=== PATIENT | female | born 1950 | race Caucasian/White ===

== ENCOUNTER 2016-06-29 15:13 | Emergency (ER) | payer OTHER ==
[~2016-06-29] VITALS: Ht 172.7 cm; Wt 100.2 kg
[~2016-06-29 15:13] MED LIST: ALBUTEROL0.09 MG/A1 INH; AMBIEN 10MG10 MG PO; AMIODARONE200 MG PO; ATIVAN 0.5MG T0.5 MG PO; CARAFATE1 GM/10 M1 PO; CARDIZEM 90 MG90 MG PO; CARDIZEM120 MG PO; CLONAZEPAM0.5 MG PO; CORDARONE 100M100 MG PO; COUMADIN 2.5 M2.5 MG PO; COUMADIN 5 MG TA5 MG PO; CYCLOBENZAPRINE5 M2 PO; DILAUDID2 M1 PO; DILTIAZEM HCL120 M2 PO; DILTIAZEM HCL240 MG PO; ELIQUIS5 M1 PO; GABAPENTIN TAB600 MG PO; LASIX20 MG PO; LOPERAMIDE2 MG PO; LOPRESSOR 25MG25 MG PO; MAGNESIUM250 MG PO; MIRAPEX0.125 MG PO; PANTOPRAZOLE SO40 M1 PO; POTASSIUM99 MG PO; PREDNISONE10 MG PO; PREDNISONE5 MG PO; PRINIVIL 5MG5 MG PO; SINGULAIR10 MG PO; TRAMADOL50 MG PO; VITAB121000 PO; VITAMIN A10000 IU PO; VITAMIN D35000 IU PO; XOPENEX HFA45 MCG INH; ZOLPIDEM5 MG PO
[2016-06-29 15:39] LABS: ABSOLUTE BASOPHIL COUNT 0 /CUMM (0.0-0.2); ABSOLUTE EOSINOPHIL COUNT 0 /CUMM (0.0-0.7); ABSOLUTE GRANULOCYTE CT 7.5 /CUMM (1.4-6.5); ABSOLUTE MONOCYTE COUNT 0.5 /CUMM (0.10-0.60); BASOPHIL % 0.2 % (0.0-2.0); EOSINOPHIL % 0.3 % (0-5); GRANULOCYTE % 82.2 % (42.2-75.2); HEMATOCRIT 35.5 % (37-47); MEAN CORPUSCULAR HGB 32.6 PG (27.0-31.0); MEAN CORPUSCULAR HGB CONC 33.2 G/DL (33.0-37.0); MEAN PLATELET VOLUME 7.7 FL (7.4-10.4); PLATELET COUNT 268 /CUMM (130-400); RBC DISTRIBUTION WIDTH 15.8 % (11.5-14.5); RED BLOOD CELL CT 3.63 /CUMM (4.20-5.40); WHITE BLOOD CELL COUNT 9.1 /CUMM (4.8-10.8)
[2016-06-29 15:45] LABS: PT 14.8 SEC (9.4-12.5); PTT 33 SEC (25-37)
--- NOTE | 2016-06-29 16:33 | ED DYSPNEA/ASTHMA COMPLAINT ---
History of Present Illness General Chief Complaint: Dyspnea (COPD, CHF, Other) Stated Complaint: SENT BY DR. BOUCHER FOR SOB,SWOLLEN ANKLES Source: patient Exam Limitations: no limitations Vital Signs & Intake/Output Vital Signs & Intake/Output Vital Signs Date Time Temp Pulse Resp B/P Pulse O2 O2 Flow FiO2 Ox Delivery Rate 06/29 1640 98 Room Air 06/29 1534 97.5 75 18 132/92 96 Room Air Allergies Coded Allergies: NSAIDS (Non-Steroidal Anti-Inflamma (PER PT HAS A SMALL AMOUNT OF INTESTINES FROM [facility] 08/25/15) morphine (N/V, CAN'T URINATE 08/25/15) tetracycline (UNKNOWN PER PT, HAS SHORTENED INTESTINES FROM [facility] 08/25/15) Uncoded Allergies: HORSE SERUM (Severe, ANAPHYLAXIS 01/27/16) ORAL ANTIBIOTIC (PT HAS SHORTENED INTESTINES FROM [facility] HARD TIME TOLERATING ) Reconcile Medications Apixaban (Eliquis) 5 MG TABLET 1 TAB PO BID BLOOD THINNER (Reported) Cyanocobalamin (Vitamin B-12) 1,000 MCG TAB 1 TAB PO DAILY SUPPLEMENT ( Reported) Cyclobenzaprine HCl 5 MG TABLET 1-2 TAB PO Q8 PRN muscle relaxant may cause drowsiness Gabapentin (Gabapentin Tab 600MG) 600 MG TAB 1 TAB PO DAILY RESTLESS LEGS ( Reported) Hydromorphone HCl (Dilaudid) 2 MG TABLET 1 TAB PO Q6H PRN pain Levalbuterol Tartrate (Xopenex HFA) 45 MCG AER 2 PUFF INH Q6H PRN ASTHMA ( Reported) Loperamide Hydrochloride (Loperamide) 2 MG TAB 1 TAB PO Q4H PRN DIARRHEA ( Reported) Lorazepam (Ativan 0.5MG Tab) 0.5 MG TAB 0.5 MG PO AT BEDTIME PRN restless leg syndrome Magnesium Oxide (Magnesium) (Unknown Strength) TAB 1 TAB PO DAILY SUPPLEMENT (Reported) Montelukast Sodium (Singulair) 10 MG TAB 1 TAB PO DAILY asthma (Reported) Pantoprazole Sodium 40 MG TABLET.DR 1 TAB PO BID GI (Reported) Pramipexole Dihydrochloride (Mirapex) 0.125 MG TAB 2-3 TAB PO QHS RESTLESS LEGS (Reported) Sucralfate (Carafate) (Unknown Strength) ORAL.SUSP (Unknown Dose) PO AD GI ( Reported) 1 hour before food and bedtime TRAMADOL HCL (Tramadol) 50 MG TAB 1 TAB PO TID PRN PAIN (Reported) Vitamin A 10,000 IU SGL 1 SGL PO DAILY SUPPLEMENT (Reported) Zolpidem Tartrate 5 MG TAB 1 TAB PO QPM SLEEP (Reported) Triage Note: 65 Y/O FEMALE SENT BY DR BOUCHER FOR EVAL OF SOB AND SWOLLEN ANKLES. PT STATES SHE HAS BEEN TAKING BUMEX AND DIRECTED BUT SWELLING PERSISTS. FEELS SOB AT REST, SPEAKING CLEARLY WITHOUT DISTRESS NOTED. SAT 96%. PT STATES SHE IS UNABLE TO TALK WITHOUT FEELING SOB. DENIES C/P. EKG AND BLOODWORK COMPLETED IN TRIAGE Triage Nurses Notes Reviewed? yes Onset: Gradual Duration: week(s): (2) Timing: recent history Severity: moderate Activities at Onset: none Prior Episodes/Possible Cause: occasional episodes Modifying Factors: Improves With: immobilization. Worsens With: movement. HPI: Patient is a 65-year-old female presenting to the emergency department chief complaining of worsening lower showman edema, shortness of breath thing getting worse over the past 2 weeks. Symptoms worse with exertion. Denies chest pain palpitations. History of A. fib with cardio ablation that was done 6 months ago. She called her filter tip catcher's in the office told her to come to the emergency department for evaluation. Denies any nausea or vomiting fevers or chills. She reports that she hadn't several episodes of loose stool yesterday. She held back from taking her diuretic over the past 2 days because of the diarrhea. No blood in the stool. Denies vomiting. Able to tolerate by mouth. (YOHANA GERBER,JUAN JOSE) Past History Travel History Traveled to [place] past 21 day No Medical History Any Pertinent Medical History? see below for history Neurological: RESTLESS LEGS EENT: NONE Cardiovascular: hypertension, recent embolus to her hand Respiratory: asthma Gastrointestinal: Crohn's disease, COLON RESECTION Colonoscopy 09/17 with balloon dilation of an anastomotic stricture and 'digital' dilation of an anal stricture , but no acitve crohns disease was appreciated Hepatic: NONE Renal: NONE Musculoskeletal: NONE Psychiatric: NONE Endocrine: NONE Blood Disorders: NONE Cancer(s): NONE ELECTRICIAN'S ASSISTANT/Reproductive: NONE History of MRSA: No History of VRE: No History of CDIFF: No Tetanus Vaccine: 01/21/16 Surgical History Surgical History: colon resection (for Crohn's disease) Psychosocial History Who do you live with Spouse Services at Home None What is your primary language [place] Tobacco Use: Never used Family History Family History, If Any: BROTHER FATHER (cardiomyopathy). Relation not specified for: FH: HTN (hypertension) Hx Contributory? No (JUAN JOSE BAEZ) Review of Systems Review of Systems Constitutional: Reports: no symptoms. Comments Review of systems: See HPI, All other systems negative. Constitutional, no chills fever or weight loss HEENT: No visual changes no sore throat no congestion Cardiovascular: No chest pain ,palpitation , orthopnea Skin, no jaundice no rashes Respiratory: No cough sputum or hemoptysis GI: No nausea no vomiting : No dysuria No hematuria Muscle skeletal: no back pain, no neck pain, Neurologic: No numbness no confusion Psych: No stress anxiety or depression,. Heme/endocrine: No bruising no bleeding no polyuria or polydipsia Immunology: No splenectomy or history of AIDS (JUAN JOSE BAEZ) Physical Exam Physical Exam General Appearance: well developed/nourished, no apparent distress, alert, awake , comfortable Respiratory: no respiratory distress Comments: Well-developed well-nourished person in no acute distress HEENT: . Pupils equally round and reactive to light and accommodation. Nose is atraumatic. External auditory canal and Tympanic membranes clear. Pharynx normal. No swelling or edema. Neck: Supple, no lymphadenopathy, normal range of motion without pain or tenderness Back: Nontender Cardiovascular: Regular rate and rhythms no murmurs rubs or gallops, normal JVP Respiratory: Chest nontender. No respiratory distress.breath sounds slightly diminished to auscultation bilaterally Extremity: 3+ pitting edema noted over the dorsum of both feet extending in the pretibial area, no calf tenderness bilaterally. Pedal pulses are 1+ bilaterally. Cap refill intact in lower extremity bilaterally. Neuro: Alert oriented x3 Skin: No appreciable rash on exposed skin, skin is warm and dry. Psych: Mood and affect is normal, memory and judgment is normal. Core Measures ACS in differential dx? No Severe Sepsis Present: No Septic Shock Present: No (JUAN JOSE BAEZ) Progress Differential Diagnosis: asthma, bronchitis, CHF, COPD, pneumonia Plan of Care: Orders Procedure Date/time Status Add-on Test (ER Only) 06/29 1631 Active B-TYPE NATRIURETIC PEP (BNP) 06/29 1530 Complete TROPONIN LEVEL 06/29 1515 Complete PARTIAL THROMBOPLASTIN TIME 06/29 1515 Complete PROTHROMBIN TIME 06/29 1515 Complete MAGNESIUM 06/29 1515 Complete COMPREHENSIVE METABOLIC PANEL 06/29 1515 Complete CBC WITHOUT DIFFERENTIAL 06/29 1515 Complete EKG 06/29 1514 Active Laboratory Tests 06/29/16 1530: Anion Gap 11, Estimated GFR > 60, BUN/Creatinine Ratio 17.8, Glucose 95, Calcium 9.8, Magnesium 1.6, Total Bilirubin 1.0, AST 49 H, ALT 42, Alkaline Phosphatase 83, Troponin I < 0.01, Wnd-D-Yeojxuxejvm Pept 359 H, Total Protein 7.9, Albumin 4.4, Globulin 3.5, Albumin/Globulin Ratio 1.3, PT 14.8 H, INR 1.41 H, APTT 33, CBC w Diff NO MAN DIFF REQ, RBC 3.63 L, MCV 98.0, MCH 32.6 H, RDW 15.8 H, MPV 7.7, Gran % 82.2 H, Lymphocytes % 11.4 L, Monocytes % 5.9, Eosinophils % 0.3, Basophils % 0.2, Absolute Granulocytes 7.5 H, Absolute Lymphocytes 1.0 L, Absolute Monocytes 0.5, Absolute Eosinophils 0, Absolute Basophils 0, PUBS MCHC 33.2 Diagnostic Imaging: Viewed by Me: Radiology Read. Discussed w/RAD: Radiology Read. Radiology Impression: PATIENT: SONIA DARNELL PRESENT AGE: 65 PATIENT ACCOUNT NO: [id number] : 49 LOCATION: [facility] ORDERING PHYSICIAN: JON CHRIS MD SERVICE DATE: 06/29/16 EXAM TYPE: RAD - XRY- CHEST XRAY, PA AND LATERAL EXAMINATION: XR CHEST CLINICAL INFORMATION: Shortness of breath. COMPARISON: Chest x-ray from 08/22/2015 TECHNIQUE: PA and lateral views of the chest were obtained. FINDINGS: There is stable cardiomegaly. The thoracic aorta is unfolded. There is no evidence of pulmonary edema, consolidation, pleural effusion, or pneumothorax. Minor platelike opacity in the left midlung may reflect vascular structures, atelectasis, or scar. There is mild multilevel degenerative change of the spine without evidence of acute osseous abnormality. IMPRESSION: Stable cardiomegaly without evidence of superimposed acute abnormality. Initial ED EKG: NSR (69 BPM) Comments: Outpatient no acute distress, oxygen saturation within normal range. A oxygen saturation remains between 96-97%. Patient was given 1 dose of Bumex here in the emergency department for pedal edema. No signs of acute CHF on chest x-ray. BNP is within normal range. Spoke with Dr. Decker covering for Dr. Boucher. Recommending she follow up outpatient with Dr. Boucher. Patient was seen and evaluated by Dr. Chris. Patient cleared for discharge. (JUAN JOSE BAEZ) Departure Departure Time of Disposition: 1839 Disposition: HOME OR SELF CARE Condition: Stable Clinical Impression Primary Impression: Dyspnea Qualifiers: Dyspnea type: unspecified Qualified Code: R06.00 - Dyspnea, unspecified Secondary Impressions: Leg edema Qualifiers: Laterality: bilateral Qualified Code: R60.0 - Localized edema Referrals: TRINA POE MD (PCP/Family) Additional Instructions: Follow-up with Dr. Tesfaye, CALL TO make an appointment. Continue Bumex as prescribed. Return for worsening symptoms or concerns. Departure Forms: Customer Survey General Discharge Information (JUAN JOSE BAEZ) PA/NONFARM ANIMAL CARETAKER Co-Sign Statement Statement: ED Attending supervision documentation- x I saw and evaluated the patient. I have also reviewed all the pertinent lab results and diagnostic results. I agree with the findings and the plan of care as documented in the PA's/NONFARM ANIMAL CARETAKER's documentation. [] I have reviewed the ED Record and agree with the PA's/NONFARM ANIMAL CARETAKER's documentation. [] Additions or exceptions (if any) to the PAs/NONFARM ANIMAL CARETAKER's note and plan are summarized below: [] (JON CHRIS MD) Critical Care Note Critical Care Note Critical Care Time: non-applicable (JUAN JOSE BAEZ)
[2016-06-29 19:15] VITALS: BP 151/91
== END 2016-06-29 19:20 ==
LOC: ERH 15:13
PROVIDERS: Emergency Medicine
DX: R06.00 Dyspnea, unspecified (principal); R60.0 Localized edema; I10 Essential (primary) hypertension
CPT/HCPCS: 93005; 93010

== ENCOUNTER 2017-05-31 19:08 | Inpatient (IN) | payer OTHER ==
[~2017-05-31] VITALS: Ht 172.7 cm; Wt 94.8 kg
[~2017-05-31 19:08] MED LIST changes: +AVELOX400 M1 PO; +BACTRIM DS TAB1 EACH PO; +GABAPENTIN600 M1 PO; -MAGNESIUM250 MG PO; +MAGNESIUM400 M1 PO; +MIRAPEX0.25 M1 PO
--- NOTE | 2017-05-31 19:53 | ED DYSPNEA/ASTHMA COMPLAINT ---
History of Present Illness General Chief Complaint: General Adult Stated Complaint: SAYS LUNGS ARE INFECTED,AND A BLEED Source: patient, family, old records Exam Limitations: no limitations Vital Signs & Intake/Output Vital Signs & Intake/Output Vital Signs Date Time Temp Pulse Resp B/P B/P Pulse O2 O2 Flow FiO2 Mean Ox Delivery Rate 05/31 2220 96.7 114 20 142/82 93 Venti Mask 6.0L 05/31 2116 94 Venti Mask 6.0L 05/31 2005 89 Nasal 4.0L Cannula 05/31 1913 99.8 107 28 169/75 87 Room Air Allergies Coded Allergies: NSAIDS (Non-Steroidal Anti-Inflamma (PER PT HAS A SMALL AMOUNT OF INTESTINES FROM [facility] 08/25/15) morphine (N/V, CAN'T URINATE 08/25/15) tetracycline (UNKNOWN PER PT, HAS SHORTENED INTESTINES FROM [facility] 08/25/15) Uncoded Allergies: HORSE SERUM (Severe, ANAPHYLAXIS 01/27/16) ORAL ANTIBIOTIC (PT HAS SHORTENED INTESTINES FROM [facility] HARD TIME TOLERATING ) Reconcile Medications Apixaban (Eliquis) 5 MG TABLET 1 TAB PO BID BLOOD THINNER (Reported) Clonazepam 0.5 MG TABLET 1 TAB PO TIDPRN MENTAL HEALTH (Reported) Cyanocobalamin (Vitamin B-12) 1,000 MCG TAB 1 TAB PO DAILY SUPPLEMENT ( Reported) Cyclobenzaprine HCl 5 MG TABLET 1-2 TAB PO Q8 PRN muscle relaxant may cause drowsiness Diltiazem HCl 120 MG TABLET HEART HEALTH (Reported) Gabapentin (Gabapentin Tab 600MG) 600 MG TAB 1 TAB PO DAILY RESTLESS LEGS ( Reported) Gabapentin 600 MG TABLET 1 TAB PO AT BEDTIME RLS Hydromorphone HCl (Dilaudid) 2 MG TABLET 1 TAB PO Q6H PRN pain Levalbuterol Tartrate (Xopenex HFA) 45 MCG AER 2 PUFF INH Q6H PRN ASTHMA ( Reported) Levalbuterol Tartrate (Xopenex Hfa) 45 MCG/ACTUATION HFA.AER.AD 2 PUF INH Q4-6 PRN PRN SHORTNESS OF BREATH (Reported) Lisinopril 10 MG TABLET 1 TAB PO DAILY HIGH BLOOD PRESSURE (Reported) Loperamide Hydrochloride (Loperamide) 2 MG TAB 1 TAB PO Q4H PRN DIARRHEA ( Reported) Lorazepam (Ativan 0.5MG Tab) 0.5 MG TAB 0.5 MG PO AT BEDTIME PRN restless leg syndrome Magnesium Oxide (Magnesium) (Unknown Strength) TAB 1 TAB PO DAILY SUPPLEMENT (Reported) Montelukast Sodium (Singulair) 10 MG TAB 1 TAB PO DAILY asthma (Reported) Montelukast Sodium 10 MG TABLET 1 TAB PO DAILY BREATHING PROBLEMS (Reported) Moxifloxacin HCl (Avelox) 400 MG TABLET 1 TAB PO DAILY PNEUMONIA Pantoprazole Sodium 40 MG TABLET.DR 1 TAB PO BID GI (Reported) Pramipexole Di-HCl (Mirapex) 0.25 MG TABLET 1 TAB PO QPM RLS Pramipexole Dihydrochloride (Mirapex) 0.125 MG TAB 2-3 TAB PO QHS RESTLESS LEGS (Reported) Prednisone 5 MG TABLET 1 TAB PO DAILY BREATHING PROBLEMS (Reported) Sucralfate (Carafate) (Unknown Strength) ORAL.SUSP (Unknown Dose) PO AD GI ( Reported) 1 hour before food and bedtime Sulfamethoxazole/Trimethoprim (Bactrim Ds Tablet) 800 MG-160 MG TABLET 1 TAB PO BID BRONCHITIS TRAMADOL HCL (Tramadol) 50 MG TAB 1 TAB PO TID PRN PAIN (Reported) Tramadol HCl 50 MG TABLET 1 TAB PO TIDPRN PAIN CONTROL (Reported) Vitamin A 10,000 IU SGL 1 SGL PO DAILY SUPPLEMENT (Reported) Zolpidem Tartrate 5 MG TAB 1 TAB PO QPM SLEEP (Reported) Zolpidem Tartrate 10 MG TABLET 1 TAB PO QPMP SLEEPINESS (Reported) Triage Note: PT TO ED C/O SOB FOR 10 DAYS. STATES WAS UNABLE TO GET AN APPOINTMENT TO SEE DR JACOBO "BUT I DEMANDED THAT HE SEND A SPUTUM SAMPLE WHICH HE DID" PT WITH 3 WORD DYSNEA AND VERY CONGESTED COUGH NOTED. O2 SAT 88% ON RA. PLACED ON NC 4L/MIN, O2 SAT TO 92%. PT ALSO C/O BLOOD ON TP WHEN SHE WIPES. PMH OF SAME. "I PUT A SUPPOSITORY IN THERE, THAT'S USUALLY WHAT IT TAKES" PT DENIES PAIN. PMH OF AFIB "I'M NOT USUALLY IN AFIB" HR SLIGHTLY IRREGULAR ON AUSCULTATION, RATE 107. Triage Nurses Notes Reviewed? yes HPI: Patient presents with increasing shortness of breath, productive cough and dyspnea on exertion. Patient denies any chest pain or chest tightness. There are no fevers or chills. There is no orthopnea. There is anorexia but there is no nausea or vomiting. Patient is chronically on steroids at 7.5 mg daily. 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 With past 2 days patient has also noticed bright red Blood on the toilet paper when she wipes after bowel movements. She has not noticed any blood in the clinical or in the stool. Past History Travel History Traveled to [place] past 21 day No Medical History Any Pertinent Medical History? see below for history Neurological: RESTLESS LEGS EENT: NONE Cardiovascular: hypertension, recent embolus to her hand Respiratory: asthma, BRONCHIOLITIS Gastrointestinal: Crohn's disease, COLON RESECTION Colonoscopy 09/17 with balloon dilation of an anastomotic stricture and 'digital' dilation of an anal stricture , but no acitve crohns disease was appreciated Hepatic: NONE Renal: NONE Musculoskeletal: NONE Psychiatric: NONE Endocrine: NONE Blood Disorders: NONE Cancer(s): NONE RESOURCE ENGINEER/Reproductive: NONE History of MRSA: No History of VRE: No History of CDIFF: No Tetanus Vaccine: 01/21/16 Surgical History Surgical History: colon resection (for Crohn's disease) Psychosocial History Who do you live with Spouse Services at Home None What is your primary language Kazakh Tobacco Use: Never used ETOH Use: denies use Illicit Drug Use: denies illicit drug use Family History Family History, If Any: BROTHER FATHER (cardiomyopathy). Relation not specified for: FH: HTN (hypertension) Hx Contributory? No Review of Systems Review of Systems Constitutional: Reports: no symptoms. EENTM: Reports: no symptoms. Respiratory: Reports: see HPI, cough. Cardiovascular: Reports: no symptoms. GI: Reports: no symptoms. Genitourinary: Reports: no symptoms. Musculoskeletal: Reports: no symptoms. Skin: Reports: no symptoms. Neurological/Psychological: Reports: no symptoms. Hematologic/Endocrine: Reports: no symptoms. Immunologic/Allergic: Reports: no symptoms. All Other Systems: Reviewed and Negative Physical Exam Physical Exam General Appearance: well developed/nourished, alert, awake, anxious, moderate distress Head: atraumatic, normal appearance Eyes: Bilateral: PERRL, EOMI. Ears, Nose, Throat: normal pharynx, normal ENT inspection, hearing grossly normal Neck: normal inspection, supple, full range of motion, NO JVD Respiratory: decreased breath sounds, rhonchi, wheezing, respiratory distress Cardiovascular: normal peripheral pulses, tachycardia Gastrointestinal: normal bowel sounds, soft, non-tender, no organomegaly Extremities: normal inspection, normal capillary refill, normal range of motion, no edema Neurologic/Psych: no motor/sensory deficits, awake, alert, oriented x 3, normal mood/affect Skin: intact, normal color, warm/dry Lymphatic: no anterior cervical jesus Core Measures ACS in differential dx? No CVA/TIA Diagnosis No Sepsis Present: No Sepsis Focused Exam Completed? No Progress Differential Diagnosis: bronchitis, COPD, pericarditis, pulmonary embolism, pneumonia, pneumothorax Plan of Care: Orders Procedure Date/time Status Heart Healthy Diet 06/01 B Active ED Holding Orders 05/31 2245 Active Admit to inpatient 05/31 2245 Active Vital Signs 05/31 2245 Active Code Status 05/31 2245 Active BLOOD CULTURE 05/31 1953 Active TROPONIN LEVEL 05/31 1953 Complete COMPREHENSIVE METABOLIC PANEL 05/31 1953 Complete CBC WITHOUT DIFFERENTIAL 05/31 1953 Complete EKG 05/31 193 Active Current Medications Sig/Bassem Start time Last Medication Dose Stop Time Status Admin Azithromycin 500 MG ONCE ONE 05/31 2245 AC (Zithromax) 05/31 2344 Sodium Chloride 250 ML (Normal Saline 0.9%) Laboratory Tests 05/31/17 2100: Anion Gap 15, Estimated GFR > 60, BUN/Creatinine Ratio 15.0, Glucose 97, Calcium 9.5, Total Bilirubin 0.4, AST 49 H, ALT 39, Alkaline Phosphatase 73, Troponin I 0.07, Total Protein 8.2, Albumin 4.5, Globulin 3.7, Albumin/Globulin Ratio 1.2, CBC w Diff NO MAN DIFF REQ, RBC 4.46, MCV 93.1, MCH 30.0, RDW 28.7 H, MPV 7.9, Gran % 80.3 H, Lymphocytes % 13.1 L, Monocytes % 5.6, Eosinophils % 0.7, Basophils % 0.3, Absolute Granulocytes 7.9 H, Absolute Lymphocytes 1.3, Absolute Monocytes 0.6, Absolute Eosinophils 0.1, Absolute Basophils 0, PUBS MCHC 32.2 L Microbiology 05/31 2145 BLOOD: Blood Culture - RECD 05/31 2045 BLOOD: Blood Culture - RECD Diagnostic Imaging: Viewed by Me: Radiology Read. Discussed w/RAD: Radiology Read. CXR Impression: PATIENT: SONIA DARNELL PRESENT AGE: 66 PATIENT ACCOUNT NO: [id number] : 49 LOCATION: [facility] ORDERING PHYSICIAN: Kolby Oden MD SERVICE DATE: 05/31/17 EXAM TYPE: RAD - XRY-CHEST XRAY, PA AND LATERAL EXAMINATION: XR CHEST, 2 VIEWS CLINICAL INFORMATION: Cough. Pneumonia. COMPARISON: Chest radiograph dated 06/29/[address] dated 2016. TECHNIQUE: PA and lateral views of the chest were obtained. FINDINGS: Cardiac silhouette remains enlarged. There is pulmonary venous congestion and linear opacities in the left midlung likely correspond to atelectasis or scarring. New patchy opacities are present within the right upper lobe, potentially due to an pneumonia. Opacification in the medial aspect of the right middle lobe on the prior CT is not well identified radiographically. No pneumothorax or pleural effusion. Superior endplate compression deformities in the lower thoracic spine are again noted. No new fractures are identified. Bones are osteopenic. IMPRESSION: 1. New patchy opacities in the right upper lobe, concerning for pneumonia. 2. Cardiomegaly and pulmonary venous congestion. 3. The opacity in the right middle lobe seen on prior is not apparent radiographically, and should be followed by CT is recommended at that time. Please check with the patient to be certain that this was followed at an outside institution or is scheduled to be followed. DICTATED BY: Giovanny Charles MD DATE/ TIME DICTATED:05/31/172221 SENIOR DATA WAREHOUSE DEVELOPER:DEEPTHI DATE/TIME TRANSCRIBED: 05/31/172221 CONFIDENTIAL, DO NOT COPY WITHOUT APPROPRIATE AUTHORIZATION. < Electronically signed in Other Vendor System> SIGNED BY: Giovanny Charles MD 05/31/172231 Initial ED EKG: S TACH AT 106, PVC, NSSTT CHANGES, NO CHANGE FROM PRIOR Prior EKG: unchanged Departure Departure Disposition: STILL A PATIENT Condition: Guarded Clinical Impression Primary Impression: Pneumonia Qualifiers: Pneumonia type: due to unspecified organism Laterality: right Lung location: upper lobe of lung Qualified Code: J18.1 - Lobar pneumonia, unspecified organism Referrals: Ari Ramsey MD (PCP/Family) Departure Forms: Customer Survey General Discharge Information Admission Note Spoke With: Lashell Sandra MD Documentation of Exam: Documentation of any treatments & extenuating circumstances including Concerns Regarding Discharge (functional status, medication knowledge or non-compliance, living conditions, etc.) that warrant an admission rather than observation: [IV ABX, IV STEROIDS, PULM CONSULT, OXYGEN, RESP TREATMENT, NOT ON HOME O2 BUT REQUIRING O2 CURRENTLY] Critical Care Note Critical Care Note Critical Care Time: non-applicable
[2017-05-31 21:17] LABS: ABSOLUTE BASOPHIL COUNT 0 /CUMM (0.0-0.2); ABSOLUTE EOSINOPHIL COUNT 0.1 /CUMM (0.0-0.7); ABSOLUTE GRANULOCYTE CT 7.9 /CUMM (1.4-6.5); ABSOLUTE LYMPH COUNT 1.3 /CUMM (1.2-3.4); ABSOLUTE MONOCYTE COUNT 0.6 /CUMM (0.10-0.60); BASOPHIL % 0.3 % (0.0-2.0); EOSINOPHIL % 0.7 % (0-5); GRANULOCYTE % 80.3 % (42.2-75.2); HEMATOCRIT 41.5 % (37-47); MEAN CORPUSCULAR HGB CONC 32.2 G/DL (33.0-37.0); MEAN CORPUSCULAR VOLUME 93.1 FL (81.0-99.0); MEAN PLATELET VOLUME 7.9 FL (7.4-10.4); PLATELET COUNT 278 /CUMM (130-400); RBC DISTRIBUTION WIDTH 28.7 % (11.5-14.5); RED BLOOD CELL CT 4.46 /CUMM (4.20-5.40); WHITE BLOOD CELL COUNT 9.9 /CUMM (4.8-10.8)
[2017-05-31] MEDS ORDERED: DILTIAZEM HCL120 M3 (21:19)
[2017-05-31] MEDS ORDERED: TRAMADOL HCL50 M1 PO (21:20)
[2017-05-31] MEDS ORDERED: PREDNISONE5 M1 PO (21:20)
[2017-05-31] MEDS ORDERED: ZOLPIDEM TARTRA10 M1 PO (21:21)
[2017-05-31] MEDS ORDERED: XOPENEX HFA15 GM INH (21:21)
[2017-05-31] MEDS ORDERED: MONTELUKAST SOD10 M1 PO (21:21)
[2017-05-31] MEDS ORDERED: CLONAZEPAM0.5 M2 PO (21:21)
[2017-05-31] MEDS ORDERED: LISINOPRIL10 M1 PO (21:22)
--- NOTE | 2017-05-31 22:32 | RADIOLOGY REPORT ---
EXAMINATION: XR CHEST, 2 VIEWS CLINICAL INFORMATION: Cough. Pneumonia. COMPARISON: Chest radiograph dated 06/29/[address] dated 02/24/2017. TECHNIQUE: PA and lateral views of the chest were obtained. FINDINGS: Cardiac silhouette remains enlarged. There is pulmonary venous congestion and linear opacities in the left midlung likely correspond to atelectasis or scarring. New patchy opacities are present within the right upper lobe, potentially due to an pneumonia. Opacification in the medial aspect of the right middle lobe on the prior CT is not well identified radiographically. No pneumothorax or pleural effusion. Superior endplate compression deformities in the lower thoracic spine are again noted. No new fractures are identified. Bones are osteopenic. IMPRESSION: 1. New patchy opacities in the right upper lobe, concerning for pneumonia. 2. Cardiomegaly and pulmonary venous congestion. 3. The opacity in the right middle lobe seen on prior is not apparent radiographically, and should be followed by CT is recommended at that time. Please check with the patient to be certain that this was followed at an outside institution or is scheduled to be followed.
--- NOTE | 2017-06-01 01:13 | History & Physical ---
Letitia Madrid MD,[facility] 06/01/17 0106: General Information and HPI MD Statement: I have seen and personally examined SONIA DARNELL and documented this H&P. The patient is a 66 year old F who presented with a patient stated chief complaint of dyspnea and cough. Source of Information: patient History of Present Illness: Patient is a 65 year old female with PMH of A.fib (follows Silverio Gomez MD, on eliquise, history of emboly to the hand, s/p ablation 2.[address] 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 She noted that for the last 2 weeks she had gradual increase in shortness of breathing and cough with yellow sputum which changed to brown collarless with him in the last few days. She also reported decreased appetite and sharp chest pain with cough, PND. She also reported loose stools which is no change compared to her baseline (she has history of Crohn's disease) but no abdominal pain or nausea or vomiting. She visited walking clinic last week with no improvement and with worsening of the symptoms she decided to come to ED. She reported no history of smoking, alcohol intake, drugs. She lives with and is pretty much independent in activities of daily life, but avoids outside of the house for long periods due to Crohn disease. Father was a surgeon at [employer] in remote years and had several heart attacks; mom suffered from cardiomyopathy. She didn't have flu shot as she is allergic to egg. Allergies/Medications Allergies: Coded Allergies: NSAIDS (Non-Steroidal Anti-Inflamma (PER PT HAS A SMALL AMOUNT OF INTESTINES FROM [facility] 08/25/15) morphine (N/V, CAN'T URINATE 08/25/15) tetracycline (UNKNOWN PER PT, HAS SHORTENED INTESTINES FROM [facility] 08/25/15) Uncoded Allergies: HORSE SERUM (Severe, ANAPHYLAXIS 01/27/16) ORAL ANTIBIOTIC (PT HAS SHORTENED INTESTINES FROM [facility] HARD TIME TOLERATING ) Home Med list Apixaban (Eliquis) 5 MG TABLET 1 TAB PO BID BLOOD THINNER (Reported) Clonazepam 0.5 MG TABLET 1 TAB PO TIDPRN MENTAL HEALTH (Reported) Diltiazem HCl 120 MG TABLET HEART HEALTH (Reported) Gabapentin 600 MG TABLET 1 TAB PO AT BEDTIME RLS Hydromorphone HCl (Dilaudid) 2 MG TABLET 1 TAB PO Q6H PRN pain Levalbuterol Tartrate (Xopenex HFA) 45 MCG AER 2 PUFF INH Q6H PRN ASTHMA ( Reported) Levalbuterol Tartrate (Xopenex Hfa) 45 MCG/ACTUATION HFA.AER.AD 2 PUF INH Q4-6 PRN PRN SHORTNESS OF BREATH (Reported) Lisinopril 10 MG TABLET 1 TAB PO DAILY HIGH BLOOD PRESSURE (Reported) Loperamide Hydrochloride (Loperamide) 2 MG TAB 1 TAB PO Q4H PRN DIARRHEA ( Reported) Magnesium Oxide (Magnesium) 400 MG CAPSULE 400 MG PO BID MAG (Reported) Montelukast Sodium (Singulair) 10 MG TAB 1 TAB PO DAILY asthma (Reported) Pantoprazole Sodium 40 MG TABLET.DR 1 TAB PO BID GI (Reported) Pramipexole Dihydrochloride (Mirapex) 0.125 MG TAB 2-3 TAB PO QHS RESTLESS LEGS (Reported) Prednisone 5 MG TABLET 1 TAB PO DAILY BREATHING PROBLEMS (Reported) Sucralfate (Carafate) (Unknown Strength) ORAL.SUSP (Unknown Dose) PO AD GI ( Reported) 1 hour before food and bedtime Tramadol HCl 50 MG TABLET 1 TAB PO BIDP PRN pain (Reported) Vitamin A 10,000 IU SGL 1 SGL PO DAILY SUPPLEMENT (Reported) Zolpidem Tartrate 10 MG TABLET 0.5 TAB PO QPMP SLEEPINESS (Reported) Past History Travel History Traveled to [place] past 21 day No Medical History Neurological: RESTLESS LEGS EENT: NONE Cardiovascular: hypertension, recent embolus to her hand Respiratory: asthma, BRONCHIOLITIS Gastrointestinal: Crohn's disease, COLON RESECTION Colonoscopy 09/17 with balloon dilation of an anastomotic stricture and 'digital' dilation of an anal stricture , but no acitve crohns disease was appreciated Hepatic: NONE Renal: NONE Musculoskeletal: NONE Psychiatric: NONE Endocrine: NONE Blood Disorders: NONE Cancer(s): NONE 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 Relation not specified for: FH: HTN (hypertension) Psychosocial History Who Do You Live With? spouse Services at Home: None Primary Language: Tongan ETOH Use: denies use Illicit Drug Use: denies illicit drug use Functional Ability ADLs Independent: dressing, eating, toileting, bathing. Ambulation: independent IADLs Independent: shopping, housework, finances, food prep, telephone, transportation , medication admin. Review of Systems Review of Systems Constitutional: Reports: see HPI. Exam & Diagnostic Data Last 24 Hrs of Vital Signs/I&O Vital Signs Date Time Temp Pulse Resp B/P B/P Pulse O2 O2 Flow FiO2 Mean Ox Delivery Rate 06/01 0656 98.8 104 22 152/90 93 Venti Mask 06/01 0616 95 142/86 06/01 0318 92 Venti Mask 35% 06/01 0300 98.2 101 22 158/98 93 Venti Mask 06/01 0226 99.5 104 20 136/101 97 Venti Mask 6.0L 06/01 0203 110 20 05/31 2220 96.7 114 20 142/82 93 Venti Mask 6.0L 05/31 2116 94 Venti Mask 6.0L 05/31 2005 89 Nasal 4.0L Cannula 05/31 1913 99.8 107 28 169/75 87 Room Air Intake & Output 06/01 0800 06/01 0000 05/31 1600 Intake Total 1180 Output Total 200 Balance 980 Intake, IV 700 Intake, Oral 480 Number 1 Bowel Movements Output, Urine 200 Patient 210 lb 210 lb Weight Weight Reported by Patient Reported by Patient Measurement Method Physical Exam General Appearance Alert, Oriented X3, Cooperative, Mild Distress Skin No Significant Lesion Skin Temp/Moisture Exam: Warm/Dry Sepsis Skin Exam (color): Normal for Ethnicity HEENT Atraumatic, EOMI, Mucous Membr. moist/pink Cardiovascular Normal S1, Normal S2 Lungs bilateral wheezing Abdomen Soft, No Tenderness Neurological Normal Speech, Strength at 5/5 X4 Ext, Sensation Intact Extremities + 1 edema in bilateral LE Last 24 Hrs of Labs/Mitchel: Laboratory Tests 06/01/17 0658: Sodium Pending, Potassium Pending, Chloride Pending, Carbon Dioxide Pending, Anion Gap Pending, BUN Pending, Creatinine Pending, BUN/Creatinine Ratio Pending , CBC w Diff Pending, WBC Pending, RBC Pending, Hgb Pending, Hct Pending, MCV Pending, MCH Pending, RDW Pending, Plt Count Pending, MPV Pending, PUBS MCHC Pending 05/31/17 2100: Anion Gap 15, Estimated GFR > 60, BUN/Creatinine Ratio 15.0, Glucose 97, Calcium 9.5, Total Bilirubin 0.4, AST 49 H, ALT 39, Alkaline Phosphatase 73, Troponin I 0.07, Mgq-V-Kxrefndfpbt Pept 475 H, Total Protein 8.2, Albumin 4.5, Globulin 3.7, Albumin/Globulin Ratio 1.2, CBC w Diff NO MAN DIFF REQ, RBC 4.46, MCV 93.1, MCH 30.0, RDW 28.7 H, MPV 7.9, Gran % 80.3 H, Lymphocytes % 13.1 L, Monocytes % 5.6, Eosinophils % 0.7, Basophils % 0.3, Absolute Granulocytes 7.9 H, Absolute Lymphocytes 1.3, Absolute Monocytes 0.6, Absolute Eosinophils 0.1, Absolute Basophils 0, PUBS MCHC 32.2 L Microbiology 06/01 0410 LOWER RESP: Respiratory Culture - RECD 06/01 0410 LOWER RESP: Gram Stain - RECD 06/01 0114 NASOPHARYN: Influenza Virus A & B Rapid Smear - COMP 05/31 2145 BLOOD: Blood Culture - RECD 05/31 2045 BLOOD: Blood Culture - RECD Assessment/Plan Assessment: Patient is a 65 year old female presented to the ED with chief complaint of shortness of breathing and cough. PMH: A.fib (on eliquise, history of emboly to the hand), hypertension, crohn's disease (status post colon resection), asthma/BOOP on prednisone and restless leg syndrome VS, Ph Ex at admission: Tmax 99.8, blood pressure 142/82, respiratory rate 28, pulse rate 107 Labs at admission: C BC insignificant, WBC 9.9, BEP: Bicarbonate 20, AST 49, proBNP 475 Imagings at admission: Chest x-ray: 1. New patchy opacities in the right upper lobe, concerning for pneumonia. 2. Cardiomegaly and pulmonary venous congestion. 3. The opacity in the right middle lobe seen on prior is not apparent radiographically, and should be followed by CT is recommended at that time. Patient was admitted to telemetry floor for management of following conditions: Acute hypoxic respiratory failure multifactorial: Pneumonia/bronchitis/ BOOP/ questionable CHF Patient reported to have history of bronchitis and BOOP, in the other had proBNP was 475 suggesting possible CHF. Chest x-ray there was a new opacity suggesting pneumonia. We will admit patient to telemetry floor and rule out ACS. -Admit patient to telemetry floor -O2 supplement -Monitor vitals/I/O -IV ceftriaxone and azithromycin -Hamilton cultures -IV Solu-Medrol -Nebs -Pulmonology consult, Dr Galindo Rule out ACS -We will get serial EKGs and troponins to rule out ACS -Serial EKG and troponins Chronic medical conditions: A. fib, restless leg syndrome, insomnia, Crohn At the time of interview patient was in sinus rhythm, we will continue Eliquise -Continue home medication DVT prophylaxis, ALP S, Eliquis DN I Heart healthy diet As Ranked By This Provider Problem List: 1. Respiratory distress Core Measures/Misc (02/20) Acute Coronary Syndrome ACS Diagnosis: No Congestive Heart Failure Congestive Heart Failure Diagnosis Yes Cerebrovascular Accident CVA/TIA Diagnosis: No VTE (View Protocol) VTE Risk Factors Age>40 No Mechanical VTE Prophylaxis d/t N/A MechProphylax Ordered No VTE Pharm Prophylaxis d/t NA PharmProphylax ordered Sepsis (View protocol) Sepsis Present: No Yoly Lamar MD 06/01/17 0120: General Information and HPI MD Statement: I have seen and personally examined SONIA DARNELL and documented this H&P. The patient is a 66 year old F who presented with a patient stated chief complaint of []. Resident Review Statement Resident Statement: examined this patient, discussed with dental intern, agreed with dental intern, discussed with family, reviewed EMR data (avail) Other Findings: Patient is a 66 YO F with PMH significant for A. fib on Eliquis status post ablation by Dr. paige 2 years ago, asthma/BOOP, Crohn's disease (status post resection), colonoscopy with stricture dilatation in 2013, insomnia presented to [facility] with progressive worsening of shortness of breath along with bouts of cough for the past 10 days. She did have a significant nonproductive cough initially and then transition to greenish phlegm for by bethany colored phlegm. She did have waxing and waning episodes for the past 2 weeks. She denies any fever however had anorexia and shortness of breath with exertion. She did have occasional shortness of breath awakening her in the middle of the night along with shortness of breath with cough. She has been trying to go to Dr. Valverde 's office but couldn't because of issues with scheduling. She tried to send a sputum sample. She has never been on home oxygen. Review of systems No fever/abdominal pain/headache. She did have diarrhea at baseline secondary to her Crohn's. She denies any difficulty with urination/burning. Family history mother with cardiomegaly, follow with restless leg syndrome and multiple MIs Follows Ran Galindo MD, Dr. Gomez. Vital signs at admission temperature of 99.8, pulse rate 107, blood pressure 116 /75 mmHg, initially On 4 L muscle cannula however desaturated to 79% and started on 35% venti mask. Physical examination Alert oriented 3, HEENT: PERRLA, neck JVD elevated, heart S1-S2 normal, lungs bilateral crackles/rhonchi and diffuse wheezing. Abdomen normal bowel sounds, soft and nontender, lower isthmic is scant edema without any cyanosis. Labs Normal white count, H&H 13/41, platelet 238, sodium 139, potassium 4.4, chloride 103, bicarbonate 20, BUN/creatinine 12/0.8, AST 49, ALT 73, troponin 0.07. Chest x-ray New patchy opacity in the right upper lobe concerning for pneumonia (personally reviewed doesn't really felt like pneumonia), cardiomegaly. EKG Sinus tachycardia 100 100s, regular and narrow QRS with lot of PVCs, no ST-T wave changes, QTc 468 Assessment Patient is a 66-year-old female with multiple comorbid conditions including asthma/BOOP (diagnosed at [facility]) presented with progressive worsening of cough, shortness of breath along with greenish brown from production for the past 10 days. vital signs are significant for MAXIMUM TEMPERATURE of 99.8, pulse rat 107, desaturating on 4 L nasal cannula requiring 35% Ventimask. Labs are unremarkable except for troponin of 0.07, AST 49, chest x-ray did show new patchy opacity in the right upper lobe with cardiomegaly. EKG shows normal sinus rhythm with heart rate 100,multiple PVCs with no ST-T wave changes. Differentials - Interstitial pneumonia - Community-acquired pneumonia - Bronchitis - Flare up of congestive heart failure --> worsening respiratory status Problem list 1. Possible pneumonia/bronchitis in a BOOP patient 2. Possible Congestive heart failure - proBNP 475 3. Rule out ACS 4. Proximal atrial fibrillation now in sinus rhythm on Eliquis/diltiazem 5. Restless leg syndrome 6. Insomnia 7. Crohn's disease status post colon resection Plan Admit to telemetry floor Possible pneumonia/bronchitis Patient had a history of BOOP and currently on prednisone ?? 7.5 mg daily. She takes levalbuterol and Flovent on a daily basis. Patient follows Ran Galindo MD. She had a new chest x-ray finding of right upper lobe pneumonia (patchy opacity) * Started on IV ceftriaxone and azithromycin * Low-dose beta cultures * Continue steroids - 1 dose of IV 125 mg methylprednisolone in the ER * She is on levalbuterol and Flovent at home - wants to continue the same * Consult Ran Galindo MD Rule out ACS Serial troponins and EKGs as first troponin is 0.07. There is a possibility that she could have heart strain from her lung condition. chest x-ray findings are consistent with condition. ProBNP is fairly on the lower side. * Cardiology consulted for further evaluation * Serial EKGs and troponins to rule out ACS * Strict ins and outs Paroxysmal atrial fibrillation now in sinus rhythm Patient usually takes Eliquis 5 mg twice a day and oral diltiazem 140 mg at 6 AM and 6 PM, 60 mg 12 a.m. and 12 PM. Although she is in sinus rhythm want her to be on anticoagulation due to high risk of going back to atrial fibrillation. * Continue home medications History of Crohn's disease status post colonic resection Patient is on chronic loperamide therapy for diarrhea along with potassium and magnesium. * Continue home medications Restless leg syndrome - familial * Continue pramipexole 0.25 mg at bedtime * Continue gabapentin 600 mg at bedtime Insomnia Continue zolpidem 5 mg, clonazepam 0.5 mg twice a day DVT prophylaxis On Eliquis CODE STATUS DNLashell Hearn 06/01/17 0727: Attending MD Review Statement Attending Statement Attending MD Statement: examined this patient, discuss w/resident/PA/SHIFT SUPERINTENDENT, agreed w/resident/PA/SHIFT SUPERINTENDENT, reviewed EMR data (avail), reviewed images, amended to note Attending Assessment/Plan: CC: Persistent shortness of breath, productive cough PMH: HTN, A. fib S/P cardioversion followed by ablation now in sinus, history of Crohn's disease status post bowel resection and has chronic diarrhea, restless leg syndrome, bronchiolitis obliterans According to patient she has been sick since last 2 weeks, started with URI symptoms with runny nose and congestion followed by cough initially clear sputum then become yellow colored, associated with shortness of breath, decreased appetite denies fever or chills at home denies chest pain, palpitations. She also endorses occasional bloody bowel movement, iron deficiency anemia and received iron transfusion in he morning office outpatient. She discontinued her Lasix a few months back for symptomatic improvement, she has chronic leg swelling did not worsened lately according to her. For her worsening sickness she tried to contact her occupational therapist for sputum culture, which could not be obtained about which she appears annoyed, her symptoms kept worsening for shortness of breath, productive cough so she came to ER. Vitals: Tmax 99.8, heart rate in 110s, RR 28 upon arrival improved to 20, blood pressure 169/75, saturating 87% on room air, improved to 89% on 4 L nasal cannula, started on 35% Ventimask sats improved to 93%. On exam: A O 3, cooperative, mild respiratory distress, neck supple, JVD difficult to assess probably elevated, no lymphadenopathy, mucosa moist, no focal neurological deficit, +1 dependent edema, no obvious skin rashes or inflammation CVS: S1-S2, RRR. RS: Bilateral coarse rhonchi. Abdomen: Obese, Soft , NT, ND, bowel sounds present. Labs: WBC 9.9, hemoglobin 13.4, hematocrit 41.5, platelet 278, neutrophils 80%, BMP, LFT unremarkable,, troponin 0.07 ECG: Normal sinus rhythm Chest x-ray: 1. New patchy opacities in the right upper lobe, concerning for pneumonia. 2. Cardiomegaly and pulmonary venous congestion. 3. The opacity in the right middle lobe seen on prior is not apparent radiographically, and should be followed by CT is recommended at that time. Please check with the patient to be certain that this was followed at an outside institution or is scheduled to be followed. Assessment and plan 66-year-old female with extensive past medical history as mentioned above presented in ER for persistently worsening productive cough, shortness of breath over last 2 weeks without much improvement on symptomatic treatment, did not try any antibiotics. In ER patient was found to be significantly hypoxic, initially started on 4 L nasal cannula with improvement in oxygen saturation about 89% then was started on 35% Ventimask with improved oxygen saturation and patient appearing more comfortable. She was also having low-grade fever, tachycardia. She was coarse and rhonchorous throughout the round paz, mildly elevated JVD, +1 pedal edema. Patient does not have significant leukocytosis but there is a left shift. Chest x-ray mentions new patchy opacity in the right upper lobe concerning of pneumonia, cardiomegaly and pulmonary venous congestion. I personally reviewed the chest x-ray and could not appreciate the opacity but given her symptoms, lung examination and immunocompromised state secondary to chronic steroid use, the start treatment for community-acquired pneumonia. At the same time a component of heart failure cannot be denied, her Lasix was discontinued over the time which might be precipitating or pneumonia itself might be precipitating heart failure. Patient had history of A. fib S/P ablation , is persistently tachycardic, better to monitor on telemetry floor. Patient also has history of bronchiolitis obliterans,?interstitial lung disease, which might be precipitating her hypoxia in that situation may need higher dose of steroids and CT of chest without contrast but we will wait for this investigations and see for any symptomatic improvement with antibiotics. Negative for influenza. Patient also has lower GI bleed occasionally, currently H&H stable. Need to be watchful. + Acute hypoxic respiratory failure: Multifactorial + Community-acquired pneumonia + History of bronchiolitis obliterans + Questionable heart failure + History of HTN, A. fib S/P cardioversion followed by ablation now in sinus, history of Crohn's disease status post bowel resection and has chronic diarrhea, restless leg syndrome, - Admit to telemetry - Continuous telemetry monitoring - Continue Ventimask at 35%, titrate oxygen requirement - TRC nebulizations - Continue home doses of by mouth steroids for now - Continue IV ceftriaxone and azithromycin - Consider pulmonology consult - Check proBNP - Serial troponin and EKGs - Obtain 2-D echo in a.m. - Cardiology consult - Obtain records from [facility] - If persistently hypoxic, need to get ABG and CT chest without contrast - Pancultures - Continue Eliquis for DVT prophylaxis - Continue all her home medications
[2017-06-01 03:00] VITALS: BP 158/98
[2017-06-01] MEDS ORDERED: TRAMADOL HCL50 M1 PO (03:51)
[2017-06-01 06:56] VITALS: BP 152/90
--- NOTE | 2017-06-01 07:29 | Admission Certification ---
Admission Certification Certification Statement - As attending physician, I certify that at the time of - admission, based on clinical presentation, severity of - symptoms, need for further diagnostic testing and - therapeutic interventions, and risk of adverse outcomes - without in-hospital treatment, in my clinical assessment, - this patient requires an acute hospital stay for a minimum - of two nights or longer. I have also considered psychsocial - factors such as support system, advanced age, financial - issues, cognitive issues, and failed out-patient treatments, - past re-admission history, safety of patient, and lack of - compliance as applicable. Specific rationale supporting this admission is: Pneumonia
[2017-06-01 08:11] LABS: ABSOLUTE BASOPHIL COUNT 0 /CUMM (0.0-0.2); ABSOLUTE EOSINOPHIL COUNT 0 /CUMM (0.0-0.7); ABSOLUTE GRANULOCYTE CT 7.9 /CUMM (1.4-6.5); ABSOLUTE LYMPH COUNT 0.5 /CUMM (1.2-3.4); ABSOLUTE MONOCYTE COUNT 0.1 /CUMM (0.10-0.60); BASOPHIL % 0 % (0.0-2.0); EOSINOPHIL % 0 % (0-5); HEMATOCRIT 38.4 % (37-47); MEAN CORPUSCULAR HGB 30.6 PG (27.0-31.0); MEAN CORPUSCULAR HGB CONC 32.9 G/DL (33.0-37.0); MEAN PLATELET VOLUME 8.3 FL (7.4-10.4); PLATELET COUNT 231 /CUMM (130-400); RED BLOOD CELL CT 4.13 /CUMM (4.20-5.40); WHITE BLOOD CELL COUNT 8.5 /CUMM (4.8-10.8)
--- NOTE | 2017-06-01 09:41 | Discharge Summary ---
Visit Information Visit Dates Admission Date: 05/31/17 Discharge Date: 06/06/2017 Hospital Course Course Attending Physician: Dr Page Sandy Primary Care Physician: Roxy PARSON,Ari Lopez Hospital Course: Patient is a 66-year-old female with significant past medical history of atrial fibrillation, on Eliquis, Crohn's disease s/p small bowel resection/ileocecal valve removal, hypertension, restless leg syndrome, chronic asthma, bronchiolitis (steroid dependent) presented with chief complaints of chronic cough with intermittent expectoration, yellowish/brownish in color since last 1 month. Acute hypoxic resp failure mainly due to acute exacerbation of bronchiolitis with pneumonia - She was started on antibiotics ceftriaxone and azithromycin for treatment of CAP , with high dose steroids,TRC, Nebulization. We obtained pulmonology and cardiology consult. CXR didnt showed any evidence of pneumonia. 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 We continued antibiotics ceftriaxone and azithromycin. Later patient started having diarrhea, so we stopped the azithromycin and continued ceftriaxone We did check for Clostridium difficile which come back negative. We gave antibiotic for total 7 days.Patient was discharged on Bactrim DS 1 by mouth daily for 3 times a week for total 1 month. We gave tablet prednisone 40 milligrams for 7 days, 30 milligrams for 7 days, 20 milligrams for 7 days and then 10 milligrams for 7 days and than taper to 5 mg daily. Acute hypoxic respiratory failure ruled out CHF - We obtained cardiology consult.Serial troponins and EKGs were negative for any evidence of coronary artery disease, proBNP was 475. Patient was given low dose of Lasix 20 mgs daily. Chest x-ray showing cardiomegaly and pulmonary venous congestion. Follow up echocardiogram showed LVEF 65-70%, mild LVH, mild AR, physiological pericardial effusion, RVSP 46. Patient had couple of episodes of nonsustained SVT. We kept the patient to telemetry floor for further cardiac monitoring.We treated symptomatically. History of Crohn's disease s/p colon resection including ileocecal valve, Colonoscopy 09/17 with balloon dilation of an anastomotic stricture and digital dilation of an anal stricture, but no acitve crohns disease - Patient had recurrent episodes of watery diarrhea. We obtained consult from software support specialist. We checked for C. difficile,which was negative. We did abdominal x-ray which did not show any evidence of dilatation or obstruction. We treated it by loperamide/codeine symptomatically. We also started her on Saccharomyces boulardii,cholestyramine 4 g twice a day.At the time of discharge we advised her to follow-up with software support specialist as before. C diff for PCR is still pending. Atrial fibrillation converted to normal sinus rhythm on Eliquis - The Patient was on Eliquis. Serial EKG did not show any evidence of active atrial fibrillation. She was also having GI bleed, but that was minor in nature, so we continued on Eliquis. 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 History of rib fractures History of old compression fracture of T9/T10/T11 Discharge Disposition: home or self care Discharge Instructions General Discharge Information Code Status: Do Not Intubate Patient's Diet: Heart healthy with fluid restrcition Patient's Activity: as tolerated Follow-Up Instructions/Appts: please Medications at Discharge Discharge Medications: Continue taking these medications: Montelukast Sodium (Singulair) 10 MG TAB 1 Tablet ORAL DAILY Qty = 90 Comments: Last Taken: 08/26/15 Time: 9 pm Levalbuterol Tartrate (Xopenex HFA) 45 MCG AER 2 PUFF Inhale through mouth Q6H as needed for ASTHMA Qty = 15 Comments: Last Taken: 08/25/15 Time: 9 pm Pramipexole Dihydrochloride (Mirapex) 0.125 MG TAB 2-3 Tablet ORAL TAKE AT BEDTIME Comments: Last Taken: 08/26/15 Time: 9 pm Loperamide Hydrochloride (Loperamide) 2 MG TAB 1 Tablet ORAL Q4H as needed for DIARRHEA Comments: Last Taken: 08/26/15 Time: 4:40 pm Magnesium Oxide (Magnesium) 400 MG CAPSULE 400 Milligram ORAL TWICE DAILY Vitamin A (Vitamin A) 10,000 IU SGL 1 SGL ORAL DAILY Comments: not given in hospital Apixaban (Eliquis) 5 MG TABLET 1 Tablet ORAL TWICE DAILY Qty = 60 Comments: PER PT Pantoprazole Sodium (Pantoprazole Sodium) 40 MG TABLET.DR 1 Tablet ORAL TWICE DAILY Qty = 60 Comments: PER PT Sucralfate (Carafate) (Unknown Strength) ORAL.SUSP Unknown Dose ORAL As Directed Qty = 600 Instructions: 1 hour before food and bedtime Comments: PER PT TAKES 1 DOSE 1 HR PRIOR TO A MEAL OR 2 HOURS AFTER Hydromorphone HCl (Dilaudid) 2 MG TABLET 1 Tablet ORAL Q6H as needed for pain Qty = 10 Gabapentin (Gabapentin) 600 MG TABLET 1 Tablet ORAL AT BEDTIME Qty = 30 Diltiazem HCl (Diltiazem HCl) 120 MG TABLET Qty = 120 Prednisone (Prednisone) 5 MG TABLET 1 Tablet ORAL DAILY Qty = 45 Levalbuterol Tartrate (Xopenex Hfa) 45 MCG/ACTUATION HFA.AER.AD 2 Puff Inhale through mouth EVERY 4-6 HOURS NEEDED as needed for SHORTNESS OF BREATH Qty = 15 Zolpidem Tartrate (Zolpidem Tartrate) 10 MG TABLET 0.5 Tablet ORAL Every night as needed Qty = 90 Clonazepam (Clonazepam) 0.5 MG TABLET 1 Tablet ORAL THREE TIMES A DAY NEEDED Qty = 270 Lisinopril (Lisinopril) 10 MG TABLET 1 Tablet ORAL DAILY Qty = 90 Tramadol HCl (Tramadol HCl) 50 MG TABLET 1 Tablet ORAL 2 x Daily as needed as needed for pain Qty = 30 Start taking the following new medications: Prednisone (Prednisone) 10 MG TABLET 1 Tablet ORAL DAILY Qty = 10 No Refills Instructions: PLEASE TAKE 5 TABS DAILY FOR 5 DAYS TIME (June - June) PLEASE TAKE 4 TABS DAILY FOR 7 DAYS TIME (Jun- Jun) PLEASE TAKE 3 TABS DAILY FOR 7 DAYS TIME (Jun - Jun) PLEASE TAKE 2 TABS DIALY FOR 7 DAYS (Jun - Jun) PLEASE TAKE 1 TAB DAILY FOR 7 DAYS (Jun - Jul). PLEASE THEN TRANSITION TO 5MG PREDNISONE TABLETS, ONE DAILY BY MOUTH Comments: Last Taken:06/06/17 Time:9AM Sulfamethoxazole/Trimethoprim (Bactrim Ds Tablet) 800 MG-160 MG TABLET 1 Tablet ORAL TUESDAY, TUESDAY, TUESDAY Qty = 12 No Refills Comments: NOT TAKEN Saccharomyces Boulardii (Florastor) 250 MG CAPSULE 2 Capsule ORAL DAILY Qty = 60 No Refills Comments: Last Taken:06/06/17 Time:9AM Cholestyramine/Aspartame (Questran Light Powder) 4 GRAM POWDER 4 Gram ORAL TWICE DAILY Qty = 240 No Refills Instructions: TAKE OTHER MEDICATIONS EITHER 1 HOUR BEFORE OR 2 HOURS AFTER THE QUESTRAN SO NOT TO INTERFERE WITH ABSORPTION Comments: Last Taken:06/06/17 Time:9AM Codeine Sulfate (Codeine Sulfate) 15 MG TABLET 1 Tablet ORAL DAILY NEEDED as needed for diarhea Qty = 10 No Refills Copies To: Roxy PARSON,Ari Lopez; Josie PARSON,Ran Belle; Patricia PARSON,Trav Singh Attending MD Review Statement Documenting Attending: Deborah Sandy MD
[2017-06-01 09:54] LABS: GRANULOCYTE % 93.7 % (42.2-75.2)
--- NOTE | 2017-06-01 10:01 | Cons- Pulmonary ---
General Information and HPI Consulting Request Date of Consult: 06/01/17 Requested By: med team History of Present Illness: Patient is a 65 year old female with PMH of A.fib (follows Silverio Gomez MD, on eliquise, history of emboly to the hand, s/p ablation 2.[address] Hogan), hypertension, crohn's disease (status post colon resection, dilatation strictures), asthma/bronchiolitis on prednisoe, insomnia and restless leg syndrome presented to the ED with chief complaint of shortness of breathing and cough. She noted that for the last 2 weeks she had gradual increase in shortness of breathing and cough with yellow sputum which changed to brown collarless with him in the last few days. She also reported decreased appetite and sharp chest pain with cough, PND. She also reported loose stools which is no change compared to her baseline (she has history of Crohn's disease) but no abdominal pain or nausea or vomiting. She visited walking clinic last week with no improvement and with worsening of the symptoms she decided to come to ED. She reported no history of smoking, alcohol intake, drugs. She lives with and is pretty much independent in activities of daily life, but avoids outside of the house for long periods due to Crohn disease. Father was a surgeon at [employer] in remote years and had several heart attacks; mom suffered from cardiomyopathy. She didn't have flu shot as she is allergic to egg. Recently she had PFTs which showed that she has combined obstructive and restrictive lung defect with a partially reversible component. She has been sig prednisone dependent mostly for crohns and her bronchiolitis Allergies/Medications Allergies: Coded Allergies: NSAIDS (Non-Steroidal Anti-Inflamma (PER PT HAS A SMALL AMOUNT OF INTESTINES FROM [facility] 08/25/15) morphine (N/V, CAN'T URINATE 08/25/15) tetracycline (UNKNOWN PER PT, HAS SHORTENED INTESTINES FROM [facility] 08/25/15) Uncoded Allergies: HORSE SERUM (Severe, ANAPHYLAXIS 01/27/16) ORAL ANTIBIOTIC (PT HAS SHORTENED INTESTINES FROM [facility] HARD TIME TOLERATING ) Home Med List: Apixaban (Eliquis) 5 MG TABLET 1 TAB PO BID BLOOD THINNER (Reported) Clonazepam 0.5 MG TABLET 1 TAB PO TIDPRN MENTAL HEALTH (Reported) Diltiazem HCl 120 MG TABLET HEART HEALTH (Reported) Gabapentin 600 MG TABLET 1 TAB PO AT BEDTIME RLS Hydromorphone HCl (Dilaudid) 2 MG TABLET 1 TAB PO Q6H PRN pain Levalbuterol Tartrate (Xopenex HFA) 45 MCG AER 2 PUFF INH Q6H PRN ASTHMA ( Reported) Levalbuterol Tartrate (Xopenex Hfa) 45 MCG/ACTUATION HFA.AER.AD 2 PUF INH Q4-6 PRN PRN SHORTNESS OF BREATH (Reported) Lisinopril 10 MG TABLET 1 TAB PO DAILY HIGH BLOOD PRESSURE (Reported) Loperamide Hydrochloride (Loperamide) 2 MG TAB 1 TAB PO Q4H PRN DIARRHEA ( Reported) Magnesium Oxide (Magnesium) 400 MG CAPSULE 400 MG PO BID MAG (Reported) Montelukast Sodium (Singulair) 10 MG TAB 1 TAB PO DAILY asthma (Reported) Pantoprazole Sodium 40 MG TABLET.DR 1 TAB PO BID GI (Reported) Pramipexole Dihydrochloride (Mirapex) 0.125 MG TAB 2-3 TAB PO QHS RESTLESS LEGS (Reported) Prednisone 5 MG TABLET 1 TAB PO DAILY BREATHING PROBLEMS (Reported) Sucralfate (Carafate) (Unknown Strength) ORAL.SUSP (Unknown Dose) PO AD GI ( Reported) 1 hour before food and bedtime Tramadol HCl 50 MG TABLET 1 TAB PO BIDP PRN pain (Reported) Vitamin A 10,000 IU SGL 1 SGL PO DAILY SUPPLEMENT (Reported) Zolpidem Tartrate 10 MG TABLET 0.5 TAB PO QPMP SLEEPINESS (Reported) Past History Travel History Traveled to [place] past 21 day No Medical History Blood Transfusion Hx: No Neurological: RESTLESS LEGS EENT: NONE Cardiovascular: hypertension, recent embolus to her hand Respiratory: asthma, BRONCHIOLITIS Gastrointestinal: Crohn's disease, COLON RESECTION Colonoscopy 09/17 with balloon dilation of an anastomotic stricture and 'digital' dilation of an anal stricture , but no acitve crohns disease was appreciated Hepatic: NONE Renal: NONE Musculoskeletal: NONE Psychiatric: NONE Endocrine: NONE Blood Disorders: NONE Cancer(s): NONE CUSTOMER ENGINEERING SPECIALIST/Reproductive: NONE Surgical History Surgical History: colon resection (for Crohn's disease) Family History Relations & Conditions If Any: BROTHER FATHER (cardiomyopathy). Relation not specified for: FH: HTN (hypertension) Psychosocial History Where Do You Live? Home Who Do You Live With? spouse Services at Home: None Primary Language: Moroccan Smoking Status: Never Smoked ETOH Use: denies use Illicit Drug Use: denies illicit drug use Functional Ability ADLs Independent: dressing, eating, toileting, bathing. Ambulation: independent IADLs Independent: shopping, housework, finances, food prep, telephone, transportation , medication admin. Exam & Diagnostic Data Last 24 Hrs of Vital Signs/I&O Vital Signs Date Time Temp Pulse Resp B/P B/P Pulse O2 O2 Flow FiO2 Mean Ox Delivery Rate 06/01 1400 98.0 92 24 150/88 93 06/01 1114 Venti Mask 40% 06/01 0656 98.8 104 22 152/90 93 Venti Mask 06/01 0616 95 142/86 06/01 0318 92 Venti Mask 35% 06/01 0300 98.2 101 22 158/98 93 Venti Mask 06/01 0226 99.5 104 20 136/101 97 Venti Mask 6.0L 06/01 0203 110 20 05/31 2220 96.7 114 20 142/82 93 Venti Mask 6.0L 05/31 2116 94 Venti Mask 6.0L 05/31 2005 89 Nasal 4.0L Cannula 05/31 1913 99.8 107 28 169/75 87 Room Air Intake & Output 06/01 1600 06/01 0800 06/01 0000 Intake Total 1180 Output Total 200 Balance 980 Intake, IV 700 Intake, Oral 480 Number 1 Bowel Movements Output, Urine 200 Patient 209 lb 210 lb 210 lb Weight Weight Reported by Patient Reported by Patient Measurement Method Last 48 Hrs of Labs/Mitchel: Laboratory Tests 06/01/17 1315: Troponin I 0.03 06/01/17 1130: pH 7.35, pCO2 34 L, pO2 87, HCO3 18 L, ABG O2 Sat (Measured) 95.0 L, P-50 ( Temp Corrected) N, Carboxyhemoglobin 0.3 L, O2 Concentration % 40%, O2 Delivery Method VM, Phlebotomy Draw Site RIGHT RADIAL 06/01/17 0658: Anion Gap 16, Estimated GFR > 60, BUN/Creatinine Ratio 15.0, Troponin I 0.04, CBC w Diff NO MAN DIFF REQ, RBC 4.13 L, MCV 93.0, MCH 30.6, RDW 28.0 H, MPV 8.3, Gran % 93.7 H, Lymphocytes % 5.5 L, Monocytes % 0.8 L, Eosinophils % 0, Basophils % 0, Absolute Granulocytes 7.9 H, Absolute Lymphocytes 0.5 L, Absolute Monocytes 0.1, Absolute Eosinophils 0, Absolute Basophils 0, PUBS MCHC 32.9 L 06/01/17 0600: Troponin I Cancelled 05/31/17 2100: Anion Gap 15, Estimated GFR > 60, BUN/Creatinine Ratio 15.0, Glucose 97, Calcium 9.5, Total Bilirubin 0.4, AST 49 H, ALT 39, Alkaline Phosphatase 73, Troponin I 0.07, Phg-L-Verrvkzopwx Pept 475 H, Total Protein 8.2, Albumin 4.5, Globulin 3.7, Albumin/Globulin Ratio 1.2, CBC w Diff NO MAN DIFF REQ, RBC 4.46, MCV 93.1, MCH 30.0, RDW 28.7 H, MPV 7.9, Gran % 80.3 H, Lymphocytes % 13.1 L, Monocytes % 5.6, Eosinophils % 0.7, Basophils % 0.3, Absolute Granulocytes 7.9 H, Absolute Lymphocytes 1.3, Absolute Monocytes 0.6, Absolute Eosinophils 0.1, Absolute Basophils 0, PUBS MCHC 32.2 L Microbiology 06/01 1230 URINE ROUT: Legionella Antigen - COMP 06/01 1230 URINE ROUT: Streptococcus pneumoniae Antigen (M - COMP 06/01 0114 NASOPHARYN: Influenza Virus A & B Rapid Smear - COMP Assessment/Plan Impression/Plan: cxr IMPRESSION: 1. New patchy opacities in the right upper lobe, concerning for pneumonia. 2. Cardiomegaly and pulmonary venous congestion. 3. The opacity in the right middle lobe seen on prior is not apparent radiographically, and should be followed by CT is recommended at that time. Please check with the patient to be certain that this was followed at an outside institution or is scheduled to be followed. DICTATED BY: Giovanny Charles MD DATE/TIME DICTATED:05/31/172221 General Appearance Alert, Oriented X3, Cooperative, Mild Distress Skin No Significant Lesion Skin Temp/Moisture Exam: Warm/Dry Sepsis Skin Exam (color): Normal for Ethnicity HEENT Atraumatic, EOMI, Mucous Membr. 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, asthma, PLM, Crohn's disease, PAFIB, chronic steroid use, previous pna, previous chf, with Acute hypoxic resp failure mainly due to acute exacerbation of bronchiolitis with pneumonia Sig mixed obs / restrictive lung disease on chronic steroids and hence immunosupp PAFib history in sinus with previous chf but does not appear fluid overloaded Crohns with sig diarrhea and intol to many abx PLM Rule out acs REC Abx vanco, ceftriaxone, and azithro 60 mg daily steroids nebs atc See cardio note sputum culture awaited, and call the lab and if the sputum is growing pseudomonas like organism will change to ceftaz dc vanco if the sputum does not grow any staph by am CT chest in am will follow Consult Acknowledgment - Thank you for your consult request.
--- NOTE | 2017-06-01 11:56 | Cons- Cardiology ---
General Information and HPI Consulting Request Date of Consult: 06/01/17 Requested By: Lashell Sandra MD Reason for Consult: History of atrial fibrillation; shortness of breath; rule out CHF Source of Information: patient, family, old records Exam Limitations: no limitations History of Present Illness: The patient is a 65-year-old female who is well-known to me. Her past history is remarkable for atrial fibrillation, status post ablation 2 years ago, hypertension, Crohn's disease, asthma, etc. The patient now presents to [place] emergency room and is admitted with increasing shortness of breath and cough. The patient notes that she has had several weeks of symptoms. She was originally treated with antibiotics via the emergency room several weeks ago. Subsequent, she had recurrent symptoms including cough, yellow sputum, etc. She attempted see her cardiology teacher but was unable to and self treated with a brief course of antibiotics at that time. Now she presents again with the same symptoms. The patient denies any evidence of any cardiac symptoms. She has had intermittent episodes of palpitations. She has had no evidence of recurrent fluid retention or worsening lower extremity edema. She rep Allergies/Medications Allergies: Coded Allergies: NSAIDS (Non-Steroidal Anti-Inflamma (PER PT HAS A SMALL AMOUNT OF INTESTINES FROM [facility] 08/25/15) morphine (N/V, CAN'T URINATE 08/25/15) tetracycline (UNKNOWN PER PT, HAS SHORTENED INTESTINES FROM [facility] 08/25/15) Uncoded Allergies: HORSE SERUM (Severe, ANAPHYLAXIS 01/27/16) ORAL ANTIBIOTIC (PT HAS SHORTENED INTESTINES FROM [facility] HARD TIME TOLERATING ) Home Med List: Apixaban (Eliquis) 5 MG TABLET 1 TAB PO BID BLOOD THINNER (Reported) Clonazepam 0.5 MG TABLET 1 TAB PO TIDPRN MENTAL HEALTH (Reported) Diltiazem HCl 120 MG TABLET HEART HEALTH (Reported) Gabapentin 600 MG TABLET 1 TAB PO AT BEDTIME RLS Hydromorphone HCl (Dilaudid) 2 MG TABLET 1 TAB PO Q6H PRN pain Levalbuterol Tartrate (Xopenex HFA) 45 MCG AER 2 PUFF INH Q6H PRN ASTHMA ( Reported) Levalbuterol Tartrate (Xopenex Hfa) 45 MCG/ACTUATION HFA.AER.AD 2 PUF INH Q4-6 PRN PRN SHORTNESS OF BREATH (Reported) Lisinopril 10 MG TABLET 1 TAB PO DAILY HIGH BLOOD PRESSURE (Reported) Loperamide Hydrochloride (Loperamide) 2 MG TAB 1 TAB PO Q4H PRN DIARRHEA ( Reported) Magnesium Oxide (Magnesium) 400 MG CAPSULE 400 MG PO BID MAG (Reported) Montelukast Sodium (Singulair) 10 MG TAB 1 TAB PO DAILY asthma (Reported) Pantoprazole Sodium 40 MG TABLET.DR 1 TAB PO BID GI (Reported) Pramipexole Dihydrochloride (Mirapex) 0.125 MG TAB 2-3 TAB PO QHS RESTLESS LEGS (Reported) Prednisone 5 MG TABLET 1 TAB PO DAILY BREATHING PROBLEMS (Reported) Sucralfate (Carafate) (Unknown Strength) ORAL.SUSP (Unknown Dose) PO AD GI ( Reported) 1 hour before food and bedtime Tramadol HCl 50 MG TABLET 1 TAB PO BIDP PRN pain (Reported) Vitamin A 10,000 IU SGL 1 SGL PO DAILY SUPPLEMENT (Reported) Zolpidem Tartrate 10 MG TABLET 0.5 TAB PO QPMP SLEEPINESS (Reported) Current Medications: Current Medications Sig/Bassem Start time Last Medication Dose Route Stop Time Status Admin Albuterol Sulfate 3 ML Q6-PRN PRN 06/01 1030 AC 06/01 INH 1109 Albuterol Sulfate 3 ML ONCE ONE 05/31 2000 DC 05/31 INH 05/31 Apixaban 5 MG 0600,1800 06/01 1800 AC PO Apixaban 5 MG BID 06/01 1000 DC 06/01 PO 0629 Azithromycin 500 MG DAILY 06/01 1000 CAN PO Azithromycin 500 MG DAILY 06/01 1000 AC 06/01 Sodium Chloride 250 ML IV 0910 Azithromycin 500 MG ONCE ONE 05/31 2245 DC 05/31 Sodium Chloride 250 ML IV 05/31 2344 2305 Ceftriaxone Sodium 1,000 MG DAILY 06/01 1000 AC 06/01 IV 0909 Ceftriaxone Sodium 0 .STK-MED ONE 05/31 2257 DC .ROUTE Ceftriaxone Sodium 1,000 MG ONCE ONE 05/31 2245 DC 05/31 IV 05/31 2246 2305 Cholecalciferol 2,000 IU DAILY 06/02 1000 AC PO Clonazepam 1.5 MG 1700 06/01 1700 AC PO 06/08 1659 Clonazepam 0.5 MG TIDPRN 06/01 0300 DC PO 06/08 0259 Cyanocobalamin 1,000 MCG DAILY 06/02 1000 CAN PO Cyanocobalamin 1,000 MCG 0600 06/02 0600 AC PO Diltiazem HCl 60 MG 0000,1200 06/01 1200 AC PO Diltiazem HCl 120 MG 0600,1800 06/01 0600 AC 06/01 PO 0616 Diltiazem HCl 60 MG ONCE ONE 06/01 0130 DC 06/01 PO 06/01 0131 0203 Fluticasone 2 SPRAY DAILY 06/01 1020 AC Propionate TORRES Fluticasone 2 PUF BID 06/01 0309 AC 06/01 Propionate INH 0911 Gabapentin 600 MG AT BEDTIME 06/01 2200 DC PO Gabapentin 600 MG 1800 06/01 1800 AC PO Gabapentin 600 MG AT BEDTIME 06/01 0400 DC 06/01 PO 0413 Guaifenesin/Codeine 10 ML ONCE ONE 05/31 2345 DC 05/31 Phosphate PO 05/31 2346 2343 Hydromorphone HCl 0.4 MG ONCE ONE 06/01 1100 DC IV 06/01 1101 Ipratropium [place] 2.5 ML ONCE ONE 05/31 2000 DC 05/31 INH 05/31 Lactobacillus 1 CAP BID 06/01 1039 AC Acidophilus PO Lisinopril 10 MG 1800 06/01 1800 AC PO Lisinopril 10 MG DAILY 06/01 1000 DC 06/01 PO 0910 Loperamide HCl 2 MG Q4 HRS NEEDED PRN 06/01 0300 AC PO Magnesium Oxide 400 MG 0600,1800 06/01 1800 AC PO Magnesium Oxide 400 MG DAILY 06/01 1000 DC 06/01 PO 0910 Methylprednisolone 80 MG DAILY 06/02 1000 AC IV Methylprednisolone 0 .STK-MED ONE 05/31 2032 DC .ROUTE Methylprednisolone 125 MG ONCE ONE 05/31 2000 DC 05/31 IV 05/31 2001 2100 Montelukast Sodium 10 MG 2200 06/01 2200 AC PO Omeprazole 40 MG DAILY AC 06/01 0700 AC PO Pramipexole 0.25 MG AT BEDTIME 06/01 2200 DC Dihydrochloride PO Pramipexole 0.25 MG 1800 06/01 1800 AC Dihydrochloride PO Pramipexole 0.25 MG AT BEDTIME 06/01 0400 DC 06/01 Dihydrochloride PO 0438 Prednisone 5 MG DAILY 06/01 1000 DC 06/01 PO 0910 Sodium Chloride 1,000 ML ONCE ONE 05/31 2300 DC 05/31 IV 06/01 0539 2305 Tramadol HCl 50 MG BID PRN 06/01 1000 AC PO Vancomycin HCl 1,000 MG DAILY 06/01 1037 AC Sodium Chloride 250 ML IV Zolpidem Tartrate 10 MG AT BEDTIME 06/01 2200 DC PO Zolpidem Tartrate 5 MG 1800 06/01 1800 AC PO Zolpidem Tartrate 5 MG AT BEDTIME 06/01 0400 DC 06/01 PO 0413 Past History Travel History Traveled to [place] past 21 day No Medical History Blood Transfusion Hx: No Neurological: RESTLESS LEGS EENT: NONE Cardiovascular: hypertension, recent embolus to her hand Respiratory: asthma, BRONCHIOLITIS Gastrointestinal: Crohn's disease, COLON RESECTION Colonoscopy 09/17 with balloon dilation of an anastomotic stricture and 'digital' dilation of an anal stricture , but no acitve crohns disease was appreciated Hepatic: NONE Renal: NONE Musculoskeletal: NONE Psychiatric: NONE Endocrine: NONE Blood Disorders: NONE Cancer(s): NONE POLYSOM TECH/Reproductive: NONE Surgical History Surgical History: colon resection (for Crohn's disease) Family History Relations & Conditions If Any: BROTHER FATHER (cardiomyopathy). Relation not specified for: FH: HTN (hypertension) Psychosocial History Where Do You Live? Home Who Do You Live With? spouse Services at Home: None Primary Language: Marshallese Smoking Status: Never Smoked ETOH Use: denies use Illicit Drug Use: denies illicit drug use Functional Ability ADLs Independent: dressing, eating, toileting, bathing. Ambulation: independent IADLs Independent: shopping, housework, finances, food prep, telephone, transportation , medication admin. ECHO Results (as available) Report: CONCLUSIONS 1. Mild aortic sclerosis is present with mild aortic insufficiency. 2. Mitral leaflet thickening is present with mitral insufficiency which is at least moderate in severity with moderate left atrial dilatation. 3. A very small posterior pericardial effusion is present. 4. The left ventricular chamber size is normal with moderate concentric hypertrophy and mild global hypokinesia with an ejection fraction of approximately 50%. 5. The right heart chambers are upper normal in size with moderate tricuspid insufficiency and minimal pulmonic insufficiency. The RV systolic pressure was not accurately assessed. 6. A JAVIER is suggested to better asess the mitral valve anatomy and the severity of mitral insufficiency. A followup examination is also sugested when the patient's heart rate is better controlled to reassess LV systolic function. Exam & Diagnostic Data Vital Signs and I&O Vital Signs Date Time Temp Pulse Resp B/P B/P Pulse O2 O2 Flow FiO2 Mean Ox Delivery Rate 06/01 1114 Venti Mask 40% 06/01 0656 98.8 104 22 152/90 93 Venti Mask 06/01 0616 95 142/86 06/01 0318 92 Venti Mask 35% 06/01 0300 98.2 101 22 158/98 93 Venti Mask 06/01 0226 99.5 104 20 136/101 97 Venti Mask 6.0L 06/01 0203 110 20 05/31 2220 96.7 114 20 142/82 93 Venti Mask 6.0L 05/31 2116 94 Venti Mask 6.0L 05/31 2005 89 Nasal 4.0L Cannula 05/31 1913 99.8 107 28 169/75 87 Room Air Intake & Output 06/01 1600 06/01 0800 06/01 0000 05/31 1600 05/31 0800 05/31 0000 Intake Total 1180 Output Total 200 Balance 980 Intake, IV 700 Intake, Oral 480 Number 1 Bowel Movements Output, Urine 200 Patient 210 lb 210 lb Weight Weight Reported by Patient Reported by Patient Measurement Method Physical Exam: General Appearance Alert, Oriented X3, Cooperative, Mild Distress Skin normal HEENT Atraumatic, EOMI, Mucous Membr. moist/pink Cardiovascular Normal S1, Normal S2, 1/6 systolic murmur left sternal border Lungs scattered rhonchi with bilateral expiratory wheeze Abdomen Soft, No Tenderness Neurological Normal/nonfocal Extremities trace - 1+ edema bilaterally Labs/Mitchel Results: Laboratory Tests 06/01 06/01 1130 0658 Blood Gas pH (7.35 - 7.45 PH) 7.35 pCO2 (35 - 45 TORR) 34 L pO2 (80 - 100 TORR) 87 HCO3 (21 - 28 MEQ/L) 18 L ABG O2 Sat (Measured) (>96.0 %) 95.0 L P-50 (Temp Corrected) N Carboxyhemoglobin (1.5 - 5.0 %) 0.3 L O2 Concentration % 40% O2 Delivery Method VM Chemistry Sodium (137 - 145 mmol/L) 138 Potassium (3.5 - 5.1 mmol/L) 4.9 Chloride (98 - 107 mmol/L) 104 Carbon Dioxide (22 - 30 mmol/L) 18 L Anion Gap (5 - 16) 16 BUN (7 - 17 mg/dL) 12 Creatinine (0.5 - 1.0 mg/dL) 0.8 Estimated GFR (>60 ml/min) > 60 BUN/Creatinine Ratio (7 - 25 %) 15.0 Troponin I (< 0.11 ng/ml) 0.04 Hematology CBC w Diff NO MAN DIFF REQ WBC (4.8 - 10.8 /CUMM) 8.5 RBC (4.20 - 5.40 /CUMM) 4.13 L Hgb (12.0 - 16.0 G/DL) 12.6 Hct (37 - 47 %) 38.4 MCV (81.0 - 99.0 FL) 93.0 MCH (27.0 - 31.0 PG) 30.6 RDW (11.5 - 14.5 %) 28.0 H Plt Count (130 - 400 /CUMM) 231 MPV (7.4 - 10.4 FL) 8.3 Gran % (42.2 - 75.2 %) 93.7 H Lymphocytes % (20.5 - 51.1 %) 5.5 L Monocytes % (1.7 - 9.3 %) 0.8 L Eosinophils % (0 - 5 %) 0 Basophils % (0.0 - 2.0 %) 0 Absolute Granulocytes (1.4 - 6.5 /CUMM) 7.9 H Absolute Lymphocytes (1.2 - 3.4 /CUMM) 0.5 L Absolute Monocytes (0.10 - 0.60 /CUMM) 0.1 Absolute Eosinophils (0.0 - 0.7 /CUMM) 0 Absolute Basophils (0.0 - 0.2 /CUMM) 0 PUBS MCHC (33.0 - 37.0 G/DL) 32.9 L Miscellaneous Phlebotomy Draw Site RIGHT RADIAL 06/01 05/31 0600 2100 Chemistry Sodium (137 - 145 mmol/L) 139 Potassium (3.5 - 5.1 mmol/L) 4.4 Chloride (98 - 107 mmol/L) 103 Carbon Dioxide (22 - 30 mmol/L) 20 L Anion Gap (5 - 16) 15 BUN (7 - 17 mg/dL) 12 Creatinine (0.5 - 1.0 mg/dL) 0.8 Estimated GFR (>60 ml/min) > 60 BUN/Creatinine Ratio (7 - 25 %) 15.0 Glucose (65 - 99 mg/dL) 97 Calcium (8.4 - 10.2 mg/dL) 9.5 Total Bilirubin (0.2 - 1.3 mg/dL) 0.4 AST (14 - 36 U/L) 49 H ALT (9 - 52 U/L) 39 Alkaline Phosphatase (<127 U/L) 73 Troponin I (< 0.11 ng/ml) Cancelled 0.07 Lao-Y-Pepyetnwgtb Pept (<125 pg/mL) 475 H Total Protein (6.3 - 8.2 g/dL) 8.2 Albumin (3.5 - 5.0 g/dL) 4.5 Globulin (1.9 - 4.2 gm/dL) 3.7 Albumin/Globulin Ratio (1.1 - 2.2 %) 1.2 Hematology CBC w Diff NO MAN DIFF REQ WBC (4.8 - 10.8 /CUMM) 9.9 RBC (4.20 - 5.40 /CUMM) 4.46 Hgb (12.0 - 16.0 G/DL) 13.4 Hct (37 - 47 %) 41.5 MCV (81.0 - 99.0 FL) 93.1 MCH (27.0 - 31.0 PG) 30.0 RDW (11.5 - 14.5 %) 28.7 H Plt Count (130 - 400 /CUMM) 278 MPV (7.4 - 10.4 FL) 7.9 Gran % (42.2 - 75.2 %) 80.3 H Lymphocytes % (20.5 - 51.1 %) 13.1 L Monocytes % (1.7 - 9.3 %) 5.6 Eosinophils % (0 - 5 %) 0.7 Basophils % (0.0 - 2.0 %) 0.3 Absolute Granulocytes (1.4 - 6.5 /CUMM) 7.9 H Absolute Lymphocytes (1.2 - 3.4 /CUMM) 1.3 Absolute Monocytes (0.10 - 0.60 /CUMM) 0.6 Absolute Eosinophils (0.0 - 0.7 /CUMM) 0.1 Absolute Basophils (0.0 - 0.2 /CUMM) 0 PUBS MCHC (33.0 - 37.0 G/DL) 32.2 L Assessment/Plan Assessment/Plan Assessment: 1. Worsening shortness of breath and cough with sputum production; possible pneumonia; possible bronchitis 2. Lower extremity edema with minimally elevated proBNP, unchanged from previously.-At the moment I do not see any evidence of overt heart failure 3. Rule out ACS 4. Paroxysmal atrial fibrillation now in sinus rhythm with brief episodes of nonsustained paroxysmal SVT noted on the monitor 5. Restless leg syndrome 6. Insomnia 7. Crohn's disease status post colon resection Recommendations: -Serial troponins -ECG in the morning -Continue current treatment for underlying respiratory disease -Await formal pulmonary input -Follow-up echocardiogram to rule out any changes in left ventricle are systolic function -Consider addition of low-dose Lasix 20 mg by mouth daily for lower extremity edema. Continue conservative management of lower extremity edema with elevation , etc. Consult Acknowledgment - Thank you for your consult request.
[2017-06-01 14:00] VITALS: BP 150/88
[2017-06-01 22:24] VITALS: BP 146/82
[2017-06-02 06:59] VITALS: BP 122/78
--- NOTE | 2017-06-02 07:52 | PN- Housestaff ---
John PARSON,Elvin 06/02/17 0751: Subjective Follow-up For: Follow-up for chronic cough and shortness of breath, possibly post viral bronchitis/bronchiolitis/left lower lobe pneumonia Complaints: abdominal pain Tele-Events Since Last Visit: Normal sinus rhythm, had 9 beats of V. tach in the morning. The patient was asymptomatic at that time. Subjective: Patient is seen and examined at the bedside. She was feeling much better than yesterday. She slept for around 4-6 hours in the night. Her breathing has been improved. She is still on the 8 liters of oxygen with Ventimask. Discussed with the nurse, and advised try to change it to nasal cannula with maintaining SPO2 more than 90%. She has 6 bowel movements yesterday with a small amount of blood. She requested to see Dr. Espinoza. Review of Systems Constitutional: Reports: no symptoms, weakness. Gastrointestinal: Reports: abdominal pain, bloating, diarrhea. Objective Last 24 Hrs of Vital Signs/I&O Vital Signs Date Time Temp Pulse Resp B/P B/P Pulse O2 O2 Flow FiO2 Mean Ox Delivery Rate 06/02 0808 92 Nasal 4.0L Cannula 06/02 0659 98.4 80 20 122/78 93 Venti Mask 35% 06/02 0658 80 122/78 06/02 0412 94 Venti Mask 35% 06/02 0021 96 146/88 06/02 0000 Venti Mask 35% 06/01 2224 97.7 103 20 146/82 92 Venti Mask 6.0L 06/01 1721 97 140/84 06/01 1721 97 140/84 06/01 1645 97 Venti Mask 40% 06/01 1600 97 Venti Mask 35% 06/01 1400 98.0 92 24 150/88 93 06/01 1114 Venti Mask 40% Intake & Output 06/02 1600 06/02 0800 06/02 0000 Intake Total 120 960 Output Total 500 Balance -380 960 Intake, Oral 120 960 Output, Urine 500 Physical Exam General Appearance: Alert, Oriented X3, Cooperative, No Acute Distress Skin: No Rashes, No Breakdown HEENT: Atraumatic, PERRLA, EOMI Neck: Supple, No JVD Cardiovascular: Normal S1, Normal S2 Lungs: generalized wheezing Abdomen: Soft, No Tenderness, distended, bowel sounds are positive Neurological: Normal Gait, Normal Speech, Strength at 5/5 X4 Ext, Normal Tone Extremities: No Clubbing, No Cyanosis, No Edema Vascular: Normal Pulses, Pulses Symmetrical Current Medications: Current Medications Sig/Bassem Start time Last Medication Dose Route Stop Time Status Admin Albuterol Sulfate 3 ML EVERY 4 HRS/AWAKE 06/01 2000 AC 06/02 INH 0803 Albuterol Sulfate 3 ML Q6-PRN PRN 06/01 1030 AC 06/01 INH 1109 Apixaban 5 MG 0600,1800 06/01 1800 AC 06/02 PO 0655 Apixaban 5 MG BID 06/01 1000 DC 06/01 PO 0629 Azithromycin 500 MG DAILY 06/01 1000 AC 06/02 Sodium Chloride 250 ML IV 0815 Ceftriaxone Sodium 1,000 MG DAILY 06/01 1000 AC 06/02 IV 0814 Cholecalciferol 2,000 IU DAILY 06/02 1000 AC 06/02 PO 0815 Clonazepam 1.5 MG 1700 06/01 1700 AC 06/01 PO 06/08 1659 1718 Clonazepam 0.5 MG TIDPRN 06/01 0300 DC PO 06/08 0259 Cyanocobalamin 1,000 MCG DAILY 06/02 1000 CAN PO Cyanocobalamin 1,000 MCG 0600 06/02 0600 AC 06/02 PO 0655 Diltiazem HCl 60 MG 0000,1200 06/01 1200 AC 06/02 PO 0021 Diltiazem HCl 120 MG 0600,1800 06/01 0600 AC 06/02 PO 0658 Fluticasone 2 SPRAY DAILY 06/01 1020 AC 06/02 Propionate TORRES 0818 Fluticasone 2 PUF BID 06/01 0309 AC 06/01 Propionate INH 2038 Furosemide 20 MG DAILY 06/02 1000 AC 06/02 PO 0818 Gabapentin 600 MG 1800 06/01 1800 AC 06/01 PO 1719 Gabapentin 600 MG AT BEDTIME 06/01 0400 DC 06/01 PO 0413 Hydromorphone HCl 0.4 MG ONCE ONE 06/01 1100 DC 06/01 IV 06/01 1101 1233 Lactobacillus 1 CAP BID 06/01 1039 AC 06/02 Acidophilus PO 0817 Lisinopril 10 MG 1800 06/01 1800 AC 06/01 PO 1721 Lisinopril 10 MG DAILY 06/01 1000 DC 06/01 PO 0910 Loperamide HCl 2 MG Q4 HRS NEEDED PRN 06/01 0300 AC 06/01 PO 2033 Magnesium Oxide 400 MG 0600,1800 06/01 1800 AC 06/02 PO 0654 Magnesium Oxide 400 MG DAILY 06/01 1000 DC 06/01 PO 0910 Methylprednisolone 80 MG DAILY 06/02 1000 DC IV Methylprednisolone 60 MG DAILY 06/02 1000 AC 06/02 IV 0814 Montelukast Sodium 10 MG 2200 06/01 2200 AC 06/01 PO 2032 Omeprazole 40 MG DAILY AC 06/01 0700 AC PO Oxycodone/ 1 TAB Q6P PRN 06/02 0815 AC 06/02 Acetaminophen PO 0813 Pramipexole 0.25 MG 1800 06/01 1800 AC 06/01 Dihydrochloride PO 2032 Pramipexole 0.25 MG AT BEDTIME 06/01 0400 DC 06/01 Dihydrochloride PO 0438 Prednisone 5 MG DAILY 06/01 1000 DC 06/01 PO 0910 Tramadol HCl 50 MG BID PRN 06/01 1000 AC 06/02 PO 0203 Vancomycin HCl 1,000 MG DAILY 06/01 1037 AC 06/01 Sodium Chloride 250 ML IV 1341 Zolpidem Tartrate 5 MG 1800 06/01 1800 AC 06/01 PO 2032 Zolpidem Tartrate 5 MG AT BEDTIME 06/01 0400 DC 06/01 PO 0413 Last 24 Hrs of Lab/Mitchel Results Last 24 Hrs of Labs/Mics: Laboratory Tests 06/02/17 0620: Sodium Pending, Potassium Pending, Chloride Pending, Carbon Dioxide Pending, Anion Gap Pending, BUN Pending, Creatinine Pending, BUN/Creatinine Ratio Pending , CBC w Diff Pending, WBC Pending, RBC Pending, Hgb Pending, Hct Pending, MCV Pending, MCH Pending, RDW Pending, Plt Count Pending, MPV Pending, PUBS MCHC Pending 06/01/17 1315: Troponin I 0.03 06/01/17 1130: pH 7.35, pCO2 34 L, pO2 87, HCO3 18 L, ABG O2 Sat (Measured) 95.0 L, P-50 ( Temp Corrected) N, Carboxyhemoglobin 0.3 L, O2 Concentration % 40%, O2 Delivery Method VM, Phlebotomy Draw Site RIGHT RADIAL Microbiology 06/01 1230 URINE ROUT: Legionella Antigen - COMP 06/01 1230 URINE ROUT: Streptococcus pneumoniae Antigen (M - COMP Assessment/Plan Assessment: Patient is a 66-year-old female with significant past medical history of atrial fibrillation, on Eliquis, Crohn's disease s/p small bowel resection/ileocecal valve removal, hypertension, restless leg syndrome, chronic asthma, bronchiolitis (steroid dependent) presented with chief complaints of chronic cough with intermittent expectoration, yellowish/brownish in color since last 1 month. ED course -vital signs at the time of admission -temperature 99.8, pulse 107, respiratory rate 28, blood pressure 169/75, SPO2 87% on room air. Blood workup showed hemoglobin 13.4, hematocrit 41.5, platelet count 278, granulocyte 80.3, lymphocyte 13.1, sodium 138, potassium 4.9, chloride 104, carbon dioxide 18, BUN 12, creatinine 0.8, serial troponins were 0.07 , 0.04, 0.03.EKG showed sinus tachycardia, HR-105, poor r wave progression. CT scan of the chest showed scattered ED of subsegmental atelectasis in both lungs. Multilobar tree-in-bud nodules, patchy nodular opacities, infectious bronchiolitis and pneumonia. Chronic cardiomegaly with prominent pulmonary vessels, but dilated pulmonary artery. Suggested chronic pulmonary arterial hypertension. 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 * Usually confirmatory test is lung biopsy * Risk factors are -Viral URI, food flavoring fumes (eg, diacetyl used in popcorn and other foods) * Management is - - Stopping the exposure to potential culprit agent, - Symptomatic treatment - TRC/Neb/Oxygen to maintain the pulse oxygen saturation above 88 percent. - Prophylaxis is usually include macrolides/glucocorticoids/ immunosuppressive agent/and antireflex therapy and lung transplantation.Macrolide antibiotics are used in the long-term management - low dose of oral erythromycin (200 to 600 mg/day) or clarithromycin (250 or 500 mg/ day) or azithromycin 250 mg daily for five days followed by 250 mg three times a week. Crohn's disease with bowel resection, history of recurrent diarrhea on loperamide and codeine prn - * Patient has loose bowel movements with blood. Stool for C. difficile is negative. * Advised to give tablet codeine 15 mgs once,and if needed than repeat. * We'll follow GI recommendation Atrial fibrillation converted to normal sinus rhythm, on Eliquis * We will continue Eliquis Diet - low sodium, heart healthy diet Code status - DNI DVT Prophylaxis - Eliquis Problem List: 1. Pneumonia Pain Ratin Pain Location: abdoman Pain Goal: Remain pain free Pain Plan: pain medication according to pain scale Tomorrow's Labs & Rationales: cbc,bep for f/u DVT/Prophylaxis: mechanical, pharmacological Deborah Sandy MD 06/02/17 1100: Attending MD Review Statement Attending Statement Attending MD Statement: examined this patient, discuss w/resident/PA/STORE WARE[employer]SE ASSOCIATE, agreed w/resident/PA/STORE W[employer]SE ASSOCIATE, reviewed EMR data (avail) Attending Assessment/Plan: 66F PMH HTN, A. fib S/P cardioversion followed by ablation now in sinus, history of Crohn's disease status post bowel resection and has chronic diarrhea, restless leg syndrome, bronchiolitis obliterans admitted with worsening shortness of breath and dyspnea at rest, cough with white sputum, and hypoxia requiring 35% venti mask, and was unable to speak in full sentences and had a persistent cough. Was given Solumedrol and breathing treatments initially. Today patient feels much better. She is saturating well on 4L NC. Her lungs are clear on exam, and she is able to speak in full sentences today. Afebrile overnight, vitals stable, labs unremarkable, cultures negative. 1. Acute exacerbation of bronchiolitis obliterans 2. Acute hypoxemic respiratory failure 3. Multilobar pneumonia Plan - Continue on telemetry for now - Continue Ceftriaxone and Azithromycin. Discontinue Vancomycin - Follow sputum and blood cultures - Nebulizer treatments - Cardiology and pulmonary recommendations - Continue Solumedrol - Titrate down oxygen as tolerated - Continue Percocet for pain - Continue home medications - Will notify Dr. Espinoza of GI about patient's admission as she follows closely with him - Continue Eliquis for DVT PPx
[2017-06-02 08:37] LABS: ABSOLUTE BASOPHIL COUNT 0 /CUMM (0.0-0.2); ABSOLUTE EOSINOPHIL COUNT 0 /CUMM (0.0-0.7); ABSOLUTE GRANULOCYTE CT 9.8 /CUMM (1.4-6.5); ABSOLUTE LYMPH COUNT 0.7 /CUMM (1.2-3.4); ABSOLUTE MONOCYTE COUNT 0.8 /CUMM (0.10-0.60); BASOPHIL % 0 % (0.0-2.0); EOSINOPHIL % 0.1 % (0-5); HEMATOCRIT 35.7 % (37-47); MEAN CORPUSCULAR HGB 30.8 PG (27.0-31.0); MEAN CORPUSCULAR HGB CONC 32.7 G/DL (33.0-37.0); MEAN CORPUSCULAR VOLUME 94.2 FL (81.0-99.0); MEAN PLATELET VOLUME 7.9 FL (7.4-10.4); PLATELET COUNT 242 /CUMM (130-400); RBC DISTRIBUTION WIDTH 28.4 % (11.5-14.5); RED BLOOD CELL CT 3.79 /CUMM (4.20-5.40); WHITE BLOOD CELL COUNT 11.3 /CUMM (4.8-10.8)
[2017-06-02 09:41] LABS: GRANULOCYTE % 86.8 % (42.2-75.2)
--- NOTE | 2017-06-02 10:18 | CT SCAN REPORT ---
EXAMINATION: CT CHEST WITHOUT CONTRAST CLINICAL INFORMATION: Cough and shortness of breath. COMPARISON: Chest CT from 02/24/2017. Chest radiographs from 06/29/2016 at 05/31/2017. TECHNIQUE: Multidetector volumetric CT imaging of the chest was done. Axial MIP volume rendering provided. Sagittal and coronal reformatted images were obtained. DLP: 472 mGy-cm FINDINGS: LUNGS AND PLEURA: Trachea and central airways are widely patent and normal in caliber. Lungs have mosaic attenuation with scattered areas of hyperlucency consistent with air trapping phenomenon of small airways disease. There are multiple new small patchy nodular opacities, tree-in-bud nodules and some areas of groundglass attenuation in the right upper lobe and, to a lesser extent, right lower lobe. Also, patchy opacities, small nodules and ground glass opacities are seen in the left upper lobe. Scattered regions of subsegmental atelectasis are present in upper and lower lobes. The area of apparent consolidation in the anterior segment of the right upper lobe on 02/24/2017 has significantly decreased and the residual opacity has a more fan-shaped appearance of atelectasis. MEDIASTINUM: Cardiomegaly with multichamber cardiac enlargement. Mild atherosclerotic calcification of left anterior descending coronary artery. Thoracic aorta is normal in size. Again noted are prominent pulmonary arteries with pulmonary artery trunk measuring 4 cm transverse diameter. This suggests presence of chronic pulmonary arterial hypertension. No pericardial effusion. The esophagus and visualized portion of the thyroid gland are unremarkable. LYMPHATICS: No axillary or internal mammary lymphadenopathy. No evidence of hilar lymphadenopathy. A precarinal lymph node measuring 1 cm AP is unchanged. There are no enlarging lymph nodes within the mediastinum. UPPER ABDOMEN: There is diffuse hepatic steatosis. OSSEOUS STRUCTURES: There are multiple old bilateral rib fractures. No acute findings within the degenerated, hyperkyphotic thoracic spine. Chronic, mild height loss of the T6 vertebral body. Old compression fractures of T9, T10 and T11 vertebral bodies. Again noted is the vacuum disc degeneration of T8-T9 and T9-T10. IMPRESSION: 1. Lungs have mosaic attenuation; this is suggestive of air trapping phenomenon from small airways disease, and there are scattered areas of subsegmental atelectasis in both lungs. 2. Compared to 02/24/2017, interval development of multilobar tree-in-bud nodules, patchy nodular opacities and areas of groundglass attenuation consistent with infectious bronchiolitis and pneumonia. 3. Chronic cardiomegaly with prominent pulmonary vessels. However, no acute interstitial edema. Pulmonary artery trunk is 4 cm diameter, highly suggestive of chronic pulmonary arterial hypertension. 4. Diffuse hepatic steatosis.
--- NOTE | 2017-06-02 10:22 | PN- CRCU ---
Subjective HPI/Critical Care Issues: Little better stable CT reviewed Consistant with obstrucitive bronchiolitis with airtrapping with PNA in rt upper and lower lobe with atx Previous consolidation iseen in 02/20 has resolved Objective Current Medications: Current Medications Sig/Bassem Start time Last Medication Dose Route Stop Time Status Admin Albuterol Sulfate 3 ML EVERY 4 HRS/AWAKE 06/01 2000 AC 06/02 INH 0803 Albuterol Sulfate 3 ML Q6-PRN PRN 06/01 1030 AC 06/01 INH 1109 Apixaban 5 MG 0600,1800 06/01 1800 AC 06/02 PO 0655 Apixaban 5 MG BID 06/01 1000 DC 06/01 PO 0629 Azithromycin 500 MG DAILY 06/01 1000 AC 06/02 Sodium Chloride 250 ML IV 0815 Ceftriaxone Sodium 1,000 MG DAILY 06/01 1000 AC 06/02 IV 0814 Cholecalciferol 2,000 IU DAILY 06/02 1000 AC 06/02 PO 0815 Clonazepam 1.5 MG 1700 06/01 1700 AC 06/01 PO 06/08 1659 1718 Clonazepam 0.5 MG TIDPRN 06/01 0300 DC PO 06/08 0259 Cyanocobalamin 1,000 MCG DAILY 06/02 1000 CAN PO Cyanocobalamin 1,000 MCG 0600 06/02 0600 AC 06/02 PO 0655 Diltiazem HCl 60 MG 0000,1200 06/01 1200 AC 06/02 PO 0021 Diltiazem HCl 120 MG 0600,1800 06/01 0600 AC 06/02 PO 0658 Fluticasone 2 SPRAY DAILY 06/01 1020 AC 06/02 Propionate TORRES 0818 Fluticasone 2 PUF BID 06/01 0309 AC 06/02 Propionate INH 0845 Furosemide 20 MG DAILY 06/02 1000 AC 06/02 PO 0818 Gabapentin 600 MG 1800 06/01 1800 AC 06/01 PO 1719 Gabapentin 600 MG AT BEDTIME 06/01 0400 DC 06/01 PO 0413 Hydromorphone HCl 0.4 MG ONCE ONE 06/01 1100 DC 06/01 IV 06/01 1101 1233 Lactobacillus 1 CAP BID 06/01 1039 AC 06/02 Acidophilus PO 0817 Lisinopril 10 MG 1800 06/01 1800 AC 06/01 PO 1721 Lisinopril 10 MG DAILY 06/01 1000 DC 06/01 PO 0910 Loperamide HCl 2 MG Q4 HRS NEEDED PRN 06/01 0300 AC 06/01 PO 2033 Magnesium Oxide 400 MG 0600,1800 06/01 1800 AC 06/02 PO 0654 Magnesium Oxide 400 MG DAILY 06/01 1000 DC 06/01 PO 0910 Methylprednisolone 80 MG DAILY 06/02 1000 DC IV Methylprednisolone 60 MG DAILY 06/02 1000 AC 06/02 IV 0814 Montelukast Sodium 10 MG 2200 06/01 2200 AC 06/01 PO 2032 Omeprazole 40 MG DAILY AC 06/01 0700 AC PO Oxycodone/ 1 TAB Q6P PRN 06/02 0815 AC 06/02 Acetaminophen PO 0813 Pramipexole 0.25 MG 1800 06/01 1800 AC 06/01 Dihydrochloride PO 2032 Pramipexole 0.25 MG AT BEDTIME 06/01 0400 DC 06/01 Dihydrochloride PO 0438 Prednisone 5 MG DAILY 06/01 1000 DC 06/01 PO 0910 Tramadol HCl 50 MG BID PRN 06/01 1000 AC 06/02 PO 0203 Vancomycin HCl 1,000 MG DAILY 06/01 1037 AC 06/01 Sodium Chloride 250 ML IV 1341 Zolpidem Tartrate 5 MG 1800 06/01 1800 AC 06/01 PO 2032 Zolpidem Tartrate 5 MG AT BEDTIME 06/01 0400 DC 06/01 PO 0413 Vital Signs & I&O Last 24 Hrs of Vitals and I&O: Vital Signs Date Time Temp Pulse Resp B/P B/P Pulse O2 O2 Flow FiO2 Mean Ox Delivery Rate 06/02 0808 92 Nasal 4.0L Cannula 06/02 0659 98.4 80 20 122/78 93 Venti Mask 35% 06/02 0658 80 122/78 06/02 0412 94 Venti Mask 35% 06/02 0021 96 146/88 06/02 0000 Venti Mask 35% 06/01 2224 97.7 103 20 146/82 92 Venti Mask 6.0L 06/01 1721 97 140/84 06/01 1721 97 140/84 06/01 1645 97 Venti Mask 40% 06/01 1600 97 Venti Mask 35% 06/01 1400 98.0 92 24 150/88 93 06/01 1114 Venti Mask 40% Intake & Output 06/02 1600 06/02 0800 06/02 0000 Intake Total 120 960 Output Total 500 Balance -380 960 Intake, Oral 120 960 Output, Urine 500 Impression/Plan Impression/Plan Impression/Plan: cxr IMPRESSION: 1. New patchy opacities in the right upper lobe, concerning for pneumonia. 2. Cardiomegaly and pulmonary venous congestion. 3. The opacity in the right middle lobe seen on prior is not apparent radiographically, and should be followed by CT is recommended at that time. Please check with the patient to be certain that this was followed at an outside institution or is scheduled to be followed. DICTATED BY: Giovanny Charles MD DATE/TIME DICTATED:05/31/172221 CT CHEST IMPRESSION: 1. Lungs have mosaic attenuation; this is suggestive of air trapping phenomenon from small airways disease, and there are scattered areas of subsegmental atelectasis in both lungs. 2. Compared to 02/24/2017, interval development of multilobar tree-in-bud nodules, patchy nodular opacities and areas of groundglass attenuation consistent with infectious bronchiolitis and pneumonia. 3. Chronic cardiomegaly with prominent pulmonary vessels. However, no acute interstitial edema. Pulmonary artery trunk is 4 cm diameter, highly suggestive of chronic pulmonary arterial hypertension. 4. Diffuse hepatic steatosis. DICTATED BY: Sumit Orozco MD DATE/TIME DICTATED:06/02/17957 General Appearance Alert, Oriented X3, Cooperative, Mild Distress Skin No Significant Lesion Skin Temp/Moisture Exam: Warm/Dry Sepsis Skin Exam (color): Normal for Ethnicity HEENT Atraumatic, EOMI, Mucous Membr. 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
--- NOTE | 2017-06-02 11:29 | PN- Cardiology ---
Subjective Subjective: Feeling better. Shortness of breath is improving. No chest pain. No palpitations. No diaphoresis. Objective Vital Signs and I&Os Vital Signs Date Time Temp Pulse Resp B/P B/P Pulse O2 O2 Flow FiO2 Mean Ox Delivery Rate 06/02 0900 94 Venti Mask 35% 06/02 0808 92 Nasal 4.0L Cannula 06/02 0659 98.4 80 20 122/78 93 Venti Mask 35% 06/02 0658 80 122/78 06/02 0412 94 Venti Mask 35% 06/02 0021 96 146/88 06/02 0000 Venti Mask 35% 06/01 2224 97.7 103 20 146/82 92 Venti Mask 6.0L 06/01 1721 97 140/84 06/01 1721 97 140/84 06/01 1645 97 Venti Mask 40% 06/01 1600 97 Venti Mask 35% 06/01 1400 98.0 92 24 150/88 93 Intake & Output 06/02 1600 06/02 0800 06/02 0000 06/01 1600 06/01 0800 06/01 0000 Intake Total 113 561 7803 1180 Output Total 500 200 Balance -042 078 2439 980 Intake, IV 500 700 Intake, Oral 120 960 520 480 Number 1 Bowel Movements Output, Urine 500 200 Patient 209 lb 210 lb 210 lb Weight Weight Reported by Patient Reported by Patient Measurement Method Physical Exam: Gen: NAD HEENT: normal Lungs: clear to auscultation, normal resp. effort Heart: S1, S2, 1/6 systolic murmur Abdomen: Soft, nontender, no masses Extremities: No clubbing, cyanosis, or edema. Neuro: Alert and oriented x 3, cranial nerves intact Current Medications: Current Medications Sig/Bassem Start time Last Medication Dose Route Stop Time Status Admin Albuterol Sulfate 3 ML EVERY 4 HRS/AWAKE 06/01 2000 AC 06/02 INH 1118 Albuterol Sulfate 3 ML Q6-PRN PRN 06/01 1030 AC 06/01 INH 1109 Apixaban 5 MG 0600,1800 06/01 1800 AC 06/02 PO 0655 Azithromycin 500 MG DAILY 06/01 1000 AC 06/02 Sodium Chloride 250 ML IV 0815 Ceftriaxone Sodium 1,000 MG DAILY 06/01 1000 AC 06/02 IV 0814 Cholecalciferol 2,000 IU DAILY 06/02 1000 AC 06/02 PO 0815 Clonazepam 1.5 MG 1700 06/01 1700 AC 06/01 PO /03 1659 1718 Cyanocobalamin 1,000 MCG 0600 06/02 0600 AC 06/02 PO 0655 Diltiazem HCl 60 MG 0000,1200 06/01 1200 AC 06/02 PO 0021 Diltiazem HCl 120 MG 0600,1800 06/01 0600 AC 06/02 PO 0658 Fluticasone 2 SPRAY DAILY 06/01 1020 AC 06/02 Propionate TORRES 0818 Fluticasone 2 PUF BID 06/01 0309 AC 06/02 Propionate INH 0845 Furosemide 20 MG DAILY 06/02 1000 AC 06/02 PO 0818 Gabapentin 600 MG 1800 06/01 1800 AC 06/01 PO 1719 Lactobacillus 1 CAP BID 06/01 1039 AC 06/02 Acidophilus PO 0817 Lisinopril 10 MG 1800 06/01 1800 AC 06/01 PO 1721 Loperamide HCl 2 MG Q4 HRS NEEDED PRN 06/01 0300 AC 06/01 PO 2033 Magnesium Oxide 400 MG 0600,1800 06/01 1800 AC 06/02 PO 0654 Methylprednisolone 80 MG DAILY 06/02 1000 DC IV Methylprednisolone 60 MG DAILY 06/02 1000 AC 06/02 IV 0814 Montelukast Sodium 10 MG 2200 06/01 2200 AC 06/01 PO 2032 Omeprazole 40 MG DAILY AC 06/01 0700 AC PO Oxycodone/ 1 TAB Q6P PRN 06/02 0815 AC 06/02 Acetaminophen PO 0813 Pramipexole 0.25 MG 1800 06/01 1800 AC 06/01 Dihydrochloride PO 2032 Tramadol HCl 50 MG BID PRN 06/01 1000 AC 06/02 PO 0203 Vancomycin HCl 1,000 MG DAILY 06/01 1037 AC 06/01 Sodium Chloride 250 ML IV 1341 Zolpidem Tartrate 5 MG 1800 06/01 1800 AC 06/01 PO 2032 Results Last 48 Hrs of Labs/Mics: Laboratory Tests 06/02/17 0620: Anion Gap 13, Estimated GFR > 60, BUN/Creatinine Ratio 22.5, CBC w Diff NO MAN DIFF REQ, RBC 3.79 L, MCV 94.2, MCH 30.8, RDW 28.4 H, MPV 7.9, Gran % 86.8 H, Lymphocytes % 6.3 L, Monocytes % 6.8, Eosinophils % 0.1, Basophils % 0, Absolute Granulocytes 9.8 H, Absolute Lymphocytes 0.7 L, Absolute Monocytes 0.8 H, Absolute Eosinophils 0, Absolute Basophils 0, PUBS MCHC 32.7 L 06/01/17 1315: Troponin I 0.03 06/01/17 1130: pH 7.35, pCO2 34 L, pO2 87, HCO3 18 L, ABG O2 Sat (Measured) 95.0 L, P-50 ( Temp Corrected) N, Carboxyhemoglobin 0.3 L, O2 Concentration % 40%, O2 Delivery Method VM, Phlebotomy Draw Site RIGHT RADIAL 06/01/17 0658: Anion Gap 16, Estimated GFR > 60, BUN/Creatinine Ratio 15.0, Troponin I 0.04, CBC w Diff NO MAN DIFF REQ, RBC 4.13 L, MCV 93.0, MCH 30.6, RDW 28.0 H, MPV 8.3, Gran % 93.7 H, Lymphocytes % 5.5 L, Monocytes % 0.8 L, Eosinophils % 0, Basophils % 0, Absolute Granulocytes 7.9 H, Absolute Lymphocytes 0.5 L, Absolute Monocytes 0.1, Absolute Eosinophils 0, Absolute Basophils 0, PUBS MCHC 32.9 L 06/01/17 0600: Troponin I Cancelled 05/31/17 2100: Anion Gap 15, Estimated GFR > 60, BUN/Creatinine Ratio 15.0, Glucose 97, Calcium 9.5, Total Bilirubin 0.4, AST 49 H, ALT 39, Alkaline Phosphatase 73, Troponin I 0.07, Fvu-W-Votbfubfyew Pept 475 H, Total Protein 8.2, Albumin 4.5, Globulin 3.7, Albumin/Globulin Ratio 1.2, CBC w Diff NO MAN DIFF REQ, RBC 4.46, MCV 93.1, MCH 30.0, RDW 28.7 H, MPV 7.9, Gran % 80.3 H, Lymphocytes % 13.1 L, Monocytes % 5.6, Eosinophils % 0.7, Basophils % 0.3, Absolute Granulocytes 7.9 H, Absolute Lymphocytes 1.3, Absolute Monocytes 0.6, Absolute Eosinophils 0.1, Absolute Basophils 0, PUBS MCHC 32.2 L Microbiology 06/01 1230 URINE ROUT: Legionella Antigen - COMP 06/01 1230 URINE ROUT: Streptococcus pneumoniae Antigen (M - COMP 06/01 0114 NASOPHARYN: Influenza Virus A & B Rapid Smear - COMP Recent Imaging Studies: CT chest: 1. Lungs have mosaic attenuation; this is suggestive of air trapping phenomenon from small airways disease, and there are scattered areas of subsegmental atelectasis in both lungs. 2. Compared to 02/24/2017, interval development of multilobar tree-in-bud nodules, patchy nodular opacities and areas of groundglass attenuation consistent with infectious bronchiolitis and pneumonia. 3. Chronic cardiomegaly with prominent pulmonary vessels. However, no acute interstitial edema. Pulmonary artery trunk is 4 cm diameter, highly suggestive of chronic pulmonary arterial hypertension. 4. Diffuse hepatic steatosis. Assessment/Plan Assessment/Plan Assessment: 1. Worsening shortness of breath and cough with sputum production; possible pneumonia; possible bronchitis 2. Lower extremity edema with minimally elevated proBNP, unchanged from previously.-At the moment I do not see any evidence of overt heart failure 3. Rule out ACS 4. Paroxysmal atrial fibrillation now in sinus rhythm with brief episodes of nonsustained paroxysmal SVT noted on the monitor 5. Restless leg syndrome 6. Insomnia 7. Crohn's disease status post colon resection Plan: * Continue po Lasix * Antibiotics as per the medical service * Continue other cardiac medications * Repeat basic metabolic profile in the morning Continue telemetry? Yes
[2017-06-02 13:56] VITALS: BP 118/80
[2017-06-02 22:34] VITALS: BP 102/54
[2017-06-03 07:25] VITALS: BP 100/60
--- NOTE | 2017-06-03 07:58 | PN- Housestaff ---
John PARSON,Elvin 06/03/17 0758: Subjective Follow-up For: Bronchiolitis obliterans with pneumonia Complaints: patient was complaining of multiple episodes of loose bowel movements Tele-Events Since Last Visit: No overnight events Subjective: Patient is seen and examined at the bedside. She was feeling much better in terms of breathing, but she started having loose bowel movements. She was on antibiotics. Our primary concern is having c diff. We sent a stool for C. difficile and it come back negative. Review of Systems Constitutional: Reports: no symptoms. Cardiovascular: Denies: no symptoms. Respiratory: Reports: cough. Gastrointestinal: Reports: abdominal pain, bloating, diarrhea, distention, bloody stool. Objective Last 24 Hrs of Vital Signs/I&O Vital Signs Date Time Temp Pulse Resp B/P B/P Pulse O2 O2 Flow FiO2 Mean Ox Delivery Rate 06/03 1134 100/60 06/03 0930 Nasal 4.0L Cannula 06/03 0808 95 Nasal 4.0L Cannula 06/03 0725 97.0 85 20 100/60 95 Nasal 4.0L Cannula 06/03 0529 138/70 06/03 0007 90 06/03 0000 Nasal 4.0L Cannula 06/02 2234 98.7 90 20 102/54 92 Nasal 3.5L Cannula 06/02 1811 80 122/78 06/02 1808 80 122/78 06/02 1612 92 Nasal 4.0L Cannula 06/02 1422 80 122/78 06/02 1356 97.9 81 20 118/80 94 Nasal 6.0L Cannula Intake & Output 06/03 1600 06/03 0800 06/03 0000 Intake Total 100 150 Output Total 200 Balance -100 150 Intake, Oral 100 150 Number 3 1 Bowel Movements Output, Urine 200 Physical Exam General Appearance: Alert, Oriented X3, Cooperative, No Acute Distress Cardiovascular: Normal S1, Normal S2 Lungs: occasional wheezing and decreased air entry on bilateral bases Abdomen: Soft, distended and tenderness Extremities: No Clubbing, No Cyanosis, No Edema Current Medications: Current Medications Sig/Bassem Start time Last Medication Dose Route Stop Time Status Admin Albuterol Sulfate 3 ML EVERY 4 HRS/AWAKE 06/01 2000 AC 06/03 INH 1142 Albuterol Sulfate 3 ML Q6-PRN PRN 06/01 1030 AC 06/01 INH 1109 Apixaban 5 MG 0600,1800 06/01 1800 AC 06/03 PO 0530 Artificial Tears 2 GTT 4 TIMES/DAY 06/02 1534 AC 06/03 OPH 0940 Azithromycin 500 MG DAILY 06/01 1000 DC 06/03 Sodium Chloride 250 ML IV 1135 Ceftriaxone Sodium 1,000 MG DAILY 06/01 1000 AC 06/03 IV 0915 Cholecalciferol 2,000 IU DAILY 06/02 1000 AC 06/03 PO 0917 Clonazepam 1.5 MG 1700 06/01 1700 AC 06/02 PO 06/08 1659 1805 Cyanocobalamin 1,000 MCG 0600 06/02 0600 AC 06/03 PO 0530 Diltiazem HCl 60 MG 0000,1200 06/01 1200 AC 06/03 PO 1134 Diltiazem HCl 120 MG 0600,1800 06/01 0600 AC 06/03 PO 0529 Fluticasone 2 SPRAY DAILY 06/01 1020 AC 06/03 Propionate TORRES 0935 Fluticasone 2 PUF BID 06/01 0309 AC 06/03 Propionate INH 0935 Furosemide 20 MG DAILY 06/02 1000 AC 06/03 PO 0945 Gabapentin 600 MG 1800 06/01 1800 AC 06/02 PO 1806 Lactobacillus 1 CAP BID 06/01 1039 AC 06/03 Acidophilus PO 0916 Lisinopril 10 MG 1800 06/01 1800 AC 06/02 PO 1808 Loperamide HCl 2 MG Q4 HRS NEEDED PRN 06/01 0300 AC 06/02 PO 1932 Magnesium Oxide 400 MG 0600,1800 06/01 1800 DC 06/03 PO 0530 Methylprednisolone 50 MG DAILY 06/04 1000 AC IV Methylprednisolone 60 MG DAILY 06/02 1000 DC 06/03 IV 0915 Montelukast Sodium 10 MG 2200 06/01 2200 AC 06/02 PO 2112 Omeprazole 40 MG DAILY AC 06/01 0700 AC 06/03 PO 0526 Oxycodone/ 1 TAB .STK-MED ONE 06/02 1451 DC Acetaminophen PO 06/02 1452 Oxycodone/ 1 TAB Q6P PRN 06/02 0815 AC 06/03 Acetaminophen PO 1135 Pramipexole 0.25 MG 1800 06/01 1800 AC 06/02 Dihydrochloride PO 1806 Sodium Chloride 1,000 ML Q20H 06/03 0800 AC 06/03 IV 0915 Tramadol HCl 50 MG BID PRN 06/01 1000 AC 06/03 PO 0945 Zolpidem Tartrate 5 MG 1800 06/01 1800 AC 06/02 PO 1805 Last 24 Hrs of Lab/Mitchel Results Last 24 Hrs of Labs/Mics: Laboratory Tests 06/03/17 0630: Anion Gap 13, Estimated GFR > 60, BUN/Creatinine Ratio 25.6 H, Magnesium 2.1, CBC w Diff NO MAN DIFF REQ, RBC 4.28, MCV 94.0, MCH 29.6, RDW 28.0 H, MPV 8.2, Gran % 89.7 H, Lymphocytes % 5.3 L, Monocytes % 4.9, Eosinophils % 0, Basophils % 0.1, Absolute Granulocytes 11.9 H, Absolute Lymphocytes 0.7 L, Absolute Monocytes 0.6, Absolute Eosinophils 0, Absolute Basophils 0, PUBS MCHC 31.5 L Microbiology 06/03 0027 STOOL: Clostridium difficile Toxin A & B - COMP Assessment/Plan Assessment: Patient is a 66-year-old female with significant past medical history of atrial fibrillation, on Eliquis, Crohn's disease s/p small bowel resection/ileocecal valve removal, hypertension, restless leg syndrome, chronic asthma, bronchiolitis (steroid dependent) presented with chief complaints of chronic cough with intermittent expectoration, yellowish/brownish in color since last 1 month. ED course -vital signs at the time of admission -temperature 99.8, pulse 107, respiratory rate 28, blood pressure 169/75, SPO2 87% on room air. Blood workup showed hemoglobin 13.4, hematocrit 41.5, platelet count 278, granulocyte 80.3, lymphocyte 13.1, sodium 138, potassium 4.9, chloride 104, carbon dioxide 18, BUN 12, creatinine 0.8, serial troponins were 0.07 , 0.04, 0.03.EKG showed sinus tachycardia, HR-105, poor r wave progression. CT scan of the chest showed scattered ED of subsegmental atelectasis in both lungs. Multilobar tree-in-bud nodules, patchy nodular opacities, infectious bronchiolitis and pneumonia.Chronic cardiomegaly with prominent pulmonary vessels, but dilated pulmonary artery. Suggested chronic pulmonary arterial hypertension. 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 * Usually confirmatory test is lung biopsy * Risk factors are -Viral URI ( Possibly), food flavoring fumes (eg, diacetyl used in popcorn and other foods) - Denies * Management is - - Stopping the exposure to potential culprit agent, - Symptomatic treatment - TRC/Neb/Oxygen to maintain the pulse oxygen saturation above 88 percent. - We stopped azithro and continued ceftriaxone - Tapered Inj Methylprednisone 50mg IV daily - Will repeat CBC/BEp tomorrow. Crohn's disease with bowel resection, history of recurrent diarrhea on loperamide and codeine prn - * Patient has liquidy diarrhea with blood. Stool for C. difficile is negative. * Advised to give tablet codeine 15 mgs once, and if needed than repeat. * We'll follow GI recommendation Atrial fibrillation converted to normal sinus rhythm, on Eliquis * We will continue Eliquis Diet - low sodium, heart healthy diet Code status - DNI DVT Prophylaxis - Eliquis Problem List: 1. Bronchiolitis obliterans Pain Ratin Pain Location: abdomen Pain Goal: Remain pain free Pain Plan: pain medication according to pain scale Tomorrow's Labs & Rationales: cbc, bep for f/u DVT/Prophylaxis: mechanical, pharmacological Apergis Deborah PARSON 06/03/17 1243: Attending MD Review Statement Attending Statement Attending MD Statement: examined this patient, discuss w/resident/PA/HEAVY EQUIPMENT TECHNICIAN, agreed w/resident/PA/HEAVY EQUIPMENT TECHNICIAN, reviewed EMR data (avail) Attending Assessment/Plan: 66F PMH HTN, A. fib S/P cardioversion followed by ablation now in sinus, history of Crohn's disease status post bowel resection and has chronic diarrhea, restless leg syndrome, bronchiolitis obliterans admitted with worsening shortness of breath and dyspnea at rest, cough with white sputum, and hypoxia requiring 35% venti mask, and was unable to speak in full sentences and had a persistent cough. Was given Solumedrol and breathing treatments initially. Today patient feels much better. She is saturating well on 4L NC. She had several episodes of loose stools overnight related to her Crohn's, and says she usually takes Loperamide and Codeine for this. Afebrile overnight, vitals stable, labs unremarkable, cultures negative. 1. Acute exacerbation of bronchiolitis obliterans 2. Acute hypoxemic respiratory failure 3. Multilobar pneumonia 4. Crohn's disease Plan - Continue on telemetry for now - C.diff sent, will follow - GI consult with Dr. Espinoza - Continue Ceftriaxone and Azithromycin - Follow sputum and blood cultures - Nebulizer treatments - Cardiology and pulmonary recommendations - Continue Solumedrol - Titrate down oxygen as tolerated - Continue Percocet for pain - Continue home medications - Continue Eliquis for DVT PPx - Continue Percocet for pain - Continue home medications - Continue Eliquis for DVT PPx
--- NOTE | 2017-06-03 08:10 | ECHOCARDIOGRAM REPORT ---
SONIA DARNELL Age: 66 : 1950 Gender: F Exam Date: 06/02/2017 18:27 Exam Location: [address] Ht (in): 68 Wt (lb): 209 BSA: 2.16 BP: 122 / 78 Ordering Physician: Jewels Lopez MD Referring Physician: Silverio Gomez MD Technologist: Dianna Flores [facility] Room Number: 179-01 Indications: AFIB/FLUTTER Rhythm: Sinus Technical Quality: Fair, Technically difficult study FINDINGS Left Ventricle Normal size left ventricle. No obvious regional wall motion abnormalities. Left ventricular wall thickness increased. Normal left ventricular ejection fraction estimated at 65-70%. Right Ventricle Normal right ventricular size and function. Right Atrium Normal right atrial size. Left Atrium Moderate left atrial dilatation. Mitral Valve Mitral valve thickened. [id number] mitral regurgitation. Aortic Valve Trileaflet aortic valve. Diffuse thickening (sclerosis) of the aortic valve cusps without reduced excursion. No aortic stenosis. Mild aortic regurgitation. Tricuspid Valve Tricuspid valve not well visualized, grossly normal. Mild-to- moderate tricuspid regurgitation. Right ventricular systolic pressure estimated to be elevated at 46 mmHg. Pulmonic Valve Structurally normal pulmonic valve. Mild pulmonic regurgitation. Pericardium Minimal pericardial effusion (normal variant). Great Vessels Normal size aortic root and proximal ascending aorta. CONCLUSIONS 1. This was a technically difficult study 2. Mild aortic sclerosis is present with mild aortic insufficiency. 3. Mitral leaflet thickening is present with mild to moderate mitral insufficiency and moderate left atrial enlargement. 4. A physiologic pericardial effusion is present which is hemodynamically insignificant. 5. The left ventricular chamber size is normal. Mild to moderate concentric hypertrophy is present. Ejection fraction is normal with no resting wall motion abnormalities. Diastolic dysfunction is present. 6. Mild to moderate tricuspid insufficiency is present with mild pulmonic insufficiency and an estimated right ventricular systolic pressure of 46 mmHg. 7. The patient's rhythm was intermittently irregular during the test. Holter monitor correlation is suggested if clinically indicated. Silverio Gomez M.D. (Electronically Signed) Final Date: 03 June 2017 08:09 MEASUREMENTS (Male / Female) Normal Values 2D ECHO LV Diastolic Diameter PLAX 3.7 cm 4.2 - 5.9 / 3.9 - 5.3 cm LV Systolic Diameter PLAX 1.9 cm 2.1 - 4.0 cm LV Fractional Shortening PLAX 48.6 % 25 - 46 % LV Ejection Fraction 2D Teich 80.8 % IVS Diastolic Thickness 1.5 cm LVPW Diastolic Thickness 1.4 cm LV Relative Wall Thickness 0.8 RV Internal Dim ED PLAX 3.6 cm 1.9 - 3.8 cm LVOT Diameter 2.2 cm Aortic Root Diameter 3.1 cm LA Systolic Diameter LX 4.7 cm 3.0 - 4.0 / 2.7 - 3.8 cm LA Volume 73.0 cm 18 - 58 / 22 - 52 cm Ascending Aorta Diameter 3.4 cm DOPPLER AV Peak Velocity 177.0 cm/s AV Peak Gradient 12.5 mmHg AV Mean Velocity 122.0 cm/s AV Mean Gradient 7.0 mmHg AV Velocity Time Integral 33.2 cm LVOT Peak Velocity 131.0 cm/s LVOT Peak Gradient 6.9 mmHg LVOT Mean Velocity 89.5 cm/s LVOT Mean Gradient 4.0 mmHg LVOT Velocity Time Integral 24.3 cm LVOT Stroke Volume 92.4 cm AV Area Cont Eq vti 2.8 cm AV Area Cont Eq pk 2.8 cm MV Peak Velocity 184.0 cm/s MV Peak Gradient 13.5 mmHg MV Mean Velocity 74.8 cm/s MV Mean Gradient 3.0 mmHg Mitral E Point Velocity 173.0 cm/s MV PHT Velocity 194.0 cm/s MV Deceleration [place] 1132.0 cm/s MV Pressure Half Time 51.4 ms MV Area PHT 4.3 cm MV Deceleration Time 135.0 ms TR Peak Velocity 324.0 cm/s TR Peak Gradient 42.0 mmHg Right Atrial Pressure 5.0 mmHg Pulmonary Artery Systolic Pressu 47.0 mmHg Right Ventricular Systolic Press 47.0 mmHg PV Peak Velocity 125.0 cm/s PV Peak Gradient 6.3 mmHg PV Mean Velocity 79.1 cm/s PV Mean Gradient 3.0 mmHg PV Velocity Time Integral 20.7 cm LV E' Lateral Velocity 10.9 cm/s Mitral E to LV E' Lateral Ratio 15.9 LV E' Septal Velocity 2.9 cm/s Mitral E to LV E' Septal Ratio 59.2
[2017-06-03 08:28] LABS: ABSOLUTE BASOPHIL COUNT 0 /CUMM (0.0-0.2); ABSOLUTE EOSINOPHIL COUNT 0 /CUMM (0.0-0.7); ABSOLUTE GRANULOCYTE CT 11.9 /CUMM (1.4-6.5); ABSOLUTE LYMPH COUNT 0.7 /CUMM (1.2-3.4); ABSOLUTE MONOCYTE COUNT 0.6 /CUMM (0.10-0.60); BASOPHIL % 0.1 % (0.0-2.0); EOSINOPHIL % 0 % (0-5); HEMATOCRIT 40.2 % (37-47); MEAN CORPUSCULAR HGB 29.6 PG (27.0-31.0); MEAN CORPUSCULAR HGB CONC 31.5 G/DL (33.0-37.0); MEAN PLATELET VOLUME 8.2 FL (7.4-10.4); RED BLOOD CELL CT 4.28 /CUMM (4.20-5.40); WHITE BLOOD CELL COUNT 13.2 /CUMM (4.8-10.8)
[2017-06-03 08:56] LABS: GRANULOCYTE % 89.7 % (42.2-75.2); PLATELET COUNT 285 /CUMM (130-400)
--- NOTE | 2017-06-03 10:59 | PN- Pulmonary ---
Subjective HPI/Critical Care Issues: Worsening diarrea fatigue stable other lee on ivf Objective Current Medications: Current Medications Sig/Bassem Start time Last Medication Dose Route Stop Time Status Admin Albuterol Sulfate 3 ML EVERY 4 HRS/AWAKE 06/01 2000 AC 06/03 INH 0807 Albuterol Sulfate 3 ML Q6-PRN PRN 06/01 1030 AC 06/01 INH 1109 Apixaban 5 MG 0600,1800 06/01 1800 AC 06/03 PO 0530 Artificial Tears 2 GTT 4 TIMES/DAY 06/02 1534 AC 06/03 OPH 0940 Azithromycin 500 MG DAILY 06/01 1000 AC 06/02 Sodium Chloride 250 ML IV 0815 Ceftriaxone Sodium 1,000 MG DAILY 06/01 1000 AC 06/03 IV 0915 Cholecalciferol 2,000 IU DAILY 06/02 1000 AC 06/03 PO 0917 Clonazepam 1.5 MG 1700 06/01 1700 AC 06/02 PO 06/08 1659 1805 Cyanocobalamin 1,000 MCG 0600 06/02 0600 AC 06/03 PO 0530 Diltiazem HCl 60 MG 0000,1200 06/01 1200 AC 06/03 PO 0007 Diltiazem HCl 120 MG 0600,1800 06/01 0600 AC 06/03 PO 0529 Fluticasone 2 SPRAY DAILY 06/01 1020 AC 06/03 Propionate TORRES 0935 Fluticasone 2 PUF BID 06/01 0309 AC 06/03 Propionate INH 0935 Furosemide 20 MG DAILY 06/02 1000 AC 06/03 PO 0945 Gabapentin 600 MG 1800 06/01 1800 AC 06/02 PO 1806 Lactobacillus 1 CAP BID 06/01 1039 AC 06/03 Acidophilus PO 0916 Lisinopril 10 MG 1800 06/01 1800 AC 06/02 PO 1808 Loperamide HCl 2 MG Q4 HRS NEEDED PRN 06/01 0300 AC 06/02 PO 1932 Magnesium Oxide 400 MG 0600,1800 06/01 1800 DC 06/03 PO 0530 Methylprednisolone 60 MG DAILY 06/02 1000 AC 06/03 IV 0915 Montelukast Sodium 10 MG 2200 06/01 2200 AC 06/02 PO 2112 Omeprazole 40 MG DAILY AC 06/01 0700 AC 06/03 PO 0526 Oxycodone/ 1 TAB .STK-MED ONE 06/02 1451 DC Acetaminophen PO 06/02 1452 Oxycodone/ 1 TAB Q6P PRN 06/02 0815 AC 06/03 Acetaminophen PO 0530 Pramipexole 0.25 MG 1800 06/01 1800 AC 06/02 Dihydrochloride PO 1806 Sodium Chloride 1,000 ML Q20H 06/03 0800 AC 06/03 IV 0915 Tramadol HCl 50 MG BID PRN 06/01 1000 AC 06/03 PO 0945 Vancomycin HCl 1,000 MG DAILY 06/01 1037 DC 06/01 Sodium Chloride 250 ML IV 1341 Zolpidem Tartrate 5 MG 1800 06/01 1800 AC 06/02 PO 1805 Vital Signs & I&O Last 24 Hrs of Vitals and I&O: Vital Signs Date Time Temp Pulse Resp B/P B/P Pulse O2 O2 Flow FiO2 Mean Ox Delivery Rate 06/03 0808 95 Nasal 4.0L Cannula 06/03 0725 97.0 85 20 100/60 95 Nasal 4.0L Cannula 06/03 0529 138/70 06/03 0007 90 06/03 0000 Nasal 4.0L Cannula 06/02 2234 98.7 90 20 102/54 92 Nasal 3.5L Cannula 06/02 1811 80 122/78 06/02 1808 80 122/78 06/02 1612 92 Nasal 4.0L Cannula 06/02 1422 80 122/78 06/02 1356 97.9 81 20 118/80 94 Nasal 6.0L Cannula Intake & Output 06/03 1600 06/03 0800 06/03 0000 Intake Total 100 150 Output Total 200 Balance -100 150 Intake, Oral 100 150 Number 3 1 Bowel Movements Output, Urine 200 Impression/Plan Impression/Plan Impression/Plan: cxr IMPRESSION: 1. New patchy opacities in the right upper lobe, concerning for pneumonia. 2. Cardiomegaly and pulmonary venous congestion. 3. The opacity in the right middle lobe seen on prior is not apparent radiographically, and should be followed by CT is recommended at that time. Please check with the patient to be certain that this was followed at an outside institution or is scheduled to be followed. DICTATED BY: Giovanny Charles MD DATE/TIME DICTATED:05/31/172221 CT CHEST IMPRESSION: 1. Lungs have mosaic attenuation; this is suggestive of air trapping phenomenon from small airways disease, and there are scattered areas of subsegmental atelectasis in both lungs. 2. Compared to 02/24/2017, interval development of multilobar tree-in-bud nodules, patchy nodular opacities and areas of groundglass attenuation consistent with infectious bronchiolitis and pneumonia. 3. Chronic cardiomegaly with prominent pulmonary vessels. However, no acute interstitial edema. Pulmonary artery trunk is 4 cm diameter, highly suggestive of chronic pulmonary arterial hypertension. 4. Diffuse hepatic steatosis. DICTATED BY: Sumit Orozco MD DATE/TIME DICTATED:06/02/17957 General Appearance Alert, Oriented X3, Cooperative, Mild Distress Skin No Significant Lesion Skin Temp/Moisture Exam: Warm/Dry Sepsis Skin Exam (color): Normal for Ethnicity HEENT Atraumatic, EOMI, Mucous Membr. 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, asthma, PLM, Crohn's disease, PAFIB, chronic steroid use, previous pna, previous chf, with REsolving Acute hypoxic resp failure mainly due to acute exacerbation of bronchiolitis with pneumonia Sig mixed obs / restrictive lung disease on chronic steroids and hence immunosupp PAFib history in sinus with previous chf but does not appear fluid overloaded Crohns with sig diarrhea and intol to many abx Rule out cdiff PLM Rule out acs REC Abx Ceftriaxone Can dc azithro Reduce steroids to 50 mg Stool for cdiff nebs atc q6 for now See cardio note cont probiotics will follow
[2017-06-03 13:11] VITALS: BP 112/66
--- NOTE | 2017-06-03 15:04 | PN- Cardiology ---
Subjective Subjective: The patient states her breathing is better. She is still having some palpitations. She denies any chest pain. She is having some PACs on the monitor and occasional short bursts of what looks like SVT with aberrancy. She remains on steroids, Lasix 20 mg, lisinopril, Eliquis, diltiazem and antibiotics. Objective Vital Signs and I&Os Vital Signs Date Time Temp Pulse Resp B/P B/P Pulse O2 O2 Flow FiO2 Mean Ox Delivery Rate 06/03 1311 97.7 78 20 112/66 96 06/03 1134 100/60 06/03 0930 Nasal 4.0L Cannula 06/03 0808 95 Nasal 4.0L Cannula 06/03 0725 97.0 85 20 100/60 95 Nasal 4.0L Cannula 06/03 0529 138/70 06/03 0007 90 06/03 0000 Nasal 4.0L Cannula 06/02 2234 98.7 90 20 102/54 92 Nasal 3.5L Cannula 06/02 1811 80 122/78 06/02 1808 80 122/78 06/02 1612 92 Nasal 4.0L Cannula Intake & Output 06/03 1600 06/03 0800 06/03 0000 06/02 1600 06/02 0800 06/02 0000 Intake Total 100 150 850 120 960 Output Total 200 500 Balance -100 150 850 -380 960 Intake, IV 250 Intake, Oral 100 150 600 120 960 Number 3 1 Bowel Movements Output, Urine 200 500 Physical Exam: Obese middle-aged female slightly uncomfortable but in no acute distress HEENT exam unremarkable Neck veins not distended Chest moderate wheezing Heart regular rhythm no murmurs Extremities 1+ edema Current Medications: Current Medications Sig/Bassem Start time Last Medication Dose Route Stop Time Status Admin Albuterol Sulfate 3 ML EVERY 4 HRS/AWAKE 06/01 2000 AC 06/03 INH 1142 Albuterol Sulfate 3 ML Q6-PRN PRN 06/01 1030 AC 06/01 INH 1109 Apixaban 5 MG 0600,1800 06/01 1800 AC 06/03 PO 0530 Artificial Tears 2 GTT 4 TIMES/DAY 06/02 1534 AC 06/03 OPH 1346 Azithromycin 500 MG DAILY 06/01 1000 DC 06/03 Sodium Chloride 250 ML IV 1135 Ceftriaxone Sodium 1,000 MG DAILY 06/01 1000 AC 06/03 IV 0915 Cholecalciferol 2,000 IU DAILY 06/02 1000 AC 06/03 PO 0917 Clonazepam 1.5 MG 1700 06/01 1700 AC 06/02 PO 06/08 1659 1805 Codeine 15 MG ONCE ONE 06/03 1315 DC 06/03 PO 06/03 1316 1346 Cyanocobalamin 1,000 MCG 0600 06/02 0600 AC 06/03 PO 0530 Diltiazem HCl 60 MG 0000,1200 06/01 1200 AC 06/03 PO 1134 Diltiazem HCl 120 MG 0600,1800 06/01 0600 AC 06/03 PO 0529 Fluticasone 2 SPRAY DAILY 06/01 1020 AC 06/03 Propionate TORRES 0935 Fluticasone 2 PUF BID 06/01 0309 AC 06/03 Propionate INH 0935 Furosemide 20 MG DAILY 06/02 1000 AC 06/03 PO 0945 Gabapentin 600 MG 1800 06/01 1800 AC 06/02 PO 1806 Lactobacillus 1 CAP BID 06/01 1039 AC 06/03 Acidophilus PO 0916 Lisinopril 10 MG 1800 06/01 1800 AC 06/02 PO 1808 Loperamide HCl 2 MG Q4 HRS NEEDED PRN 06/01 0300 AC 06/02 PO 1932 Magnesium Oxide 400 MG 0600,1800 06/01 1800 DC 06/03 PO 0530 Methylprednisolone 50 MG DAILY 06/04 1000 AC IV Methylprednisolone 60 MG DAILY 06/02 1000 DC 06/03 IV 0915 Montelukast Sodium 10 MG 2200 06/01 2200 AC 06/02 PO 2112 Omeprazole 40 MG DAILY AC 06/01 0700 AC 06/03 PO 0526 Oxycodone/ 1 TAB Q6P PRN 06/02 0815 AC 06/03 Acetaminophen PO 1135 Pramipexole 0.25 MG 1800 06/01 1800 AC 06/02 Dihydrochloride PO 1806 Sodium Chloride 1,000 ML Q20H 06/03 0800 AC 06/03 IV 0915 Tramadol HCl 50 MG BID PRN 06/01 1000 AC 06/03 PO 0945 Zolpidem Tartrate 5 MG 1800 06/01 1800 AC 06/02 PO 1805 Results Last 48 Hrs of Labs/Mics: Laboratory Tests 06/03/17 0630: Anion Gap 13, Estimated GFR > 60, BUN/Creatinine Ratio 25.6 H, Magnesium 2.1, CBC w Diff NO MAN DIFF REQ, RBC 4.28, MCV 94.0, MCH 29.6, RDW 28.0 H, MPV 8.2, Gran % 89.7 H, Lymphocytes % 5.3 L, Monocytes % 4.9, Eosinophils % 0, Basophils % 0.1, Absolute Granulocytes 11.9 H, Absolute Lymphocytes 0.7 L, Absolute Monocytes 0.6, Absolute Eosinophils 0, Absolute Basophils 0, PUBS MCHC 31.5 L 06/02/17 0620: Anion Gap 13, Estimated GFR > 60, BUN/Creatinine Ratio 22.5, CBC w Diff NO MAN DIFF REQ, RBC 3.79 L, MCV 94.2, MCH 30.8, RDW 28.4 H, MPV 7.9, Gran % 86.8 H, Lymphocytes % 6.3 L, Monocytes % 6.8, Eosinophils % 0.1, Basophils % 0, Absolute Granulocytes 9.8 H, Absolute Lymphocytes 0.7 L, Absolute Monocytes 0.8 H, Absolute Eosinophils 0, Absolute Basophils 0, PUBS MCHC 32.7 L Microbiology 06/03 0027 STOOL: Clostridium difficile Toxin A & B - COMP Assessment/Plan Assessment/Plan The patient is slowly improving from her acute respiratory illness. She is having some supraventricular ectopy not clinically of any major concern. Her enzymes were negative. Her echo showed good left ventricular systolic function. I recommend the same pharmacologic regimen. We can keep her on the monitor for one more day and if her rhythm stabilizes then this can be discontinued. Continue telemetry? Yes
--- NOTE | 2017-06-03 18:55 | Cons- Gastroenterology ---
General Information and HPI Consulting Request Date of Consult: 06/03/17 Requested By: Lashell Sandra MD Reason for Consult: Diarrhea Allergies/Medications Allergies: Coded Allergies: NSAIDS (Non-Steroidal Anti-Inflamma (PER PT HAS A SMALL AMOUNT OF INTESTINES FROM [facility] 08/25/15) morphine (N/V, CAN'T URINATE 08/25/15) tetracycline (UNKNOWN PER PT, HAS SHORTENED INTESTINES FROM [facility] 08/25/15) Uncoded Allergies: HORSE SERUM (Severe, ANAPHYLAXIS 01/27/16) ORAL ANTIBIOTIC (PT HAS SHORTENED INTESTINES FROM [facility] HARD TIME TOLERATING ) Home Med List: Apixaban (Eliquis) 5 MG TABLET 1 TAB PO BID BLOOD THINNER (Reported) Clonazepam 0.5 MG TABLET 1 TAB PO TIDPRN MENTAL HEALTH (Reported) Diltiazem HCl 120 MG TABLET HEART HEALTH (Reported) Gabapentin 600 MG TABLET 1 TAB PO AT BEDTIME RLS Hydromorphone HCl (Dilaudid) 2 MG TABLET 1 TAB PO Q6H PRN pain Levalbuterol Tartrate (Xopenex HFA) 45 MCG AER 2 PUFF INH Q6H PRN ASTHMA ( Reported) Levalbuterol Tartrate (Xopenex Hfa) 45 MCG/ACTUATION HFA.AER.AD 2 PUF INH Q4-6 PRN PRN SHORTNESS OF BREATH (Reported) Lisinopril 10 MG TABLET 1 TAB PO DAILY HIGH BLOOD PRESSURE (Reported) Loperamide Hydrochloride (Loperamide) 2 MG TAB 1 TAB PO Q4H PRN DIARRHEA ( Reported) Magnesium Oxide (Magnesium) 400 MG CAPSULE 400 MG PO BID MAG (Reported) Montelukast Sodium (Singulair) 10 MG TAB 1 TAB PO DAILY asthma (Reported) Pantoprazole Sodium 40 MG TABLET.DR 1 TAB PO BID GI (Reported) Pramipexole Dihydrochloride (Mirapex) 0.125 MG TAB 2-3 TAB PO QHS RESTLESS LEGS (Reported) Prednisone 5 MG TABLET 1 TAB PO DAILY BREATHING PROBLEMS (Reported) Sucralfate (Carafate) (Unknown Strength) ORAL.SUSP (Unknown Dose) PO AD GI ( Reported) 1 hour before food and bedtime Tramadol HCl 50 MG TABLET 1 TAB PO BIDP PRN pain (Reported) Vitamin A 10,000 IU SGL 1 SGL PO DAILY SUPPLEMENT (Reported) Zolpidem Tartrate 10 MG TABLET 0.5 TAB PO QPMP SLEEPINESS (Reported) Current Medications: Current Medications Sig/Bassem Start time Last Medication Dose Route Stop Time Status Admin Albuterol Sulfate 3 ML EVERY 4 HRS/AWAKE 06/01 2000 AC 06/03 INH 1635 Albuterol Sulfate 3 ML Q6-PRN PRN 06/01 1030 AC 06/01 INH 1109 Apixaban 5 MG 0600,1800 06/01 1800 AC 06/03 PO 0530 Artificial Tears 2 GTT 4 TIMES/DAY 06/02 1534 AC 06/03 OPH 1346 Azithromycin 500 MG DAILY 06/01 1000 DC 06/03 Sodium Chloride 250 ML IV 1135 Ceftriaxone Sodium 1,000 MG DAILY 06/01 1000 AC 06/03 IV 0915 Cholecalciferol 2,000 IU DAILY 06/02 1000 AC 06/03 PO 0917 Clonazepam 1.5 MG 1700 06/01 1700 AC 06/02 PO 06/08 1659 1805 Codeine 15 MG ONCE ONE 06/03 1600 DC 06/03 PO 06/03 1601 1604 Codeine 15 MG ONCE ONE 06/03 1315 DC 06/03 PO 06/03 1316 1346 Cyanocobalamin 1,000 MCG 0600 06/02 0600 AC 06/03 PO 0530 Diltiazem HCl 60 MG 0000,1200 06/01 1200 AC 06/03 PO 1134 Diltiazem HCl 120 MG 0600,1800 06/01 0600 AC 06/03 PO 0529 Fluticasone 2 SPRAY DAILY 06/01 1020 AC 06/03 Propionate TORRES 0935 Fluticasone 2 PUF BID 06/01 0309 AC 06/03 Propionate INH 0935 Furosemide 20 MG DAILY 06/02 1000 AC 06/03 PO 0945 Gabapentin 600 MG 1800 06/01 1800 AC 06/02 PO 1806 Lactobacillus 1 CAP BID 06/01 1039 AC 06/03 Acidophilus PO 0916 Lisinopril 10 MG 1800 06/01 1800 AC 06/02 PO 1808 Loperamide HCl 2 MG Q4 HRS NEEDED PRN 06/01 0300 AC 06/02 PO 1932 Magnesium Oxide 400 MG 0600,1800 06/01 1800 DC 06/03 PO 0530 Methylprednisolone 50 MG DAILY 06/04 1000 AC IV Methylprednisolone 60 MG DAILY 06/02 1000 DC 06/03 IV 0915 Montelukast Sodium 10 MG 2200 06/01 2200 AC 06/02 PO 2112 Omeprazole 40 MG DAILY AC 06/01 0700 AC 06/03 PO 0526 Oxycodone/ 1 TAB Q6P PRN 06/02 0815 AC 06/03 Acetaminophen PO 1135 Pramipexole 0.25 MG 1800 06/01 1800 AC 06/02 Dihydrochloride PO 1806 Sodium Chloride 1,000 ML Q20H 06/03 0800 AC 06/03 IV 0915 Tramadol HCl 50 MG BID PRN 06/01 1000 AC 06/03 PO 0945 Zolpidem Tartrate 5 MG 1800 06/01 1800 AC 06/02 PO 1805 Past History Travel History Traveled to [place] past 21 day No Medical History Blood Transfusion Hx: No Neurological: RESTLESS LEGS EENT: NONE Cardiovascular: hypertension, recent embolus to her hand Respiratory: asthma, BRONCHIOLITIS Gastrointestinal: Crohn's disease, COLON RESECTION Colonoscopy 09/17 with balloon dilation of an anastomotic stricture and 'digital' dilation of an anal stricture , but no acitve crohns disease was appreciated Hepatic: NONE Renal: NONE Musculoskeletal: NONE Psychiatric: NONE Endocrine: NONE Blood Disorders: NONE Cancer(s): NONE 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 Relation not specified for: FH: HTN (hypertension) Psychosocial History Where Do You Live? Home Who Do You Live With? spouse Services at Home: None Primary Language: Andorran Smoking Status: Never Smoked ETOH Use: denies use Illicit Drug Use: denies illicit drug use Functional Ability ADLs Independent: dressing, eating, toileting, bathing. Ambulation: independent IADLs Independent: shopping, housework, finances, food prep, telephone, transportation , medication admin. Exam & Diagnostic Data Vital Signs and I&O Vital Signs Date Time Temp Pulse Resp B/P B/P Pulse O2 O2 Flow FiO2 Mean Ox Delivery Rate 06/03 1635 93 Nasal 3.0L Cannula 06/03 1311 97.7 78 20 112/66 96 06/03 1134 100/60 06/03 0930 Nasal 4.0L Cannula 06/03 0808 95 Nasal 4.0L Cannula 06/03 0725 97.0 85 20 100/60 95 Nasal 4.0L Cannula 06/03 0529 138/70 06/03 0007 90 06/03 0000 Nasal 4.0L Cannula 06/02 2234 98.7 90 20 102/54 92 Nasal 3.5L Cannula Intake & Output 06/03 040 Intake Total 1100 150 072 215 0649 Output Total 200 500 200 Balance 900 150 503 774 4151 Intake, IV 107 063 4773 Intake, Oral [phone] 6750 Number 5 1 1 Bowel Movements Output, Urine 200 500 200 Patient 209 lb 210 lb Weight Weight Reported by Patient Measurement Method Physical Exam: Abdomen distended Results Pertinent Lab Results: Laboratory Tests 06/03 06/02 0630 0620 Chemistry Sodium (137 - 145 mmol/L) 140 139 Potassium (3.5 - 5.1 mmol/L) 4.9 4.4 Chloride (98 - 107 mmol/L) 102 102 Carbon Dioxide (22 - 30 mmol/L) 25 24 Anion Gap (5 - 16) 13 13 BUN (7 - 17 mg/dL) 23 H 18 H Creatinine (0.5 - 1.0 mg/dL) 0.9 0.8 Estimated GFR (>60 ml/min) > 60 > 60 BUN/Creatinine Ratio (7 - 25 %) 25.6 H 22.5 Magnesium (1.6 - 2.3 mg/dL) 2.1 Hematology CBC w Diff NO MAN DIFF REQ NO MAN DIFF REQ WBC (4.8 - 10.8 /CUMM) 13.2 H 11.3 H RBC (4.20 - 5.40 /CUMM) 4.28 3.79 L Hgb (12.0 - 16.0 G/DL) 12.7 11.7 L Hct (37 - 47 %) 40.2 35.7 L MCV (81.0 - 99.0 FL) 94.0 94.2 MCH (27.0 - 31.0 PG) 29.6 30.8 RDW (11.5 - 14.5 %) 28.0 H 28.4 H Plt Count (130 - 400 /CUMM) 285 242 MPV (7.4 - 10.4 FL) 8.2 7.9 Gran % (42.2 - 75.2 %) 89.7 H 86.8 H Lymphocytes % (20.5 - 51.1 %) 5.3 L 6.3 L Monocytes % (1.7 - 9.3 %) 4.9 6.8 Eosinophils % (0 - 5 %) 0 0.1 Basophils % (0.0 - 2.0 %) 0.1 0 Absolute Granulocytes (1.4 - 6.5 /CUMM) 11.9 H 9.8 H Absolute Lymphocytes (1.2 - 3.4 /CUMM) 0.7 L 0.7 L Absolute Monocytes (0.10 - 0.60 /CUMM) 0.6 0.8 H Absolute Eosinophils (0.0 - 0.7 /CUMM) 0 0 Absolute Basophils (0.0 - 0.2 /CUMM) 0 0 PUBS MCHC (33.0 - 37.0 G/DL) 31.5 L 32.7 L 06/01 06/01 06/01 1315 1130 0658 Blood Gas pH (7.35 - 7.45 PH) 7.35 pCO2 (35 - 45 TORR) 34 L pO2 (80 - 100 TORR) 87 HCO3 (21 - 28 MEQ/L) 18 L ABG O2 Sat (Measured) (>96.0 %) 95.0 L P-50 (Temp Corrected) N Carboxyhemoglobin (1.5 - 5.0 %) 0.3 L O2 Concentration % 40% O2 Delivery Method VM Chemistry Sodium (137 - 145 mmol/L) 138 Potassium (3.5 - 5.1 mmol/L) 4.9 Chloride (98 - 107 mmol/L) 104 Carbon Dioxide (22 - 30 mmol/L) 18 L Anion Gap (5 - 16) 16 BUN (7 - 17 mg/dL) 12 Creatinine (0.5 - 1.0 mg/dL) 0.8 Estimated GFR (>60 ml/min) > 60 BUN/Creatinine Ratio (7 - 25 %) 15.0 Troponin I (< 0.11 ng/ml) 0.03 0.04 Hematology CBC w Diff NO MAN DIFF REQ WBC (4.8 - 10.8 /CUMM) 8.5 RBC (4.20 - 5.40 /CUMM) 4.13 L Hgb (12.0 - 16.0 G/DL) 12.6 Hct (37 - 47 %) 38.4 MCV (81.0 - 99.0 FL) 93.0 MCH (27.0 - 31.0 PG) 30.6 RDW (11.5 - 14.5 %) 28.0 H Plt Count (130 - 400 /CUMM) 231 MPV (7.4 - 10.4 FL) 8.3 Gran % (42.2 - 75.2 %) 93.7 H Lymphocytes % (20.5 - 51.1 %) 5.5 L Monocytes % (1.7 - 9.3 %) 0.8 L Eosinophils % (0 - 5 %) 0 Basophils % (0.0 - 2.0 %) 0 Absolute Granulocytes (1.4 - 6.5 /CUMM) 7.9 H Absolute Lymphocytes (1.2 - 3.4 /CUMM) 0.5 L Absolute Monocytes (0.10 - 0.60 /CUMM) 0.1 Absolute Eosinophils (0.0 - 0.7 /CUMM) 0 Absolute Basophils (0.0 - 0.2 /CUMM) 0 PUBS MCHC (33.0 - 37.0 G/DL) 32.9 L Miscellaneous Phlebotomy Draw Site RIGHT RADIAL 06/01 05/31 0600 2100 Chemistry Sodium (137 - 145 mmol/L) 139 Potassium (3.5 - 5.1 mmol/L) 4.4 Chloride (98 - 107 mmol/L) 103 Carbon Dioxide (22 - 30 mmol/L) 20 L Anion Gap (5 - 16) 15 BUN (7 - 17 mg/dL) 12 Creatinine (0.5 - 1.0 mg/dL) 0.8 Estimated GFR (>60 ml/min) > 60 BUN/Creatinine Ratio (7 - 25 %) 15.0 Glucose (65 - 99 mg/dL) 97 Calcium (8.4 - 10.2 mg/dL) 9.5 Total Bilirubin (0.2 - 1.3 mg/dL) 0.4 AST (14 - 36 U/L) 49 H ALT (9 - 52 U/L) 39 Alkaline Phosphatase (<127 U/L) 73 Troponin I (< 0.11 ng/ml) Cancelled 0.07 [id number] Pept (<125 pg/mL) 475 H Total Protein (6.3 - 8.2 g/dL) 8.2 Albumin (3.5 - 5.0 g/dL) 4.5 Globulin (1.9 - 4.2 gm/dL) 3.7 Albumin/Globulin Ratio (1.1 - 2.2 %) 1.2 Hematology CBC w Diff NO MAN DIFF REQ WBC (4.8 - 10.8 /CUMM) 9.9 RBC (4.20 - 5.40 /CUMM) 4.46 Hgb (12.0 - 16.0 G/DL) 13.4 Hct (37 - 47 %) 41.5 MCV (81.0 - 99.0 FL) 93.1 MCH (27.0 - 31.0 PG) 30.0 RDW (11.5 - 14.5 %) 28.7 H Plt Count (130 - 400 /CUMM) 278 MPV (7.4 - 10.4 FL) 7.9 Gran % (42.2 - 75.2 %) 80.3 H Lymphocytes % (20.5 - 51.1 %) 13.1 L Monocytes % (1.7 - 9.3 %) 5.6 Eosinophils % (0 - 5 %) 0.7 Basophils % (0.0 - 2.0 %) 0.3 Absolute Granulocytes (1.4 - 6.5 /CUMM) 7.9 H Absolute Lymphocytes (1.2 - 3.4 /CUMM) 1.3 Absolute Monocytes (0.10 - 0.60 /CUMM) 0.6 Absolute Eosinophils (0.0 - 0.7 /CUMM) 0.1 Absolute Basophils (0.0 - 0.2 /CUMM) 0 PUBS MCHC (33.0 - 37.0 G/DL) 32.2 L Assessment/Plan Assessment/Recommendations: 66-year-old female with the acute onset of diarrhea after starting antibiotics for pneumonia. There is a history of fibro-stenosing ileal Crohn's disease, with most recent evaluations demonstrating an anal stricture and colon status post ileocecectomy with pre-anastomotic stricture of the neoterminal ileum. Clinically, the patient has not had active inflammatory disease recently. The abrupt onset of the diarrhea is likely secondary to antibiotics. Indeed, the institution of intravenous corticosteroids would likely help if this were secondary to Crohn's disease. Of note, C. difficile toxin is negative today. Examination is concerning for abdominal distention. There has been some bright red blood per rectum, but this is likely secondary to perianal irritation. Recommendations * Check abdominal x-ray to rule out bowel distention * Begin Saccharomyces boulardii (added to current lactobacillus) * Consider changing antibiotics from cephalosporin (along with oxacillin derivatives, more likely to cause diarrhea) to another agent * Begin cholestyramine 4 g twice a day. Make sure not given within 2 hours of other medications. * If abdominal x-ray is without bowel distention, may begin Lomotil 1-2 tabs by mouth 4 times a day as needed for continued diarrhea despite the above. If this does not work, may consider codeine sulfate 15-30 mg by mouth 4 times a day as necessary (the patient has been on codeine previously for diarrhea). * If diarrhea persists may need to consider octreotide. Consult Acknowledgment - Thank you for your consult request.
--- NOTE | 2017-06-03 22:20 | RADIOLOGY REPORT ---
EXAMINATION: XR ABDOMEN CLINICAL INDICATION: History of Crohn's disease. Intestinal obstruction COMPARISON: None TECHNIQUE: AP view of the abdomen. FINDINGS: The bowel gas pattern is normal with no evidence of ileus or obstruction. No unusual soft tissue calcifications are noted. There are vascular calcifications in the pelvis. Mild degenerative change of the lumbar spine. IMPRESSION: No acute abnormality of abdomen.
[2017-06-03 23:11] VITALS: BP 110/60
[2017-06-04 06:56] VITALS: BP 120/80
[2017-06-04 08:12] LABS: ABSOLUTE BASOPHIL COUNT 0 /CUMM (0.0-0.2); ABSOLUTE EOSINOPHIL COUNT 0 /CUMM (0.0-0.7); ABSOLUTE GRANULOCYTE CT 10.7 /CUMM (1.4-6.5); ABSOLUTE LYMPH COUNT 0.7 /CUMM (1.2-3.4); BASOPHIL % 0 % (0.0-2.0); EOSINOPHIL % 0 % (0-5); HEMATOCRIT 36.7 % (37-47); MEAN CORPUSCULAR HGB 30.8 PG (27.0-31.0); MEAN CORPUSCULAR HGB CONC 32.7 G/DL (33.0-37.0); MEAN CORPUSCULAR VOLUME 94.2 FL (81.0-99.0); MEAN PLATELET VOLUME 7.7 FL (7.4-10.4); PLATELET COUNT 283 /CUMM (130-400); RBC DISTRIBUTION WIDTH 28.3 % (11.5-14.5); RED BLOOD CELL CT 3.89 /CUMM (4.20-5.40); WHITE BLOOD CELL COUNT 12.4 /CUMM (4.8-10.8)
[2017-06-04 09:06] LABS: GRANULOCYTE % 86.1 % (42.2-75.2)
--- NOTE | 2017-06-04 10:00 | PN- Housestaff ---
See Addendum Subjective Follow-up For: Bronchiolitis obliterans with pneumonia Subjective: Patient seen and examined offers no complaints. States she is feeling much better than on the floor. continues complain of loose bowel movements. Review of Systems Constitutional: Reports: see HPI. Objective Last 24 Hrs of Vital Signs/I&O Vital Signs Date Time Temp Pulse Resp B/P B/P Pulse O2 O2 Flow FiO2 Mean Ox Delivery Rate 06/04 0841 93 Nasal 3.0L Cannula 06/04 0656 97.7 83 20 120/80 91 Nasal 3.0L Cannula 06/04 0008 77 126/88 06/04 0000 Nasal 4.0L Cannula 06/03 2311 98.6 82 20 110/60 93 Nasal Cannula 06/03 1827 78 112/66 06/03 1826 112/66 06/03 1635 93 Nasal 3.0L Cannula 06/03 1311 97.7 78 20 112/66 96 06/03 1134 100/60 Intake & Output 06/04 1600 06/04 0800 06/04 0000 Intake Total 520 1050 Output Total 500 Balance 20 1050 Intake, IV 400 400 Intake, Oral 120 650 Number 1 Bowel Movements Output, Urine 500 Physical Exam General Appearance: Alert, Oriented X3, Cooperative Other Physical Findings: Lungs: occasional wheezing and decreased air entry on bilateral bases Abdomen: Soft, distended and tenderness Current Medications: Current Medications Sig/Bassem Start time Last Medication Dose Route Stop Time Status Admin Albuterol Sulfate 3 ML EVERY 4 HRS/AWAKE 06/01 2000 AC 06/04 INH 0823 Albuterol Sulfate 3 ML Q6-PRN PRN 06/01 1030 AC 06/01 INH 1109 Apixaban 5 MG 0600,1800 06/01 1800 AC 06/04 PO 0601 Artificial Tears 2 GTT 4 TIMES/DAY 06/02 1534 AC 06/04 OPH 1017 Azithromycin 500 MG DAILY 06/01 1000 DC 06/03 Sodium Chloride 250 ML IV 1135 Ceftriaxone Sodium 1,000 MG DAILY 06/01 1000 AC 06/04 IV 1017 Cholecalciferol 2,000 IU DAILY 06/02 1000 AC 06/04 PO 0844 Cholestyramine Resin 1 PAC BID 06/03 2200 AC 06/04 PO 1017 Clonazepam 1.5 MG 1700 06/01 1700 AC 06/03 PO 06/08 1659 1827 Codeine 15 MG ONCE ONE 06/03 1600 DC 06/03 PO 06/03 1601 1604 Codeine 15 MG ONCE ONE 06/03 1315 DC 06/03 PO 06/03 1316 1346 Cyanocobalamin 1,000 MCG 0600 06/02 0600 AC 06/04 PO 0601 Diltiazem HCl 60 MG 0000,1200 06/01 1200 AC 06/04 PO 0008 Diltiazem HCl 120 MG 0600,1800 06/01 0600 AC 06/04 PO 0601 Fluticasone 2 SPRAY DAILY 06/01 1020 AC 06/04 Propionate TORRES 1017 Fluticasone 2 PUF BID 06/01 0309 AC 06/04 Propionate INH 1017 Furosemide 20 MG DAILY 06/02 1000 AC 06/04 PO 0844 Gabapentin 600 MG 1800 06/01 1800 AC 06/03 PO 1827 Lactobacillus 1 CAP BID 06/01 1039 AC 06/04 Acidophilus PO 0844 Lisinopril 10 MG 1800 06/01 1800 AC 06/03 PO 1826 Loperamide HCl 2 MG Q3P PRN 06/04 2345 AC PO Loperamide HCl 2 MG Q4 HRS NEEDED PRN 06/01 0300 AC 06/04 PO 06/04 2344 0601 Methylprednisolone 50 MG DAILY 06/04 1000 AC 06/04 IV 1017 Methylprednisolone 60 MG DAILY 06/02 1000 DC 06/03 IV 0915 Montelukast Sodium 10 MG 2200 06/01 2200 AC 06/03 PO 2227 Omeprazole 40 MG DAILY AC 06/01 0700 AC 06/03 PO 0526 Oxycodone/ 1 TAB Q6P PRN 06/02 0815 AC 06/04 Acetaminophen PO 0841 Pramipexole 0.25 MG 1800 06/01 1800 AC 06/03 Dihydrochloride PO 1826 Saccharomyces 250 MG BID 06/03 2200 AC 06/04 Boulardii PO 0843 Sodium Chloride 1,000 ML Q20H 06/03 0800 AC 06/04 IV 0433 Tramadol HCl 50 MG BID PRN 06/01 1000 AC 06/03 PO 0945 Zolpidem Tartrate 5 MG 1800 06/01 1800 AC 06/03 PO 2227 Last 24 Hrs of Lab/Mitchel Results Last 24 Hrs of Labs/Mics: Laboratory Tests 06/04/17 0615: Anion Gap 14, Estimated GFR > 60, BUN/Creatinine Ratio 30.0 H, CBC w Diff NO MAN DIFF REQ, RBC 3.89 L, MCV 94.2, MCH 30.8, RDW 28.3 H, MPV 7.7, Gran % 86.1 H, Lymphocytes % 6.0 L, Monocytes % 7.9, Eosinophils % 0, Basophils % 0, Absolute Granulocytes 10.7 H, Absolute Lymphocytes 0.7 L, Absolute Monocytes 1.0 H, Absolute Eosinophils 0, Absolute Basophils 0, PUBS MCHC 32.7 L Assessment/Plan Assessment: Patient is a 66-year-old female with significant past medical history of atrial fibrillation, on Eliquis, Crohn's disease s/p small bowel resection/ileocecal valve removal, hypertension, restless leg syndrome, chronic asthma, bronchiolitis (steroid dependent) presented with chief complaints of chronic cough with intermittent expectoration, yellowish/brownish in color since last 1 month. ED course -vital signs at the time of admission -temperature 99.8, pulse 107, respiratory rate 28, blood pressure 169/75, SPO2 87% on room air. Blood workup showed hemoglobin 13.4, hematocrit 41.5, platelet count 278, granulocyte 80.3, lymphocyte 13.1, sodium 138, potassium 4.9, chloride 104, carbon dioxide 18, BUN 12, creatinine 0.8, serial troponins were 0.07 , 0.04, 0.03.EKG showed sinus tachycardia, HR-105, poor r wave progression. CT scan of the chest showed scattered ED of subsegmental atelectasis in both lungs. Multilobar tree-in-bud nodules, patchy nodular opacities, infectious bronchiolitis and pneumonia.Chronic cardiomegaly with prominent pulmonary vessels, but dilated pulmonary artery. Suggested chronic pulmonary arterial hypertension. 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 * Usually confirmatory test is lung biopsy * Risk factors are -Viral URI ( Possibly), food flavoring fumes (eg, diacetyl used in popcorn and other foods) - Denies * Management is - - Stopping the exposure to potential culprit agent, - Symptomatic treatment -TRC/Neb/Oxygen to maintain the pulse oxygen saturation>88 -continue ceftriaxone - Tapered Inj Methylprednisone 50mg IV daily - Will repeat CBC/BEp tomorrow. Crohn's disease with bowel resection, history of recurrent diarrhea on loperamide and codeine prn - * Patient has liquidy diarrhea with blood. Stool for C. difficile is negative. * Advised to give tablet codeine 15 mgs once, and if needed than repeat. * We'll follow GI recommendation Atrial fibrillation converted to normal sinus rhythm, on Eliquis * We will continue Eliquis Diet - low sodium, heart healthy diet Code status - DNI DVT Prophylaxis - Eliquis Problem List: 1. Bronchiolitis obliterans Pain Ratin Pain Location: n/a Pain Goal: Pain 4 or less Pain Plan: prn Tomorrow's Labs & Rationales: cbc bep
--- NOTE | 2017-06-04 13:05 | PN- Gastroenterology ---
Assessment/Plan Assessment/Recommendations: (*The patient was seen this admission in GI coverage for Dr. Star Espinoza, initially on 06/04/17. *Please refer to his GI consult of 06/03/17. Extensive past medical records were reviewed. Cardiology & pulmonary notes appreciated). *66 y/o female, PAF ablated 2014-> NSR with occasional SVT with hx emboli to hand (on Eliquis), HTN, asthma, BOOP, restless leg syndrome, fibrostenosing ileo -anal Crohn's disease, with hx anal stricture, post remote ileo-cecectomy & pre- anastomotic stricture of the [place]-TI, admitted 05/31/17 with cough productive of greenish sputum, SOB, & RUL PNA-> abx ( Ceftriaxone/Azithromycin), f/b diarrhea. The patient was on low dose outpt Prednisone 5 mg daily purely for her BOOP. She was on chronic Loperamide for her Crohn's disease. Prior to admission, her Crohn's had been relatively stable. 03/02/17: Colonoscopy to [place]-TI per Dr. Star Espinoza- anal stricture, balloon dilated to 18 mm; tight ileal stricture, balloon dilated to 18 mm. No active inflammation seen. No bxs obtained. She was stable when last seen in the GI office 03/31/17 & was on no meds for the Crohn's, other then Loperamide. She denied ever being on biologic agents, 6MP, or MTX. She had not recently been on any mesalamine derivatives & denied any NSAID use. Previous celiac panel- negative. She was seen in GI consultation by Dr. Star Espinoza 06/03/17, HD #4, & her diarrhea was felt to be most likely from her recent antibiotics. 06/03/17: AXR (single view)- without gross obstruction. 06/03/17: *C. difficile toxin A & B- negative. (*A C. diff PCR was never sent). Questran 4g BID & Florastor (S. boulardii) 250 mg po BID were added on 06/03/17, with Imodium increased to 2 mg po Q3h p.r.n. on 06/04/17. She got 1 dose of codeine on 06/03/17. She remained on SoluMedrol 50 mg IV daily, from a pulmonary perspective. She remained on Ceftriaxone 1g IV daily for her PNA/BOOP & off Azithromycin. 05/31/17: albumin 4.5, globulin 3.7, TBil 0.4, alk phos 73, AST 49, ALT 39, troponin .07, BNP 475 06/04/17: WBC 12.4, H/H 12.0/36.7, NCV 94.2, RDW 28.3, PLT 283, glucose 97, BUN/ Cr 27/0.9, GFR > 60, Na 144, K 4.4, HCO3 27, AG 14 *As of 06/04/17, the patient remained hemodynamically stable & afebrile, on O2 3L nc- 94% sat. She had 10 episodes of essentially non-bloody diarrhea over the past 24 hours ( aside from some cathi-anal irritation), not necessarily related to eating, although they were becoming semi-formed at times. She was on solids po. She had some mild abdominal cramping. She denied any fevers or chills. There was no nausea or vomiting. Multiple cultures remained negative. *The patient's diarrhea is most likely temporally related to antibiotics by history > C. difficile. 06/03/17: *C. difficile toxin A & B- negative (although a C. diff PCR was never sent). Clinically, doubt flare of Crohn's disease. *SUGGEST: Resume codeine 15 mg po QID as needed. Stool for C.difficile PCR added to : sample in lab (Micro lab notified by me). *Continue Questran 4g po BID ( give other meds either 1 hour before or 2 hours after the Questran, so as not to interfere with their absorption). *Continue Florastor 250 mg po BID (if needed, can increase to 500 mg po BID), in addition to Lactobacillus. *Continue Imdium as needed. *Will defer octreotide for now. Ceftriaxone & steroid taper, per pulmonary. Continue solids po as tolerated. Serial abdominal exams. Follow-up CBC, lytes, GFR. The above findings and recommendations were discussed with the medical housestaff. Further GI recommendations to follow, depending on clinical course. Problem List: 1. Diarrhea 2. Crohn's ileocolitis 3. Abdominal pain 4. Fatty liver Subjective Subjective: (*The patient was seen this admission in GI coverage for Dr. Star Espinoza, initially on 06/04/17. *Please refer to his GI consult of 06/03/17. Extensive past medical records were reviewed. Cardiology & pulmonary notes appreciated). 05/31/17: albumin 4.5, globulin 3.7, TBil 0.4, alk phos 73, AST 49, ALT 39, troponin .07, BNP 475 06/04/17: WBC 12.4, H/H 12.0/36.7, NCV 94.2, RDW 28.3, PLT 283, glucose 97, BUN/ Cr 27/0.9, GFR > 60, Na 144, K 4.4, HCO3 27, AG 14 *As of 06/04/17, the patient remained hemodynamically stable & afebrile, on O2 3L nc- 94% sat. She had 10 episodes of essentially non-bloody diarrhea over the past 24 hours ( aside from some cathi-anal irritation), not necessarily related to eating, although they were becoming semi-formed at times. She was on solids po. She had some mild abdominal cramping. She denied any fevers or chills. There was no nausea or vomiting. Multiple cultures remained negative. Review of Systems: Full 14 point review of systems otherwise noncontributory, and as above. Review of Systems Constitutional: Reports: malaise, weakness. Denies: chills, diaphoresis, fever, unexplained weight loss. EENTM: Denies: blurred vision, double vision, visual changes, eye pain, eye drainage, eye tearing, icterus, ear discharge, ear pain, ear redness, hearing changes, nasal congestion, epistaxis, nasal pain, throat pain, throat swelling, mouth pain, tooth pain. Cardiovascular: Reports: peripheral edema. Denies: chest pain, edema, orthopena, palpitations, syncope. Respiratory: Reports: cough, sputum production, wheezing. Denies: hemoptysis, orthopnea, short of breath, stridor. Gastrointestinal: Reports: abdominal pain, diarrhea. Denies: bloating, constipation, distention, bowel incontinence, melena, nausea, bloody stool, changes in stool, vomiting, steatorrhea. Genitourinary: Denies: discharge, dysuria, frequency, hematuria, hesitation, nocturia, pain, urgency. Musculoskeletal: Denies: back pain, gout, joint pain, joint swelling, muscle pain, muscle stiffness, neck pain. Skin: Denies: cysts, change in skin color, change in hair/nails, dryness, erythema, jaundice, lesions, lymphangitis, lumps, moles, rash. Neurological/Psychological: Reports: weakness. Denies: anxiety, ataxia, cognitive dysfunction, confusion, depressed, dementia, emotional problems, headache, numbness, paresthesia, pre- existing deficit, petit mal seizures, tingling, tremors, tonic-clonic seizures, unable to move lower ext, unable to move upper ext. Hematologic/Endocrine: Denies: bruising, bleeding, polyuria, polydipsia. Immunologic/Allergic: Denies: splenectomy, HIV/AIDS, lymphadenopathy. All Other Systems: Reviewed and Negative Objective Vital Signs and I&Os Vital Signs Date Time Temp Pulse Resp B/P B/P Pulse O2 O2 Flow FiO2 Mean Ox Delivery Rate 06/04 1406 97.9 75 20 142/80 94 Nasal 3.0L Cannula 06/04 1302 89 130/78 06/04 0841 93 Nasal 3.0L Cannula 06/04 0800 91 Nasal 3.0L Cannula 06/04 0656 97.7 83 20 120/80 91 Nasal 3.0L Cannula 06/04 0008 77 126/88 06/04 0000 Nasal 4.0L Cannula 06/03 2311 98.6 82 20 110/60 93 Nasal Cannula 06/03 1827 78 112/66 06/03 1826 112/66 06/03 1635 93 Nasal 3.0L Cannula Intake & Output 06/04 1600 06/04 0400 06/03 1600 06/03 0400 06/02 1600 06/02 0400 Intake Total 520 1050 1100 150 970 960 Output Total 500 200 500 Balance 20 1050 900 150 470 960 Intake, IV 400 400 500 250 Intake, Oral 120 650 600 150 720 960 Number 1 5 1 Bowel Movements Output, Urine 500 200 500 Physical Exam: Well-developed, well-nourished, pleasant obese female, in no apparent distress. Sclera anicteric. Conjunctiva pink. Oropharynx clear. No oral thrush. No aphthous ulcers. There is no adenopathy, thyromegaly, or JVD. No peripheral stigmata of inflammatory bowel disease or chronic liver disease on exam. No spiders. No CVA tenderness. Lungs: clear to A&P, except for a few scattered B/L wheezes. No definite rhonchi. Heart exam: regular rate rhythm, S1 and S2, with soft I/ systolic murmur. Occasional ectopic beat. Abdominal exam: normal bowel sounds, obese midlly distended belly, mild RLQ tenderness, without guarding or rebound. No definite mass or organomegaly. No fluid shift. No pulsatile mass. No epigastric bruit. Digital rectal exam: deferred. Extremities : without cyanosis or clubbing. 1+ edema LE B/L. Mild DJD. No acute arthropathy. No palpable cords. Distal pulses 1+ bilaterally. DTRs 2+ bilaterally. Alert and oriented x 3. Current Medications: Current Medications Sig/Bassem Start time Last Medication Dose Route Stop Time Status Admin Albuterol Sulfate 3 ML EVERY 4 HRS/AWAKE 06/01 2000 AC 06/04 INH 1421 Albuterol Sulfate 3 ML Q6-PRN PRN 06/01 1030 AC 06/01 INH 1109 Apixaban 5 MG 06,1800 06/01 1800 AC 06/04 PO 0601 Artificial Tears 2 GTT 4 TIMES/DAY 06/02 1534 AC 06/04 OPH 1017 Ceftriaxone Sodium 1,000 MG DAILY 06/01 1000 AC 06/04 IV 1017 Cholecalciferol 2,000 IU DAILY 06/02 1000 AC 06/04 PO 0844 Cholestyramine Resin 1 PAC BID 06/03 2200 AC 06/04 PO 1017 Clonazepam 1.5 MG 1700 06/01 1700 AC 06/03 PO /03 1659 1827 Codeine 15 MG ONCE ONE 06/03 1600 DC 06/03 PO 06/03 1601 1604 Cyanocobalamin 1,000 MCG 0600 06/02 0600 AC 06/04 PO 0601 Diltiazem HCl 60 MG 0000,1200 06/01 1200 AC 06/04 PO 1302 Diltiazem HCl 120 MG 0600,1800 06/01 0600 AC 06/04 PO 0601 Fluticasone 2 SPRAY DAILY 06/01 1020 AC 06/04 Propionate TORRES 1017 Fluticasone 2 PUF BID 06/01 0309 AC 06/04 Propionate INH 1017 Furosemide 20 MG DAILY 06/02 1000 AC 06/04 PO 0844 Gabapentin 600 MG 1800 06/01 1800 AC 06/03 PO 1827 Lactobacillus 1 CAP BID 06/01 1039 AC 06/04 Acidophilus PO 0844 Lisinopril 10 MG 1800 06/01 1800 AC 06/03 PO 1826 Loperamide HCl 2 MG Q3P PRN 06/04 2345 AC PO Loperamide HCl 2 MG Q4 HRS NEEDED PRN 06/01 0300 AC 06/04 PO 06/04 2344 1138 Methylprednisolone 50 MG DAILY 06/04 1000 AC 06/04 IV 1017 Montelukast Sodium 10 MG 2200 06/01 2200 AC 06/03 PO 2227 Omeprazole 40 MG DAILY AC 06/01 0700 AC 06/03 PO 0526 Oxycodone/ 1 TAB Q6P PRN 06/02 0815 AC 06/04 Acetaminophen PO 0841 Pramipexole 0.25 MG 1800 06/01 1800 AC 06/03 Dihydrochloride PO 1826 Saccharomyces 250 MG BID 06/03 2200 AC 06/04 Boulardii PO 0843 Sodium Chloride 1,000 ML Q20H 06/03 0800 AC 06/04 IV 0433 Tramadol HCl 50 MG BID PRN 06/01 1000 AC 06/03 PO 0945 Zolpidem Tartrate 5 MG 1800 06/01 1800 AC 06/03 PO 2227 Results Pertinent Lab Results: Laboratory Tests 06/04 06/03 0615 0630 Chemistry Sodium (137 - 145 mmol/L) 144 140 Potassium (3.5 - 5.1 mmol/L) 4.4 4.9 Chloride (98 - 107 mmol/L) 104 102 Carbon Dioxide (22 - 30 mmol/L) 27 25 Anion Gap (5 - 16) 14 13 BUN (7 - 17 mg/dL) 27 H 23 H Creatinine (0.5 - 1.0 mg/dL) 0.9 0.9 Estimated GFR (>60 ml/min) > 60 > 60 BUN/Creatinine Ratio (7 - 25 %) 30.0 H 25.6 H Magnesium (1.6 - 2.3 mg/dL) 2.1 Hematology CBC w Diff NO MAN DIFF REQ NO MAN DIFF REQ WBC (4.8 - 10.8 /CUMM) 12.4 H 13.2 H RBC (4.20 - 5.40 /CUMM) 3.89 L 4.28 Hgb (12.0 - 16.0 G/DL) 12.0 12.7 Hct (37 - 47 %) 36.7 L 40.2 MCV (81.0 - 99.0 FL) 94.2 94.0 MCH (27.0 - 31.0 PG) 30.8 29.6 RDW (11.5 - 14.5 %) 28.3 H 28.0 H Plt Count (130 - 400 /CUMM) 283 285 MPV (7.4 - 10.4 FL) 7.7 8.2 Gran % (42.2 - 75.2 %) 86.1 H 89.7 H Lymphocytes % (20.5 - 51.1 %) 6.0 L 5.3 L Monocytes % (1.7 - 9.3 %) 7.9 4.9 Eosinophils % (0 - 5 %) 0 0 Basophils % (0.0 - 2.0 %) 0 0.1 Absolute Granulocytes (1.4 - 6.5 /CUMM) 10.7 H 11.9 H Absolute Lymphocytes (1.2 - 3.4 /CUMM) 0.7 L 0.7 L Absolute Monocytes (0.10 - 0.60 /CUMM) 1.0 H 0.6 Absolute Eosinophils (0.0 - 0.7 /CUMM) 0 0 Absolute Basophils (0.0 - 0.2 /CUMM) 0 0 PUBS MCHC (33.0 - 37.0 G/DL) 32.7 L 31.5 L 12/28 0620 Chemistry Sodium (137 - 145 mmol/L) 139 Potassium (3.5 - 5.1 mmol/L) 4.4 Chloride (98 - 107 mmol/L) 102 Carbon Dioxide (22 - 30 mmol/L) 24 Anion Gap (5 - 16) 13 BUN (7 - 17 mg/dL) 18 H Creatinine (0.5 - 1.0 mg/dL) 0.8 Estimated GFR (>60 ml/min) > 60 BUN/Creatinine Ratio (7 - 25 %) 22.5 Hematology CBC w Diff NO MAN DIFF REQ WBC (4.8 - 10.8 /CUMM) 11.3 H RBC (4.20 - 5.40 /CUMM) 3.79 L Hgb (12.0 - 16.0 G/DL) 11.7 L Hct (37 - 47 %) 35.7 L MCV (81.0 - 99.0 FL) 94.2 MCH (27.0 - 31.0 PG) 30.8 RDW (11.5 - 14.5 %) 28.4 H Plt Count (130 - 400 /CUMM) 242 MPV (7.4 - 10.4 FL) 7.9 Gran % (42.2 - 75.2 %) 86.8 H Lymphocytes % (20.5 - 51.1 %) 6.3 L Monocytes % (1.7 - 9.3 %) 6.8 Eosinophils % (0 - 5 %) 0.1 Basophils % (0.0 - 2.0 %) 0 Absolute Granulocytes (1.4 - 6.5 /CUMM) 9.8 H Absolute Lymphocytes (1.2 - 3.4 /CUMM) 0.7 L Absolute Monocytes (0.10 - 0.60 /CUMM) 0.8 H Absolute Eosinophils (0.0 - 0.7 /CUMM) 0 Absolute Basophils (0.0 - 0.2 /CUMM) 0 PUBS MCHC (33.0 - 37.0 G/DL) 32.7 L Imaging/Other Studies: 05/31/17: XRY-CHEST XRAY, PA AND LATERAL (per ER/medical team)- 1. New patchy opacities in the right upper lobe, concerning for pneumonia. 2. Cardiomegaly and pulmonary venous congestion. 3. The opacity in the right middle lobe seen on prior is not apparent radiographically, and should be followed by CT is recommended at that time. Please check with the patient to be certain that this was followed at an outside institution or is scheduled to be followed. 4. Compression deformities lower thoracic spine. Osteopenia. 06/02/17: CT CHEST WO IV CONTRAST (per medical team)- 1. Lungs have mosaic attenuation; this is suggestive of air trapping phenomenon from small airways disease, and there are scattered areas of subsegmental atelectasis in both lungs. 2. Compared to 02/24/2017, interval development of multilobar tree-in-bud nodules, patchy nodular opacities and areas of groundglass attenuation consistent with infectious bronchiolitis and pneumonia. 3. Chronic cardiomegaly with prominent pulmonary vessels. However, no acute interstitial edema. Pulmonary artery trunk is 4 cm diameter, highly suggestive of chronic pulmonary arterial hypertension. 4. Diffuse hepatic steatosis. 5. Old B/L rib fractures. DJD. Kyphotic T spine. Old compression fractures T9- T11. 06/03/17: [id number] VIEW- No acute abnormality of abdomen.
--- NOTE | 2017-06-04 13:37 | PN- Pulmonary ---
Subjective HPI/Critical Care Issues: Events and data reviewed Feels ok Diarrhea ongoing off azithro cdiff neg so far Objective Current Medications: Current Medications Sig/Bassem Start time Last Medication Dose Route Stop Time Status Admin Albuterol Sulfate 3 ML EVERY 4 HRS/AWAKE 06/01 2000 AC 06/04 INH 0823 Albuterol Sulfate 3 ML Q6-PRN PRN 06/01 1030 AC 06/01 INH 1109 Apixaban 5 MG 0600,1800 06/01 1800 AC 06/04 PO 0601 Artificial Tears 2 GTT 4 TIMES/DAY 06/02 1534 AC 06/04 OPH 1017 Ceftriaxone Sodium 1,000 MG DAILY 06/01 1000 AC 06/04 IV 1017 Cholecalciferol 2,000 IU DAILY 06/02 1000 AC 06/04 PO 0844 Cholestyramine Resin 1 PAC BID 06/03 2200 AC 06/04 PO 1017 Clonazepam 1.5 MG 1700 06/01 1700 AC 06/03 PO 06/08 1659 1827 Codeine 15 MG ONCE ONE 06/03 1600 DC 06/03 PO 06/03 1601 1604 Cyanocobalamin 1,000 MCG 0600 06/02 0600 AC 06/04 PO 0601 Diltiazem HCl 60 MG 0000,1200 06/01 1200 AC 06/04 PO 1302 Diltiazem HCl 120 MG 0600,1800 06/01 0600 AC 06/04 PO 0601 Fluticasone 2 SPRAY DAILY 06/01 1020 AC 06/04 Propionate TORRES 1017 Fluticasone 2 PUF BID 06/01 0309 AC 06/04 Propionate INH 1017 Furosemide 20 MG DAILY 06/02 1000 AC 06/04 PO 0844 Gabapentin 600 MG 1800 06/01 1800 AC 06/03 PO 1827 Lactobacillus 1 CAP BID 06/01 1039 AC 06/04 Acidophilus PO 0844 Lisinopril 10 MG 1800 06/01 1800 AC 06/03 PO 1826 Loperamide HCl 2 MG Q3P PRN 06/04 2345 AC PO Loperamide HCl 2 MG Q4 HRS NEEDED PRN 06/01 0300 AC 06/04 PO 06/04 2344 1138 Methylprednisolone 50 MG DAILY 06/04 1000 AC 06/04 IV 1017 Montelukast Sodium 10 MG 2200 06/01 2200 AC 06/03 PO 2227 Omeprazole 40 MG DAILY AC 06/01 0700 AC 06/03 PO 0526 Oxycodone/ 1 TAB Q6P PRN 06/02 0815 AC 06/04 Acetaminophen PO 0841 Pramipexole 0.25 MG 1800 06/01 1800 AC 06/03 Dihydrochloride PO 1826 Saccharomyces 250 MG BID 06/03 2200 AC 06/04 Boulardii PO 0843 Sodium Chloride 1,000 ML Q20H 06/03 0800 AC 06/04 IV 0433 Tramadol HCl 50 MG BID PRN 06/01 1000 AC 06/03 PO 0945 Zolpidem Tartrate 5 MG 1800 06/01 1800 AC 06/03 PO 2227 Vital Signs & I&O Last 24 Hrs of Vitals and I&O: Vital Signs Date Time Temp Pulse Resp B/P B/P Pulse O2 O2 Flow FiO2 Mean Ox Delivery Rate 06/04 1302 89 130/78 06/04 0841 93 Nasal 3.0L Cannula 06/04 0800 91 Nasal 3.0L Cannula 06/04 0656 97.7 83 20 120/80 91 Nasal 3.0L Cannula 06/04 0008 77 126/88 06/04 0000 Nasal 4.0L Cannula 06/03 2311 98.6 82 20 110/60 93 Nasal Cannula 06/03 1827 78 112/66 06/03 1826 112/66 06/03 1635 93 Nasal 3.0L Cannula Intake & Output 06/04 1600 06/04 0800 06/04 0000 Intake Total 520 1050 Output Total 500 Balance 20 1050 Intake, IV 400 400 Intake, Oral 120 650 Number 1 Bowel Movements Output, Urine 500 Impression/Plan Impression/Plan Impression/Plan: cxr IMPRESSION: 1. New patchy opacities in the right upper lobe, concerning for pneumonia. 2. Cardiomegaly and pulmonary venous congestion. 3. The opacity in the right middle lobe seen on prior is not apparent radiographically, and should be followed by CT is recommended at that time. Please check with the patient to be certain that this was followed at an outside institution or is scheduled to be followed. DICTATED BY: Giovanny Charles MD DATE/TIME DICTATED:05/31/172221 CT CHEST IMPRESSION: 1. Lungs have mosaic attenuation; this is suggestive of air trapping phenomenon from small airways disease, and there are scattered areas of subsegmental atelectasis in both lungs. 2. Compared to 02/24/2017, interval development of multilobar tree-in-bud nodules, patchy nodular opacities and areas of groundglass attenuation consistent with infectious bronchiolitis and pneumonia. 3. Chronic cardiomegaly with prominent pulmonary vessels. However, no acute interstitial edema. Pulmonary artery trunk is 4 cm diameter, highly suggestive of chronic pulmonary arterial hypertension. 4. Diffuse hepatic steatosis. DICTATED BY: Sumit Orozco MD DATE/TIME DICTATED:06/02/17957 General Appearance Alert, Oriented X3, Cooperative, Mild Distress Skin No Significant Lesion Skin Temp/Moisture Exam: Warm/Dry Sepsis Skin Exam (color): Normal for Ethnicity HEENT Atraumatic, EOMI, Mucous Membr. 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, asthma, PLM, Crohn's disease, PAFIB, chronic steroid use, previous pna, previous chf, with * REsolving Acute hypoxic resp failure mainly due to acute exacerbation of bronchiolitis with pneumonia * Sig mixed obs / restrictive lung disease on chronic steroids and hence immunosupp * PAFib history in sinus with previous chf but does not appear fluid overloaded * Crohns with sig diarrhea and intol to many abx * Diarrhea with neg cdiff * PLM REC Abx Ceftriaxone for seven days total Reduce steroids to 50 mg can change to po prednisone 40 mg in am with a very slow taper nebs atc q6 for now See cardio note Gi follow up ongoing cont probiotics will follow
[2017-06-04 14:06] VITALS: BP 142/80
[2017-06-04 22:40] VITALS: BP 132/72
[2017-06-05 06:46] VITALS: BP 140/80
[2017-06-05 08:30] LABS: ABSOLUTE BASOPHIL COUNT 0 /CUMM (0.0-0.2); ABSOLUTE EOSINOPHIL COUNT 0 /CUMM (0.0-0.7); ABSOLUTE GRANULOCYTE CT 10.8 /CUMM (1.4-6.5); ABSOLUTE LYMPH COUNT 0.9 /CUMM (1.2-3.4); ABSOLUTE MONOCYTE COUNT 0.8 /CUMM (0.10-0.60); BASOPHIL % 0 % (0.0-2.0); EOSINOPHIL % 0 % (0-5); HEMATOCRIT 37.2 % (37-47); MEAN CORPUSCULAR HGB 30.8 PG (27.0-31.0); MEAN CORPUSCULAR HGB CONC 32.8 G/DL (33.0-37.0); MEAN CORPUSCULAR VOLUME 93.9 FL (81.0-99.0); MEAN PLATELET VOLUME 8.3 FL (7.4-10.4); PLATELET COUNT 265 /CUMM (130-400); RBC DISTRIBUTION WIDTH 27.5 % (11.5-14.5); RED BLOOD CELL CT 3.96 /CUMM (4.20-5.40); WHITE BLOOD CELL COUNT 12.5 /CUMM (4.8-10.8)
[2017-06-05 09:05] LABS: GRANULOCYTE % 86.7 % (42.2-75.2)
--- NOTE | 2017-06-05 09:27 | PN- Housestaff ---
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 She is alert awake and oriented times place person. No acute events noticed overnight. Telemetry monitoring was uneventful. Patient continues to report shortness of breath however improved since admission. Also reports the diarrhea which is ongoing 4-5 loose watery bowel movements. [facility] is following her closely. She is getting breathing treatment this morning. She is still on 3 L nasal cannula. Reports some cough with greenish phlegm production. Denies any abdominal pain. Patient also reports peripheral leg swelling. Review of Systems Constitutional: Reports: see HPI. Objective Last 24 Hrs of Vital Signs/I&O Vital Signs Date Time Temp Pulse Resp B/P B/P Pulse O2 O2 Flow FiO2 Mean Ox Delivery Rate 06/05 0807 94 Nasal 3.0L Cannula 06/05 0646 98.2 82 20 140/80 94 Nasal 3.0L Cannula 06/05 0601 74 140/80 06/05 0001 67 128/80 06/05 0000 93 Nasal 3.0L Cannula 06/04 2240 98.0 88 20 132/72 93 Nasal Cannula 06/04 1804 84 142/80 06/04 1803 84 142/80 06/04 1700 94 Nasal 3.0L Cannula 06/04 1600 94 Nasal 3.0L Cannula 06/04 1406 97.9 75 20 142/80 94 Nasal 3.0L Cannula 06/04 1302 89 130/78 Intake & Output 06/05 1600 06/05 0800 06/05 0000 Intake Total 640 1320 Output Total Balance 640 1320 Intake, IV 400 400 Intake, Oral 240 920 Number 3 7 Bowel Movements Physical Exam General Appearance: Alert, Oriented X3, Cooperative, No Acute Distress Other Physical Findings: Lungs: occasional wheezing and decreased air entry on bilateral bases Abdomen: Soft, distended and tenderness + 2 pitting edema bilateral Current Medications: Current Medications Sig/Bassem Start time Last Medication Dose Route Stop Time Status Admin Albuterol Sulfate 3 ML EVERY 4 HRS/AWAKE 06/01 2000 AC 06/05 INH 0803 Albuterol Sulfate 3 ML Q6-PRN PRN 06/01 1030 AC 06/01 INH 1109 Apixaban 5 MG 0600,1800 06/01 1800 AC 06/05 PO 0601 Artificial Tears 2 GTT 4 TIMES/DAY 06/02 1534 AC 06/05 OPH 0856 Ceftriaxone Sodium 1,000 MG DAILY 06/06 1000 UNVr IV Ceftriaxone Sodium 1,000 MG DAILY 06/01 1000 DC 06/05 IV 0856 Cholecalciferol 2,000 IU DAILY 06/02 1000 AC 06/05 PO 0856 Cholestyramine Resin 1 PAC BID 06/03 2200 AC 06/05 PO 0006 Clonazepam 1.5 MG 1700 06/01 1700 AC 06/04 PO 06/08 1659 1801 Codeine 15 MG Q6 PRN 06/04 1530 AC 06/05 PO 0601 Cyanocobalamin 1,000 MCG 0600 06/02 0600 AC 06/05 PO 0601 Diltiazem HCl 60 MG 0000,1200 06/01 1200 AC 06/05 PO 0001 Diltiazem HCl 120 MG 0600,1800 06/01 0600 AC 06/05 PO 0601 Fluticasone 2 SPRAY DAILY 06/01 1020 AC 06/05 Propionate TORRES 0855 Fluticasone 2 PUF BID 06/01 0309 AC 06/05 Propionate INH 0856 Furosemide 20 MG DAILY 06/02 1000 AC 06/05 PO 0856 Gabapentin 600 MG 1800 06/01 1800 AC 06/04 PO 1804 Lactobacillus 1 CAP BID 06/01 1039 AC 06/05 Acidophilus PO 0856 Lidocaine 1 PAT DAILY@1600 06/04 1600 AC 06/04 EXT 1553 Lisinopril 10 MG 1800 06/01 1800 AC 06/04 PO 1804 Loperamide HCl 2 MG Q3P PRN 06/04 2345 AC 06/05 PO 0901 Loperamide HCl 2 MG Q4 HRS NEEDED PRN 06/01 0300 DC 06/04 PO 06/04 2344 1903 Methylprednisolone 50 MG DAILY 06/04 1000 DC 06/04 IV 1017 Montelukast Sodium 10 MG 2200 06/01 2200 AC 06/04 PO 2156 Omeprazole 40 MG DAILY AC 06/01 0700 AC 06/03 PO 0526 Oxycodone/ 1 TAB Q6P PRN 06/02 0815 AC 06/05 Acetaminophen PO 0502 Pramipexole 0.25 MG 1800 06/01 1800 AC 06/04 Dihydrochloride PO 1804 Prednisone 40 MG DAILY 06/05 1000 AC 06/05 PO 0856 Saccharomyces 250 MG BID 06/03 2200 AC 06/05 Boulardii PO 0855 Sodium Chloride 1,000 ML Q20H 06/03 0800 DC 06/04 IV 2237 Tramadol HCl 50 MG BID PRN 06/01 1000 AC 06/03 PO 0945 Zolpidem Tartrate 5 MG AT BEDTIME 06/04 2200 AC 06/05 PO 0001 Zolpidem Tartrate 5 MG 1800 06/01 1800 DC 06/03 PO 2227 Last 24 Hrs of Lab/Mitchel Results Last 24 Hrs of Labs/Mics: Laboratory Tests 06/05/17 0710: CBC w Diff NO MAN DIFF REQ, RBC 3.96 L, MCV 93.9, MCH 30.8, RDW 27.5 H, MPV 8.3, Gran % 86.7 H, Lymphocytes % 7.1 L, Monocytes % 6.2, Eosinophils % 0, Basophils % 0, Absolute Granulocytes 10.8 H, Absolute Lymphocytes 0.9 L, Absolute Monocytes 0.8 H, Absolute Eosinophils 0, Absolute Basophils 0, PUBS MCHC 32.8 L 06/05/17 0620: Anion Gap 13, Estimated GFR > 60, BUN/Creatinine Ratio 33.8 H Assessment/Plan Assessment: Patient is a 66-year-old female with significant past medical history of atrial fibrillation, on Eliquis, Crohn's disease s/p small bowel resection/ileocecal valve removal, hypertension, restless leg syndrome, chronic asthma, bronchiolitis (steroid dependent) presented with chief complaints of chronic cough with intermittent expectoration, yellowish/brownish in color since last 1 month. ED course -vital signs at the time of admission -temperature 99.8, pulse 107, respiratory rate 28, blood pressure 169/75, SPO2 87% on room air. Blood workup showed hemoglobin 13.4, hematocrit 41.5, platelet count 278, granulocyte 80.3, lymphocyte 13.1, sodium 138, potassium 4.9, chloride 104, carbon dioxide 18, BUN 12, creatinine 0.8, serial troponins were 0.07 , 0.04, 0.03.EKG showed sinus tachycardia, HR-105, poor r wave progression. CT scan of the chest showed scattered ED of subsegmental atelectasis in both lungs. Multilobar tree-in-bud nodules, patchy nodular opacities, infectious bronchiolitis and pneumonia.Chronic cardiomegaly with prominent pulmonary vessels, but dilated pulmonary artery. Suggested chronic pulmonary arterial hypertension. 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 * Usually confirmatory test is lung biopsy * Risk factors are -Viral URI ( Possibly), food flavoring fumes (eg, diacetyl used in popcorn and other foods) - Denies * Management is - - Stopping the exposure to potential culprit agent, - Symptomatic treatment -TRC/Neb/Oxygen to maintain the pulse oxygen saturation>88 -continue ceftriaxone - day 5 today- needs 7 days totally. -On steroid taper prednisone 40 mg today-taper it slowly daily - Will repeat CBC/BEp tomorrow. Crohn's disease with bowel resection, history of recurrent diarrhea on loperamide and codeine prn - * Patient has liquidy diarrhea with blood. * Stool for C. difficile is negative. * We'll follow GI recommendation * cdiff pcr pending Atrial fibrillation converted to normal sinus rhythm, on Eliquis * We will continue Eliquis, cardizem Diet - low sodium, heart healthy diet Code status - DNI DVT Prophylaxis - Eliquis Problem List: 1. Diarrhea 2. Bronchiolitis obliterans 3. Pneumonia Pain Ratin Pain Location: abdomen Pain Goal: Remain pain free Pain Plan: tylinol Tomorrow's Labs & Rationales: cbc bep Sourav PARSON,Amir 06/05/17 1020: Attending MD Review Statement Attending Statement Attending MD Statement: examined this patient, discuss w/resident/PA/[employer] OPERATOR, agreed w/resident/PA/[employer] OPERATOR, reviewed EMR data (avail), discussed with nursing Attending Assessment/Plan: Pt was seen and evaluated. Chart reviewed. No overnight issues. Currently reports improvement in her breathing, however, cont to have diarrhea. Was evaluated by Pulm and GI A/P: --cont IV abx, steroid taper --appreciate GI input --rest of the plan as per resident's note
--- NOTE | 2017-06-05 11:22 | PN- Gastroenterology ---
Assessment/Plan Assessment/Recommendations: (*The patient was seen this admission in GI coverage for Dr. Star Espinoza, initially on 06/04/17. *Please refer to his GI consult of 06/03/17. Extensive past medical records were reviewed. Cardiology & pulmonary notes appreciated). *66 y/o female, PAF ablated 2014-> NSR with occasional SVT with hx emboli to hand (on Eliquis), HTN, asthma, BOOP, restless leg syndrome, fibrostenosing ileo -anal Crohn's disease, with hx anal stricture, post remote ileo-cecectomy & pre- anastomotic stricture of the [place]-TI, admitted 05/31/17 with cough productive of greenish sputum, SOB, & RUL PNA-> abx ( Ceftriaxone/Azithromycin), f/b diarrhea. The patient was on low dose outpt Prednisone 5 mg daily purely for her BOOP. She was on chronic Loperamide for her Crohn's disease. Prior to admission, her Crohn's had been relatively stable. 03/02/17: Colonoscopy to [place]-TI per Dr. Star Espinoza- anal stricture, balloon dilated to 18 mm; tight ileal stricture, balloon dilated to 18 mm. No active inflammation seen. No bxs obtained. She was stable when last seen in the GI office 03/31/17 & was on no meds for the Crohn's, other then Loperamide. She denied ever being on biologic agents, 6MP, or MTX. She had not recently been on any mesalamine derivatives & denied any NSAID use. Previous celiac panel- negative. She was seen in GI consultation by Dr. Star Espinoza 06/03/17, HD #4, & her diarrhea was felt to be most likely from her recent antibiotics. 06/03/17: AXR (single view)- without gross obstruction. 06/03/17: *C. difficile toxin A & B- negative. (*A C. diff PCR was never sent). Questran 4g BID & Florastor (S. boulardii) 250 mg po BID were added on 06/03/17, with Imodium increased to 2 mg po Q3h p.r.n. on 06/04/17. She got 1 dose of codeine on 06/03/17. She remained on SoluMedrol 50 mg IV daily, from a pulmonary perspective. She remained on Ceftriaxone 1g IV daily for her PNA/BOOP & off Azithromycin. 05/31/17: albumin 4.5, globulin 3.7, TBil 0.4, alk phos 73, AST 49, ALT 39, troponin .07, BNP 475 06/04/17: WBC 12.4, H/H 12.0/36.7, NCV 94.2, RDW 28.3, PLT 283, glucose 97, BUN/ Cr 27/0.9, GFR > 60, Na 144, K 4.4, HCO3 27, AG 14 *As of 06/04/17, the patient remained hemodynamically stable & afebrile, on O2 3L nc- 94% sat. She had 10 episodes of essentially non-bloody diarrhea over the past 24 hours ( aside from some cathi-anal irritation), not necessarily related to eating, although they were becoming semi-formed at times. She was on solids po. She had some mild abdominal cramping. She denied any fevers or chills. There was no nausea or vomiting. Multiple cultures remained negative. The patient's diarrhea is most likely temporally related to antibiotics by history > C. difficile. 06/03/17: *C. difficile toxin A & B- negative (*although a C. diff PCR was never sent). Clinically, doubt flare of Crohn's disease. 06/05/17: WBC 12.5 (on steroids- 87% gran/11 gran Ab), H/H 12.2/37.2, PLT 265, BUN/Cr 27/0.8, GFR > 60, Na 140, K 4.9, HCO3 24, AG 13 *As of 06/05/17, the patient remained hemodynamically stable & afebrile, with O2 sat 3L 94%. *The patient's diarrhea was improving after the addition of codeine, in terms of frequency. There was less urgency, and although the stools were liquid, they were becoming a little more firm. They were non-bloody in nature. She remained with some mild chronic abdominal discomfort, related to her Crohn's disease & history of benign strictures, although clinically, there appeared to be no active Crohn's disease. Aside from the addition of codeine, her GI regimen otherwise remained the same. She remained in the hospital primarily for her pulmonary symptoms. Her IV SoluMedrol was switched to Prednisone 40 mg po daily & she remained on Ceftriaxone 1g IV daily with nebulizers, as per pulmonary. *SUGGEST: *Continue codeine 15 mg po QID as needed. Await 06/03/17: stool for C.difficile PCR (*added- Micro lab notified by me). *Continue Questran 4g po BID (give other meds either 1 hour before or 2 hours after the Questran, so as not to interfere with their absorption). * Continue Florastor 250 mg po BID (if needed, can increase Florastor to 500 mg po BID), in addition to Lactobacillus. *Continue Imdium as needed. *Will defer octreotide for now. Ceftriaxone, nebulizers, & steroid taper, per pulmonary. Continue solids po as tolerated. Serial abdominal exams. Follow-up CBC, lytes, GFR. Risk factor modification for fatty liver (i.e.- strict control of body weight, BP, glucose, lipids, etc. - no significant hx EtOH). Consideration for outpt Vitamin E 800 IU po daily. The above findings and recommendations were previously discussed with the medical housestaff. Further GI recommendations to follow, depending on clinical course. Problem List: 1. Diarrhea 2. Crohn's ileocolitis 3. Abdominal pain 4. Fatty liver Subjective Subjective: 06/05/17: WBC 12.5 (on steroids- 87% gran/11 gran Ab), H/H 12.2/37.2, PLT 265, BUN/Cr 27/0.8, GFR > 60, Na 140, K 4.9, HCO3 24, AG 13 *As of 06/05/17, the patient remained hemodynamically stable & afebrile, with O2 sat 3L 94%. *The patient's diarrhea was improving after the addition of codeine, in terms of frequency. There was less urgency, and although the stools were liquid, they were becoming a little more firm. They were non-bloody in nature. She remained with some mild chronic abdominal discomfort, related to her Crohn's disease & history of benign strictures, although clinically, there appeared to be no active Crohn's disease. Aside from the addition of codeine, her GI regimen otherwise remained the same. She remained in the hospital primarily for her pulmonary symptoms. Her IV SoluMedrol was switched to Prednisone 40 mg po daily & she remained on Ceftriaxone 1g IV daily with nebulizers, as per pulmonary. Review of Systems: Full 14 point review of systems otherwise noncontributory, and as above. Review of Systems Constitutional: Reports: malaise & weakness-> slowly improving. Denies: chills, diaphoresis, fever, unexplained weight loss. EENTM: Denies: blurred vision, double vision, visual changes, eye pain, eye drainage, eye tearing, icterus, ear discharge, ear pain, ear redness, hearing changes, nasal congestion, epistaxis, nasal pain, throat pain, throat swelling, mouth pain, tooth pain. Cardiovascular: Reports: peripheral edema. Denies: chest pain, edema, orthopena, palpitations, syncope. Respiratory: Reports: cough, sputum production, wheezing-> slowly improving. Denies: hemoptysis, orthopnea, short of breath, stridor. Gastrointestinal: Reports: chronic abdominal pain; diarrhea-> slowly improving. Denies: bloating, constipation, distention, bowel incontinence, melena, nausea, bloody stool, changes in stool, vomiting, steatorrhea. Genitourinary: Denies: discharge, dysuria, frequency, hematuria, hesitation, nocturia, pain, urgency. Musculoskeletal: Denies: back pain, gout, joint pain, joint swelling, muscle pain, muscle stiffness, neck pain. Skin: Denies: cysts, change in skin color, change in hair/nails, dryness, erythema, jaundice, lesions, lymphangitis, lumps, moles, rash. Neurological/Psychological: Denies: anxiety, ataxia, cognitive dysfunction, confusion, depressed, dementia, emotional problems, headache, numbness, paresthesia, pre-existing deficit, petit mal seizures, tingling, tremors, tonic-clonic seizures, unable to move lower ext , unable to move upper ext. Hematologic/Endocrine: Denies: bruising, bleeding, polyuria, polydipsia. Immunologic/Allergic: Denies: splenectomy, HIV/AIDS, lymphadenopathy. All Other Systems: Reviewed and Negative Objective Vital Signs and I&Os Vital Signs Date Time Temp Pulse Resp B/P B/P Pulse O2 O2 Flow FiO2 Mean Ox Delivery Rate 06/05 0807 94 Nasal 3.0L Cannula 06/05 0800 94 Nasal 3.0L Cannula 06/05 0646 98.2 82 20 140/80 94 Nasal 3.0L Cannula 06/05 0601 74 140/80 06/05 0001 67 128/80 06/05 0000 93 Nasal 3.0L Cannula 06/04 2240 98.0 88 20 132/72 93 Nasal Cannula 06/04 1804 84 142/80 06/04 1803 84 142/80 06/04 1700 94 Nasal 3.0L Cannula 06/04 1600 94 Nasal 3.0L Cannula 06/04 1406 97.9 75 20 142/80 94 Nasal 3.0L Cannula 06/04 1302 89 130/78 Intake & Output 06/05 1600 06/05 0400 06/04 1600 06/04 0400 06/03 1600 06/03 0400 Intake Total 640 1320 1600 1050 1100 150 Output Total 500 200 Balance 640 1320 1100 1050 900 150 Intake, IV 400 400 800 400 500 Intake, Oral 240 920 800 650 600 150 Number 3 7 4 5 1 Bowel Movements Output, Urine 500 200 Physical Exam: Well-developed, well-nourished, pleasant obese female, in no apparent distress. Sclera anicteric. Conjunctiva pink. Oropharynx clear. No oral thrush. No aphthous ulcers. There is no adenopathy, thyromegaly, or JVD. No peripheral stigmata of inflammatory bowel disease or chronic liver disease on exam. No spiders. No CVA tenderness. Thoracic kyphosis. Lungs: clear to A&P, except for a few scattered B/L wheezes. No definite rhonchi. Heart exam: regular rate rhythm, S1 and S2, with soft I/ systolic murmur. Occasional ectopic beat. Abdominal exam: normal bowel sounds, obese, mildly distended belly, minimal RLQ tenderness, without guarding or rebound. No definite mass or organomegaly. No fluid shift. No pulsatile mass. No epigastric bruit. Digital rectal exam: deferred. Extremities: without cyanosis or clubbing. 1+ edema LE B/L. Mild DJD. No acute arthropathy. No palpable cords. Distal pulses 1+ bilaterally. DTRs 2+ bilaterally. Alert and oriented x 3. Current Medications: Current Medications Sig/Bassem Start time Last Medication Dose Route Stop Time Status Admin Albuterol Sulfate 3 ML EVERY 4 HRS/AWAKE 06/01 2000 AC 06/05 INH 0803 Albuterol Sulfate 3 ML Q6-PRN PRN 06/01 1030 AC 06/01 INH 1109 Apixaban 5 MG 0600,1800 06/01 1800 AC 06/05 PO 0601 Artificial Tears 2 GTT 4 TIMES/DAY 06/02 1534 AC 06/05 OPH 0856 Ceftriaxone Sodium 1,000 MG DAILY 06/06 1000 AC IV Ceftriaxone Sodium 1,000 MG DAILY 06/01 1000 DC 06/05 IV 0856 Cholecalciferol 2,000 IU DAILY 06/02 1000 AC 06/05 PO 0856 Cholestyramine Resin 1 PAC BID 06/03 2200 AC 06/05 PO 1034 Clonazepam 1.5 MG 1700 06/01 1700 AC 06/04 PO 06/08 1659 1801 Codeine 15 MG Q6 PRN 06/04 1530 AC 06/05 PO 0601 Cyanocobalamin 1,000 MCG 0600 06/02 0600 AC 06/05 PO 0601 Diltiazem HCl 60 MG 0000,1200 06/01 1200 AC 06/05 PO 0001 Diltiazem HCl 120 MG 0600,1800 06/01 0600 AC 06/05 PO 0601 Fluticasone 2 SPRAY DAILY 06/01 1020 AC 06/05 Propionate TORRES 0855 Fluticasone 2 PUF BID 06/01 0309 AC 06/05 Propionate INH 0856 Furosemide 20 MG DAILY 06/02 1000 AC 06/05 PO 0856 Gabapentin 600 MG 1800 06/01 1800 AC 06/04 PO 1804 Lactobacillus 1 CAP BID 06/01 1039 AC 06/05 Acidophilus PO 0856 Lidocaine 1 PAT DAILY@1600 06/04 1600 AC 06/04 EXT 1553 Lisinopril 10 MG 1800 06/01 1800 AC 06/04 PO 1804 Loperamide HCl 2 MG Q3P PRN 06/04 2345 AC 06/05 PO 0901 Loperamide HCl 2 MG Q4 HRS NEEDED PRN 06/01 0300 DC 06/04 PO 06/04 2344 1903 Methylprednisolone 50 MG DAILY 06/04 1000 DC 06/04 IV 1017 Montelukast Sodium 10 MG 2200 06/01 2200 AC 06/04 PO 2156 Omeprazole 40 MG DAILY AC 06/01 0700 AC 06/03 PO 0526 Oxycodone/ 1 TAB Q6P PRN 06/02 0815 AC 06/05 Acetaminophen PO 1126 Pramipexole 0.25 MG 1800 06/01 1800 AC 06/04 Dihydrochloride PO 1804 Prednisone 40 MG DAILY 06/05 1000 AC 06/05 PO 0856 Saccharomyces 250 MG BID 06/030 AC 06/05 Boulardii PO 0855 Sodium Chloride 1,000 ML Q20H 06/03 0800 DC 06/04 IV 2237 Tramadol HCl 50 MG BID PRN 06/01 1000 AC 06/03 PO 0945 Zolpidem Tartrate 5 MG AT BEDTIME 06/040 AC 06/05 PO 0001 Zolpidem Tartrate 5 MG 1800 06/01 1800 DC 06/03 PO 2227 Results Pertinent Lab Results: Laboratory Tests 06/05 06/05 0710 0620 Chemistry Sodium (137 - 145 mmol/L) 140 Potassium (3.5 - 5.1 mmol/L) 4.9 Chloride (98 - 107 mmol/L) 103 Carbon Dioxide (22 - 30 mmol/L) 24 Anion Gap (5 - 16) 13 BUN (7 - 17 mg/dL) 27 H Creatinine (0.5 - 1.0 mg/dL) 0.8 Estimated GFR (>60 ml/min) > 60 BUN/Creatinine Ratio (7 - 25 %) 33.8 H Hematology CBC w Diff NO MAN DIFF REQ WBC (4.8 - 10.8 /CUMM) 12.5 H RBC (4.20 - 5.40 /CUMM) 3.96 L Hgb (12.0 - 16.0 G/DL) 12.2 Hct (37 - 47 %) 37.2 MCV (81.0 - 99.0 FL) 93.9 MCH (27.0 - 31.0 PG) 30.8 RDW (11.5 - 14.5 %) 27.5 H Plt Count (130 - 400 /CUMM) 265 MPV (7.4 - 10.4 FL) 8.3 Gran % (42.2 - 75.2 %) 86.7 H Lymphocytes % (20.5 - 51.1 %) 7.1 L Monocytes % (1.7 - 9.3 %) 6.2 Eosinophils % (0 - 5 %) 0 Basophils % (0.0 - 2.0 %) 0 Absolute Granulocytes (1.4 - 6.5 /CUMM) 10.8 H Absolute Lymphocytes (1.2 - 3.4 /CUMM) 0.9 L Absolute Monocytes (0.10 - 0.60 /CUMM) 0.8 H Absolute Eosinophils (0.0 - 0.7 /CUMM) 0 Absolute Basophils (0.0 - 0.2 /CUMM) 0 PUBS MCHC (33.0 - 37.0 G/DL) 32.8 L 06/04 06/03 0615 0630 Chemistry Sodium (137 - 145 mmol/L) 144 140 Potassium (3.5 - 5.1 mmol/L) 4.4 4.9 Chloride (98 - 107 mmol/L) 104 102 Carbon Dioxide (22 - 30 mmol/L) 27 25 Anion Gap (5 - 16) 14 13 BUN (7 - 17 mg/dL) 27 H 23 H Creatinine (0.5 - 1.0 mg/dL) 0.9 0.9 Estimated GFR (>60 ml/min) > 60 > 60 BUN/Creatinine Ratio (7 - 25 %) 30.0 H 25.6 H Magnesium (1.6 - 2.3 mg/dL) 2.1 Hematology CBC w Diff NO MAN DIFF REQ NO MAN DIFF REQ WBC (4.8 - 10.8 /CUMM) 12.4 H 13.2 H RBC (4.20 - 5.40 /CUMM) 3.89 L 4.28 Hgb (12.0 - 16.0 G/DL) 12.0 12.7 Hct (37 - 47 %) 36.7 L 40.2 MCV (81.0 - 99.0 FL) 94.2 94.0 MCH (27.0 - 31.0 PG) 30.8 29.6 RDW (11.5 - 14.5 %) 28.3 H 28.0 H Plt Count (130 - 400 /CUMM) 283 285 MPV (7.4 - 10.4 FL) 7.7 8.2 Gran % (42.2 - 75.2 %) 86.1 H 89.7 H Lymphocytes % (20.5 - 51.1 %) 6.0 L 5.3 L Monocytes % (1.7 - 9.3 %) 7.9 4.9 Eosinophils % (0 - 5 %) 0 0 Basophils % (0.0 - 2.0 %) 0 0.1 Absolute Granulocytes (1.4 - 6.5 /CUMM) 10.7 H 11.9 H Absolute Lymphocytes (1.2 - 3.4 /CUMM) 0.7 L 0.7 L Absolute Monocytes (0.10 - 0.60 /CUMM) 1.0 H 0.6 Absolute Eosinophils (0.0 - 0.7 /CUMM) 0 0 Absolute Basophils (0.0 - 0.2 /CUMM) 0 0 PUBS MCHC (33.0 - 37.0 G/DL) 32.7 L 31.5 L 06/03 0027 Serology C. difficile Tox B Gene Pending Imaging/Other Studies: 05/31/17: XRY-CHEST XRAY, PA AND LATERAL (per ER/medical team)- 1. New patchy opacities in the right upper lobe, concerning for pneumonia. 2. Cardiomegaly and pulmonary venous congestion. 3. The opacity in the right middle lobe seen on prior is not apparent radiographically, and should be followed by CT is recommended at that time. Please check with the patient to be certain that this was followed at an outside institution or is scheduled to be followed. 4. Compression deformities lower thoracic spine. Osteopenia. 06/02/17: CT CHEST WO IV CONTRAST (per medical team)- 1. Lungs have mosaic attenuation; this is suggestive of air trapping phenomenon from small airways disease, and there are scattered areas of subsegmental atelectasis in both lungs. 2. Compared to 02/24/2017, interval development of multilobar tree-in-bud nodules, patchy nodular opacities and areas of groundglass attenuation consistent with infectious bronchiolitis and pneumonia. 3. Chronic cardiomegaly with prominent pulmonary vessels. However, no acute interstitial edema. Pulmonary artery trunk is 4 cm diameter, highly suggestive of chronic pulmonary arterial hypertension. 4. Diffuse hepatic steatosis. 5. Old B/L rib fractures. DJD. Kyphotic T spine. Old compression fractures T9- T11. 06/03/17: [id number] VIEW- No acute abnormality of abdomen.
--- NOTE | 2017-06-05 12:17 | PN- Pulmonary ---
Subjective HPI/Critical Care Issues: She was seen and examined this morning. She is alert awake and oriented times place person. No acute events noticed overnight. Telemetry monitoring was uneventful. Patient continues to report shortness of breath however improved since admission. Also reports the diarrhea which is ongoing 4-5 loose watery bowel movements. [employer] Analyst is following her closely. She is getting breathing treatment this morning. She is still on 3 L nasal cannula. Reports some cough with greenish phlegm production. Denies any abdominal pain. Patient also reports peripheral leg swelling. Review of Systems Constitutional: Reports: see HPI. Objective Current Medications: Current Medications Sig/Bassem Start time Last Medication Dose Route Stop Time Status Admin Albuterol Sulfate 3 ML EVERY 4 HRS/AWAKE 06/01 2000 AC 06/05 INH 1211 Albuterol Sulfate 3 ML Q6-PRN PRN 06/01 1030 AC 06/01 INH 1109 Apixaban 5 MG 0600,1800 06/01 1800 AC 06/05 PO 0601 Artificial Tears 2 GTT 4 TIMES/DAY 06/02 1534 AC 06/05 OPH 0856 Ceftriaxone Sodium 1,000 MG DAILY 06/06 1000 AC IV Ceftriaxone Sodium 1,000 MG DAILY 06/01 1000 DC 06/05 IV 0856 Cholecalciferol 2,000 IU DAILY 06/02 1000 AC 06/05 PO 0856 Cholestyramine Resin 1 PAC BID 06/03 2200 AC 06/05 PO 1034 Clonazepam 1.5 MG 1700 06/01 1700 AC 06/04 PO 06/08 1659 1801 Codeine 15 MG Q6 PRN 06/04 1530 AC 06/05 PO 1204 Cyanocobalamin 1,000 MCG 0600 06/02 0600 AC 06/05 PO 0601 Diltiazem HCl 60 MG 0000,1200 06/01 1200 AC 06/05 PO 1205 Diltiazem HCl 120 MG 0600,1800 06/01 0600 AC 06/05 PO 0601 Fluticasone 2 SPRAY DAILY 06/01 1020 AC 06/05 Propionate TORRES 0855 Fluticasone 2 PUF BID 06/01 0309 AC 06/05 Propionate INH 0856 Furosemide 20 MG DAILY 06/02 1000 AC 06/05 PO 0856 Gabapentin 600 MG 1800 06/01 1800 AC 06/04 PO 1804 Lactobacillus 1 CAP BID 06/01 1039 AC 06/05 Acidophilus PO 0856 Lidocaine 1 PAT DAILY@1600 06/04 1600 AC 06/04 EXT 1553 Lisinopril 10 MG 1800 06/01 1800 AC 06/04 PO 1804 Loperamide HCl 2 MG Q3P PRN 06/04 2345 AC 06/05 PO 1204 Loperamide HCl 2 MG Q4 HRS NEEDED PRN 06/01 0300 DC 06/04 PO 06/04 2344 1903 Methylprednisolone 50 MG DAILY 06/04 1000 DC 06/04 IV 1017 Montelukast Sodium 10 MG 2200 06/01 2200 AC 06/04 PO 2156 Omeprazole 40 MG DAILY AC 06/01 0700 AC 06/03 PO 0526 Oxycodone/ 1 TAB Q6P PRN 06/02 0815 AC 06/05 Acetaminophen PO 1126 Pramipexole 0.25 MG 1800 06/01 1800 AC 06/04 Dihydrochloride PO 1804 Prednisone 40 MG DAILY 06/05 1000 AC 06/05 PO 0856 Saccharomyces 250 MG BID 06/03 2200 AC 06/05 Boulardii PO 0855 Sodium Chloride 1,000 ML Q20H 06/03 0800 DC 06/04 IV 2237 Tramadol HCl 50 MG BID PRN 06/01 1000 AC 06/03 PO 0945 Zolpidem Tartrate 5 MG AT BEDTIME 06/04 2200 AC 06/05 PO 0001 Zolpidem Tartrate 5 MG 1800 06/01 1800 DC 06/03 PO 2227 Laboratory Tests 06/05 06/05 0710 0620 Chemistry Sodium (137 - 145 mmol/L) 140 Potassium (3.5 - 5.1 mmol/L) 4.9 Chloride (98 - 107 mmol/L) 103 Carbon Dioxide (22 - 30 mmol/L) 24 Anion Gap (5 - 16) 13 BUN (7 - 17 mg/dL) 27 H Creatinine (0.5 - 1.0 mg/dL) 0.8 Estimated GFR (>60 ml/min) > 60 BUN/Creatinine Ratio (7 - 25 %) 33.8 H Hematology CBC w Diff NO MAN DIFF REQ WBC (4.8 - 10.8 /CUMM) 12.5 H RBC (4.20 - 5.40 /CUMM) 3.96 L Hgb (12.0 - 16.0 G/DL) 12.2 Hct (37 - 47 %) 37.2 MCV (81.0 - 99.0 FL) 93.9 MCH (27.0 - 31.0 PG) 30.8 RDW (11.5 - 14.5 %) 27.5 H Plt Count (130 - 400 /CUMM) 265 MPV (7.4 - 10.4 FL) 8.3 Gran % (42.2 - 75.2 %) 86.7 H Lymphocytes % (20.5 - 51.1 %) 7.1 L Monocytes % (1.7 - 9.3 %) 6.2 Eosinophils % (0 - 5 %) 0 Basophils % (0.0 - 2.0 %) 0 Absolute Granulocytes (1.4 - 6.5 /CUMM) 10.8 H Absolute Lymphocytes (1.2 - 3.4 /CUMM) 0.9 L Absolute Monocytes (0.10 - 0.60 /CUMM) 0.8 H Absolute Eosinophils (0.0 - 0.7 /CUMM) 0 Absolute Basophils (0.0 - 0.2 /CUMM) 0 PUBS MCHC (33.0 - 37.0 G/DL) 32.8 L /30 0615 Chemistry Sodium (137 - 145 mmol/L) 144 Potassium (3.5 - 5.1 mmol/L) 4.4 Chloride (98 - 107 mmol/L) 104 Carbon Dioxide (22 - 30 mmol/L) 27 Anion Gap (5 - 16) 14 BUN (7 - 17 mg/dL) 27 H Creatinine (0.5 - 1.0 mg/dL) 0.9 Estimated GFR (>60 ml/min) > 60 BUN/Creatinine Ratio (7 - 25 %) 30.0 H Hematology CBC w Diff NO MAN DIFF REQ WBC (4.8 - 10.8 /CUMM) 12.4 H RBC (4.20 - 5.40 /CUMM) 3.89 L Hgb (12.0 - 16.0 G/DL) 12.0 Hct (37 - 47 %) 36.7 L MCV (81.0 - 99.0 FL) 94.2 MCH (27.0 - 31.0 PG) 30.8 RDW (11.5 - 14.5 %) 28.3 H Plt Count (130 - 400 /CUMM) 283 MPV (7.4 - 10.4 FL) 7.7 Gran % (42.2 - 75.2 %) 86.1 H Lymphocytes % (20.5 - 51.1 %) 6.0 L Monocytes % (1.7 - 9.3 %) 7.9 Eosinophils % (0 - 5 %) 0 Basophils % (0.0 - 2.0 %) 0 Absolute Granulocytes (1.4 - 6.5 /CUMM) 10.7 H Absolute Lymphocytes (1.2 - 3.4 /CUMM) 0.7 L Absolute Monocytes (0.10 - 0.60 /CUMM) 1.0 H Absolute Eosinophils (0.0 - 0.7 /CUMM) 0 Absolute Basophils (0.0 - 0.2 /CUMM) 0 PUBS MCHC (33.0 - 37.0 G/DL) 32.7 L Microbiology Date/Time Procedure - Status Source Growth 06/03 0027 Clostridium difficile Toxin A & B - COMP STOOL Vital Signs & I&O Last 24 Hrs of Vitals and I&O: Vital Signs Date Time Temp Pulse Resp B/P B/P Pulse O2 O2 Flow FiO2 Mean Ox Delivery Rate 06/05 1205 85 142/78 06/05 0807 94 Nasal 3.0L Cannula 06/05 0800 94 Nasal 3.0L Cannula 06/05 0646 98.2 82 20 140/80 94 Nasal 3.0L Cannula 06/05 0601 74 140/80 06/05 0001 67 128/80 06/05 0000 93 Nasal 3.0L Cannula 06/04 2240 98.0 88 20 132/72 93 Nasal Cannula 06/04 1804 84 142/80 06/04 1803 84 142/80 06/04 1700 94 Nasal 3.0L Cannula 06/04 1600 94 Nasal 3.0L Cannula 06/04 1406 97.9 75 20 142/80 94 Nasal 3.0L Cannula 06/04 1302 89 130/78 Intake & Output 06/05 1600 06/05 0800 06/05 0000 Intake Total 640 1320 Output Total Balance 640 1320 Intake, IV 400 400 Intake, Oral 240 920 Number 3 7 Bowel Movements Impression/Plan Impression/Plan Impression/Plan: CT CHEST IMPRESSION: 1. Lungs have mosaic attenuation; this is suggestive of air trapping phenomenon from small airways disease, and there are scattered areas of subsegmental atelectasis in both lungs. 2. Compared to 02/24/2017, interval development of multilobar tree-in-bud nodules, patchy nodular opacities and areas of groundglass attenuation consistent with infectious bronchiolitis and pneumonia. 3. Chronic cardiomegaly with prominent pulmonary vessels. However, no acute interstitial edema. Pulmonary artery trunk is 4 cm diameter, highly suggestive of chronic pulmonary arterial hypertension. 4. Diffuse hepatic steatosis. DICTATED BY: Sumit Orozco MD DATE/TIME DICTATED:06/02/17957 General Appearance Alert, Oriented X3, Cooperative, Mild Distress Skin No Significant Lesion Skin Temp/Moisture Exam: Warm/Dry Sepsis Skin Exam (color): Normal for Ethnicity HEENT Atraumatic, EOMI, Mucous Membr. 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, asthma, PLM, Crohn's disease, PAFIB, chronic steroid use, previous pna, previous chf, with * REsolving Acute hypoxic resp failure mainly due to acute exacerbation of bronchiolitis with pneumonia * Sig mixed obs / restrictive lung disease on chronic steroids and hence immunosupp * PAFib history in sinus with previous chf but does not appear fluid overloaded * Crohns with sig diarrhea and intol to many abx * Diarrhea with neg cdiff * PLM REC Abx Ceftriaxone for seven days total and can dc soon Prednisone 40 for 7 days 30 for 7 days and 20 for 7 days and then 10 mg for 7 days and taper to 5 mg daily if pt can tolerate Can dc soon on bactrim ds for 3 days and then bactim ds one pill daily three times a week for pcp prophylaxis for one month Gi follow up ongoing cont probiotics will follow
--- NOTE | 2017-06-05 12:29 | PN- Cardiology ---
Subjective Subjective: Shortness of breath is improving. Still with productive cough. Still with diarrhea. No chest pain. Objective Vital Signs and I&Os Vital Signs Date Time Temp Pulse Resp B/P B/P Pulse O2 O2 Flow FiO2 Mean Ox Delivery Rate 06/05 1205 85 142/78 06/05 0807 94 Nasal 3.0L Cannula 06/05 0800 94 Nasal 3.0L Cannula 06/05 0646 98.2 82 20 140/80 94 Nasal 3.0L Cannula 06/05 0601 74 140/80 06/05 0001 67 128/80 06/05 0000 93 Nasal 3.0L Cannula 06/04 2240 98.0 88 20 132/72 93 Nasal Cannula 06/04 1804 84 142/80 06/04 1803 84 142/80 06/04 1700 94 Nasal 3.0L Cannula 06/04 1600 94 Nasal 3.0L Cannula 06/04 1406 97.9 75 20 142/80 94 Nasal 3.0L Cannula 06/04 1302 89 130/78 Intake & Output 06/05 1600 06/05 0800 06/05 0000 06/04 1600 06/04 0800 06/04 0000 Intake Total 640 1320 3403 131 8904 Output Total 500 Balance 640 1320 1080 20 1050 Intake, IV 400 400 400 400 400 Intake, Oral 240 920 680 120 650 Number 3 7 3 1 Bowel Movements Output, Urine 500 Physical Exam: General: no apparent distress. Alert. On nasal cannula Eyes: No obvious scleral icterus. HEENT: No jugular venous distention or abnormal jugular venous pulsations. Cardiovascular: Normal intensity S1/S2. Regular Respiratory: Trace wheezing Abdomen: no guarding or rebound tenderness. Musculoskeletal: No clubbing or cyanosis noted; trace to 1+ lower extremity edema Skin: Warm Neurologic: No gross focal deficits noted. Current Medications: Current Medications Sig/Bassem Start time Last Medication Dose Route Stop Time Status Admin Albuterol Sulfate 3 ML EVERY 4 HRS/AWAKE 06/01 2000 AC 06/05 INH 1211 Albuterol Sulfate 3 ML Q6-PRN PRN 06/01 1030 AC 06/01 INH 1109 Apixaban 5 MG 0600,1800 06/01 1800 AC 06/05 PO 0601 Artificial Tears 2 GTT 4 TIMES/DAY 06/02 1534 AC 06/05 OPH 0856 Ceftriaxone Sodium 1,000 MG DAILY 06/06 1000 AC IV Ceftriaxone Sodium 1,000 MG DAILY 06/01 1000 DC 06/05 IV 0856 Cholecalciferol 2,000 IU DAILY 06/02 1000 AC 06/05 PO 0856 Cholestyramine Resin 1 PAC BID 06/03 2200 AC 06/05 PO 1034 Clonazepam 1.5 MG 1700 06/01 1700 AC 06/04 PO /03 1659 1801 Codeine 15 MG Q6 PRN 06/04 1530 AC 06/05 PO 1204 Cyanocobalamin 1,000 MCG 0600 06/02 0600 AC 06/05 PO 0601 Diltiazem HCl 60 MG 0000,1200 06/01 1200 AC 06/05 PO 1205 Diltiazem HCl 120 MG 0600,1800 06/01 0600 AC 06/05 PO 0601 Fluticasone 2 SPRAY DAILY 06/01 1020 AC 06/05 Propionate TORRES 0855 Fluticasone 2 PUF BID 06/01 0309 AC 06/05 Propionate INH 0856 Furosemide 20 MG DAILY 06/02 1000 AC 06/05 PO 0856 Gabapentin 600 MG 1800 06/01 1800 AC 06/04 PO 1804 Lactobacillus 1 CAP BID 06/01 1039 AC 06/05 Acidophilus PO 0856 Lidocaine 1 PAT DAILY@1600 06/04 1600 AC 06/04 EXT 1553 Lisinopril 10 MG 1800 06/01 1800 AC 06/04 PO 1804 Loperamide HCl 2 MG Q3P PRN 06/04 2345 AC 06/05 PO 1204 Loperamide HCl 2 MG Q4 HRS NEEDED PRN 06/01 0300 DC 06/04 PO 06/04 2344 1903 Methylprednisolone 50 MG DAILY 06/04 1000 DC 06/04 IV 1017 Montelukast Sodium 10 MG 2200 06/01 2200 AC 06/04 PO 2156 Omeprazole 40 MG DAILY AC 06/01 0700 AC 06/03 PO 0526 Oxycodone/ 1 TAB Q6P PRN 06/02 0815 AC 06/05 Acetaminophen PO 1126 Pramipexole 0.25 MG 1800 06/01 1800 AC 06/04 Dihydrochloride PO 1804 Prednisone 40 MG DAILY 06/05 1000 AC 06/05 PO 0856 Saccharomyces 250 MG BID 06/03 2200 AC 06/05 Boulardii PO 0855 Sodium Chloride 1,000 ML Q20H 06/03 0800 DC 06/04 IV 2237 Tramadol HCl 50 MG BID PRN 06/01 1000 AC 06/03 PO 0945 Zolpidem Tartrate 5 MG AT BEDTIME 06/04 2200 AC 06/05 PO 0001 Zolpidem Tartrate 5 MG 1800 06/01 1800 DC 06/03 PO 2227 Results Last 48 Hrs of Labs/Mics: Laboratory Tests 06/05/17 0710: CBC w Diff NO MAN DIFF REQ, RBC 3.96 L, MCV 93.9, MCH 30.8, RDW 27.5 H, MPV 8.3, Gran % 86.7 H, Lymphocytes % 7.1 L, Monocytes % 6.2, Eosinophils % 0, Basophils % 0, Absolute Granulocytes 10.8 H, Absolute Lymphocytes 0.9 L, Absolute Monocytes 0.8 H, Absolute Eosinophils 0, Absolute Basophils 0, PUBS MCHC 32.8 L 06/05/17 0620: Anion Gap 13, Estimated GFR > 60, BUN/Creatinine Ratio 33.8 H 06/04/17 0615: Anion Gap 14, Estimated GFR > 60, BUN/Creatinine Ratio 30.0 H, CBC w Diff NO MAN DIFF REQ, RBC 3.89 L, MCV 94.2, MCH 30.8, RDW 28.3 H, MPV 7.7, Gran % 86.1 H, Lymphocytes % 6.0 L, Monocytes % 7.9, Eosinophils % 0, Basophils % 0, Absolute Granulocytes 10.7 H, Absolute Lymphocytes 0.7 L, Absolute Monocytes 1.0 H, Absolute Eosinophils 0, Absolute Basophils 0, PUBS MCHC 32.7 L Recent Imaging Studies: Telemetry tracings were personally reviewed and shows sinus rhythm with NSVT runs and a short SVT burst Assessment/Plan Assessment/Plan 1. Pneumonia 2. Diarrhea 3. Chronic lower extremity edema 4. NSVT/SVT bursts 5. History of paroxysmal atrial fibrillation with prior ablation Remains hemodynamically stable. Short arrhythmic runs on telemetry but no sustained arrhythmias. Hemoglobin remains stable on Eliquis. Continue on oral Lasix. Terrell Palma MD [facility] Continue telemetry? Yes
[2017-06-05 14:44] VITALS: BP 140/62
[2017-06-05 23:45] VITALS: BP 144/88
[2017-06-06 06:00] VITALS: BP 146/62
[2017-06-06 08:13] LABS: ABSOLUTE BASOPHIL COUNT 0 /CUMM (0.0-0.2); ABSOLUTE EOSINOPHIL COUNT 0 /CUMM (0.0-0.7); ABSOLUTE GRANULOCYTE CT 8.8 /CUMM (1.4-6.5); ABSOLUTE LYMPH COUNT 1.4 /CUMM (1.2-3.4); ABSOLUTE MONOCYTE COUNT 0.6 /CUMM (0.10-0.60); BASOPHIL % 0.1 % (0.0-2.0); EOSINOPHIL % 0.3 % (0-5); GRANULOCYTE % 81.1 % (42.2-75.2); HEMATOCRIT 37.6 % (37-47); MEAN CORPUSCULAR HGB 30.7 PG (27.0-31.0); MEAN CORPUSCULAR HGB CONC 32.5 G/DL (33.0-37.0); MEAN CORPUSCULAR VOLUME 94.4 FL (81.0-99.0); MEAN PLATELET VOLUME 8.3 FL (7.4-10.4); PLATELET COUNT 241 /CUMM (130-400); RBC DISTRIBUTION WIDTH 27.1 % (11.5-14.5); RED BLOOD CELL CT 3.98 /CUMM (4.20-5.40); WHITE BLOOD CELL COUNT 10.8 /CUMM (4.8-10.8)
--- NOTE | 2017-06-06 08:54 | PN- Housestaff ---
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 ED course -vital signs at the time of admission -temperature 99.8, pulse 107, respiratory rate 28, blood pressure 169/75, SPO2 87% on room air. Blood workup showed hemoglobin 13.4, hematocrit 41.5, platelet count 278, granulocyte 80.3, lymphocyte 13.1, sodium 138, potassium 4.9, chloride 104, carbon dioxide 18, BUN 12, creatinine 0.8, serial troponins were 0.07 , 0.04, 0.03.EKG showed sinus tachycardia, HR-105, poor r wave progression. CT scan of the chest showed scattered ED of subsegmental atelectasis in both lungs. Multilobar tree-in-bud nodules, patchy nodular opacities, infectious bronchiolitis and pneumonia.Chronic cardiomegaly with prominent pulmonary vessels, but dilated pulmonary artery. Suggested chronic pulmonary arterial hypertension. 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 * Usually confirmatory test is lung biopsy * Risk factors are -Viral URI ( Possibly), food flavoring fumes (eg, diacetyl used in popcorn and other foods) - Denies * Management is - - Stopping the exposure to potential culprit agent, - Symptomatic treatment -TRC/Neb/Oxygen to maintain the pulse oxygen saturation>88 -continue ceftriaxone - day 5 today- needs 7 days totally. -On steroid taper prednisone 40 mg today-taper it slowly daily - Will repeat CBC/BEp tomorrow. Crohn's disease with bowel resection, history of recurrent diarrhea on loperamide and codeine prn - * Patient has liquidy diarrhea with blood. * Stool for C. difficile is negative. * We'll follow GI recommendation * cdiff pcr pending Atrial fibrillation converted to normal sinus rhythm, on Eliquis * We will continue Eliquis, cardizem Diet - low sodium, heart healthy diet Code status - DNI DVT Prophylaxis - Eliquis
--- NOTE | 2017-06-06 09:47 | PN- Pulmonary ---
Subjective HPI/Critical Care Issues: Doing much better Afebrile Cough is improved Oxygenation is better Blood work reviewed white count down to 10.8 Objective Current Medications: Current Medications Sig/Bassem Start time Last Medication Dose Route Stop Time Status Admin Albuterol Sulfate 3 ML EVERY 4 HRS/AWAKE 06/01 2000 AC 06/06 INH 0743 Albuterol Sulfate 3 ML Q6-PRN PRN 06/01 1030 AC 06/01 INH 1109 Apixaban 5 MG 0600,1800 06/01 1800 AC 06/06 PO 0642 Artificial Tears 2 GTT 4 TIMES/DAY 06/02 1534 AC 06/06 OPH 0830 Ceftriaxone Sodium 1,000 MG DAILY 06/06 1000 AC 06/06 IV 0807 Ceftriaxone Sodium 1,000 MG DAILY 06/01 1000 DC 06/05 IV 0856 Cholecalciferol 2,000 IU DAILY 06/02 1000 AC 06/06 PO 0803 Cholestyramine Resin 1 PAC BID 06/03 2200 AC 06/06 PO 0803 Clonazepam 1.5 MG 1700 06/01 1700 AC 06/05 PO 06/08 1659 1825 Codeine 15 MG Q6 PRN 06/04 1530 AC 06/06 PO 0819 Cyanocobalamin 1,000 MCG 0600 06/02 0600 AC 06/06 PO 0642 Diltiazem HCl 60 MG 0000,1200 06/01 1200 AC 06/05 PO 2313 Diltiazem HCl 120 MG 0600,1800 06/01 0600 AC 06/06 PO 0643 Fluticasone 2 SPRAY DAILY 06/01 1020 AC 06/06 Propionate TORRES 0807 Fluticasone 2 PUF BID 06/01 0309 AC 06/06 Propionate INH 0830 Furosemide 20 MG DAILY 06/02 1000 AC 06/06 PO 0806 Gabapentin 600 MG 1800 06/01 1800 AC 06/05 PO 1826 Lactobacillus 1 CAP BID 06/01 1039 AC 06/06 Acidophilus PO 0804 Lidocaine 1 PAT DAILY@1600 06/04 1600 AC 06/05 EXT 1544 Lisinopril 10 MG 1800 06/01 1800 AC 06/05 PO 1826 Loperamide HCl 2 MG Q3P PRN 06/04 2345 AC 06/06 PO 0644 Montelukast Sodium 10 MG 2200 06/01 2200 AC 06/05 PO 2100 Omeprazole 40 MG DAILY AC 06/01 0700 AC 06/03 PO 0526 Oxycodone/ 1 TAB Q6P PRN 06/02 0815 AC 06/06 Acetaminophen PO 0643 Pramipexole 0.25 MG 1800 06/01 1800 AC 06/05 Dihydrochloride PO 1826 Prednisone 40 MG DAILY 06/05 1000 AC 06/06 PO 06/10 1001 0805 Saccharomyces 250 MG BID 06/03 2200 AC 06/06 Boulardii PO 0808 Tramadol HCl 50 MG BID PRN 06/01 1000 AC 06/03 PO 0945 Zolpidem Tartrate 5 MG AT BEDTIME 06/04 2200 AC 06/05 PO 2312 Vital Signs & I&O Last 24 Hrs of Vitals and I&O: Vital Signs Date Time Temp Pulse Resp B/P B/P Pulse O2 O2 Flow FiO2 Mean Ox Delivery Rate 06/06 0749 97 Nasal 2.0L Cannula 06/06 0643 90 06/06 0600 98.3 85 18 146/62 98 Nasal 2.0L Cannula 06/06 0000 96 Nasal 2.0L Cannula 06/05 2345 98.1 81 20 144/88 95 Room Air 06/05 2313 88 06/05 1826 84 152/84 06/05 1825 84 152/84 06/05 1658 89 Room Air 06/05 1600 94 Nasal 3.0L Cannula 06/05 1444 98.1 85 20 140/62 94 Nasal Cannula 06/05 1205 85 142/78 Intake & Output 06/06 1600 06/06 0800 06/06 0000 Intake Total 240 840 Output Total Balance 240 840 Intake, Oral 240 840 Number 4 Bowel Movements Laboratory Tests 06/06 06/05 0700 0710 Chemistry Sodium (137 - 145 mmol/L) 138 Potassium (3.5 - 5.1 mmol/L) 5.1 Chloride (98 - 107 mmol/L) 104 Carbon Dioxide (22 - 30 mmol/L) 25 Anion Gap (5 - 16) 10 BUN (7 - 17 mg/dL) 29 H Creatinine (0.5 - 1.0 mg/dL) 0.9 Estimated GFR (>60 ml/min) > 60 BUN/Creatinine Ratio (7 - 25 %) 32.2 H Hematology CBC w Diff NO MAN DIFF REQ NO MAN DIFF REQ WBC (4.8 - 10.8 /CUMM) 10.8 12.5 H RBC (4.20 - 5.40 /CUMM) 3.98 L 3.96 L Hgb (12.0 - 16.0 G/DL) 12.2 12.2 Hct (37 - 47 %) 37.6 37.2 MCV (81.0 - 99.0 FL) 94.4 93.9 MCH (27.0 - 31.0 PG) 30.7 30.8 RDW (11.5 - 14.5 %) 27.1 H 27.5 H Plt Count (130 - 400 /CUMM) 241 265 MPV (7.4 - 10.4 FL) 8.3 8.3 Gran % (42.2 - 75.2 %) 81.1 H 86.7 H Lymphocytes % (20.5 - 51.1 %) 13.1 L 7.1 L Monocytes % (1.7 - 9.3 %) 5.4 6.2 Eosinophils % (0 - 5 %) 0.3 0 Basophils % (0.0 - 2.0 %) 0.1 0 Absolute Granulocytes (1.4 - 6.5 /CUMM) 8.8 H 10.8 H Absolute Lymphocytes (1.2 - 3.4 /CUMM) 1.4 0.9 L Absolute Monocytes (0.10 - 0.60 /CUMM) 0.6 0.8 H Absolute Eosinophils (0.0 - 0.7 /CUMM) 0 0 Absolute Basophils (0.0 - 0.2 /CUMM) 0 0 PUBS MCHC (33.0 - 37.0 G/DL) 32.5 L 32.8 L 06/05 0620 Chemistry Sodium (137 - 145 mmol/L) 140 Potassium (3.5 - 5.1 mmol/L) 4.9 Chloride (98 - 107 mmol/L) 103 Carbon Dioxide (22 - 30 mmol/L) 24 Anion Gap (5 - 16) 13 BUN (7 - 17 mg/dL) 27 H Creatinine (0.5 - 1.0 mg/dL) 0.8 Estimated GFR (>60 ml/min) > 60 BUN/Creatinine Ratio (7 - 25 %) 33.8 H Impression/Plan Impression/Plan Impression/Plan: CT CHEST IMPRESSION: 1. Lungs have mosaic attenuation; this is suggestive of air trapping phenomenon from small airways disease, and there are scattered areas of subsegmental atelectasis in both lungs. 2. Compared to 02/24/2017, interval development of multilobar tree-in-bud nodules, patchy nodular opacities and areas of groundglass attenuation consistent with infectious bronchiolitis and pneumonia. 3. Chronic cardiomegaly with prominent pulmonary vessels. However, no acute interstitial edema. Pulmonary artery trunk is 4 cm diameter, highly suggestive of chronic pulmonary arterial hypertension. 4. Diffuse hepatic steatosis. DICTATED BY: Sumit Orozco MD DATE/TIME DICTATED:06/02/17957 General Appearance Alert, Oriented X3, Cooperative, Mild Distress Skin No Significant Lesion Skin Temp/Moisture Exam: Warm/Dry Sepsis Skin Exam (color): Normal for Ethnicity HEENT Atraumatic, EOMI, Mucous Membr. 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 7 days of antibiotics total. Prednisone 40 for 7 days 30 for 7 days and 20 for 7 days and then 10 mg for 7 days and taper to 5 mg daily if pt can tolerate Bactim ds one pill daily three times a week for pcp prophylaxis for one month Gi follow up ongoing cont probiotics will follow
[2017-06-06] MEDS ORDERED: PREDNISONE10 M2 PO ×2 (11:56→13:01)
[2017-06-06] MEDS ORDERED: BACTRIM DS TAB1 EACH PO (12:02)
[2017-06-06] MEDS ORDERED: CODEINE SULFATE15 M1 PO (12:05)
--- NOTE | 2017-06-06 12:32 | Patient Discharge Instructions ---
Discharge Instructions General Discharge Information You were seen/treated for: 1. BRONCHIOLITIS WITH PNEUMONIA 2. DIARRHEA SECONDARY TO CROHNS Special Instructions: 1. PLEASE FOLLOW UP WITH YOUR PRIMARY IN ONE WEEK. 2. PLEASE FOLLOW UP WITH DR. JACOBO LAND CLEARER IN ONE WEEK 3. PLEASE FOLOW UP WITH DR. BOUCHER [facility] IN 2 WEEKS 4. PLEASE FOLLOW UP WITH DR. DU TRACTOR DRIVER TEAMSTER IN ONE WEEK Diet Continue normal diet: Yes Activity Full Activity/No Limits: Yes ( TOLERATED) Acute Coronary Syndrome Inclusion Criteria At DC or during hospital stay patient has or had the following: ACS DIAGNOSIS No Discharge Core Measures Meds if any: Prescribed or Continued at Discharge Meds if any: NOT Prescribed or Continued at Discharge Congestive Heart Failure Inclusion Criteria At DC or during hospital stay patient has or had the following: CHF DIAGNOSIS No Discharge Core Measures Meds if any: Prescribed or Continued at Discharge Meds if any: NOT Prescribed or Continued at Discharge Cerebrovascular accident Inclusion Criteria At DC or during hospital stay patient has or had the following: CVA/TIA Diagnosis No Discharge Core Measures Meds if any: Prescribed or Continued at Discharge Meds if any: NOT Prescribed or Continued at Discharge Venous thromboembolism Inclusion Criteria VTE Diagnosis No VTE Type NONE VTE Confirmed by (Test) NONE Discharge Core Measures - Per Current guidelines, there needs to be overlap - treatment for the first 5 days of Warfarin therapy. - If discharged on Warfarin prior to 5 days of - overlap therapy, the patient will need to be - assessed for post discharge needs including - *Post discharge parental anticoagulation - *Warfarin and/or parental anticoagulation education - *Follow up date to check INR post discharge At least 5 days overlap therapy as Inpatient No Meds if any: Prescribed or Continued at Discharge Note: Overlap Therapy is Warfarin and Anticoagulant Meds if any: NOT Prescribed or Continued at Discharge
[2017-06-06] MEDS ORDERED: FLORASTOR250 M1 PO (12:45)
[2017-06-06] MEDS ORDERED: QUESTRAN LIGHT210 GM PO (12:45)
[2017-06-06 13:07] VITALS: BP 146/62
[2017-06-07] MEDS ORDERED: CODEINE SULFATE15 M1 PO ×2 (09:53→13:25)
[2017-06-08 07:20] LABS: C.DIFFICILE TOXIN B QL PCR NOT DETECTED (NOT DETECTED)
== END 2017-06-06 13:15 | DRG 193 ==
LOC: ERH 19:08 → 1NO 22:45 → ERHI 22:45 → 1NO 22:45 → ENRESERV 23:21 → CANRESERV 23:21 → EDBEDREQ 06-01 02:06 → EDBEDREQTM 06-01 02:06 → ENRESERV 06-01 02:12 → 1NO 06-01 03:07
PROVIDERS: Emergency Medicine; Hospitalist; Internal Medicine; Internal Medicine Adolescent Medicine; Radiology Vascular & Interventional Radiology
DX: J18.9 Pneumonia, unspecified organism (principal); J96.01 Acute respiratory failure with hypoxia; I47.2 Ventricular tachycardia; I48.0 Paroxysmal atrial fibrillation; K50.90 Crohn's disease, unspecified, without complications; I48.91 Unspecified atrial fibrillation; J84.89 Other specified interstitial pulmonary diseases; I47.1 Supraventricular tachycardia; G25.81 Restless legs syndrome; J44.0 Chronic obstructive pulmonary disease with (acute) lower respiratory infection; J21.9 Acute bronchiolitis, unspecified; I10 Essential (primary) hypertension; Z79.01 Long term (current) use of anticoagulants; Z79.52 Long term (current) use of systemic steroids; F41.8 Other specified anxiety disorders
CPT/HCPCS: 1NSP; 87493; ERO; 36415; 74000; 82436; 87040; 87070; 87449; 87450; 87804; 87804-59; 93005; 93010; 93306; 96374; J0456; J0696; J2930; J3370; J3490; J7040; J7512

== ENCOUNTER 2017-06-12 10:21 | Observation (INO) | payer OTHER ==
[~2017-06-12] VITALS: Ht 174 cm; Wt 100.7 kg
[~2017-06-12 10:21] MED LIST changes: +CLONAZEPAM0.5 M2 PO; +CODEINE SULFATE15 M1 PO; +DILTIAZEM HCL120 M3 PO; +FLORASTOR250 M1 PO; +LISINOPRIL10 M1 PO; +LOPERAMIDE2 M2 PO; -LOPERAMIDE2 MG PO; +MIRAPEX0.5 M1 PO; +MONTELUKAST SOD10 M1 PO; +PREDNISONE10 M2 PO; +PREDNISONE5 M1 PO; +QUESTRAN LIGHT210 GM PO; +SINGULAIR10 M1 PO; -SINGULAIR10 MG PO; +TRAMADOL HCL50 M1 PO; +XOPENEX HFA15 GM INH; +ZOLPIDEM TARTRA10 M1 PO
--- NOTE | 2017-06-12 11:37 | ED GI/GU/ABDOMINAL COMPLAINT ---
History of Present Illness General Chief Complaint: General Adult Stated Complaint: DIARRHEA X 1 WEEK Source: patient, family, old records Exam Limitations: no limitations Vital Signs & Intake/Output Vital Signs & Intake/Output Vital Signs Date Time Temp Pulse Resp B/P B/P Pulse O2 O2 Flow FiO2 Mean Ox Delivery Rate 06/12 1737 98.5 71 20 144/90 93 06/12 1612 98.1 76 20 127/66 97 Room Air 06/12 1230 97.5 88 20 137/88 96 Room Air 06/12 1026 96.9 92 18 148/92 95 Room Air Room Air Allergies Coded Allergies: NSAIDS (Non-Steroidal Anti-Inflamma (PER PT HAS A SMALL AMOUNT OF INTESTINES FROM [facility] 08/25/15) morphine (N/V, CAN'T URINATE 08/25/15) tetracycline (UNKNOWN PER PT, HAS SHORTENED INTESTINES FROM [facility] 08/25/15) Uncoded Allergies: HORSE SERUM (Severe, ANAPHYLAXIS 01/27/16) ORAL ANTIBIOTIC (PT HAS SHORTENED INTESTINES FROM [facility] HARD TIME TOLERATING ) IS ONLY OKAY WITH BACTRIM PER PT Reconcile Medications Apixaban (Eliquis) 5 MG TABLET 1 TAB PO BID BLOOD THINNER (Reported) Benzonatate (Tessalon Perle) (Unknown Strength) CAPSULE (Unknown Dose) PO TID PRN COUGH (Reported) Cholecalciferol (Vitamin D3) (Vitamin D) 2,000 UNIT TABLET 1 TAB PO DAILY SUPPLEMENT (Reported) Cholestyramine/Aspartame (Questran Light Powder) 4 GRAM POWDER 4 GM PO BID CHOLESTEROL TAKE OTHER MEDICATIONS EITHER 1 HOUR BEFORE OR 2 HOURS AFTER THE QUESTRAN SO NOT TO INTERFERE WITH ABSORPTION Clonazepam 0.5 MG TABLET 2 TAB PO QHS RLS (Reported) Codeine Sulfate (Unknown Strength) TABLET (Unknown Dose) UNKNOWN (Reported) Cyanocobalamin (Vitamin B-12) 1,000 MCG TABLET 1 TAB PO DAILY SUPPLEMENT ( Reported) Diltiazem HCl 120 MG TABLET 1 TAB PO BID HEART/BP (Reported) Diltiazem HCl (Cardizem) 60 MG TABLET 1 TAB PO BID HEART/BP (Reported) Fluticasone Propionate (Flovent Hfa) 110 MCG/ACTUATION AER.W.ADAP 2 PUF INH BID BRONCHIOLITIS OBLITERANS (Reported) Gabapentin 600 MG TABLET 1 TAB PO AT BEDTIME RLS Levalbuterol Tartrate (Xopenex Hfa) 45 MCG/ACTUATION HFA.AER.AD 2 PUF INH Q6H PRN SHORTNESS OF BREATH (Reported) Lisinopril 10 MG TABLET 1 TAB PO DAILY HIGH BLOOD PRESSURE (Reported) Loperamide HCl (Loperamide) 2 MG CAPSULE 2 CAP PO Q4H PRN DIARRHEA (Reported) Losartan Potassium (Unknown Strength) TABLET (Unknown Dose) UNKNOWN (Reported ) Magnesium Oxide (Magnesium) 500 MG CAPSULE 1 CAP PO BID SUPPLEMENT (Reported) Montelukast Sodium (Singulair) 10 MG TABLET 1 TAB PO DAILY RESP. (Reported) Potassium Chloride 20 MEQ TAB.ER.PRT 1 TAB PO DAILY SUPPLEMENT (Reported) Pramipexole Di-HCl (Mirapex) (Unknown Strength) TABLET (Unknown Dose) PO QHS RLS (Reported) Prednisone 10 MG TABLET 1 TAB PO DAILY LUNG DISEASE PLEASE TAKE 5 TABS DAILY FOR 5 DAYS TIME (June - June) PLEASE TAKE 4 TABS DAILY FOR 7 DAYS TIME (Jun- Jun) PLEASE TAKE 3 TABS DAILY FOR 7 DAYS TIME (Jun - Jun) PLEASE TAKE 2 TABS DIALY FOR 7 DAYS (Jun - Jun) PLEASE TAKE 1 TAB DAILY FOR 7 DAYS (Jun - Jul). PLEASE THEN TRANSITION TO 5MG PREDNISONE TABLETS, ONE DAILY BY MOUTH Saccharomyces Boulardii (Florastor) 250 MG CAPSULE 2 CAP PO DAILY PROBIOTICS Sulfamethoxazole/Trimethoprim (Bactrim Ds Tablet) 800 MG-160 MG TABLET 1 TAB PO SAT PCP PROPHYLAXIS Tramadol HCl 50 MG TABLET 1 TAB PO BIDP PRN pain (Reported) Vitamin E (Unknown Strength) CAPSULE (Unknown Dose) PO DAILY SUPPLEMENT ( Reported) Zolpidem Tartrate 10 MG TABLET 0.5 TAB PO QPM PRN SLEEPLESSNESS (Reported) Triage Note: PT TO ED WITH C/O "I HAVE BLOODY DIARRHEA, FROM THE ANTIBIOTICS, I JUST GOT OUT OF THE HOSPITAL FOR PNEUMONIA ON 06/06/17". Triage Nurses Notes Reviewed? yes ? n Is pt currently ? No HPI: 66F PMH HTN, A. fib S/P cardioversion followed by ablation now in sinus, history of Crohn's disease status post bowel resection and with chronic diarrhea, restless leg syndrome, bronchiolitis obliterans admitted recently with worsening shortness of breath and dyspnea at rest, cough with white sputum, and hypoxia requiring 35% venti mask, treated successfully with Ceftriaxone, Azithromycin, and Solumedrol and discharged home, now returns with profuse bloody diarrhea and abdominal cramping. Reports several days of bloody diarrhea that worsened 2 days ago and has been near constant with large amounts of aden blood, dissimilar to Crohn's flares as there is more abdominal cramping. Denies fever, chills, chest pain, SOB, cough, dysuria. Past History Travel History Traveled to [place] past 21 day No Medical History Any Pertinent Medical History? 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 Relation not specified for: FH: HTN (hypertension) Hx Contributory? No Review of Systems Review of Systems Constitutional: Reports: no symptoms. EENTM: Reports: no symptoms. Respiratory: Reports: no symptoms. Cardiovascular: Reports: no symptoms. GI: Reports: see HPI. Genitourinary: Reports: no symptoms. Musculoskeletal: Reports: no symptoms. Skin: Reports: no symptoms. Neurological/Psychological: Reports: no symptoms. Hematologic/Endocrine: Reports: no symptoms. Immunologic/Allergic: Reports: no symptoms. All Other Systems: Reviewed and Negative Physical Exam Physical Exam General Appearance: well developed/nourished, mild distress, dehydrated Head: atraumatic, normal appearance Eyes: Bilateral: normal appearance. Ears, Nose, Throat, Mouth: hearing grossly normal, dry mucous membranes Neck: normal inspection, supple, full range of motion Respiratory: normal breath sounds, chest non-tender, no respiratory distress Cardiovascular: regular rate/rhythm Gastrointestinal: soft, mildly tender diffusely, no guarding or rebound Rectal: deferred Back: normal inspection, normal range of motion Extremities: normal range of motion Neurologic/Psych: awake, alert, oriented x 3, normal mood/affect Skin: intact, normal color, warm/dry Core Measures ACS in differential dx? No Sepsis Present: No Sepsis Focused Exam Completed? No Progress Differential Diagnosis: AAA, AMI, appendicitis, biliary colic, bowel obstruction , colon cancer, cholecystitis, diverticulitis, ectopic , endometritis, esophageal varices, gastritis, hepatitis, hernia, hemorrhoids, ischemic bowel, inflamm bowel dis, intrauterine , kidney stone, Maritza-Bari tear, ovarian cyst, ovarian torsion, pancreatitis, PID/cervicitis, peptic ulcer, PUD/ GERD, perforated viscous, SBO, threatened AB, UTI/pyelo Plan of Care: Orders Procedure Date/time Status Clear Liquid Diet 06/12 D Active Pathway - chart 06/12 1515 Active House Staff 06/12 1515 Active Code Status 06/12 1515 Active Patient Data 06/[address] in observation 06/12 1338 Active ED Holding Orders 06/12 1338 Active Vital Signs 06/12 1338 Active Code Status 06/12 1338 Complete Intake & Output 06/12 1225 Active Isolation 06/12 1148 Active C.DIFFICILE 06/12 1148 Active COMPREHENSIVE METABOLIC PANEL 06/12 1148 Complete CBC WITHOUT DIFFERENTIAL 06/12 1148 Complete VTE Mechanical Prophylaxis 06/12 UNK Active Current Medications Sig/Bassem Start time Last Medication Dose Stop Time Status Admin Cyanocobalamin 1,000 MCG DAILY 06/13 1000 AC (Vitamin B12) Montelukast Sodium 10 MG DAILY 06/13 1000 AC (Singulair) Potassium Chloride 20 MEQ DAILY 06/13 1000 AC (K-Dur) Vitamin E 100 IU DAILY 06/13 1000 AC (Vitamin E) Diltiazem HCl 60 MG 0000,1200 06/13 0000 AC (Cardizem) Cholestyramine Resin 1 PAC BID 06/12 2199 AC (Questran Light(W/ Nutrasweet)Pack) Clonazepam 1 MG AT BEDTIME 06/12 2199 AC (Klonopin 1MG Tab) 06/19 2158 Fluticasone 2 PUF BID 06/12 2199 AC Propionate (Flovent) Gabapentin 600 MG AT BEDTIME 06/12 2199 AC (Neurontin) Magnesium Oxide 400 MG BID 06/12 2199 AC (Mag-Ox) Pramipexole 0.5 MG AT BEDTIME 06/12 2199 AC Dihydrochloride (Mirapex) Tramadol HCl 50 MG BID PRN 06/12 2199 AC (Ultram) Diltiazem HCl 120 MG 0600,1800 06/12 1800 AC (Cardizem) Saccharomyces 500 MG DAILY 06/12 1729 AC Boulardii (Florastor E/S 250MG) Zolpidem Tartrate 5 MG QPM PRN 06/12 173 AC (Ambien) Albuterol Sulfate 3 ML Q4H PRN 06/12 1714 AC (Proventil) Lisinopril 10 MG DAILY 06/12 1714 AC (Prinivil) Laboratory Tests 06/12/17 1252: Anion Gap 12, Estimated GFR > 60, BUN/Creatinine Ratio 21.3, Glucose 136 H, Calcium 9.1, Total Bilirubin 0.4, AST 35, ALT 65 H, Alkaline Phosphatase 56, Total Protein 6.5, Albumin 3.7, Globulin 2.8, Albumin/Globulin Ratio 1.3 06/12/17 1219: CBC w Diff MAN DIFF ORDERED, RBC 4.12 L, MCV 93.4, MCH 30.7, RDW 26.5 H, MPV 7.6, Gran % 91.2 H, Lymphocytes % 3.7 L, Monocytes % 1.3 L, Eosinophils % 0, Basophils % 3.8 H, Absolute Granulocytes 13.4 H, Segmented Neutrophils 90 H, Band Neutrophils 1, Absolute Lymphocytes 0.5 L, Lymphocytes 5 L, Monocytes 3, Absolute Monocytes 0.2, Eosinophils 1, Absolute Eosinophils 0, Absolute Basophils 0.6, Platelet Estimate VERIFIED BY SMEAR, Anisocytosis 1+, PUBS MCHC 32.9 L Microbiology 06/12 1420 STOOL: Clostridium difficile Toxin A & B - RECD Initial ED EKG: sinus tachycardia without ST/T changes Departure Departure Disposition: HOME OR SELF CARE Condition: Stable Clinical Impression Primary Impression: Bloody diarrhea Secondary Impressions: Crohns disease Referrals: Roxy PARSON,Ari Lopez (PCP/Family) Departure Forms: Customer Survey General Discharge Information Observation Note Spoke With: Carrington Fontenot MD Physician Advisor Notified: [place] DO,CINTHYA L. Place Patient In: Non-ED OBS Care Area Rationale for Observation: My rational for observation is as follows ?bloody diarrhea and weakness following antibiotic therapy for pneumonia, concern for C.diff vs Crohn's exacerbation, will be monitored overnight, send for C.diff, GI consult, anti- diarrheal medications, if diarrhea improved and C.diff negative can be discharged tomorrow.
[2017-06-12] MEDS ORDERED: CARDIZEM60 M1 PO (12:31)
[2017-06-12] MEDS ORDERED: FLOVENT HFA12 G1 INH (12:32)
[2017-06-12] MEDS ORDERED: MAGNESIUM500 M2 PO (12:33)
[2017-06-12 12:34] LABS: ABSOLUTE BASOPHIL COUNT 0.6 /CUMM (0.0-0.2); ABSOLUTE EOSINOPHIL COUNT 0 /CUMM (0.0-0.7); ABSOLUTE GRANULOCYTE CT 13.4 /CUMM (1.4-6.5); ABSOLUTE LYMPH COUNT 0.5 /CUMM (1.2-3.4); ABSOLUTE MONOCYTE COUNT 0.2 /CUMM (0.10-0.60); BASOPHIL % 3.8 % (0.0-2.0); EOSINOPHIL % 0 % (0-5); GRANULOCYTE % 91.2 % (42.2-75.2); HEMATOCRIT 38.5 % (37-47); MEAN CORPUSCULAR HGB 30.7 PG (27.0-31.0); MEAN CORPUSCULAR HGB CONC 32.9 G/DL (33.0-37.0); MEAN CORPUSCULAR VOLUME 93.4 FL (81.0-99.0); MEAN PLATELET VOLUME 7.6 FL (7.4-10.4); RBC DISTRIBUTION WIDTH 26.5 % (11.5-14.5); RED BLOOD CELL CT 4.12 /CUMM (4.20-5.40); WHITE BLOOD CELL COUNT 14.7 /CUMM (4.8-10.8)
[2017-06-12] MEDS ORDERED: VITAMIN E400 UNI5 PO (12:36)
[2017-06-12] MEDS ORDERED: VITAMIN B-121000 MC3 PO (12:37)
[2017-06-12] MEDS ORDERED: VITAMIN D2000 UNI1 PO (12:37)
[2017-06-12] MEDS ORDERED: TESSALON PERLE100 M1 PO (12:38)
[2017-06-12] MEDS ORDERED: LOSARTAN POTASS50 M1 (12:38)
[2017-06-12 12:41] LABS: PLATELET COUNT 423 /CUMM (130-400)
[2017-06-12] MEDS ORDERED: CODEINE SULFATE15 M1 (12:41)
[2017-06-12] MEDS ORDERED: POTASSIUM CHLO20 ME2 PO (12:42)
--- NOTE | 2017-06-12 13:34 | Cons- Gastroenterology ---
General Information and HPI Consulting Request Date of Consult: 06/12/17 Requested By: Donis Sandy MD Reason for Consult: Bloody diarrhea, history of chrohns disease. Source of Information: patient, old records Exam Limitations: no limitations History of Present Illness: Ms. Conrad is a 66 year old female with a history of crohns disease s/p ileal resection and several endoscopic dilations of anastomotic and anal strictures who presents to today after a recent hospitalization for a PNA/COPD exacerbation with reports of bloody diarrhea. She was recently in the hospital for a pneumonia which was treated with steroids and IV antibiotics in the hospital which were not continued as an outpatient. She notes that her baseline diarrhea from her crohns is about 5-6 loose bowel movements a day that she is generally able to control using imodium, but since her hospitalization the diarrhea has become much worse and today it became bloody for which she came to the ER. She also notes crampy lower abdominal pain associated with the diarrhea , but she is without any vomiting. She also denies any burning epigastric discomfort or heartburn. She notes that her diarrhea has been black which she described as a pudding like consistency and then this morning she saw large amounts of red blood which prompted her to come to the ER. She has had some loose stool since arriving to the ER, but she has not had any bright red blood per rectum or melena and she has remained hemodynamically stable. She has gotten IV dilaudid for her discomfort which she notes helped, but didn't provide complete relief. Allergies/Medications Allergies: Coded Allergies: NSAIDS (Non-Steroidal Anti-Inflamma (PER PT HAS A SMALL AMOUNT OF INTESTINES FROM [facility] 08/25/15) morphine (N/V, CAN'T URINATE 08/25/15) tetracycline (UNKNOWN PER PT, HAS SHORTENED INTESTINES FROM [facility] 08/25/15) Uncoded Allergies: HORSE SERUM (Severe, ANAPHYLAXIS 01/27/16) ORAL ANTIBIOTIC (PT HAS SHORTENED INTESTINES FROM [facility] HARD TIME TOLERATING ) IS ONLY OKAY WITH BACTRIM PER PT Home Med List: Apixaban (Eliquis) 5 MG TABLET 1 TAB PO BID BLOOD THINNER (Reported) Benzonatate (Tessalon Perle) (Unknown Strength) CAPSULE (Unknown Dose) PO TID PRN COUGH (Reported) Cholecalciferol (Vitamin D3) (Vitamin D) 2,000 UNIT TABLET 1 TAB PO DAILY SUPPLEMENT (Reported) Cholestyramine/Aspartame (Questran Light Powder) 4 GRAM POWDER 4 GM PO BID CHOLESTEROL TAKE OTHER MEDICATIONS EITHER 1 HOUR BEFORE OR 2 HOURS AFTER THE QUESTRAN SO NOT TO INTERFERE WITH ABSORPTION Clonazepam 0.5 MG TABLET 2 TAB PO QHS RLS (Reported) Codeine Sulfate 15 MG TABLET 1 TAB PO Q6P PRN pain .. Cyanocobalamin (Vitamin B-12) 1,000 MCG TABLET 1 TAB PO DAILY SUPPLEMENT ( Reported) Diltiazem HCl 120 MG TABLET 1 TAB PO BID HEART/BP (Reported) Diltiazem HCl (Cardizem) 60 MG TABLET 1 TAB PO BID HEART/BP (Reported) Fluticasone Propionate (Flovent Hfa) 110 MCG/ACTUATION AER.W.ADAP 2 PUF INH BID BRONCHIOLITIS OBLITERANS (Reported) Gabapentin 600 MG TABLET 1 TAB PO AT BEDTIME RLS Levalbuterol Tartrate (Xopenex Hfa) 45 MCG/ACTUATION HFA.AER.AD 2 PUF INH Q6H PRN SHORTNESS OF BREATH (Reported) Lisinopril 10 MG TABLET 1 TAB PO DAILY HIGH BLOOD PRESSURE (Reported) Loperamide HCl (Loperamide) 2 MG CAPSULE 2 CAP PO Q4H PRN DIARRHEA (Reported) Magnesium Oxide (Magnesium) 500 MG CAPSULE 1 CAP PO BID SUPPLEMENT (Reported) Montelukast Sodium (Singulair) 10 MG TABLET 1 TAB PO DAILY RESP. (Reported) Potassium Chloride 20 MEQ TAB.ER.PRT 1 TAB PO DAILY SUPPLEMENT (Reported) Pramipexole Di-HCl (Mirapex) (Unknown Strength) TABLET (Unknown Dose) PO QHS RLS (Reported) Prednisone 10 MG TABLET 1 TAB PO DAILY LUNG DISEASE PLEASE TAKE 5 TABS DAILY FOR 5 DAYS TIME (June - June) PLEASE TAKE 4 TABS DAILY FOR 7 DAYS TIME (Jun- Jun) PLEASE TAKE 3 TABS DAILY FOR 7 DAYS TIME (Jun - Jun) PLEASE TAKE 2 TABS DIALY FOR 7 DAYS (Jun - Jun) PLEASE TAKE 1 TAB DAILY FOR 7 DAYS (Jun - Jul). PLEASE THEN TRANSITION TO 5MG PREDNISONE TABLETS, ONE DAILY BY MOUTH Saccharomyces Boulardii (Florastor) 250 MG CAPSULE 2 CAP PO DAILY PROBIOTICS Tramadol HCl 50 MG TABLET 1 TAB PO BIDP PRN pain (Reported) Vitamin E (Unknown Strength) CAPSULE (Unknown Dose) PO DAILY SUPPLEMENT ( Reported) Zolpidem Tartrate 10 MG TABLET 0.5 TAB PO QPM PRN SLEEPLESSNESS (Reported) Current Medications: Current Medications Sig/Bassem Start time Last Medication Dose Route Stop Time Status Admin Hydromorphone HCl 0 .STK-MED ONE 06/12 1227 DC .ROUTE Hydromorphone HCl 1 MG ONCE ONE 06/12 1200 DC 06/12 IV 06/12 1201 1224 Sodium Chloride 1,000 ML BOLUS ONE 06/12 1200 AC 06/12 IV 06/12 1359 1224 Past History Travel History Traveled to [place] past 21 day No Medical History Neurological: RESTLESS LEGS EENT: NONE Cardiovascular: aflutter, hypertension, recent embolus to her hand Respiratory: asthma, BRONCHIOLITIS Gastrointestinal: Crohn's disease, COLON RESECTION Colonoscopy 09/17 with balloon dilation of an anastomotic stricture and 'digital' dilation of an anal stricture , but no acitve crohns disease was appreciated Hepatic: NONE Renal: NONE Musculoskeletal: NONE Psychiatric: NONE Endocrine: NONE Blood Disorders: NONE Cancer(s): NONE 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 Relation not specified for: FH: HTN (hypertension) Psychosocial History Who Do You Live With? spouse Services at Home: None Primary Language: Kinyarwanda ETOH Use: denies use Illicit Drug Use: denies illicit drug use Functional Ability ADLs Independent: dressing, eating, toileting, bathing. Ambulation: independent IADLs Independent: shopping, housework, finances, food prep, telephone, transportation , medication admin. Review of Systems Review of Systems Constitutional: Reports: malaise, weakness. Denies: chills, diaphoresis, fever. EENTM: Denies: no symptoms. Cardiovascular: Denies: chest pain, edema, orthopena, palpitations. Respiratory: Reports: cough, short of breath. Denies: hemoptysis, orthopnea. GI: Reports: see HPI. Genitourinary: Denies: no symptoms. Musculoskeletal: Reports: joint pain. Denies: joint swelling, muscle pain, muscle stiffness. Skin: Denies: no symptoms. Neurological/Psychological: Denies: no symptoms. Hematologic/Endocrine: Reports: bleeding. Immunologic/Allergic: Denies: no symptoms. All Other Systems: Reviewed and Negative Exam & Diagnostic Data Vital Signs and I&O Vital Signs Date Time Temp Pulse Resp B/P B/P Pulse O2 O2 Flow FiO2 Mean Ox Delivery Rate 06/12 1026 96.9 92 18 148/92 95 Room Air Room Air Intake & Output 06/12 1600 06/12 0400 06/11 1600 06/11 0400 06/10 1600 06/10 0400 Intake Total 1000 Output Total Balance 1000 Intake, IV 1000 Patient 222 lb Weight Weight Reported by Patient Measurement Method Physical Exam General Appearance: well developed/nourished, alert, awake, mild distress, obese Head: atraumatic, normal appearance Eyes: Bilateral: normal appearance. Ears, Nose, Throat: normal pharynx, normal ENT inspection, hearing grossly normal Neck: normal inspection, supple, full range of motion Respiratory: normal breath sounds, chest non-tender, no respiratory distress Cardiovascular: regular rate/rhythm Gastrointestinal: normal bowel sounds, soft, tenderness Rectal: deferred Back: normal inspection, normal range of motion Extremities: normal inspection, no edema Skin: intact, normal color, warm/dry Results Pertinent Lab Results: Laboratory Tests 06/12 1219 Chemistry Sodium Pending Potassium Pending Chloride Pending Carbon Dioxide Pending Anion Gap Pending BUN Pending Creatinine Pending BUN/Creatinine Ratio Pending Glucose Pending Calcium Pending Total Bilirubin Pending AST Pending ALT Pending Alkaline Phosphatase Pending Total Protein Pending Albumin Pending Globulin Pending Albumin/Globulin Ratio Pending Hematology CBC w Diff Pending WBC Pending RBC Pending Hgb Pending Hct Pending MCV Pending MCH Pending RDW Pending Plt Count Pending MPV Pending PUBS MCHC Pending Imaging/Other Studies: Colonoscopy Procedure Procedure Date: 03/02/17 Procedure Type: colonoscopy with dilatation Isotope Technician: FARZAD DU MD ASA Classification: III Indications: Crohn's, symptomatic Instrument (Colonoscope): single channel Meds Received: MAC (O2 via mask) Patient's Tolerance: good Complications: none Extent Reached: neoterminal ileum Prep: good Procedure: The patient signed informed consent, was placed in the Giles position, and medicated. Examination of the rectum demonstrated an anal stricture. There were no other anal or perianal lesions. The stricture was carefully digitally dilated. The Olympus high-definition variable stiffness colonoscope was inserted through the anus and advanced the neoterminal ileum. Retroflexion was not performed in the rectum. Careful examination was performed. There was adequate withdrawal time. Findings: There was an anal stricture without other lesion. There were adjacent joanne. (Of note the photograph captured of the stricture was not printed because of recurrent equipment malfunction). The rectum was normal. The mucosa, folds and vasculature of the sigmoid to the right-sided anastomosis were normal. There was no colitis. There was no ulceration. The distal neoterminal ileum was normal. There was a tight ileal stricture; this was dilated for 1 minute using a CRE balloon, to 18 mm. It was not possible to advance through this area because of sharp angulation. On withdrawal of the colonoscope, the anal stricture was dilated to 18 mm using a CRE balloon, for 1 minute. Impression: * Anal stricture, dilated * Ileal stricture, dilated * No active inflammation appreciated Assessment/Plan Assessment/Recommendations: Assessement: Ms. Conrad is a 66-year-old female with history of Crohn's disease s /p ileocecal resection many years ago who presents now with complaints of bloody diarrhea after a recent hospitalization for a PNA/COPD exacerbation. It is possible that her current symptoms are secondary to a flare of IBD, but while her previous colonoscopies have shown stricutres requiring dilation they haven't shown active colitis including her colonoscopy a few months ago when she again underwent balloon dilation. As she was recently on IV antibiotics in the hospital c. diff should be ruled out and stool for that has already been sent. Other causes of infectious colitis are also possible, but I suspect her increased WBC is from the steroids, which she is on for her lungs and not colits , rather then an infection. Considering her worsening diarrhea and lack of impressive bloody diarrhea in the diarrhea she has had since presenting to the ER I suspect the bleeding is from local irritation or hemorrhoids and exacerbated by the anticoagulation she is on which is also supported by her lack of a significant fall in her hgb. A diverticular bleed is also possible, but this shouldn't be associated with pain. Ischemic colitis is possible as well especially if she has gotten dehydrated with her recent illness. As she described having black stool as well it is also possible that she could be having an upper GI bleed, but the stool she had in the ER was not consistent in appearance with melena. Recommendations: 1. Admit for observation. 2. Check stool for c diff, o and p and culture 3. Follow daily CBC and transfuse as needed 4. Hold eliquis today, but if no further bleeding would consider restarting it in the am 5. Notify GI for signs of hemodynamically signficant GI bleeding 6. Analgesia as needed 7. Would check a ct scan of the abd and pelvis considering the abd pain. I will continue to follow this patient and make further recommendations based on her clinical course and results of repeat blood work and stool testing. Problem List: 1. Crohn's colitis 2. BOOP (bronchiolitis obliterans with organizing pneumonia) 3. Bronchiolitis obliterans 4. Crohn's ileocolitis Copies To: Josie PARSON,Ran Morris. Consult Acknowledgment - Thank you for your consult request. - Thank you for your consult request.
--- NOTE | 2017-06-12 14:07 | History & Physical ---
See Addendum Duane Leon 06/12/17 1406: General Information and HPI MD Statement: I have seen and personally examined SONIA DARNELL and documented this H&P. The patient is a 66 year old F who presented with a patient stated chief complaint of bleeding per rectum and crampy abdominal pain.[]. Source of Information: patient, old records, ED note Exam Limitations: no limitations History of Present Illness: 66 YO F with PMH significant HTN, HLD, A.fib s/p cardioversion followed by ablation on eliquis, crohn's disease s/p distal small bowel resection with ileocecal valve, chronic diarrhea, restless leg syndrom, chronic leg edema on lasix, asthma/broncholitis obliterans(steroid dependent) came to ED with chief complain of fresh blood per rectum and crampy abdominal pain. Patient reported that she has watery diarrhea for last 3 weeks. Patient reported that when he was discharged from the hospital 3 weeks back she had continuous watery diarrhea. Patient reported 10-20 bowel movements of watery diarrhea and sometimes black stools. Patient reported fresh blood in the stool this morning and she came to hospital. Patient also reported crampy abdominal pain along with diarrhea. Patient denied any chest pain, short of breath, nausea, vomiting, chills, fever, palpitation, cough, sick contact and dysuria. Patient reported that she is following Dr. Espinoza for her GI problem. Patient sometimes takes codeine for her severe diarrhea. Patient also reported that she is not able to take any antibiotics orally except Bactrim. Patient was recently admitted last month with acute hypoxic respiratory failure due to acute bronchitis and she was on 35% Ventimask. Patient received ceftriaxone and azithromycin and Solu-Medrol during admission. Patient was discharged on 06/06/2017. Patient's last echocardiogram was done on 06/01/2017 that showed 65-70% ejection fraction. ED course: Labs: WBC count 14.7, hemoglobin 12.7, hematocrit 38.5, platelet count 423, sodium 136, potassium 5.0, BUN 17, creatinine 0.8, BUN/creatinine ratio 21.3, glucose 136, calcium 9.1, total bilirubin 0.4, AST 35, ALT 65, albumin 3.7, globulin 2.8, albumin/globulin ratio 1.3. Vitals: Temperature 96.9, pulse 92, respiratory 18, blood pressure 148/92, oxygen saturation 95% on room air. Patient received 1 bolus of normal saline in ED and Dilaudid for pain control. Stool cultures and C. difficile were sent. Colonoscopy was done by Dr. Lomeli that showed anal restricted that was dilated and ileal stricture that was also dilated. No acute inflammation was seen. We are holding the Eliquis for today and it patient did ambulate we will restart it tomorrow. Allergies/Medications Allergies: Coded Allergies: NSAIDS (Non-Steroidal Anti-Inflamma (PER PT HAS A SMALL AMOUNT OF INTESTINES FROM [facility] 08/25/15) morphine (N/V, CAN'T URINATE 08/25/15) tetracycline (UNKNOWN PER PT, HAS SHORTENED INTESTINES FROM [facility] 08/25/15) Uncoded Allergies: HORSE SERUM (Severe, ANAPHYLAXIS 01/27/16) ORAL ANTIBIOTIC (PT HAS SHORTENED INTESTINES FROM [facility] HARD TIME TOLERATING ) IS ONLY OKAY WITH BACTRIM PER PT Home Med list Apixaban (Eliquis) 5 MG TABLET 1 TAB PO BID BLOOD THINNER (Reported) Benzonatate (Tessalon Perle) (Unknown Strength) CAPSULE (Unknown Dose) PO TID PRN COUGH (Reported) Cholecalciferol (Vitamin D3) (Vitamin D) 2,000 UNIT TABLET 1 TAB PO DAILY SUPPLEMENT (Reported) Cholestyramine/Aspartame (Questran Light Powder) 4 GRAM POWDER 4 GM PO BID CHOLESTEROL TAKE OTHER MEDICATIONS EITHER 1 HOUR BEFORE OR 2 HOURS AFTER THE QUESTRAN SO NOT TO INTERFERE WITH ABSORPTION Clonazepam 0.5 MG TABLET 2 TAB PO QHS RLS (Reported) Codeine Sulfate (Unknown Strength) TABLET (Unknown Dose) UNKNOWN (Reported) Cyanocobalamin (Vitamin B-12) 1,000 MCG TABLET 1 TAB PO DAILY SUPPLEMENT ( Reported) Diltiazem HCl 120 MG TABLET 1 TAB PO BID HEART/BP (Reported) Diltiazem HCl (Cardizem) 60 MG TABLET 1 TAB PO BID HEART/BP (Reported) Fluticasone Propionate (Flovent Hfa) 110 MCG/ACTUATION AER.W.ADAP 2 PUF INH BID BRONCHIOLITIS OBLITERANS (Reported) Gabapentin 600 MG TABLET 1 TAB PO AT BEDTIME RLS Levalbuterol Tartrate (Xopenex Hfa) 45 MCG/ACTUATION HFA.AER.AD 2 PUF INH Q6H PRN SHORTNESS OF BREATH (Reported) Lisinopril 10 MG TABLET 1 TAB PO DAILY HIGH BLOOD PRESSURE (Reported) Loperamide HCl (Loperamide) 2 MG CAPSULE 2 CAP PO Q4H PRN DIARRHEA (Reported) Losartan Potassium (Unknown Strength) TABLET (Unknown Dose) UNKNOWN (Reported ) Magnesium Oxide (Magnesium) 500 MG CAPSULE 1 CAP PO BID SUPPLEMENT (Reported) Montelukast Sodium (Singulair) 10 MG TABLET 1 TAB PO DAILY RESP. (Reported) Potassium Chloride 20 MEQ TAB.ER.PRT 1 TAB PO DAILY SUPPLEMENT (Reported) Pramipexole Di-HCl (Mirapex) (Unknown Strength) TABLET (Unknown Dose) PO QHS RLS (Reported) Prednisone 10 MG TABLET 1 TAB PO DAILY LUNG DISEASE PLEASE TAKE 5 TABS DAILY FOR 5 DAYS TIME (June - June) PLEASE TAKE 4 TABS DAILY FOR 7 DAYS TIME (Jun- Jun) PLEASE TAKE 3 TABS DAILY FOR 7 DAYS TIME (Jun - Jun) PLEASE TAKE 2 TABS DIALY FOR 7 DAYS (Jun - Jun) PLEASE TAKE 1 TAB DAILY FOR 7 DAYS (Jun - Jul). PLEASE THEN TRANSITION TO 5MG PREDNISONE TABLETS, ONE DAILY BY MOUTH Saccharomyces Boulardii (Florastor) 250 MG CAPSULE 2 CAP PO DAILY PROBIOTICS Sulfamethoxazole/Trimethoprim (Bactrim Ds Tablet) 800 MG-160 MG TABLET 1 TAB PO Tue PCP PROPHYLAXIS Tramadol HCl 50 MG TABLET 1 TAB PO BIDP PRN pain (Reported) Vitamin E (Unknown Strength) CAPSULE (Unknown Dose) PO DAILY SUPPLEMENT ( Reported) Zolpidem Tartrate 10 MG TABLET 0.5 TAB PO QPM PRN SLEEPLESSNESS (Reported) Past History Travel History Traveled to [place] past 21 day No Medical History Neurological: RESTLESS LEGS EENT: NONE Cardiovascular: aflutter, hypertension, recent embolus to her hand Respiratory: asthma, BRONCHIOLITIS Gastrointestinal: Crohn's disease, COLON RESECTION Colonoscopy 09/17 with balloon dilation of an anastomotic stricture and 'digital' dilation of an anal stricture , but no acitve crohns disease was appreciated Hepatic: NONE Renal: NONE Musculoskeletal: NONE Psychiatric: NONE Endocrine: NONE Blood Disorders: NONE Cancer(s): NONE ADVANCED RESEARCH PROGRAMS DIRECTOR/Reproductive: NONE History of MRSA: No History of VRE: No History of CDIFF: No Tetanus Vaccine: 01/21/16 Surgical History Surgical History: colon resection (for Crohn's disease) Past Family/Social History Family History Relations & Conditions if any BROTHER FATHER (cardiomyopathy). Relation not specified for: FH: HTN (hypertension) Psychosocial History Who Do You Live With? spouse Services at Home: None Primary Language: Cook Islander ETOH Use: denies use Illicit Drug Use: denies illicit drug use Functional Ability ADLs Independent: dressing, eating, toileting, bathing. Ambulation: independent IADLs Independent: shopping, housework, finances, food prep, telephone, transportation , medication admin. Review of Systems Review of Systems Constitutional: Reports: no symptoms. EENTM: Reports: no symptoms. Cardiovascular: Reports: no symptoms. Respiratory: Reports: no symptoms. GI: Reports: abdominal pain, diarrhea, bloody stool. Genitourinary: Reports: no symptoms. Musculoskeletal: Reports: no symptoms. Neurological/Psychological: Reports: no symptoms. Exam & Diagnostic Data Last 24 Hrs of Vital Signs/I&O Vital Signs Date Time Temp Pulse Resp B/P B/P Pulse O2 O2 Flow FiO2 Mean Ox Delivery Rate 06/12 1230 97.5 88 20 137/88 96 Room Air 06/12 1026 96.9 92 18 148/92 95 Room Air Room Air Intake & Output 06/12 1600 06/12 0800 06/12 0000 Intake Total 1000 Output Total Balance 1000 Intake, IV 1000 Patient 222 lb Weight Weight Reported by Patient Measurement Method Physical Exam General Appearance Alert, Oriented X3, Cooperative, No Acute Distress Skin Temp/Moisture Exam: Warm/Dry Sepsis Skin Exam (color): Normal for Ethnicity HEENT Atraumatic, PERRLA, EOMI Neck Supple Cardiovascular Normal S1, Normal S2 Lungs Clear to Auscultation Abdomen Soft, No Tenderness Neurological Normal Speech, Strength at 5/5 X4 Ext, Normal Tone, Sensation Intact Extremities b/l pedal edema Last 24 Hrs of Labs/Mitchel: Laboratory Tests 06/12/17 1252: Anion Gap 12, Estimated GFR > 60, BUN/Creatinine Ratio 21.3, Glucose 136 H, Calcium 9.1, Total Bilirubin 0.4, AST 35, ALT 65 H, Alkaline Phosphatase 56, Total Protein 6.5, Albumin 3.7, Globulin 2.8, Albumin/Globulin Ratio 1.3 06/12/17 1219: CBC w Diff MAN DIFF ORDERED, RBC 4.12 L, MCV 93.4, MCH 30.7, RDW 26.5 H, MPV 7.6, Gran % 91.2 H, Lymphocytes % 3.7 L, Monocytes % 1.3 L, Eosinophils % 0, Basophils % 3.8 H, Absolute Granulocytes 13.4 H, Segmented Neutrophils 90 H, Band Neutrophils 1, Absolute Lymphocytes 0.5 L, Lymphocytes 5 L, Monocytes 3, Absolute Monocytes 0.2, Eosinophils 1, Absolute Eosinophils 0, Absolute Basophils 0.6, Platelet Estimate VERIFIED BY SMEAR, Anisocytosis 1+, PUBS MCHC 32.9 L Microbiology 06/12 1420 STOOL: Clostridium difficile Toxin A & B - RECD Assessment/Plan Assessment: 66 YO F with PMH significant HTN, HLD, A.fib s/p cardioversion followed by ablation on eliquis, crohn's disease s/p distal small bowel resection with ileocecal valve, chronic diarrhea, restless leg syndrom, chronic leg edema on lasix, asthma/broncholitis obliterans(steroid dependent) came to ED with chief complain of fresh blood per rectum and crampy abdominal pain. We'll keep the patient under observation on general medicine floor. We'll monitor the patient for bleeding per rectum and will check her H&H. Acute flare of Crohn disease: -Patient has a history of Crohn disease and she came in with bleeding per. -Colonoscopy was done in ED and dilation of ileal and anal stricture were done. Will follow GI recommendations. -We will check H&H. We will keep Hb more than 8. -We will give patient blood transfusion if her H&H dropped below 8. -Patient become hemodynamically unstable due to bleeding per rectum we will call GI -we will hold the eliquis for now considering bleeding and will reassess in the morning. -We will follow the CT scan abdomen/pelvis considering her abdominal pain to rule out ischemic collitis or diverticulosis although it's painfull bleeding. -We will follow the c.diff considering recent use of antibiotics when she was in hospital recently and input and output. -we will follow the blood cultures. Leukocytosis: -Possibly due to steroid use for lung disease. -we will monitor the vitals and wbc count. H/O A.fib: -we are holding the eliquis considering per rectal bleeding and restart tomorrow if she remained stable. -we will continue cardizem for rate control. H/O HTN: -we will continue lisinopril. H/O restless leg syndrome: -we will continue home meds. DVT prophylaxis: Mechanical and on eliquis Code status: Full code As Ranked By This Provider Problem List: 1. Crohns disease 2. Abdominal pain Core Measures/Misc (02/20) Acute Coronary Syndrome ACS Diagnosis: No Congestive Heart Failure Congestive Heart Failure Diagnosis No Cerebrovascular Accident CVA/TIA Diagnosis: No VTE (View Protocol) VTE Risk Factors Age>40 No Mechanical VTE Prophylaxis d/t N/A MechProphylax Ordered No VTE Pharm Prophylaxis d/t NA PharmProphylax ordered Sepsis (View protocol) Sepsis Present: No Carrington Fontenot MD 06/12/172116: Attending MD Review Statement Attending Statement Attending MD Statement: examined this patient, discuss w/resident/PA/QUARTZ ORIENTATOR, agreed w/resident/PA/QUARTZ ORIENTATOR, reviewed EMR data (avail), discussed with nursing, amended to note Attending Assessment/Plan: The patient is a 66 yo female with h/o HTN, afib (s/p cardioversion & subsequent ablation- on Eliquis), Crohn's Disease (s/p distal small bowel resection/ ileocecal valve), chronic diarrhea, RLS, and asthma/bronchiolitis obliterans ( steroid dependent) who presented in the [place] ED today with complaint of rectal bleeding, crampy abdominal pain and diarrhea. She had a recent admission (discharged 06/06/17) for acute respiratory failure/bronchitis and was treated with antibiotics (Ceftriaxone/Zithromax) and steroids. She stated she has had C- difficile in the past and she did not note the odor of her stool with her current diarrhea that she had observed with her C-diff. She denied any fever, chills, dyspnea, chest pain. Did receive some Dilaudid and IV NS in ED. Her H/H was stable and she was hemodynamically stable. Physical Exam: VS: T 97.5, P 88, R 20, BP 137/88, PO 96% RA HEENT: eyes- PERRLA, EOMI yari- slightly dry mucosa Neck: no adenopathy Chest: clear Cor: regular, nl S1, S2 w/o murm Abd: BS-, softly distended, ileal valve in place, minimal mild diffuse tender w/ o guarding/rebound Ext: no edema Neuro: alert & oriented, non-focal Labs/Tests- as above Impression/Plan: #Bloody Diarrhea- patient has h/o Crohn's and had small amount of red blood streaks in mostly liquid stool I observed in ED. Smell was not typical of C-diff , however patient has had recent course of Abx for bronchitis. Other etiologies of bleeding also possible (?hemorrhoids/diverticuli). Doubt significant bleeding as H/H stable and hemodynamically stable. Patient is on Eliquis. Note- admission meds states she is taking MgO bid- this may be contributing to diarrhea. Consider change to Slo-Mag. Plan: Agree with bringing in under observation status to general medicine. Monitor stools and H/H q12. Check stool for C-difficile (sent from ED). GI consultation - Dr. Lomeli (done). Hold Eliquis tonight. CT to evaluate bowel/ischemic colitis (less likely). Hold Magnesium (check level) #Leukocytosis- may be related to infection or steroids/stress. Plan: Follow up WBC. Check stool for C-difficile. #Atrial Fibrillation- rate currently controlled on meds. Plan: Continue Diltiazem. Hold Eliquis until confirm no significant bleeding. #HTN- BP stable. Plan: Continue Losartan- ? Lisinopril (verify meds). #Anxiety- may also be contributing to diarrhea. Plan: Continue Clonazepam. #Asthma/Recent Bronchitis- lungs clear. Plan: Continue Prednisone, Xopenex, Flovent/Singulair. TO CLARIFY- THE GI NOTES FROM DR. LOMELI ON THIS PATIENT SUGGEST SHE HAS H/O CROHN'S DISEASE (NOT ULCERATIVE COLITIS MENTIONED IN RESIDENT NOTE). Luis Felipe PARSON,[facility] 06/12/17 9394: Resident Review Statement Resident Statement: examined this patient, discussed with actuarial internship, reviewed images Other Findings: This is 66-year-old female with a past medical history of Crohn disease status post ileal resection and anastomosis who presented to [place] ED reporting bloody bowel movement. The patient was recently discharged after she was treated for pneumonia that was treated with steroid and IV antibiotic. She stated that usually she has a baseline episode of diarrhea however a few days ago her diarrhea started to look dark and more frequent and was not controlled with Imodium anymore. Today she had a large bloody bowel movement for which she presented to the ED for evaluation. The patient also reported abdominal painnot similar to her usual ulcerative colitis related pain. The patient denies any symptom or sign suggestive of severe anemia and she was hemodynamically stable without any further GI bleeding so she presented to the ED. Initial labs showed hemoglobin of 12.7, white blood cell 14.7 and platelets of 423. She also had mild hyponatremia. Plan This patient has a history of inflammatory bowel disease and presented with leukocytosis, abdominal pain and bloody bowel movement which can indicate a flare of ulcerative colitis. She recently finished antibiotic course for which C. difficile will need to be ruled out. Given that she has a history of partial intestinal resection and anastomosis and abdominal pain we will need to rule out any bowel ischemia with abdominal CTA which would also screen for diverticulitis. Also given that the patient bowel movement was initially dark followed by bright red blood with a recent use of steroids upper GI bleed as possible and will be in the differential. #Bright red per rectum with a history of ulcerative colitis * We will admit patient to general medicine * Start IV fluids, and clear liquid * We will order CTA abdomen and pelvis * We will send for C. difficile * We will send for blood cross and type and repeat CBCs every 12 hours * We will hold liquids overnight * We will control pain as needed. * We will start PPI IV * We will continue to follow GI recommendations #A. fib, hypertension, hyperlipidemia, restless leg syndrome, asthma * We will hold liquids today * We will continue all other medications. -Clear liquid -DVT prophylaxis with Alps only given the GI bleed -DNI but she is okay with CPR
[2017-06-12 17:37] VITALS: BP 144/90
[2017-06-12 22:16] VITALS: BP 128/80
--- NOTE | 2017-06-12 23:24 | CT SCAN REPORT ---
EXAMINATION: CT ABDOMEN AND PELVIS WITH CONTRAST CLINICAL INFORMATION: Intra-abdominal infection. Intestinal ischemia. History of Crohn's disease. COMPARISON: CT abdomen and pelvis 09/19/2013, 07/21/2006. TECHNIQUE: Multidetector volumetric imaging was performed of the abdomen and pelvis following IV administration of 94 mL of Optiray 320 intravenous contrast. Sagittal and coronal reformatted images were obtained on the technologist's workstation. DLP: 1046.42 mGy-cm FINDINGS: LUNG BASES: Linear scarring or subsegmental atelectasis at the dependent right lung posteriorly. No acute infiltrate or pleural effusion. Small hiatal hernia. LIVER, GALLBLADDER, AND BILIARY TREE: Diffuse low attenuation of liver parenchyma due to fatty change. A 0.7 cm hypodensity in the left lobe of liver, axial image 176 (3). This measures about 3 mm on the CAT scan of 09/19/2013. This can be further characterized by dynamic MRI of the abdomen. Right lobe of liver measures 19.1 cm superior-inferior. No intrahepatic bile duct dilatation. The gallbladder is unremarkable with no evidence of radiopaque gallstones, gallbladder wall thickening, or obvious pericholecystic inflammatory changes. Extrahepatic CBD measures 9 mm. This is unchanged since CAT scan 09/19/2013. No calcified stone in the bile ducts. PANCREAS: Pancreatic duct is mildly prominent measuring about 3 mm at the pancreatic head. This is stable since CAT scan 09/19/2013. No inflammation of the pancreas. No pancreatic mass. There is no pancreatic calcification. SPLEEN: Unremarkable. ADRENAL GLANDS: Unremarkable. KIDNEYS AND URETERS: The kidneys are normal in size, shape, and attenuation. No hydronephrosis, hydroureter, or calculi seen. No perinephric stranding. A 1 cm pedunculated cyst off the lower pole of the right kidney. BLADDER: Unremarkable. GASTROINTESTINAL TRACT: Surgical suture line at the ascending colon consistent with prior partial colectomy with intact anastomosis of small and large bowel. No acute change of the bowel. Scattered stool in the colon mixed with some fluid. No dilated bowel loop. No bowel wall thickening or edema. No diverticula or diverticulitis. The small bowel loops are unremarkable. ABDOMINAL WALL: No significant hernia is appreciated. LYMPH NODES: Normal. VASCULAR: Unremarkable. PELVIC VISCERA: Uterus is absent. No adnexal abnormality. OSSEOUS STRUCTURES: Vacuum disc phenomenon associated with mild compression deformities of 3 adjacent lower thoracic vertebral bodies, T9 through T11. This is chronic. Multiple healed left-sided rib fractures at the lung base. IMPRESSION: 1. Small hypodensity left lobe of liver has increased in size since CAT scan of 09/23/2013. Indeterminate. This can be further characterized with dynamic MRI. 2. Chronic dilatation of the extrahepatic CBD without calcified stone in the gallbladder or the bile ducts. 3. Chronic prominence of the pancreatic duct but no inflammation or mass of the pancreas. 4. Status post partial right colectomy. No acute change of the bowel. No evidence for recurrent Crohn's disease. 5. Status post hysterectomy.
[2017-06-13 01:53] LABS: ABSOLUTE BASOPHIL COUNT 0 /CUMM (0.0-0.2); ABSOLUTE EOSINOPHIL COUNT 0 /CUMM (0.0-0.7); ABSOLUTE GRANULOCYTE CT 9.9 /CUMM (1.4-6.5); ABSOLUTE LYMPH COUNT 1.8 /CUMM (1.2-3.4); ABSOLUTE MONOCYTE COUNT 0.7 /CUMM (0.10-0.60); BASOPHIL % 0.1 % (0.0-2.0); EOSINOPHIL % 0 % (0-5); GRANULOCYTE % 79.7 % (42.2-75.2); MEAN CORPUSCULAR HGB 30.8 PG (27.0-31.0); MEAN CORPUSCULAR HGB CONC 32.6 G/DL (33.0-37.0); MEAN CORPUSCULAR VOLUME 94.4 FL (81.0-99.0); MEAN PLATELET VOLUME 7.3 FL (7.4-10.4); PLATELET COUNT 316 /CUMM (130-400); RBC DISTRIBUTION WIDTH 25.6 % (11.5-14.5); RED BLOOD CELL CT 3.71 /CUMM (4.20-5.40); WHITE BLOOD CELL COUNT 12.4 /CUMM (4.8-10.8)
[2017-06-13 06:11] VITALS: BP 126/68
--- NOTE | 2017-06-13 07:32 | PN- Housestaff ---
[place] 06/13/17 0732: Subjective Follow-up For: Flare of Crohn disease. Subjective: Patient had 10-12 bowel movement last night with crampy abdominal pain but did She didn't notice any fresh blood in the stool. She had black stools that's her baseline. As patient's C. difficile is negative we will start her on antimotility medication to help her with a bowel movement and then we will send patient home. She is hemodynamically stable H&H is stable. We will resume her Eliquis. Patient denied any chest pain, short of breath, nausea, vomiting, palpitation and dysuria. She reported having loose bowel movements with crampy abdominal pain. She is tolerating full liquid diet we will advance diet later on the day. Review of Systems Constitutional: Reports: no symptoms. EENTM: Reports: no symptoms. Cardiovascular: Reports: no symptoms. Respiratory: Reports: no symptoms. Gastrointestinal: Reports: diarrhea. Genitourinary: Reports: no symptoms. Musculoskeletal: Reports: no symptoms. Neurological/Psychological: Reports: no symptoms. Objective Last 24 Hrs of Vital Signs/I&O Vital Signs Date Time Temp Pulse Resp B/P B/P Pulse O2 O2 Flow FiO2 Mean Ox Delivery Rate 06/13 1122 90 128/80 06/13 1008 Room Air Room Air 06/13 0957 130/82 06/13 0611 98.2 81 20 126/68 91 Room Air 06/13 0610 76 128/80 06/12 2352 70 128/80 06/12 2216 98.0 76 20 128/80 94 06/12 1737 98.5 71 20 144/90 93 06/12 1612 98.1 76 20 127/66 97 Room Air Intake & Output 06/13 1600 06/13 0800 06/13 0000 Intake Total 240 360 Output Total Balance 240 360 Intake, Oral 240 360 Number 3 1 Bowel Movements Patient 222 lb Weight Physical Exam General Appearance: Alert, Oriented X3, Cooperative, No Acute Distress Skin Temp/Moisture Exam: Warm/Dry Sepsis Skin Exam (color): Normal for Ethnicity Neck: Supple Cardiovascular: Normal S1, Normal S2 Lungs: Clear to Auscultation Abdomen: Soft, No Tenderness Neurological: Normal Speech, Strength at 5/5 X4 Ext, Normal Tone, Sensation Intact Extremities: No Edema Assessment/Plan Assessment: 66 YO F with PMH significant HTN, HLD, A.fib s/p cardioversion followed by ablation on eliquis, crohn's disease s/p distal small bowel resection with ileocecal valve, chronic diarrhea, restless leg syndrom, chronic leg edema on lasix, asthma/broncholitis obliterans(steroid dependent) came to ED with chief complain of fresh blood per rectum and crampy abdominal pain. We'll keep the patient under observation on general medicine floor. We'll monitor the patient for bleeding per rectum and will check her H&H. Acute flare of Crohn disease: -Patient has a history of Crohn disease and she came in with bleeding per. -Colonoscopy was done in ED and dilation of ileal and anal stricture were done. Will follow GI recommendations. -We will check H&H. We will keep Hb more than 8. -We will give patient blood transfusion if her H&H dropped below 8. -Patient become hemodynamically unstable due to bleeding per rectum we will call GI -we will hold the eliquis for now considering bleeding and will reassess in the morning. -We will follow the CT scan abdomen/pelvis considering her abdominal pain to rule out ischemic collitis or diverticulosis although it's painfull bleeding. -Patient's C. difficile test is negative for any infection. We will start patient on antimotility medication to help her with bowel movements. -As patient is hemodynamically stable and her H&H is stable. She is tolerating diet was advanced diet today and maybe discharged home later on the day. -We will resume her Eliquis. Leukocytosis: -Possibly due to steroid use for lung disease. -we will monitor the vitals and wbc count. H/O A.fib: -we are holding the eliquis considering per rectal bleeding and restart tomorrow if she remained stable. -we will continue cardizem for rate control. H/O HTN: -we will continue lisinopril. H/O restless leg syndrome: -we will continue home meds. DVT prophylaxis: Mechanical and on eliquis Code status: DNI Problem List: 1. Crohn's colitis Pain Ratin Pain Location: NONE Pain Goal: Remain pain free Pain Plan: TYLENOL FOR MILD PAIN Tomorrow's Labs & Rationales: NONE Deborah Sandy MD 06/13/17 1606: Attending MD Review Statement Attending Statement Attending MD Statement: examined this patient, discuss w/resident/PA/DIAMOND WHEEL MOLDER, agreed w/resident/PA/DIAMOND WHEEL MOLDER, reviewed EMR data (avail) Attending Assessment/Plan: C.diff negative. Still having small amounts of loose stools and abdominal cramping. Will restart Loperamide, home Codeine, advance diet. Anticipated discharge tomorrow pending clinical improvement, continue as obseration
[2017-06-13 10:42] LABS: ABSOLUTE BASOPHIL COUNT 0 /CUMM (0.0-0.2); ABSOLUTE EOSINOPHIL COUNT 0.1 /CUMM (0.0-0.7); ABSOLUTE GRANULOCYTE CT 10.4 /CUMM (1.4-6.5); ABSOLUTE LYMPH COUNT 2.4 /CUMM (1.2-3.4); ABSOLUTE MONOCYTE COUNT 0.6 /CUMM (0.10-0.60); BASOPHIL % 0.2 % (0.0-2.0); EOSINOPHIL % 0.8 % (0-5); GRANULOCYTE % 76.6 % (42.2-75.2); HEMATOCRIT 34.6 % (37-47); MEAN CORPUSCULAR HGB 31.3 PG (27.0-31.0); MEAN CORPUSCULAR HGB CONC 33.3 G/DL (33.0-37.0); MEAN CORPUSCULAR VOLUME 93.8 FL (81.0-99.0); MEAN PLATELET VOLUME 7.4 FL (7.4-10.4); PLATELET COUNT 287 /CUMM (130-400); RBC DISTRIBUTION WIDTH 25.9 % (11.5-14.5); RED BLOOD CELL CT 3.68 /CUMM (4.20-5.40); WHITE BLOOD CELL COUNT 13.5 /CUMM (4.8-10.8)
--- NOTE | 2017-06-13 12:57 | PN- Gastroenterology ---
Assessment/Plan Assessment/Recommendations: Assessement: Ms. Conrad is a 66-year-old female with history of Crohn's disease s /p ileocecal resection many years ago who presents now with complaints of bloody diarrhea after a recent hospitalization for a PNA/COPD exacerbation. Her stool studies were negative for c diff and her hgb has been stable after an initial drop which I feel is likely hemodilutional in etiology. While she complains of 'pudding like stool' it was not consistent in apperance with melena and I don't feel she is bleeding. It is certainly possible that she may have occult losses in her GI tract which could be contributing to the color change she is noticing, but I wouldn't do anything about that. She has now been getting cholestyramine and codeine for the diarrhea which seems to be helping albeit she still is complaining of it along with ongoing abdominal pain for which a ct scan yesterday didn't reveal any obvious reason for. Recommendations: 1. Advance diet as tolerated 2. Follow daily CBC and transfuse as needed 3. If she remains without significant bleeding would restart eliquis today or tomorrow 4. Notify GI for signs of hemodynamically signficant GI bleeding 5. Analgesia as needed and consider using anti-spasmodics as needed 6. Continue cholestyramine, imodium and codeine as needed for diarrhea. I will continue to follow this patient and make further recommendations based on her clinical course and results of repeat blood work and stool testing. Problem List: 1. Crohn's colitis 2. Bloody diarrhea 3. Crohn's ileocolitis 4. Diarrhea 5. Abdominal pain Subjective Subjective: Pt continues to feel lousy, having diarrhea which she states is pudding like and she is also complaining of significant abdominal pain for which she is requesting pain meds for. She has noted a scant amount of red blood which is mosly on the toilet paper. Objective Vital Signs and I&Os Vital Signs Date Time Temp Pulse Resp B/P B/P Pulse O2 O2 Flow FiO2 Mean Ox Delivery Rate 06/13 1122 90 128/80 06/13 1008 Room Air Room Air 06/13 0957 130/82 06/13 0611 98.2 81 20 126/68 91 Room Air 06/13 0610 76 128/80 06/12 2352 70 128/80 06/12 2216 98.0 76 20 128/80 94 06/12 1737 98.5 71 20 144/90 93 06/12 1612 98.1 76 20 127/66 97 Room Air Intake & Output 06/13 1600 06/13 0400 06/12 1600 06/12 0400 06/11 1600 06/11 0400 Intake Total 917 564 1087 Output Total Balance 906 792 2133 Intake, IV 1000 Intake, Oral 240 360 Number 3 1 Bowel Movements Patient 222 lb 222 lb Weight Weight Reported by Patient Measurement Method Physical Exam General Appearance: well developed/nourished, no apparent distress, comfortable Head: atraumatic, normal appearance Neck: normal inspection, supple, full range of motion Respiratory: normal breath sounds, chest non-tender Cardiovascular: regular rate/rhythm Abdomen: normal bowel sounds, soft, tenderness Extremities: normal inspection, no edema Skin: intact, normal color, warm/dry Current Medications: Current Medications Sig/Bassem Start time Last Medication Dose Route Stop Time Status Admin Albuterol Sulfate 3 ML BID 06/13 1015 AC 06/13 INH 1013 Albuterol Sulfate 3 ML Q4H PRN 06/12 1715 AC INH Cholestyramine Resin 1 PAC BID 06/12 2199 AC 06/13 PO 0958 Clonazepam 1 MG 1900 06/13 1900 AC PO 06/20 1859 Clonazepam 1 MG AT BEDTIME 06/12 2200 DC 06/12 PO 06/19 2159 1905 Codeine 15 MG ONCE ONE 06/13 1300 UNVr PO 06/13 1301 Cyanocobalamin 1,000 MCG DAILY 06/13 1000 AC 06/13 PO 0957 Diltiazem HCl 60 MG 0000,1200 06/13 0000 AC 06/13 PO 1122 Diltiazem HCl 120 MG 0600,1800 06/12 1800 AC 06/13 PO 0610 Fluticasone 2 PUF BID 06/12 2200 AC 06/13 Propionate INH 0958 Gabapentin 600 MG 1900 06/13 1900 AC PO Gabapentin 600 MG AT BEDTIME 06/12 2200 DC 06/12 PO 1905 Hydromorphone HCl 0.6 MG Q4P PRN 06/13 1115 AC 06/13 IV 1122 Hydromorphone HCl 1 MG ONCE ONE 06/13 0600 DC 06/13 IV 06/13 0601 0610 Hydromorphone HCl 1 MG ONCE ONE 06/12 2130 DC 06/12 IV 06/12 2131 2146 Hydromorphone HCl 0 .STK-MED ONE 06/12 1352 DC .ROUTE Hydromorphone HCl 1 MG ONCE ONE 06/12 1330 DC 06/12 IV 06/12 1331 1352 Lisinopril 10 MG DAILY 06/12 1715 AC 06/13 PO 0957 Loperamide HCl 2 MG Q3P PRN 06/13 1300 UNVr PO Magnesium Oxide 400 MG BID 06/12 2200 AC 06/13 PO 0957 Montelukast Sodium 10 MG DAILY 06/13 1000 AC 06/13 PO 0957 Pantoprazole Sodium 40 MG DAILY 06/13 1000 AC 06/13 IV 0957 Potassium Chloride 20 MEQ DAILY 06/13 1000 AC 06/13 PO 0957 Pramipexole 0.5 MG 1900 06/13 1900 AC Dihydrochloride PO Pramipexole 0.5 MG AT BEDTIME 06/120 DC 06/12 Dihydrochloride PO 1905 Saccharomyces 500 MG DAILY 06/12 1730 AC 06/13 Boulardii PO 1006 Sodium Chloride 1,000 ML BOLUS ONE 06/12 1200 DC 06/12 IV 06/12 1359 1224 Tramadol HCl 50 MG BID PRN 06/12 2200 AC 06/13 PO 0957 Vitamin E 100 IU DAILY 06/13 1000 AC PO Zolpidem Tartrate 5 MG QPM PRN 06/12 1730 AC 06/12 PO 2352 Results Pertinent Lab Results: Laboratory Tests 06/13 06/13 0943 0110 Chemistry Sodium (137 - 145 mmol/L) 135 L Potassium (3.5 - 5.1 mmol/L) 4.1 Chloride (98 - 107 mmol/L) 99 Carbon Dioxide (22 - 30 mmol/L) 23 Anion Gap (5 - 16) 13 BUN (7 - 17 mg/dL) 14 Creatinine (0.5 - 1.0 mg/dL) 0.9 Estimated GFR (>60 ml/min) > 60 BUN/Creatinine Ratio (7 - 25 %) 15.6 Hematology CBC w Diff NO MAN DIFF REQ MAN DIFF ORDERED WBC (4.8 - 10.8 /CUMM) 13.5 H 12.4 H RBC (4.20 - 5.40 /CUMM) 3.68 L 3.71 L Hgb (12.0 - 16.0 G/DL) 11.5 L 11.4 L Hct (37 - 47 %) 34.6 L 35.0 L MCV (81.0 - 99.0 FL) 93.8 94.4 MCH (27.0 - 31.0 PG) 31.3 H 30.8 RDW (11.5 - 14.5 %) 25.9 H 25.6 H Plt Count (130 - 400 /CUMM) 287 316 MPV (7.4 - 10.4 FL) 7.4 7.3 L Gran % (42.2 - 75.2 %) 76.6 H 79.7 H Lymphocytes % (20.5 - 51.1 %) 17.9 L 14.3 L Monocytes % (1.7 - 9.3 %) 4.5 5.9 Eosinophils % (0 - 5 %) 0.8 0 Basophils % (0.0 - 2.0 %) 0.2 0.1 Absolute Granulocytes (1.4 - 6.5 /CUMM) 10.4 H 9.9 H Segmented Neutrophils (42.2 - 75.2 %) 81 H Absolute Lymphocytes (1.2 - 3.4 /CUMM) 2.4 1.8 Lymphocytes (20.5 - 51.1 %) 13 L Monocytes (1.7 - 9.3 %) 6 Absolute Monocytes (0.10 - 0.60 /CUMM) 0.6 0.7 H Absolute Eosinophils (0.0 - 0.7 /CUMM) 0.1 0 Absolute Basophils (0.0 - 0.2 /CUMM) 0 0 Platelet Estimate (ADEQUATE) ADEQUATE Polychromasia 1+ Hypochromic-Microcytic 1+ Anisocytosis 2+ Microcytic Cells 1+ Target Cells FEW Stomatocytes FEW Elliptocytes FEW PUBS MCHC (33.0 - 37.0 G/DL) 33.3 32.6 L 06/12 06/12 1252 1219 Chemistry Sodium (137 - 145 mmol/L) 136 L Potassium (3.5 - 5.1 mmol/L) 5.0 Chloride (98 - 107 mmol/L) 102 Carbon Dioxide (22 - 30 mmol/L) 22 Anion Gap (5 - 16) 12 BUN (7 - 17 mg/dL) 17 Creatinine (0.5 - 1.0 mg/dL) 0.8 Estimated GFR (>60 ml/min) > 60 BUN/Creatinine Ratio (7 - 25 %) 21.3 Glucose (65 - 99 mg/dL) 136 H Calcium (8.4 - 10.2 mg/dL) 9.1 Total Bilirubin (0.2 - 1.3 mg/dL) 0.4 AST (14 - 36 U/L) 35 ALT (9 - 52 U/L) 65 H Alkaline Phosphatase (<127 U/L) 56 Total Protein (6.3 - 8.2 g/dL) 6.5 Albumin (3.5 - 5.0 g/dL) 3.7 Globulin (1.9 - 4.2 gm/dL) 2.8 Albumin/Globulin Ratio (1.1 - 2.2 %) 1.3 Hematology CBC w Diff MAN DIFF ORDERED WBC (4.8 - 10.8 /CUMM) 14.7 H RBC (4.20 - 5.40 /CUMM) 4.12 L Hgb (12.0 - 16.0 G/DL) 12.7 Hct (37 - 47 %) 38.5 MCV (81.0 - 99.0 FL) 93.4 MCH (27.0 - 31.0 PG) 30.7 RDW (11.5 - 14.5 %) 26.5 H Plt Count (130 - 400 /CUMM) 423 H MPV (7.4 - 10.4 FL) 7.6 Gran % (42.2 - 75.2 %) 91.2 H Lymphocytes % (20.5 - 51.1 %) 3.7 L Monocytes % (1.7 - 9.3 %) 1.3 L Eosinophils % (0 - 5 %) 0 Basophils % (0.0 - 2.0 %) 3.8 H Absolute Granulocytes (1.4 - 6.5 /CUMM) 13.4 H Segmented Neutrophils (42.2 - 75.2 %) 90 H Band Neutrophils (0.0 - 5.0 %) 1 Absolute Lymphocytes (1.2 - 3.4 /CUMM) 0.5 L Lymphocytes (20.5 - 51.1 %) 5 L Monocytes (1.7 - 9.3 %) 3 Absolute Monocytes (0.10 - 0.60 /CUMM) 0.2 Eosinophils (0 - 5.0 %) 1 Absolute Eosinophils (0.0 - 0.7 /CUMM) 0 Absolute Basophils (0.0 - 0.2 /CUMM) 0.6 Platelet Estimate (ADEQUATE) VERIFIED BY SMEAR Anisocytosis 1+ PUBS MCHC (33.0 - 37.0 G/DL) 32.9 L > C. DIFFICILE TOXIN A & B EIA Final 06/13/17-1250 NEGATIVE FOR CLOSTRIDIUM DIFFICILE TOXINS A & B BY EIA Imaging/Other Studies: SERVICE DATE: 06/12/17- EXAM TYPE: CAT - CT ABD & PELVIS W IV CONTRAST EXAMINATION: CT ABDOMEN AND PELVIS WITH CONTRAST CLINICAL INFORMATION: Intra-abdominal infection. Intestinal ischemia. History of Crohn's disease. COMPARISON: CT abdomen and pelvis 09/19/2013, 07/21/2006. TECHNIQUE: Multidetector volumetric imaging was performed of the abdomen and pelvis following IV administration of 94 mL of Optiray 320 intravenous contrast. Sagittal and coronal reformatted images were obtained on the technologist's workstation. DLP: 1046.42 mGy-cm FINDINGS: LUNG BASES: Linear scarring or subsegmental atelectasis at the dependent right lung posteriorly. No acute infiltrate or pleural effusion. Small hiatal hernia. LIVER, GALLBLADDER, AND BILIARY TREE: Diffuse low attenuation of liver parenchyma due to fatty change. A 0.7 cm hypodensity in the left lobe of liver, axial image 176 (3). This measures about 3 mm on the CAT scan of 09/19/2013. This can be further characterized by dynamic MRI of the abdomen. Right lobe of liver measures 19.1 cm superior-inferior. No intrahepatic bile duct dilatation. The gallbladder is unremarkable with no evidence of radiopaque gallstones, gallbladder wall thickening, or obvious pericholecystic inflammatory changes. Extrahepatic CBD measures 9 mm. This is unchanged since CAT scan 09/19/2013. No calcified stone in the bile ducts. PANCREAS: Pancreatic duct is mildly prominent measuring about 3 mm at the pancreatic head. This is stable since CAT scan 09/19/2013. No inflammation of the pancreas. No pancreatic mass. There is no pancreatic calcification. SPLEEN: Unremarkable. ADRENAL GLANDS: Unremarkable. KIDNEYS AND URETERS: The kidneys are normal in size, shape, and attenuation. No hydronephrosis, hydroureter, or calculi seen. No perinephric stranding. A 1 cm pedunculated cyst off the lower pole of the right kidney. BLADDER: Unremarkable. GASTROINTESTINAL TRACT: Surgical suture line at the ascending colon consistent with prior partial colectomy with intact anastomosis of small and large bowel. No acute change of the bowel. Scattered stool in the colon mixed with some fluid. No dilated bowel loop. No bowel wall thickening or edema. No diverticula or diverticulitis. The small bowel loops are unremarkable. ABDOMINAL WALL: No significant hernia is appreciated. LYMPH NODES: Normal. VASCULAR: Unremarkable. PELVIC VISCERA: Uterus is absent. No adnexal abnormality. OSSEOUS STRUCTURES: Vacuum disc phenomenon associated with mild compression deformities of 3 adjacent lower thoracic vertebral bodies, T9 through T11. This is chronic. Multiple healed left-sided rib fractures at the lung base. IMPRESSION: 1. Small hypodensity left lobe of liver has increased in size since CAT scan of 09/23/2013. Indeterminate. This can be further characterized with dynamic MRI. 2. Chronic dilatation of the extrahepatic CBD without calcified stone in the gallbladder or the bile ducts. 3. Chronic prominence of the pancreatic duct but no inflammation or mass of the pancreas. 4. Status post partial right colectomy. No acute change of the bowel. No evidence for recurrent Crohn's disease. 5. Status post hysterectomy.
--- NOTE | 2017-06-13 14:28 | Patient Discharge Instructions ---
Discharge Instructions General Discharge Information You were seen/treated for: Flare of Crohn disease. Watch for these problems: Nausea, nonbloody diarrhea, vomiting, abdominal pain, exertional dyspnea, chest pain and abdominal distention. If you experience any of these symptoms please come to ED or call your primary care physician. Special Instructions: Follow the your primary care physician in one week Follow-up with biochemical development engineer in 1 week. Take your medications regularly Low fiber diet Avoid raw vegetables to prevent obstruction. Diet Recommended Diet: Low Residue Activity Activity Self Limited: Yes Acute Coronary Syndrome Inclusion Criteria At DC or during hospital stay patient has or had the following: ACS DIAGNOSIS No Discharge Core Measures Meds if any: Prescribed or Continued at Discharge Meds if any: NOT Prescribed or Continued at Discharge Congestive Heart Failure Inclusion Criteria At DC or during hospital stay patient has or had the following: CHF DIAGNOSIS No Discharge Core Measures Meds if any: Prescribed or Continued at Discharge Meds if any: NOT Prescribed or Continued at Discharge Cerebrovascular accident Inclusion Criteria At DC or during hospital stay patient has or had the following: CVA/TIA Diagnosis No Discharge Core Measures Meds if any: Prescribed or Continued at Discharge Meds if any: NOT Prescribed or Continued at Discharge Venous thromboembolism Inclusion Criteria VTE Diagnosis No VTE Type NONE VTE Confirmed by (Test) NONE Discharge Core Measures - Per Current guidelines, there needs to be overlap - treatment for the first 5 days of Warfarin therapy. - If discharged on Warfarin prior to 5 days of - overlap therapy, the patient will need to be - assessed for post discharge needs including - *Post discharge parental anticoagulation - *Warfarin and/or parental anticoagulation education - *Follow up date to check INR post discharge At least 5 days overlap therapy as Inpatient No Meds if any: Prescribed or Continued at Discharge Note: Overlap Therapy is Warfarin and Anticoagulant Meds if any: NOT Prescribed or Continued at Discharge
[2017-06-13 14:38] VITALS: BP 130/86
[2017-06-13 22:34] VITALS: BP 128/70
[2017-06-14 06:26] VITALS: BP 136/86
--- NOTE | 2017-06-14 07:28 | PN- Housestaff ---
[place] 06/14/17 0728: Subjective Follow-up For: Flare of Crohn disease. Subjective: Patient had multiple bowel movements with cramping abdominal pain last night. Patient's diet was advanced last night and she tolerated it well. Eliquis was started yesterday and there is no complaint of fresh blood per rectum. Patient reported perianal pruritus possibly due to excoriation and she is using ointment for that. Patient denied any chest pain, palpitation, short of breath, nausea, vomiting, cough, fever and dysuria. We extended the observation yesterday for 24 hours to look for any change in her bowel movement or any drop in H&H. We will discharge the patient home today and she will follow scientist immunology as outpatient. Patient agreed with the plan. Review of Systems Constitutional: Reports: no symptoms. EENTM: Reports: no symptoms. Cardiovascular: Reports: no symptoms. Respiratory: Reports: no symptoms. Gastrointestinal: Reports: abdominal pain, diarrhea. Genitourinary: Reports: no symptoms. Musculoskeletal: Reports: see HPI. Neurological/Psychological: Reports: no symptoms. Objective Last 24 Hrs of Vital Signs/I&O Vital Signs Date Time Temp Pulse Resp B/P B/P Pulse O2 O2 Flow FiO2 Mean Ox Delivery Rate 06/14 0626 98.4 80 20 136/86 94 Room Air 06/14 0508 82 20 124/80 06/13 2330 98.9 72 20 128/70 06/13 2234 98.9 72 20 128/70 93 Room Air 06/13 1956 93 Room Air Room Air 06/13 1749 88 06/13 1438 98.0 72 20 130/86 94 Room Air 06/13 1122 90 128/80 06/13 1008 Room Air Room Air 06/13 0957 130/82 Intake & Output 06/14 1600 06/14 0800 06/14 0000 Intake Total 400 500 Output Total Balance 400 500 Intake, Oral 400 500 Number 1 Bowel Movements Physical Exam General Appearance: Alert, Oriented X3, Cooperative Skin Temp/Moisture Exam: Warm/Dry Sepsis Skin Exam (color): Normal for Ethnicity HEENT: Atraumatic, PERRLA, EOMI Neck: Supple Cardiovascular: Normal S1, Normal S2 Lungs: Clear to Auscultation Abdomen: Soft, No Tenderness Neurological: Normal Speech, Strength at 5/5 X4 Ext, Normal Tone, Sensation Intact Extremities: No Edema Assessment/Plan Assessment: 66 YO F with PMH significant HTN, HLD, A.fib s/p cardioversion followed by ablation on eliquis, crohn's disease s/p distal small bowel resection with ileocecal valve, chronic diarrhea, restless leg syndrom, chronic leg edema on lasix, asthma/broncholitis obliterans(steroid dependent) came to ED with chief complain of fresh blood per rectum and crampy abdominal pain. We'll keep the patient under observation on general medicine floor. We'll monitor the patient for bleeding per rectum and will check her H&H. Acute flare of Crohn disease: -Patient has a history of Crohn disease and she came in with bleeding per. -Colonoscopy was done in ED and dilation of ileal and anal stricture were done. Will follow GI recommendations. -We will check H&H. We will keep Hb more than 8. -We will give patient blood transfusion if her H&H dropped below 8. -Patient become hemodynamically unstable due to bleeding per rectum we will call GI -we will hold the eliquis for now considering bleeding and will reassess in the morning. -CT scan abdomen/pelvis is negative for any ischemic colitis. -Patient's C. difficile test is negative for any infection. We will start patient on antimotility medication to help her with bowel movements. -We hemodynamically stable and her H&H is stable so will send the patient home today. -Eliquis was resumed yesterday and there is no complaint of fresh blood per rectum. Leukocytosis: -Possibly due to steroid use for lung disease. -we will monitor the vitals and wbc count. H/O A.fib: -we are holding the eliquis considering per rectal bleeding and restart tomorrow if she remained stable. -we will continue cardizem for rate control. H/O HTN: -we will continue lisinopril. H/O restless leg syndrome: -we will continue home meds. DVT prophylaxis: Mechanical and on eliquis Code status: DNI Problem List: 1. Crohns disease 2. Abdominal pain Pain Ratin Pain Location: abdomen Pain Goal: Remain pain free Pain Plan: codeine for pain Diludid for severe pain Tomorrow's Labs & Rationales: none Deborah Sandy MD 01/09/18 1330: Attending MD Review Statement Attending Statement Attending MD Statement: examined this patient, discuss w/resident/PA/CRA OFFICER, agreed w/resident/PA/CRA OFFICER, reviewed EMR data (avail) Attending Assessment/Plan: Still with intermittent abdominal cramping but doing well. Stable for discharge home on Loperamide and PRN Codeine with outpatient GI follow up.
[2017-06-14 08:50] LABS: ABSOLUTE BASOPHIL COUNT 0 /CUMM (0.0-0.2); ABSOLUTE EOSINOPHIL COUNT 0 /CUMM (0.0-0.7); ABSOLUTE GRANULOCYTE CT 12.2 /CUMM (1.4-6.5); ABSOLUTE LYMPH COUNT 1.3 /CUMM (1.2-3.4); ABSOLUTE MONOCYTE COUNT 0.6 /CUMM (0.10-0.60); BASOPHIL % 0.1 % (0.0-2.0); EOSINOPHIL % 0.1 % (0-5); HEMATOCRIT 37.8 % (37-47); MEAN CORPUSCULAR HGB 31.4 PG (27.0-31.0); MEAN CORPUSCULAR HGB CONC 33.2 G/DL (33.0-37.0); MEAN CORPUSCULAR VOLUME 94.7 FL (81.0-99.0); MEAN PLATELET VOLUME 7.3 FL (7.4-10.4); PLATELET COUNT 324 /CUMM (130-400); RBC DISTRIBUTION WIDTH 25.6 % (11.5-14.5); WHITE BLOOD CELL COUNT 14.2 /CUMM (4.8-10.8)
[2017-06-14 09:35] LABS: GRANULOCYTE % 86.4 % (42.2-75.2)
[2017-06-14 11:04] VITALS: BP 128/78
[2017-06-14] MEDS ORDERED: CODEINE SULFATE15 M1 PO ×3 (13:59→14:17)
== END 2017-06-14 14:56 ==
LOC: ERH 10:21 → ERHI 13:38 → 2NA 13:38 → ENRESERV 16:05 → ENTRNSPT 16:41 → 2NA 17:02 → CMPTRNSPT 17:31 → 2NA 06-13 09:25 → CMPBEDREQ 06-13 10:33 → ENPENDDIS 06-14 14:27 → 2NA 06-14 14:56
PROVIDERS: Internal Medicine; Student in an Organized Health Care Education/Training Program
DX: K50.90 Crohn's disease, unspecified, without complications (principal); I10 Essential (primary) hypertension; Z79.51 Long term (current) use of inhaled steroids; E78.5 Hyperlipidemia, unspecified; I48.91 Unspecified atrial fibrillation; Z79.01 Long term (current) use of anticoagulants; I48.92 Unspecified atrial flutter; K52.9 Noninfective gastroenteritis and colitis, unspecified; G25.81 Restless legs syndrome; J45.909 Unspecified asthma, uncomplicated; F41.9 Anxiety disorder, unspecified; D72.829 Elevated white blood cell count, unspecified
CPT/HCPCS: 1255; 1263; 36415; 74177; 82436; 87045; 96374; 96375; G0378; J3490

== ENCOUNTER 2017-07-26 01:36 | Emergency (ER) | payer OTHER ==
[~2017-07-26] VITALS: Ht 172.7 cm; Wt 95.3 kg
[~2017-07-26 01:36] MED LIST changes: +CARDIZEM60 M1 PO; +CODEINE SULFATE15 M1; +FLOVENT HFA12 G1 INH; +LOSARTAN POTASS50 M1; +MAGNESIUM500 M2 PO; +POTASSIUM CHLO20 ME2 PO; +TESSALON PERLE100 M1 PO; +VITAMIN B-121000 MC3 PO; +VITAMIN D31000 UNI2 PO; +VITAMIN E400 UNI5 PO
--- NOTE | 2017-07-26 02:31 | ED GI/GU/ABDOMINAL COMPLAINT ---
See Addendum History of Present Illness General Chief Complaint: Female Urogenital Problems Stated Complaint: URINARY RETENSION HX OF SAME UNABLE TO CATH SELF Source: patient Exam Limitations: no limitations Vital Signs & Intake/Output Vital Signs & Intake/Output Vital Signs Date Time Temp Pulse Resp B/P B/P Pulse O2 O2 Flow FiO2 Mean Ox Delivery Rate 07/26 1253 97.9 101 20 143/76 92 Room Air 07/26 1041 97.9 88 20 143/82 95 Nasal 2.0L Cannula 07/26 1039 Nasal 2.0L Cannula 07/26 0842 97.9 104 20 104/57 91 Nasal 2.0L Cannula 07/26 0641 97.6 89 18 100/59 95 Nasal 2.0L Cannula 07/26 0153 98.2 98 18 109/64 96 Allergies Coded Allergies: NSAIDS (Non-Steroidal Anti-Inflamma (PER PT HAS A SMALL AMOUNT OF INTESTINES FROM [facility] 08/25/15) morphine (N/V, CAN'T URINATE 08/25/15) tetracycline (UNKNOWN PER PT, HAS SHORTENED INTESTINES FROM [facility] 08/25/15) Uncoded Allergies: HORSE SERUM (Severe, ANAPHYLAXIS 01/27/16) ORAL ANTIBIOTIC (PT HAS SHORTENED INTESTINES FROM [facility] HARD TIME TOLERATING ) IS ONLY OKAY WITH BACTRIM PER PT Triage Nurses Notes Reviewed? yes ? n Is pt currently ? No Onset: Gradual Duration: day(s): Timing: recent history Quality/Severity: cramping Location: suprapubic Radiation: no radiation Activities at Onset: none Prior Abdominal Problems: none Modifying Factors: Worsens With: palpation. Associated Symptoms: abdominal pain, dysuria HPI: 66 yo woman h/o crohn's disease, s/p resection many years ago, presents with difficulty urinating. She notes that she last urinated 2 days ago. She also has been suffering from constipation for the past several days. "Yesterday I was in the bathroom trying to have a bowel movement... the hard stuff came out and then it was regular.... but I'm still constipated." Her sister, who is a nurse, catheterized her tonight and implored her to come to the hospital for further evaluation. She notes suprapubic pressure. She notes no fever, chills, dyspnea, chest pain, dizziness. (Shahab PARSON,Ej Yin) Reconcile Medications Cholecalciferol (Vitamin D3) 1,000 UNIT TABLET 1 TAB PO DAILY VITAMIN SUPPORT (Reported) Clonazepam 0.5 MG TABLET 3 TAB PO QHS RLS (Reported) Codeine Sulfate 15 MG TABLET 1 TAB PO Q6P PRN pain .. Cyanocobalamin (Vitamin B-12) 1,000 MCG TABLET 1 TAB PO DAILY SUPPLEMENT ( Reported) Diltiazem HCl 120 MG TABLET 1 TAB PO BID HEART/BP (Reported) Diltiazem HCl (Cardizem) 60 MG TABLET 1 TAB PO BID HEART/BP (Reported) Fluticasone Propionate (Flovent Hfa) 110 MCG/ACTUATION AER.W.ADAP 2 PUF INH BID BRONCHIOLITIS OBLITERANS (Reported) Gabapentin 600 MG TABLET 1 TAB PO AT BEDTIME RLS Hydrocortisone 5 MG TABLET 1.5 TAB PO DAILY STEROID (Reported) Levalbuterol Tartrate (Xopenex Hfa) 45 MCG/ACTUATION HFA.AER.AD 2 PUF INH Q6H PRN SHORTNESS OF BREATH (Reported) Loperamide HCl (Loperamide) 2 MG CAPSULE 2 CAP PO Q4H PRN DIARRHEA (Reported) Losartan Potassium 100 MG TABLET 1 TAB PO DAILY HEART (Reported) Magnesium Oxide (Magnesium) 500 MG CAPSULE 1 CAP PO BID SUPPLEMENT (Reported) Montelukast Sodium (Singulair) 10 MG TABLET 1 TAB PO DAILY RESP. (Reported) Potassium Chloride 20 MEQ TAB.ER.PRT 1 TAB PO DAILY SUPPLEMENT (Reported) Pramipexole Di-HCl (Mirapex) 0.5 MG TABLET 2 TAB PO QHS RLS (Reported) Tramadol HCl 50 MG TABLET 1 TAB PO BIDP PRN pain (Reported) Vitamin E 400 UNIT CAPSULE 1 CAP PO DAILY SUPPLEMENT (Reported) Zolpidem Tartrate 10 MG TABLET 0.5 TAB PO QPM PRN SLEEPLESSNESS (Reported) (Lorrie PARSON,Mukul Aragon) Past History Travel History Traveled to [place] past 21 day No Medical History Any Pertinent Medical History? see below for history Neurological: RESTLESS LEGS EENT: NONE Cardiovascular: aflutter, hypertension, recent embolus to her hand Respiratory: asthma, BRONCHIOLITIS Gastrointestinal: Crohn's disease, COLON RESECTION Colonoscopy 09/17 with balloon dilation of an anastomotic stricture and 'digital' dilation of an anal stricture , but no acitve crohns disease was appreciated Hepatic: NONE Renal: NONE Musculoskeletal: NONE Psychiatric: NONE Endocrine: NONE Blood Disorders: NONE Cancer(s): NONE FIELD ADVISOR/Reproductive: NONE History of MRSA: No History of VRE: No History of CDIFF: No Tetanus Vaccine: 01/21/16 Surgical History Surgical History: colon resection (for Crohn's disease) Psychosocial History Who do you live with Spouse Services at Home None What is your primary language Kosovan Family History Family History, If Any: BROTHER FATHER (cardiomyopathy). Relation not specified for: FH: HTN (hypertension) Hx Contributory? No (Shahab PARSON,Ej Yin) Review of Systems Review of Systems Constitutional: Reports: no symptoms. EENTM: Reports: no symptoms. Respiratory: Reports: no symptoms. Cardiovascular: Reports: no symptoms. GI: Reports: no symptoms. Genitourinary: Reports: no symptoms. Musculoskeletal: Reports: no symptoms. Skin: Reports: no symptoms. Neurological/Psychological: Reports: no symptoms. Hematologic/Endocrine: Reports: no symptoms. Immunologic/Allergic: Reports: no symptoms. All Other Systems: Reviewed and Negative (Shahab PARSON,Ej Yin) Physical Exam Physical Exam General Appearance: well developed/nourished, mild distress, moderate distress Head: atraumatic, normal appearance Eyes: Bilateral: normal appearance. Ears, Nose, Throat, Mouth: hearing grossly normal, moist mucous membrane Neck: normal inspection, supple, full range of motion Respiratory: normal breath sounds, chest non-tender, no respiratory distress, quiet respiration, lungs clear Cardiovascular: regular rate/rhythm Gastrointestinal: normal bowel sounds, soft, moderately distended, suprapubic tenderness and fullness. no rebound, no guarding. Back: normal inspection, normal range of motion Extremities: normal range of motion Neurologic/Psych: no motor/sensory deficits, awake, alert, oriented x 3 Skin: intact, normal color, warm/dry Core Measures ACS in differential dx? No Sepsis Present: No Sepsis Focused Exam Completed? No (Shahab PARSON,Ej Yin) Progress Differential Diagnosis: constipation vs uti vs other. Plan of Care: Orders Procedure Date/time Status Heart Healthy Diet 07/26 L Active PT Evaluate & Treat 07/26 454 Active CASE MANAGEMENT CONSULT 07/26 454 Active Enema 07/26 453 Active LIPASE 07/26 0231 Complete HEPATIC FUNCTION PANEL 07/26 230 Complete CBC WITHOUT DIFFERENTIAL 07/26 230 Complete BASIC METABOLIC PANEL 07/26 230 Complete AMYLASE 07/26 230 Complete Mejia, Insertion/Removal/Asses 07/26 142 Active CULTURE,URINE 07/26 142 Active URINALYSIS 07/26 142 Complete MOBILITY D/C STATUS 07/26 UNK Complete MOBILITY GOAL STATUS 07/26 UNK Complete MOBILITY CURRENT STATUS 07/26 UNK Complete PT EVAL LOW COMPLEX 20 MIN 07/26 UNK Complete Laboratory Tests 07/26/175: Anion Gap 11, Estimated GFR > 60, BUN/Creatinine Ratio 13.8, Glucose 86, Calcium 9.5, Total Bilirubin 0.5, Direct Bilirubin 0.2, AST 30, ALT 35, Alkaline Phosphatase 75, Total Protein 6.6, Albumin 3.8, Amylase 40, Lipase 55, CBC w Diff NO MAN DIFF REQ, RBC 3.64 L, MCV 91.3, MCH 29.8, MCHC 32.6 L, RDW 19.3 H , MPV 6.9 L, Gran % 74.2, Lymphocytes % 16.4 L, Monocytes % 8.4, Eosinophils % 1.0, Basophils % 0, Absolute Granulocytes 7.1 H, Absolute Lymphocytes 1.6, Absolute Monocytes 0.8 H, Absolute Eosinophils 0.1, Absolute Basophils 0 07/26/17234: Urinalysis LIGHT H, Urine Color YEL, Urine Clarity CLEAR, Urine pH 6.0, Ur Specific [place] 1.020, Urine Protein NEG, Urine Ketones NEG, Urine Nitrite NEG, Urine Bilirubin NEG, Urine Urobilinogen 0.2, Ur Leukocyte Esterase NEG, Ur Microscopic SEDIMENT EXAMINED, Urine RBC 10-15 H, Urine WBC 1-3 H, Ur Epithelial Cells FEW, Urine Mucus MOD H, Urine Hemoglobin MOD H, Urine Glucose NEG Microbiology 07/26 234 URINE ROUT: Urine Culture - RECD Diagnostic Imaging: Viewed by Me: CT Scan. Discussed w/RAD: CT Scan. Radiology Impression: PATIENT: SONIA DARNELL PRESENT AGE: 66 PATIENT ACCOUNT NO: [id number] : 49 LOCATION: [facility] ORDERING PHYSICIAN: Ej Gudino MD SERVICE DATE: 07/26/17 EXAM TYPE: CAT - CT ABD & PELVIS W/O IV CONTRAS EXAMINATION: CT ABDOMEN AND PELVIS WITHOUT CONTRAST CLINICAL INFORMATION: Abdominal distention, urinary retention. History of Crohn's disease status post resection many years prior. COMPARISON: 06/12/2017 TECHNIQUE: Multidetector volumetric imaging was performed from the superior aspect of the liver through the pubic symphysis. Sagittal and coronal reformatted images were obtained on the technologist's workstation. DLP: 567 mGy -cm FINDINGS: LUNG BASES: Bibasilar subsegmental atelectasis. LIVER, GALLBLADDER , AND BILIARY TREE: The liver is normal in size, shape, and attenuation. No focal hepatic lesion or biliary ductal dilatation is present. The gallbladder is distended. No gallstones. No gallbladder wall thickening or pericholecystic fluid. PANCREAS: Unremarkable. SPLEEN: Unremarkable. ADRENAL GLANDS: Unremarkable. KIDNEYS AND URETERS: The kidneys are normal in size, shape, and attenuation. No hydronephrosis, hydroureter, or calculi seen. No perinephric stranding. BLADDER: Catheter in position in the pelvis. No bladder wall thickening. GASTROINTESTINAL TRACT: The stomach is decompressed with no gross abnormality. The small bowel is normal in caliber. No obstruction. Anastomosis in the right lower quadrant noted. No colonic wall thickening or inflammatory change. Moderate colonic stool burden. Prominent stool distending the rectum. No free air or free fluid. ABDOMINAL WALL: No significant hernia is appreciated. LYMPH NODES: Normal. VASCULAR: Unremarkable. PELVIC VISCERA: Uterus is not seen. No adnexal mass. OSSEOUS STRUCTURES: Degenerative changes in the spine. There are compression deformities of the L2 and L3 vertebral bodies which are new from the prior study. Slight retropulsion of the superior endplate of L2 0.3 cm. Chronic compression deformities of the T9 and T10 vertebral bodies. Healing bilateral lower rib fractures noted. IMPRESSION: 1. Compression deformities of the L2 and L3 vertebral bodies which are new when compared to the previous study. 2. No acute findings in the abdomen or pelvis. Postsurgical changes of the bowel in the right lower quadrant area DICTATED BY: Luis Yusuf MD DATE/TIME DICTATED:07/26/17413 SENIOR DESIGN ENGINEER:DEEPTHI DATE/TIME TRANSCRIBED:07/26/17413 CONFIDENTIAL, DO NOT COPY WITHOUT APPROPRIATE AUTHORIZATION. <Electronically signed in Other Vendor System> SIGNED BY: Luis Yusuf MD 07/26/17 0422 Initial ED EKG: none Hand-Off Endorsed To: Mukul Mercer DO Endorsed Time: 0700 Pending: consult, other (PT) (Shahab PARSON,Ej Yin) Comments: 07/26/2017 7:23:13 AM patient signed out to me by Dr. 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 07/26/2017 12:07:48 PM Sonia is feeling better in regards to her back pain. She has had a bowel movement here in the emergency department showed seems a constipation is beginning to resolve. (Lorrie PARSON,Mukul Aragon) Departure Departure Disposition: HOME OR SELF CARE Condition: Stable Clinical Impression Primary Impression: Urinary retention due to benign prostatic hyperplasia Secondary Impressions: Abdominal pain, Compression fracture, Constipation Referrals: Roxy PARSON,Ari Lopez (PCP/Family) Departure Forms: Customer Survey General Discharge Information Comments pt with new compression fractures, with back pain, will merit PT / case management evaluation. Pt also to receive soap enema, and then will consider discontinuing mejia. (Shahab PARSON,Ej Yin) Departure Additional Instructions: Rest, no exertion or heavy lifting. Percocet as prescribed for pain. Dulcolax suppository as needed for constipation. If necessary drink a bottle of magnesium citrate to help move her bowels. Follow-up with Dr. gould this week for reevaluation. Return if any concerns or sudden worsening. Please note that there might be incidental findings in your evaluation that are unrelated to the current emergency department visit. Please notify your primary care doctor about this emergency department visit in order to obtain and review all of the testing performed so that these incidental findings can be monitored as needed. If you had an x-ray performed, please understand that some fractures may not be seen on the initial set of x-rays. If your symptoms persist you might need a repeat set of x-rays to check for such a fracture. If you had a laceration evaluated, please understand that foreign bodies such as glass or wood may not be visible to the naked eye or on plain x-rays. If the wound becomes red, swollen, increasingly more painful or if there is any drainage from the wound, please have it reevaluated by a physician for the possibility of a retained foreign body. If you're unable to follow up as outlined in the discharge instructions please return to the emergency department. Thank you for choosing the [facility] Emergency Department for your care. It was a pleasure to serve you today. Mukul Andrew M.D. [facility] Prescriptions: Current Visit Scripts Oxycodone HCl/Acetaminophen (Percocet 5-325 MG Tablet) 1 TAB PO Q6P PRN pain #10 TAB (Lorrie PARSON,Mukul Aragon)
[2017-07-26 03:23] LABS: ABSOLUTE BASOPHIL COUNT 0 /CUMM (0.0-0.2); ABSOLUTE EOSINOPHIL COUNT 0.1 /CUMM (0.0-0.7); ABSOLUTE GRANULOCYTE CT 7.1 /CUMM (1.4-6.5); ABSOLUTE LYMPH COUNT 1.6 /CUMM (1.2-3.4); ABSOLUTE MONOCYTE COUNT 0.8 /CUMM (0.10-0.60); BASOPHIL % 0 % (0.0-2.0); GRANULOCYTE % 74.2 % (42.2-75.2); HEMATOCRIT 33.3 % (37-47); MEAN CORPUSCULAR HGB 29.8 PG (27.0-31.0); MEAN CORPUSCULAR HGB CONC 32.6 G/DL (33.0-37.0); MEAN CORPUSCULAR VOLUME 91.3 FL (81.0-99.0); MEAN PLATELET VOLUME 6.9 FL (7.4-10.4); PLATELET COUNT 383 /CUMM (130-400); RBC DISTRIBUTION WIDTH 19.3 % (11.5-14.5); RED BLOOD CELL CT 3.64 /CUMM (4.20-5.40); WHITE BLOOD CELL COUNT 9.6 /CUMM (4.8-10.8)
--- NOTE | 2017-07-26 04:22 | CT SCAN REPORT ---
EXAMINATION: CT ABDOMEN AND PELVIS WITHOUT CONTRAST CLINICAL INFORMATION: Abdominal distention, urinary retention. History of Crohn's disease status post resection many years prior. COMPARISON: 06/12/2017 TECHNIQUE: Multidetector volumetric imaging was performed from the superior aspect of the liver through the pubic symphysis. Sagittal and coronal reformatted images were obtained on the technologist's workstation. DLP: 567 mGy-cm FINDINGS: LUNG BASES: Bibasilar subsegmental atelectasis. LIVER, GALLBLADDER, AND BILIARY TREE: The liver is normal in size, shape, and attenuation. No focal hepatic lesion or biliary ductal dilatation is present. The gallbladder is distended. No gallstones. No gallbladder wall thickening or pericholecystic fluid. PANCREAS: Unremarkable. SPLEEN: Unremarkable. ADRENAL GLANDS: Unremarkable. KIDNEYS AND URETERS: The kidneys are normal in size, shape, and attenuation. No hydronephrosis, hydroureter, or calculi seen. No perinephric stranding. BLADDER: Catheter in position in the pelvis. No bladder wall thickening. GASTROINTESTINAL TRACT: The stomach is decompressed with no gross abnormality. The small bowel is normal in caliber. No obstruction. Anastomosis in the right lower quadrant noted. No colonic wall thickening or inflammatory change. Moderate colonic stool burden. Prominent stool distending the rectum. No free air or free fluid. ABDOMINAL WALL: No significant hernia is appreciated. LYMPH NODES: Normal. VASCULAR: Unremarkable. PELVIC VISCERA: Uterus is not seen. No adnexal mass. OSSEOUS STRUCTURES: Degenerative changes in the spine. There are compression deformities of the L2 and L3 vertebral bodies which are new from the prior study. Slight retropulsion of the superior endplate of L2 0.3 cm. Chronic compression deformities of the T9 and T10 vertebral bodies. Healing bilateral lower rib fractures noted. IMPRESSION: 1. Compression deformities of the L2 and L3 vertebral bodies which are new when compared to the previous study. 2. No acute findings in the abdomen or pelvis. Postsurgical changes of the bowel in the right lower quadrant area
[2017-07-26] MEDS ORDERED: HYDROCORTISONE5 M1 PO (10:24)
[2017-07-26] MEDS ORDERED: LOSARTAN POTAS100 M1 PO (10:27)
[2017-07-26] MEDS ORDERED: PERCOCET 5-3251 EACH PO (16:54)
[2017-07-26 16:59] VITALS: BP 127/76
== END 2017-07-26 17:35 ==
LOC: ERH 01:36
PROVIDERS: Pediatrics
DX: R33.8 Other retention of urine (principal); K59.00 Constipation, unspecified; M48.56XA Collapsed vertebra, not elsewhere classified, lumbar region, initial encounter for fracture
CPT/HCPCS: 74176; 81001; 87086; 97161-GP; 99282; G8978-GP; G8979-GP; G8980-GP; J0131

== ENCOUNTER 2017-12-05 17:45 | Inpatient (IN) | payer OTHER ==
[~2017-12-05] VITALS: Ht 170.2 cm; Wt 90.7 kg
[~2017-12-05 17:45] MED LIST changes: +HYDROCORTISONE5 M1 PO; +LOSARTAN POTAS100 M1 PO; +PERCOCET 5-3251 EACH PO
--- NOTE | 2017-12-05 18:39 | ED GENERAL ADULT ---
History of Present Illness General Chief Complaint: General Adult Stated Complaint: SENT BY DR. POE FOR RAPID HEART RATE/ BACK SPASMS Source: patient Exam Limitations: no limitations Allergies Coded Allergies: NSAIDS (Non-Steroidal Anti-Inflamma (PER PT HAS A SMALL AMOUNT OF INTESTINES FROM [facility] 08/25/15) morphine (N/V, CAN'T URINATE 08/25/15) tetracycline (UNKNOWN PER PT, HAS SHORTENED INTESTINES FROM [facility] 08/25/15) Uncoded Allergies: HORSE SERUM (Severe, ANAPHYLAXIS 01/27/16) ORAL ANTIBIOTIC (PT HAS SHORTENED INTESTINES FROM [facility] HARD TIME TOLERATING ) IS ONLY OKAY WITH BACTRIM PER PT Reconcile Medications Cholecalciferol (Vitamin D3) 1,000 UNIT TABLET 1 TAB PO DAILY VITAMIN SUPPORT (Reported) Clonazepam 0.5 MG TABLET 3 TAB PO QHS RLS (Reported) Codeine Sulfate 15 MG TABLET 1 TAB PO Q6P PRN pain .. Cyanocobalamin (Vitamin B-12) 1,000 MCG TABLET 1 TAB PO DAILY SUPPLEMENT ( Reported) Diltiazem HCl 120 MG TABLET 1 TAB PO BID HEART/BP (Reported) Diltiazem HCl (Cardizem) 60 MG TABLET 1 TAB PO BID HEART/BP (Reported) Fluticasone Propionate (Flovent Hfa) 110 MCG/ACTUATION AER.W.ADAP 2 PUF INH BID BRONCHIOLITIS OBLITERANS (Reported) Gabapentin 600 MG TABLET 1 TAB PO AT BEDTIME RLS Hydrocortisone 5 MG TABLET 1.5 TAB PO DAILY STEROID (Reported) Levalbuterol Tartrate (Xopenex Hfa) 45 MCG/ACTUATION HFA.AER.AD 2 PUF INH Q6H PRN SHORTNESS OF BREATH (Reported) Loperamide HCl (Loperamide) 2 MG CAPSULE 2 CAP PO Q4H PRN DIARRHEA (Reported) Losartan Potassium 100 MG TABLET 1 TAB PO DAILY HEART (Reported) Magnesium Oxide (Magnesium) 500 MG CAPSULE 1 CAP PO BID SUPPLEMENT (Reported) Montelukast Sodium (Singulair) 10 MG TABLET 1 TAB PO DAILY RESP. (Reported) Oxycodone HCl/Acetaminophen (Percocet 5-325 MG Tablet) 5 MG-325 MG TABLET 1 TAB PO Q6P PRN pain Potassium Chloride 20 MEQ TAB.ER.PRT 1 TAB PO DAILY SUPPLEMENT (Reported) Pramipexole Di-HCl (Mirapex) 0.5 MG TABLET 2 TAB PO QHS RLS (Reported) Tramadol HCl 50 MG TABLET 1 TAB PO BIDP PRN pain (Reported) Vitamin E 400 UNIT CAPSULE 1 CAP PO DAILY SUPPLEMENT (Reported) Zolpidem Tartrate 10 MG TABLET 0.5 TAB PO QPM PRN SLEEPLESSNESS (Reported) Triage Note: PT COMES IN AFTER BEING AT DR. MALIK OFFICE FOR C/O BACK PAIN. PT STATES SHE HAS TWO FX VERTEBRAE AND WAS GOING TO BE SENT TO ENDO TO FIND OUT WHY. PT HAD EKG DONE AT OFFICE AND WAS TOLD TO GO TO ED BECAUSE HE BELIEVES SHE IS IN RAPID AFIB. PT DOESN'T FEEL THAT SHE IS IN AFIB. Triage Nurses Notes Reviewed? yes Onset: Abrupt Duration: hour(s): Timing: constant HPI: 67-year-old female with a history of A. fib, hypertension, asthma, Crohn's ( status post colon resection), multiple compression fractures of her lumbar spine sent in by Dr. Poe for tachycardia. On arrival to the ED patient is noted to be in rapid A. fib with a rate in the 170s. She endorses shortness of breath and lightheadedness, but denies chest pain or palpitations. States that she has not been feeling well over the past week, has had a nonproductive cough, recently on vacation in [place] and was seen at an urgent care who diagnosed her with viral bronchitis. Denies fevers. Patient reports med compliance with her home diltiazem, with the exception of missing 1 dose 2 days ago. Is not currently on anticoagulation secondary to prior GI bleeds. (Sahara GERBER,Yaneth) Vital Signs & Intake/Output Vital Signs & Intake/Output Vital Signs Date Time Temp Pulse Resp B/P B/P Pulse O2 O2 Flow FiO2 Mean Ox Delivery Rate 12/05 2152 118 20 135/66 93 Room Air 12/05 2144 97.5 140 20 147/98 12/05 2144 140 20 147/98 92 Room Air 12/05 2032 120 20 141/85 94 Room Air 12/06 2019 135 157/69 12/05 1946 145 22 149/107 95 Room Air 12/05 1918 136 18 144/80 12/05 1918 138 18 144/80 12/054 97.5 157 20 132/99 95 Room Air (Cecille PARSON,Kolby Rankin) Past History Travel History Traveled to [place] past 21 day No Medical History Any Pertinent Medical History? 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 Relation not specified for: FH: HTN (hypertension) Hx Contributory? No (Yaneth Morgan) Review of Systems Review of Systems Constitutional: Reports: no symptoms. EENTM: Reports: no symptoms. Respiratory: Reports: see HPI. Cardiovascular: Reports: see HPI. GI: Reports: no symptoms. Genitourinary: Reports: no symptoms. Musculoskeletal: Reports: no symptoms. Skin: Reports: no symptoms. Neurological/Psychological: Reports: see HPI. Hematologic/Endocrine: Reports: no symptoms. Immunologic/Allergic: Reports: no symptoms. (Yaneth Morgan) Physical Exam Physical Exam General Appearance: well developed/nourished, no apparent distress, alert, awake , comfortable Head: atraumatic, normal appearance Eyes: Bilateral: normal appearance. Neck: normal inspection, no midline tenderness Respiratory: normal breath sounds, lungs clear Cardiovascular: tachycardia, irregular rhythm Gastrointestinal: soft, non-tender Back: normal inspection, vertebral tenderness (lumbar spine) Extremities: normal inspection Neurologic/Psych: awake, alert, oriented x 3, normal gait, normal mood/affect Skin: intact, normal color, warm/dry Core Measures ACS in differential dx? Yes CVA/TIA Diagnosis: No Sepsis Present: No Sepsis Focused Exam Completed? No (Yaneth Morgan) Progress Differential Diagnoses I considered the following diagnoses in my evaluation of the patient: [Rapid A. fib versus bronchitis versus pneumonia versus dehydration versus sepsis versus ACS] Plan of Care: Orders Procedure Date/time Status Heart Healthy Diet 12/06 B Active Add-on Test (ER Only) 12/05 2234 Active ED Holding Orders 12/05 2220 Active Admit to inpatient 12/05 2220 Active Vital Signs 12/05 2220 Active Code Status 12/05 2220 Active BLOOD CULTURE 12/05 2116 Active LACTIC ACID 12/05 1912 Active TSH REFLEX 12/05 180 Active TROPONIN LEVEL 12/05 180 Active PHOSPHORUS 12/05 180 Active MAGNESIUM 12/05 1801 Active CBC WITHOUT DIFFERENTIAL 12/05 1801 Complete BASIC METABOLIC PANEL 12/05 1801 Active EKG 12/05 174 Active Current Medications Sig/Bassem Start time Last Medication Dose Stop Time Status Admin Diltiazem HCl 125 MG Q12H 12/05 2129 AC 12/05 (Cardizem DRIP) 2152 Sodium Chloride 100 ML (Normal Saline 0.9%) Laboratory Tests 12/05/171912: Anion Gap 15, Estimated GFR > 60, BUN/Creatinine Ratio 15.6, Glucose 132 H, Lactic Acid Pending, Calcium 9.9, Phosphorus 3.4, Magnesium 1.7, Troponin I 0.02 , TSH &T3 &Free T4 Intrp 0.426, CBC w Diff NO MAN DIFF REQ, RBC 4.57, MCV 88.1, MCH 28.7, MCHC 32.5 L, RDW 17.0 H, MPV 7.2 L, Gran % 84.9 H, Lymphocytes % 11.2 L, Monocytes % 3.6, Eosinophils % 0, Basophils % 0.3, Absolute Granulocytes 11.3 H, Absolute Lymphocytes 1.5, Absolute Monocytes 0.5, Absolute Eosinophils 0, Absolute Basophils 0 Microbiology 12/05 2208 BLOOD: Blood Culture - RECD 12/06 2135 BLOOD: Blood Culture - RECD Patient was initially given 20 mg IV diltiazem and 60 mg by mouth diltiazem, with no improvement in her rate. Was then given 5 mg IV metoprolol with improvement in her rate to the one teens -120's. However, patient began to have increased and her heart rate again shortly after to the 140s and 150s. Was then given an additional bolus of 20 mg IV diltiazem and started on a diltiazem infusion at 10 mg per hour, with improvement in her heart rate to the 120s. Patient's labs were remarkable for a leukocytosis to 13, and chest x-ray was concerning for pneumonia. Patient was covered with ceftriaxone and azithromycin. Patient was noted to be hypoxic to 89-90% on room air, was started on 2 L of nasal cannula with good improvement to the mid 90s. Suspect pneumonia leading to hypoxemia, and hypoxemia leading to A. fib. Initial troponin negative. 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 Discussed with hospitalist and will admit to telemetry. Initial ED EKG: AFIB (rate in 150's) (Yaneth Morgan) Departure Departure Disposition: STILL A PATIENT Condition: Stable Clinical Impression Primary Impression: Rapid atrial fibrillation Secondary Impressions: Hypoxia, Pneumonia Referrals: Ari Poe MD (PCP/Family) Departure Forms: Customer Survey General Discharge Information Admission Note Spoke With: Deborah Sandy MD Documentation of Exam: Documentation of any treatments & extenuating circumstances including Concerns Regarding Discharge (functional status, medication knowledge or non-compliance, living conditions, etc.) that warrant an admission rather than observation: [ Hemodynamic monitoring, telemetry monitoring, continuous IV diltiazem infusion, cardiology consultation, serial troponins, IV antibiotics, IV fluids, supplemental oxygen, serial CBCs to evaluate leukocytosis, repeat chest x-ray imaging to evaluate pneumonia improvement] (Yaneth Morgan) PA/BUSINESS REPRESENTATIVE Co-Sign Statement Statement: ED Attending supervision documentation- [X] I saw and evaluated the patient. I have also reviewed all the pertinent lab results and diagnostic results. I agree with the findings and the plan of care as documented in the PA's/BUSINESS REPRESENTATIVE's documentation. [X] I have reviewed the ED Record and agree with the PA's/BUSINESS REPRESENTATIVE's documentation. [] Additions or exceptions (if any) to the PAs/BUSINESS REPRESENTATIVE's note and plan are summarized below: [Agent to be admitted for A. fib with RVR. Patient is on a Cardizem drip. Patient will need cardiology consultation. Patient is not on any anticoagulation given the history of GI bleed.] (Cecille PARSON,Kolby Rankin) Critical Care Note Critical Care Note Critical Care Time: non-applicable (Yaneth Morgan) (Yaneth Morgan)
[2017-12-05 19:27] LABS: ABSOLUTE BASOPHIL COUNT 0 /CUMM (0.0-0.2); ABSOLUTE EOSINOPHIL COUNT 0 /CUMM (0.0-0.7); ABSOLUTE GRANULOCYTE CT 11.3 /CUMM (1.4-6.5); ABSOLUTE LYMPH COUNT 1.5 /CUMM (1.2-3.4); ABSOLUTE MONOCYTE COUNT 0.5 /CUMM (0.10-0.60); BASOPHIL % 0.3 % (0.0-2.0); EOSINOPHIL % 0 % (0-5); HEMATOCRIT 40.3 % (37-47); MEAN CORPUSCULAR HGB 28.7 PG (27.0-31.0); MEAN CORPUSCULAR HGB CONC 32.5 G/DL (33.0-37.0); MEAN CORPUSCULAR VOLUME 88.1 FL (81.0-99.0); MEAN PLATELET VOLUME 7.2 FL (7.4-10.4); PLATELET COUNT 416 /CUMM (130-400); RED BLOOD CELL CT 4.57 /CUMM (4.20-5.40); WHITE BLOOD CELL COUNT 13.3 /CUMM (4.8-10.8)
[2017-12-05 19:31] LABS: GRANULOCYTE % 84.9 % (42.2-75.2)
--- NOTE | 2017-12-05 20:53 | RADIOLOGY REPORT ---
EXAMINATION: XR PORTABLE CHEST CLINICAL INFORMATION: Cough now with rapid A. fib. COMPARISON: None TECHNIQUE: Portable frontal view of the chest was obtained. FINDINGS: The lungs are well-expanded with patchy haziness in the left lung base question congestion versus underlying atelectasis or infiltrate. Rest of lungs are clear. The heart size is enlarged with a prominent right heart chamber extending the right lower lobe. Part of this could be due to rotation. The pulmonary vascularity is prominent. No gross bony abnormality. IMPRESSION: Patient is slightly rotated to the right with accentuated right heart border. There is underlying cardiomegaly with mild pulmonary vascular congestion suspected. Haziness in the left lung base could be secondary to congestion, atelectasis or underlying infiltrate.
--- NOTE | 2017-12-05 22:54 | History & Physical ---
KalpeshLazarus 12/05/17 2253: General Information and HPI History of Present Illness: Olivia Conrad is a 67 YO female with a PMH of Atrial Fibrillation and Crohn's disease. Patient presents to the ED with complaints of "cough" that began last week after a trip to [place]. Patient states initially the cough was non- productive but became productive after using Mucinex. Patient relates the sputum was yellowish but became dark. Patient denies fever, chest pain, shortness of breath, lightheadedness, dizziness, and vision changes. Patient states her baseline heart rhythm has not changed much and that usually she experiences palpitations. Patient also states due to her Crohn's disease she had an ileal resection several years ago and had some anal strictures develop. Patient admits to swelling in the legs and peripheral neuropathy. Patient also states she has chronic low back pain with associated spasms, one which she experiences during examination. Patient states the pain radiates to her b/l flanks and is worst when sitting and standing up. Patient states that while ambulating the pain is constant though at a lower pain scale. Patient states otherwise she is relatively independent. Allergies/Medications Allergies: Coded Allergies: NSAIDS (Non-Steroidal Anti-Inflamma (PER PT HAS A SMALL AMOUNT OF INTESTINES FROM [facility] 08/25/15) morphine (N/V, CAN'T URINATE 08/25/15) tetracycline (UNKNOWN PER PT, HAS SHORTENED INTESTINES FROM [facility] 08/25/15) Uncoded Allergies: HORSE SERUM (Severe, ANAPHYLAXIS 01/27/16) ORAL ANTIBIOTIC (PT HAS SHORTENED INTESTINES FROM [facility] HARD TIME TOLERATING ) IS ONLY OKAY WITH BACTRIM PER PT Past History Travel History Traveled to [place] past 21 day No Medical History Neurological: RESTLESS LEGS EENT: NONE Cardiovascular: aflutter, hypertension, recent embolus to her hand Respiratory: asthma, BRONCHIOLITIS Gastrointestinal: Crohn's disease, COLON RESECTION Colonoscopy 09/17 with balloon dilation of an anastomotic stricture and 'digital' dilation of an anal stricture , but no acitve crohns disease was appreciated Hepatic: NONE Renal: NONE Musculoskeletal: NONE Psychiatric: NONE Endocrine: NONE Blood Disorders: NONE Cancer(s): NONE CAR WASHER/Reproductive: NONE History of MRSA: No History of VRE: No History of CDIFF: No Tetanus Vaccine: 01/21/16 Surgical History Surgical History: colon resection (for Crohn's disease) Past Family/Social History Family History Relations & Conditions if any BROTHER FATHER (cardiomyopathy). Relation not specified for: FH: HTN (hypertension) Psychosocial History Who Do You Live With? spouse Services at Home: None Primary Language: Italian ETOH Use: occasional use Illicit Drug Use: denies illicit drug use Functional Ability ADLs Independent: dressing, eating, toileting, bathing. Ambulation: independent IADLs Independent: shopping, housework, finances, food prep, telephone, transportation , medication admin. Review of Systems Review of Systems Constitutional: Denies: chills, diaphoresis, fever. EENTM: Denies: visual changes. Cardiovascular: Reports: edema, palpitations. Denies: chest pain. Respiratory: Reports: cough. Denies: short of breath. GI: Reports: diarrhea. Denies: abdominal pain, constipation. Genitourinary: Denies: dysuria. Musculoskeletal: Reports: back pain (spasm). Exam & Diagnostic Data Last 24 Hrs of Vital Signs/I&O Vital Signs Date Time Temp Pulse Resp B/P B/P Pulse O2 O2 Flow FiO2 Mean Ox Delivery Rate 12/053 118 20 135/66 93 Room Air 12/05 2144 97.5 140 20 147/98 12/05 2144 140 20 147/98 92 Room Air 12/053 120 20 141/85 94 Room Air 12/06 2019 135 157/69 12/05 1947 145 22 149/107 95 Room Air 12/05 1918 136 18 144/80 12/05 191 138 18 144/80 12/05 1824 97.5 157 20 132/99 95 Room Air Physical Exam General Appearance Alert, Oriented X3, Cooperative, Mild Distress Skin No Rashes, No Significant Lesion Skin Temp/Moisture Exam: Warm/Dry HEENT Atraumatic, PERRLA Cardiovascular Normal S1, Normal S2, No Murmurs Lungs Wheezing LLB Abdomen Soft, No Tenderness, No Masses Neurological Strength at 5/5 X4 Ext, Normal Tone Extremities 2+ Pitting Edema in Lower Extremities Assessment/Plan Assessment: Problem List * Pneumonia, Left lower lobe * Chronic Low back pain * h/o Crohn's disease * h/o Atrial Fibrillation -Admit to telemetry for monitoring -CXR Impression: Haziness in the left lung base could be secondary to congestion , atelectasis or underlying infiltrate -Treat LLL pneumonia with IV ABx. Ceftriaxone and Azithromycin and Solumedrol 40 mg -WBC 13.3, repeat level 6 AM -Diluadid PRN for back pain control -Monitor vitals periodically -Consult AM Cardiology with Dr. Gomez As Ranked By This Provider Problem List: 1. Pneumonia 2. Crohns disease 3. Spasm of back muscles Core Measures/Misc (02/20) Acute Coronary Syndrome ACS Diagnosis: No Congestive Heart Failure Congestive Heart Failure Diagnosis No Cerebrovascular Accident CVA/TIA Diagnosis: No VTE (View Protocol) VTE Risk Factors Acute Medical Illness No Mechanical VTE Prophylaxis d/t N/A MechProphylax Ordered No VTE Pharm Prophylaxis d/t NA PharmProphylax ordered Sepsis (View protocol) Sepsis Present: No If YES complete Sepsis Event Note If YES complete Sepsis Event Note Annamarie Matthew 12/05/17 8911: General Information and HPI Allergies/Medications Home Med list Bumetanide 2 MG TABLET 1 TAB PO DAILY PRN CHF (Reported) Cholecalciferol (Vitamin D3) 1,000 UNIT TABLET 1 TAB PO DAILY VITAMIN SUPPORT (Reported) Clonazepam 0.5 MG TABLET 2 TAB PO QHS RLS (Reported) Codeine Sulfate 15 MG TABLET 1 TAB PO Q6P PRN pain .. Cyanocobalamin (Vitamin B-12) 1,000 MCG TABLET 1 TAB PO DAILY SUPPLEMENT ( Reported) Cyclobenzaprine HCl 10 MG TABLET 1 TAB PO Q8P pain (Reported) Diltiazem HCl 120 MG TABLET 1 TAB PO BID HEART/BP (Reported) Diltiazem HCl (Cardizem) 60 MG TABLET 1 TAB PO BID HEART/BP (Reported) Fluticasone Propionate (Flovent Hfa) 110 MCG/ACTUATION AER.W.ADAP 2 PUF INH BID BRONCHIOLITIS OBLITERANS (Reported) Gabapentin 600 MG TABLET 1 TAB PO AT BEDTIME RLS Hydrocortisone 5 MG TABLET 1.5 TAB PO DAILY STEROID (Reported) Levalbuterol Tartrate (Xopenex Hfa) 45 MCG/ACTUATION HFA.AER.AD 2 PUF INH Q6H PRN SHORTNESS OF BREATH (Reported) Loperamide HCl (Loperamide) 2 MG CAPSULE 2 CAP PO Q4H PRN DIARRHEA (Reported) Losartan Potassium 100 MG TABLET 1 TAB PO DAILY HEART (Reported) Magnesium Oxide (Magnesium) 500 MG CAPSULE 1 CAP PO BID SUPPLEMENT (Reported) Montelukast Sodium (Singulair) 10 MG TABLET 1 TAB PO DAILY RESP. (Reported) Oxycodone HCl/Acetaminophen (Percocet 5-325 MG Tablet) 5 MG-325 MG TABLET 1 TAB PO Q6P PRN pain Potassium Chloride 20 MEQ TAB.ER.PRT 1 TAB PO DAILY SUPPLEMENT (Reported) Pramipexole Di-HCl (Mirapex) 0.5 MG TABLET 2 TAB PO QHS RLS (Reported) Tramadol HCl 50 MG TABLET 1 TAB PO BIDP PRN pain (Reported) Vitamin E 400 UNIT CAPSULE 1 CAP PO DAILY SUPPLEMENT (Reported) Zolpidem Tartrate 10 MG TABLET 0.5 TAB PO QPM PRN SLEEPLESSNESS (Reported) Core Measures/Misc (02/20) Sepsis (View protocol) If YES complete Sepsis Event Note If YES complete Sepsis Event Note Resident Review Statement Resident Statement: examined this patient, discussed with pharmacist intern, agreed with pharmacist intern Other Findings: Ms Conrad is a 67 year old woman w/ a PMHx of a flutter not on any AC (ablation [address] 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 on HC , asthma, fibro-stenosing ileal Crohn's disease s/p colon resection in 2013 was sent to the [place] ER from his primary care physician's office when they found that she was in rapid A. fib. She was known to be in her usual state of health until 3 weeks ago, until she visited [place]. She developed upper respiratory symptoms and myalgias. After she returned to [place], she had body aches, but did not have any fever or chills. Reported occasional cough which is productive. No chest pain, palpitations. She did not have any lightheadedness or dizziness. She continued to have pain in her back, from vertebral fractures and has been taking pain medications. Reported history of cauda equina syndrome in the past, but currently did not have any symptoms. Reported compliance to her medications. At the time of admission-temperature 97.5, pulse rate 157, respiration 20, blood pressure 132/99, 95% on room air. General Exam: AAOx3, mild distress, Skin: No rashes, no breakdown;HEENT: PERRLA, EOMI,;Neck: Supple, No JVD; No cervical lymphadenopathy;CVS: irregular Rate, Normal S1,S2, No MGR;Resp: decreaed air entry, wheezes on the right; Abdomen: Soft, No tenderness, Normal Bowel Sounds;Neuro: Normal Speech, Strength 5/5 b/l x 4 extremities, Sensation intact, CN III-XII NL, Reflexes 2+;Extremities: No cyanosis,2+ pedal edema Pertienent lab findings findings: WBC 13.3 (granulocytes 84.9), platelet count 416. Hemoglobin 13.1 Sodium 137, potassium 4.7, magnesium 1.7, chloride 100, carbon oxide 23, anion gap 15 Renal function-BUN 14, creatinine 0.9. TSH 0.46 Troponin I-0.02. EKG reveals absent P waves, irregularly irregular RR intervals, and absence of isoelectric baseline. Chest x-ray 12/05/2017-Haziness in the left lung base could be secondary to congestion, atelectasis or underlying infiltrate. Last last lower respirator cultures grew Enterobacter. Last echo- 05/22 - 1. This was a technically difficult study 2. Mild aortic sclerosis is present with mild aortic insufficiency. 3. Mitral leaflet thickening is present with mild to moderate mitral insufficiency and moderate left atrial enlargement. 4. A physiologic pericardial effusion is present which is hemodynamically insignificant. 5. The left ventricular chamber size is normal. Mild to moderate concentric hypertrophy is present. Ejection fraction is normal with no resting wall motion abnormalities. Diastolic dysfunction is present. 6. Mild to moderate tricuspid insufficiency is present with mild pulmonic insufficiency and an estimated right ventricular systolic pressure of 46 mmHg. 7. The patient's rhythm was intermittently irregular. PFTs01/03/17 Combined restrictive and obstructive ventilatory defect with a partially reversible component and resting hypoxemia. Etiology in this case of this arrhythmia likely atrial fibrillation. Immediate treatment becomes imperative because it causes loss of organized atrial contractions and rapid ventricular rate that decreases his cardiac output and makes the prone to embolus formation. Etiology of Afib in her case is likely infection, likely CAP. Other causes such as hypoxia secondary to pre-existing lung disease could be contributing to her clinical conditin. Other causes such as CAD should be kept in mind, always. It is unclear if the symptoms began > 48 hours or < 48 hours, which would direct the treatment options, but in her case she should be on AC. CHADVASC score of 3. In regards to her pneumonia, this could be either be due to typical or atypical organisms with slightly longer symptoms. Given findings w/ leukocytosis and radiological signs of ? subsegmental consolidation is likely bacterial pneumonia. She is also on chronic steroids, and also has h/o bronchitolitis obliterans would make her more likely to have pneumonia. Vertebral fractures could be due to chronic use of steroids, which need to be addressed. She would need aggressive pain management. Problem list: 1. Paroxysmal A. fib 2. History of congestive heart failure 3. Community-acquired pneumonia 4. Bronchiolitis obliterans 5. History of Crohn's disease -Admit the patient to telemetry service -Monitor vitals closely for changes in hemodynamic status. -Continue iv abx Ceftriaxone+Azithrmocyin -consider synchronized cardioversion, but would defer the decision to the chassis driver. -Rate control with calcium channel blockers with CCBs for now. - Consider digoxin with pre-existing CHF, if hypotension. -Follow CBCs with differential, serum chemistry -Check blood cultures, sputum cultures and Gram stain -Check urine antigen test for strep pneumo and legionella -Continue home medications -Aggressive pain management with dilaudid -Hold HC, and start iv solumedrol. -If she has any diarrhea consider codeine, loperamide. -Echocardiogram -Judicious use of fluids given her history of CHF Checklist: 1. DVT PPx- eliquis 2. GI Ppx- protonix prn 3. Med rec- done. please confirm the doses from the pharmacy. 4. Consults- Cardiology Deborah Sandy MD 12/06/17 0022: Core Measures/Misc (02/20) Sepsis (View protocol) If YES complete Sepsis Event Note If YES complete Sepsis Event Note Attending MD Review Statement Attending Statement Attending MD Statement: examined this patient, discuss w/resident/PA/ITALIAN TUTOR, agreed w/resident/PA/ITALIAN TUTOR, reviewed EMR data (avail) Attending Assessment/Plan: 67F PMH atrial fibrillation s/p ablation no longer on Eliquis (instructed by to self-restart if she feels her pulse as irregular), Crohn's disease s/p small bowel resection/ileocecal valve removal, HTN, restless leg syndrome, chronic asthma, bronchiolitis obliterans sent in from her PCP's office for tachycardia, with 5 days of SOB and productive cough, seen by urgent care and diagnosed with viral bronchitis. In ER had HR 170's in afib, given multiple doses of Cardizem IV (60mg total) and Metoprolol 5mg IV with improvement in HR. Patient currently complains of cough, no chest pain or palpitations. Also reports two spinal fractures in the past few months, with workup negative for etiology, though may be related to chronic Hydrocortisone use for her bronchiolitis. Bilateral rhonchi on exam, CXR shows LLL infiltrate, afebrile, WBC 13. 1. Left lower lobe pneumonia 2. Rapid atrial fibrillation 3. Bronchiolitis obliterans 4. Chronic lower back pain Plan: - Admit to telemetry - Cardizem drip - Cardiology consult - Ceftriaxone and Azithromycin - Solumedrol 40mg q12h - Nebulizer treatment - Sputum cultures - Dilaudid PRN - Continue home medications - DVT PPx
[2017-12-05] MEDS ORDERED: CYCLOBENZAPRINE10 M1 PO (23:18)
[2017-12-05] MEDS ORDERED: BUMETANIDE2 M1 PO (23:19)
[2017-12-06 00:23] VITALS: BP 142/82
--- NOTE | 2017-12-06 00:26 | Admission Certification ---
Admission Certification Certification Statement - As attending physician, I certify that at the time of - admission, based on clinical presentation, severity of - symptoms, need for further diagnostic testing and - therapeutic interventions, and risk of adverse outcomes - without in-hospital treatment, in my clinical assessment, - this patient requires an acute hospital stay for a minimum - of two nights or longer. I have also considered psychsocial - factors such as support system, advanced age, financial - issues, cognitive issues, and failed out-patient treatments, - past re-admission history, safety of patient, and lack of - compliance as applicable. Specific rationale supporting this admission is: Pneumonia with rapid atrial fibrillation
[2017-12-06 06:46] VITALS: BP 138/82
--- NOTE | 2017-12-06 06:54 | PN- Housestaff ---
Jules Alanis 12/06/17 0653: Subjective Follow-up For: Atrial fibrilation/tachycardia and obliterting bronchiolitis, and back spasms secondary to vertebral compression fractures Complaints: C/o back spasms and a lot of pain when she moves or spasms, not in pain when she can sit still and relax Subjective: Patient is a 59-year-old female with a past medical history of atrial fibrillation, hypertension, obliterating bronchiolitis, and Crohn's disease status post bowel resection in 2013. Patient was sent to the emergency department on 12/05 after a primary care provider noticed the patient was in rapid atrial fibrillation. Currently the patient denies chest pain but does endorse palpitations and a cough that was initially productive but has not been productive lately, patient denies fever but does endorse occasional night sweats. Patient also complains of back pain secondary to back spasms associated with vertebral compression fractures. Patient states that she did not sleep well overnight due to the back pain and has noted palpitations and her heart beating irregularly throughout the night. Otherwise no acute events overnight. Review of Systems Constitutional: Reports: diaphoresis (patient c/o night sweats). Denies: chills, fever. Cardiovascular: Reports: palpitations. Denies: chest pain, edema, orthopena, peripheral edema. Respiratory: Reports: cough, short of breath. Denies: hemoptysis. Gastrointestinal: Denies: abdominal pain, constipation, diarrhea, melena, nausea, bloody stool. Objective Last 24 Hrs of Vital Signs/I&O Vital Signs Date Time Temp Pulse Resp B/P B/P Pulse O2 O2 Flow FiO2 Mean Ox Delivery Rate 12/06 1509 145 156/100 12/06 0646 97.5 143 22 138/82 93 Nasal Cannula 12/06 0023 98.1 135 22 142/82 94 Nasal 2.0L Cannula 12/06 0012 Nasal 2.0L Cannula 12/05 2341 130 20 115/74 95 Room Air 12/05 2152 118 20 135/66 93 Room Air 12/05 2144 97.5 140 20 147/98 12/05 2144 140 20 147/98 92 Room Air 12/05 2032 120 20 141/85 94 Room Air 12/06 2019 135 157/69 12/05 1946 145 22 149/107 95 Room Air 12/05 1918 136 18 144/80 07/02 1919 138 18 144/80 12/05 1824 97.5 157 20 132/99 95 Room Air Intake & Output 12/06 1600 12/06 0800 12/06 0000 Intake Total 600 310 500 Output Total Balance 600 310 500 Intake, IV 310 500 Intake, Oral 600 Patient 93.667 kg Weight Weight Bed scale Measurement Method Physical Exam General Appearance: Alert, Oriented X3, Cooperative Neck: Supple, No JVD, No thryomegaly Cardiovascular: Irregular rate, tachycardic, S1 and S2 appreciated Lungs: Clear to Auscultation Abdomen: Soft, No Tenderness Extremities: No Cyanosis, No Edema Current Medications: Current Medications Sig/Bassem Start time Last Medication Dose Route Stop Time Status Admin Apixaban 5 MG BID 12/06 0030 AC 12/06 PO 1044 Azithromycin 500 MG Q24H 12/06 2199 CAN Sodium Chloride 250 ML IV Azithromycin 500 MG ONCE ONE 12/05 2114 DC 12/05 Sodium Chloride 250 ML IV 12/05 2213 2323 Ceftriaxone Sodium 1,000 MG 2200 12/06 220 CAN IV Ceftriaxone Sodium 0 .STK-MED ONE 12/05 2218 DC .ROUTE Ceftriaxone Sodium 1,000 MG ONCE ONE 12/05 2114 DC 12/05 IV 12/05 211 2313 Clonazepam 1 MG QPM 12/06 2100 AC PO 12/12 2314 Cyclobenzaprine HCl 10 MG 0700,1200,1700 12/07 0700 DC PO Cyclobenzaprine HCl 10 MG 0700,1200,1700 / 1200 AC 12/06 PO 1134 Cyclobenzaprine HCl 10 MG TID 12/06 0318 DC 12/06 PO 0631 Digoxin 0.125 MG 1700 / 1700 AC PO Digoxin 0.25 MG ONCE ONE 12/07 0130 AC IV 12/07 0131 Digoxin 0.25 MG ONCE ONE 12/06 1930 AC IV 12/06 1931 Digoxin 0.5 MG ONCE ONE 12/06 1330 DC 12/06 IV 12/06 1331 1509 Diltiazem HCl 125 MG Q8H 12/06 0745 AC 12/06 Sodium Chloride 100 ML IV 0758 Diltiazem HCl 0 .STK-MED ONE 12/05 2138 DC .ROUTE Diltiazem HCl 20 MG ONCE ONE 12/05 2129 DC 12/05 IV 07/02 2131 2145 Diltiazem HCl 125 MG Q12H 12/05 2130 DC 12/05 Sodium Chloride 100 ML IV 2153 Diltiazem HCl 0 .STK-MED ONE 12/05 1906 DC .ROUTE Diltiazem HCl 20 MG ONCE ONE 12/05 1900 DC 12/05 IV 12/05 190 191 Diltiazem HCl 60 MG ONCE ONE 12/05 1845 DC 12/05 PO 12/05 184 191 Fluticasone 2 PUF BID 12/05 231 AC 12/06 Propionate INH 1045 Gabapentin 600 MG QPM 12/05 2315 AC 12/06 PO 0300 Hydrocortisone 7.5 MG DAILY 12/06 0900 CAN PO Hydromorphone HCl 0.2 MG Q8 12/06 1400 DC IV Hydromorphone HCl 2 MG 0700,1200,1700 12/06 1200 AC 12/06 PO 1134 Hydromorphone HCl 0.2 MG Q8 PRN 12/06 1145 AC 12/06 IV 1517 Hydromorphone HCl 0.2 MG Q6 PRN 12/06 0900 DC IV Hydromorphone HCl 0.4 MG ONCE ONE 12/06 0730 DC 12/06 IV 12/06 0731 0805 Hydromorphone HCl 0 .STK-MED ONE 12/05 2354 DC .ROUTE Hydromorphone HCl 2 MG Q8P PRN 12/05 2330 DC 12/06 PO 0111 Hydromorphone HCl 1 MG ONCE ONE 12/05 2330 DC 12/05 IV 12/05 2331 2358 Hydromorphone HCl 1 MG ONCE ONE 12/05 1945 DC 12/05 IV 12/05 1946 1948 Hydromorphone HCl 0 .STK-MED ONE 12/05 1944 DC .ROUTE Lidocaine 1 PAT DAILY 12/06 899 AC 12/06 TOP 1230 Losartan Potassium 100 MG DAILY 12/06 09 AC 12/06 PO 1043 Magnesium Oxide 400 MG BID 12/05 2315 AC 12/06 PO 1044 Methylprednisolone 40 MG Q12 12/06 0115 AC 12/06 IV 1043 Metoprolol Tartrate 5 MG ONCE ONE 12/06 1999 DC 12/05 IV 12/05 Omeprazole 40 MG DAILY AC 12/06 0730 AC 12/06 PO 0817 Polyethylene Glycol 17 GM DAILY 12/06 2100 AC PO Pramipexole 1 MG QPM 12/05 2329 AC 12/06 Dihydrochloride PO 0300 Sodium Chloride 500 ML ONCE ONE 12/05 2329 DC 12/06 IV 12/06 0929 0121 Sodium Chloride 500 ML BOLUS ONE 12/05 184 DC 12/05 IV 12/05 194 191 Tramadol HCl 50 MG Q8P PRN 12/05 233 AC 12/06 PO 0634 Zolpidem Tartrate 5 MG QPM PRN 12/05 233 AC PO Last 24 Hrs of Lab/Mitchel Results Last 24 Hrs of Labs/Mics: Laboratory Tests 12/06/17 1035: Troponin I 0.02 12/06/17 0800: Anion Gap 14, Estimated GFR > 60, BUN/Creatinine Ratio 22.5, CBC w Diff NO MAN DIFF REQ, RBC 4.14 L, MCV 88.8, MCH 28.7, MCHC 32.4 L, RDW 17.4 H, MPV 7.7, Gran % 94.1 H, Lymphocytes % 5.1 L, Monocytes % 0.6 L, Eosinophils % 0.1, Basophils % 0.1, Absolute Granulocytes 11.3 H, Absolute Lymphocytes 0.6 L, Absolute Monocytes 0.1, Absolute Eosinophils 0, Absolute Basophils 0 12/06/17 0250: Troponin I 0.03 12/05/17 1913: Anion Gap 15, Estimated GFR > 60, BUN/Creatinine Ratio 15.6, Glucose 132 H, Lactic Acid 1.4, Calcium 9.9, Phosphorus 3.4, Magnesium 1.7, Troponin I 0.02, TSH &T3 &Free T4 Intrp 0.426, CBC w Diff NO MAN DIFF REQ, RBC 4.57, MCV 88.1, MCH 28.7, MCHC 32.5 L, RDW 17.0 H, MPV 7.2 L, Gran % 84.9 H, Lymphocytes % 11.2 L, Monocytes % 3.6, Eosinophils % 0, Basophils % 0.3, Absolute Granulocytes 11.3 H, Absolute Lymphocytes 1.5, Absolute Monocytes 0.5, Absolute Eosinophils 0, Absolute Basophils 0 Microbiology 12/05 2301 URINE ROUT: Legionella Antigen - CAN Cancelled: SPECIMEN NOT RECEIVED IN LABORATORY 12/05 2301 URINE ROUT: Streptococcus pneumoniae Antigen (M - CAN Cancelled: SPECIMEN NOT RECEIVED IN LABORATORY 12/05 230 LOWER RESP: Respiratory Culture - CAN Cancelled: SPECIMEN NOT RECEIVED IN LABORATORY 12/05 230 LOWER RESP: Gram Stain - CAN Cancelled: SPECIMEN NOT RECEIVED IN LABORATORY 12/05 220 BLOOD: Blood Culture - RES 12/06 2135 BLOOD: Blood Culture - RES Assessment/Plan Assessment: Patient is a 59-year-old female with a past medical history of atrial fibrillation, hypertension, obliterating bronchiolitis, vertebral compression fractures, and Crohn's disease status post bowel resection in 2013. Patient has been tachycardic in atrial fibrillation after being referred from her primary care physician's office. 59 year-old female with sustained tachycardia in atrial fibrillation, in the setting of severe pain from vertebral compression fractures as well as bronchiolitis obliterans. 1. Atrial fibrillation 2. Bronchiolitis obliterans and now nonproductive, in the setting of chronic steroid use pneumonia likely chronic 3. Vertebral compression fractures severe back pain and back spasms cyclobenzaprine, 3 times daily with meals daily as needed patient counseled about the possibility of opiate dependence and realistic expectations for pain management outside of the hospital Problem List: 1. Restless leg syndrome 2. Atrial fibrillation 3. Spasm of back muscles 4. Bronchiolitis obliterans 5. Compression fracture 6. Crohns disease Pain Ratin (while sitting still) Pain Location: back Pain Goal: Pain 4 or less Pain Plan: patient getting dilaudid for pain mgmt Tomorrow's Labs & Rationales: Digoxin level ordered, CBC & BEP Fredo PARSON,Aneta 12/06/17 1054: Attending MD Review Statement Attending Statement Attending MD Statement: examined this patient, discuss w/resident/PA/DATA SUPPORT ANALYST, agreed w/resident/PA/DATA SUPPORT ANALYST, reviewed EMR data (avail), discussed with nursing, discussed with case mgmt, reviewed images Attending Assessment/Plan: 67-year-old female multiple comorbidities of atrial fibrillation status post previous ablation not on anticoagulation as an outpatient, Crohn's disease she follows with Dr. Jesús Espinoza chronically and is status post small bowel resection, bronchiolitis obliterans with chronic steroid therapy secondary to the same. She has been dealing with back pain and vertebral compression fractures and has been following with the [facility] and Dr. Ramsey for the same. She was admitted last night with rapid atrial fibrillation, a cough nonproductive and a chest x-ray showing a possible infiltrate. Right now we have her on IV Cardizem for rate control, the ED spoke to Dr. Gomez her heat engineering teacher and restarted her Eliquis now that she is back in atrial fibrillation. We also have her on IV ceftriaxone and azithromycin for presumptive pneumonia. She says that her gut issues flareup every time she is on antibiotics and so we are repeating a chest x-ray PA and lateral to confirm that this is actually a pneumonia and that she does need the antibiotic. A white count is chronically elevated and she was started on IV steroids overnight to that's hard to interpret. The web development intern and I sat down with her at length to discuss her pain medication regimen which is a primary concern. She says she's had DEXA scans that have not revealed osteoporosis so she is unclear on the etiology of the multiple compression fractures and is scheduled to see an lard renderer Dr. Ramirez or Dr. Raymundo to figure this out. In the meantime she is in severe pain. She takes tramadol as an outpatient but that's primarily for her GI issues. She says the Dilaudid has been taking the edge off her pain and right now we are going to give her Dilaudid 2 mg every 8 [id number] with the flexaril 3 times a day. We are timing it with breakfast, lunch and dinner at her request. I've explained to her clearly that she runs a high risk off side effects of opiates and a specifically addiction. I also explained that on discharge at best we'll be able to give her only a week's supply of the Dilaudid and she will need close outpatient follow-up. She understands all of the above.
[2017-12-06 08:31] LABS: ABSOLUTE BASOPHIL COUNT 0 /CUMM (0.0-0.2); ABSOLUTE EOSINOPHIL COUNT 0 /CUMM (0.0-0.7); ABSOLUTE GRANULOCYTE CT 11.3 /CUMM (1.4-6.5); ABSOLUTE LYMPH COUNT 0.6 /CUMM (1.2-3.4); ABSOLUTE MONOCYTE COUNT 0.1 /CUMM (0.10-0.60); BASOPHIL % 0.1 % (0.0-2.0); EOSINOPHIL % 0.1 % (0-5); GRANULOCYTE % 94.1 % (42.2-75.2); HEMATOCRIT 36.7 % (37-47); MEAN CORPUSCULAR HGB 28.7 PG (27.0-31.0); MEAN CORPUSCULAR HGB CONC 32.4 G/DL (33.0-37.0); MEAN CORPUSCULAR VOLUME 88.8 FL (81.0-99.0); MEAN PLATELET VOLUME 7.7 FL (7.4-10.4); PLATELET COUNT 377 /CUMM (130-400); RBC DISTRIBUTION WIDTH 17.4 % (11.5-14.5); RED BLOOD CELL CT 4.14 /CUMM (4.20-5.40)
[2017-12-06] MEDS ORDERED: ELIQUIS5 M1 PO (11:37)
[2017-12-06] MEDS ORDERED: CYCLOBENZAPRINE10 M1 PO (11:37)
[2017-12-06] MEDS ORDERED: HYDROMORPHONE HC2 M1 PO (11:37)
--- NOTE | 2017-12-06 13:11 | Cons- Cardiology ---
General Information and HPI Consulting Request Date of Consult: 12/06/17 Requested By: Deborah Sandy MD Reason for Consult: Atrial fibrillation History of Present Illness: The patient is a pleasant 67-year-old female with history of Crohn's disease and paroxysmal atrial fibrillation, status post ablation of the atrial fibrillation. She has recently been off anticoagulation because she has not had a recent recurrence of atrial fibrillation, and she has a history of GI bleed. She presents with complaint of cough which has been productive of dark sputum. The symptoms began during a recent trip to [place], and she noted decreased tolerance of activity during the trip. At baseline she notes intermittent mild palpitations. No chest pain. No shortness of breath. No diaphoresis. No nausea or vomiting. Allergies/Medications Allergies: Coded Allergies: NSAIDS (Non-Steroidal Anti-Inflamma (PER PT HAS A SMALL AMOUNT OF INTESTINES FROM [facility] 08/25/15) morphine (N/V, CAN'T URINATE 08/25/15) tetracycline (UNKNOWN PER PT, HAS SHORTENED INTESTINES FROM [facility] 08/25/15) Uncoded Allergies: HORSE SERUM (Severe, ANAPHYLAXIS 01/27/16) ORAL ANTIBIOTIC (PT HAS SHORTENED INTESTINES FROM [facility] HARD TIME TOLERATING ) IS ONLY OKAY WITH BACTRIM PER PT Home Med List: Apixaban (Eliquis) 5 MG TABLET 1 TAB PO BID A FIB Bumetanide 2 MG TABLET 1 TAB PO DAILY PRN CHF (Reported) Cholecalciferol (Vitamin D3) 1,000 UNIT TABLET 1 TAB PO DAILY VITAMIN SUPPORT (Reported) Clonazepam 0.5 MG TABLET 2 TAB PO QHS RLS (Reported) Codeine Sulfate 15 MG TABLET 1 TAB PO Q6P PRN pain .. Cyanocobalamin (Vitamin B-12) 1,000 MCG TABLET 1 TAB PO DAILY SUPPLEMENT ( Reported) Cyclobenzaprine HCl 10 MG TABLET 1 TAB PO Q8P pain (Reported) Cyclobenzaprine HCl 10 MG TABLET 1 TAB PO 0700,1200,1700 BACK SPASM/PAIN Diltiazem HCl 120 MG TABLET 1 TAB PO BID HEART/BP (Reported) Diltiazem HCl (Cardizem) 60 MG TABLET 1 TAB PO BID HEART/BP (Reported) Fluticasone Propionate (Flovent Hfa) 110 MCG/ACTUATION AER.W.ADAP 2 PUF INH BID BRONCHIOLITIS OBLITERANS (Reported) Gabapentin 600 MG TABLET 1 TAB PO AT BEDTIME RLS Hydrocortisone 5 MG TABLET 1.5 TAB PO DAILY STEROID (Reported) Hydromorphone HCl 2 MG TABLET 1 TAB PO 0700,1200,1700 PAIN Levalbuterol Tartrate (Xopenex Hfa) 45 MCG/ACTUATION HFA.AER.AD 2 PUF INH Q6H PRN SHORTNESS OF BREATH (Reported) Loperamide HCl (Loperamide) 2 MG CAPSULE 2 CAP PO Q4H PRN DIARRHEA (Reported) Losartan Potassium 100 MG TABLET 1 TAB PO DAILY HEART (Reported) Magnesium Oxide (Magnesium) 500 MG CAPSULE 1 CAP PO BID SUPPLEMENT (Reported) Montelukast Sodium (Singulair) 10 MG TABLET 1 TAB PO DAILY RESP. (Reported) Oxycodone HCl/Acetaminophen (Percocet 5-325 MG Tablet) 5 MG-325 MG TABLET 1 TAB PO Q6P PRN pain Potassium Chloride 20 MEQ TAB.ER.PRT 1 TAB PO DAILY SUPPLEMENT (Reported) Pramipexole Di-HCl (Mirapex) 0.5 MG TABLET 2 TAB PO QHS RLS (Reported) Tramadol HCl 50 MG TABLET 1 TAB PO BIDP PRN pain (Reported) Vitamin E 400 UNIT CAPSULE 1 CAP PO DAILY SUPPLEMENT (Reported) Zolpidem Tartrate 10 MG TABLET 0.5 TAB PO QPM PRN SLEEPLESSNESS (Reported) Current Medications: Current Medications Sig/Bassem Start time Last Medication Dose Route Stop Time Status Admin Apixaban 5 MG BID 12/06 0030 AC 12/06 PO 1044 Azithromycin 500 MG Q24H 12/06 2199 AC Sodium Chloride 250 ML IV Azithromycin 500 MG ONCE ONE 12/05 2114 DC 12/05 Sodium Chloride 250 ML IV 12/05 2213 2323 Ceftriaxone Sodium 1,000 MG 12/06 AC IV Ceftriaxone Sodium 0 .STK-MED ONE 12/05 2218 DC .ROUTE Ceftriaxone Sodium 1,000 MG ONCE ONE 12/05 2114 DC 12/05 IV 12/06 2115 231 Clonazepam 1 MG QPM 12/06 2100 AC PO 12/12 2314 Cyclobenzaprine HCl 10 MG 0700,1200,1700 12/07 0700 DC PO Cyclobenzaprine HCl 10 MG 0700,1200,1700 12/06 1200 AC 12/06 PO 1134 Cyclobenzaprine HCl 10 MG TID 12/06 0318 DC 12/06 PO 0631 Diltiazem HCl 125 MG Q8H 12/06 0745 AC 12/06 Sodium Chloride 100 ML IV 0758 Diltiazem HCl 0 .STK-MED ONE 12/05 2139 DC .ROUTE Diltiazem HCl 20 MG ONCE ONE 12/05 2130 DC 12/05 IV 12/05 2131 2145 Diltiazem HCl 125 MG Q12H 12/05 2130 DC 12/05 Sodium Chloride 100 ML IV 2153 Diltiazem HCl 0 .STK-MED ONE 12/05 1907 DC .ROUTE Diltiazem HCl 20 MG ONCE ONE 12/05 1900 DC 12/05 IV 12/05 190 191 Diltiazem HCl 60 MG ONCE ONE 12/05 184 DC 12/05 PO 12/05 184 191 Fluticasone 2 PUF BID 12/05 231 AC 12/06 Propionate INH 1045 Gabapentin 600 MG QPM 12/05 2315 AC 12/06 PO 0300 Hydrocortisone 7.5 MG DAILY 12/06 09 CAN PO Hydromorphone HCl 0.2 MG Q8 12/06 1400 DC IV Hydromorphone HCl 2 MG 0700,1200,1700 12/06 1200 AC 12/06 PO 1134 Hydromorphone HCl 0.2 MG Q8 PRN 12/06 1145 AC IV Hydromorphone HCl 0.2 MG Q6 PRN 12/06 0900 DC IV Hydromorphone HCl 0.4 MG ONCE ONE 12/06 0730 DC 12/06 IV 12/06 0731 0805 Hydromorphone HCl 0 .STK-MED ONE 12/05 2354 DC .ROUTE Hydromorphone HCl 2 MG Q8P PRN 12/05 2330 DC 12/06 PO 0111 Hydromorphone HCl 1 MG ONCE ONE 12/05 2330 DC 12/05 IV 12/05 2331 2358 Hydromorphone HCl 1 MG ONCE ONE 12/05 194 DC 12/05 IV 12/05 194 1948 Hydromorphone HCl 0 .STK-MED ONE 12/05 1944 DC .ROUTE Lidocaine 1 PAT DAILY 12/06 899 AC TOP Losartan Potassium 100 MG DAILY 12/06 899 AC 12/06 PO 1043 Magnesium Oxide 400 MG BID 12/05 2315 AC 12/06 PO 1044 Methylprednisolone 40 MG Q12 12/06 0115 AC 12/06 IV 1043 Metoprolol Tartrate 5 MG ONCE ONE 12/06 1999 DC 12/05 IV 12/05 Omeprazole 40 MG DAILY AC 12/06 0730 AC 12/06 PO 0817 Polyethylene Glycol 17 GM DAILY 12/06 2100 AC PO Pramipexole 1 MG QPM 12/05 2330 AC 12/06 Dihydrochloride PO 0300 Sodium Chloride 500 ML ONCE ONE 12/05 2330 DC 12/06 IV 12/06 0929 0121 Sodium Chloride 500 ML BOLUS ONE 12/05 1845 DC 12/05 IV 12/05 1944 1919 Tramadol HCl 50 MG Q8P PRN 12/05 2330 AC 12/06 PO 0634 Zolpidem Tartrate 5 MG QPM PRN 12/05 2330 AC PO Review of Systems Review of Systems: No fever. No chills. No hemoptysis. Hematemesis. All other systems were reviewed, and were noted to be negative. 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 Relation not specified for: FH: HTN (hypertension) Psychosocial History Where Do You Live? Home Who Do You Live With? spouse Services at Home: None Primary Language: [place] Smoking Status: Never Smoked ETOH Use: occasional use Illicit Drug Use: denies illicit drug use Functional Ability ADLs Independent: dressing, eating, toileting, bathing. Ambulation: independent IADLs Independent: shopping, housework, finances, food prep, telephone, transportation , medication admin. ECHO Results (as available) Report: CONCLUSIONS 1. Mild aortic sclerosis is present with mild aortic insufficiency. 2. Mitral leaflet thickening is present with mitral insufficiency which is at least moderate in severity with moderate left atrial dilatation. 3. A very small posterior pericardial effusion is present. 4. The left ventricular chamber size is normal with moderate concentric hypertrophy and mild global hypokinesia with an ejection fraction of approximately 50%. 5. The right heart chambers are upper normal in size with moderate tricuspid insufficiency and minimal pulmonic insufficiency. The RV systolic pressure was not accurately assessed. 6. A JAVIER is suggested to better asess the mitral valve anatomy and the severity of mitral insufficiency. A followup examination is also sugested when the patient's heart rate is better controlled to reassess LV systolic function. Exam & Diagnostic Data Vital Signs and I&O Vital Signs Date Time Temp Pulse Resp B/P B/P Pulse O2 O2 Flow FiO2 Mean Ox Delivery Rate 12/06 0646 97.5 143 22 138/82 93 Nasal Cannula 12/06 0023 98.1 135 22 142/82 94 Nasal 2.0L Cannula 12/06 0012 Nasal 2.0L Cannula 12/05 2341 130 20 115/74 95 Room Air 12/05 2153 118 20 135/66 93 Room Air 07/ 2145 97.5 140 20 147/98 / 2145 140 20 147/98 92 Room Air 07/ 2033 120 20 141/85 94 Room Air 07/2019 135 157/69 / 1947 145 22 149/107 95 Room Air 07/ 1919 136 18 144/80 07/ 1919 138 18 144/80 07/ 1824 97.5 157 20 132/99 95 Room Air Intake & Output 12/06 1600 / 0800 / 0000 12/05 1600 / 0800 12/05 0000 Intake Total 310 500 Output Total Balance 310 500 Intake, IV 310 500 Patient 207 lb Weight Weight Bed scale Measurement Method Physical Exam: Gen: The patient is in no acute distress HEENT: Normal nose, ears, and oropharynx. Pupils equal bilaterally. Conjunctiva normal. Neck: Supple with no JVD, no masses, and no thyromegaly Lungs: Scattered wheezes with normal respiratory effort Heart: Irregularly irregular, S1, S2, 1 out of 6 systolic murmur. No peripheral edema, 2+ pulses in the lower extremities bilaterally Abdomen: Soft, nontender, no masses. No hepatomegaly. No splenomegaly Extremities: No clubbing or cyanosis. Normal muscle strength in the upper and lower extremities Skin: Normal skin turgor with no skin ulcers or lesions noted. Neuro: Cranial nerves intact. Sensation intact Psych: Alert and oriented x 3 with appropriate affect Labs/Mitchel Results: Laboratory Tests 12/06 12/06 12/06 1035 0800 0250 Chemistry Sodium (137 - 145 mmol/L) 136 L Potassium (3.5 - 5.1 mmol/L) 4.8 Chloride (98 - 107 mmol/L) 100 Carbon Dioxide (22 - 30 mmol/L) 22 Anion Gap (5 - 16) 14 BUN (7 - 17 mg/dL) 18 H Creatinine (0.5 - 1.0 mg/dL) 0.8 Estimated GFR (>60 ml/min) > 60 BUN/Creatinine Ratio (7 - 25 %) 22.5 Troponin I (< 0.11 ng/ml) 0.02 0.03 Hematology CBC w Diff NO MAN DIFF REQ WBC (4.8 - 10.8 /CUMM) 12.0 H RBC (4.20 - 5.40 /CUMM) 4.14 L Hgb (12.0 - 16.0 G/DL) 11.9 L Hct (37 - 47 %) 36.7 L MCV (81.0 - 99.0 FL) 88.8 MCH (27.0 - 31.0 PG) 28.7 MCHC (33.0 - 37.0 G/DL) 32.4 L RDW (11.5 - 14.5 %) 17.4 H Plt Count (130 - 400 /CUMM) 377 MPV (7.4 - 10.4 FL) 7.7 Gran % (42.2 - 75.2 %) 94.1 H Lymphocytes % (20.5 - 51.1 %) 5.1 L Monocytes % (1.7 - 9.3 %) 0.6 L Eosinophils % (0 - 5 %) 0.1 Basophils % (0.0 - 2.0 %) 0.1 Absolute Granulocytes (1.4 - 6.5 /CUMM) 11.3 H Absolute Lymphocytes (1.2 - 3.4 /CUMM) 0.6 L Absolute Monocytes (0.10 - 0.60 /CUMM) 0.1 Absolute Eosinophils (0.0 - 0.7 /CUMM) 0 Absolute Basophils (0.0 - 0.2 /CUMM) 0 07/ 1913 Chemistry Sodium (137 - 145 mmol/L) 137 Potassium (3.5 - 5.1 mmol/L) 4.7 Chloride (98 - 107 mmol/L) 100 Carbon Dioxide (22 - 30 mmol/L) 23 Anion Gap (5 - 16) 15 BUN (7 - 17 mg/dL) 14 Creatinine (0.5 - 1.0 mg/dL) 0.9 Estimated GFR (>60 ml/min) > 60 BUN/Creatinine Ratio (7 - 25 %) 15.6 Glucose (65 - 99 mg/dL) 132 H Lactic Acid (0.7 - 2.1 mmol/L) 1.4 Calcium (8.4 - 10.2 mg/dL) 9.9 Phosphorus (2.5 - 4.5 mg/dL) 3.4 Magnesium (1.6 - 2.3 mg/dL) 1.7 Troponin I (< 0.11 ng/ml) 0.02 TSH &T3 &Free T4 Intrp (0.270 - 4.20 uIU/mL) 0.426 Hematology CBC w Diff NO MAN DIFF REQ WBC (4.8 - 10.8 /CUMM) 13.3 H RBC (4.20 - 5.40 /CUMM) 4.57 Hgb (12.0 - 16.0 G/DL) 13.1 Hct (37 - 47 %) 40.3 MCV (81.0 - 99.0 FL) 88.1 MCH (27.0 - 31.0 PG) 28.7 MCHC (33.0 - 37.0 G/DL) 32.5 L RDW (11.5 - 14.5 %) 17.0 H Plt Count (130 - 400 /CUMM) 416 H MPV (7.4 - 10.4 FL) 7.2 L Gran % (42.2 - 75.2 %) 84.9 H Lymphocytes % (20.5 - 51.1 %) 11.2 L Monocytes % (1.7 - 9.3 %) 3.6 Eosinophils % (0 - 5 %) 0 Basophils % (0.0 - 2.0 %) 0.3 Absolute Granulocytes (1.4 - 6.5 /CUMM) 11.3 H Absolute Lymphocytes (1.2 - 3.4 /CUMM) 1.5 Absolute Monocytes (0.10 - 0.60 /CUMM) 0.5 Absolute Eosinophils (0.0 - 0.7 /CUMM) 0 Absolute Basophils (0.0 - 0.2 /CUMM) 0 Diagnostic Data EKG Results EKG tracings and apparently reviewed, and reveals atrial fibrillation with ventricular response of 117 CXR Results Patient is slightly rotated to the right with accentuated right heart border. There is underlying cardiomegaly with mild pulmonary vascular congestion suspected. Haziness in the left lung base could be secondary to congestion, atelectasis or underlying infiltrate. Other Results Echocardiogram 06/03/17: 1. This was a technically difficult study 2. Mild aortic sclerosis is present with mild aortic insufficiency. 3. Mitral leaflet thickening is present with mild to moderate mitral insufficiency and moderate left atrial enlargement. 4. A physiologic pericardial effusion is present which is hemodynamically insignificant. 5. The left ventricular chamber size is normal. Mild to moderate concentric hypertrophy is present. Ejection fraction is normal with no resting wall motion abnormalities. Diastolic dysfunction is present. 6. Mild to moderate tricuspid insufficiency is present with mild pulmonic insufficiency and an estimated right ventricular systolic pressure of 46 mmHg. 7. The patient's rhythm was intermittently irregular during the test. Holter monitor correlation is suggested if clinically indicated. Assessment/Plan Assessment/Plan Assessment: The patient is a 67-year-old female with history of paroxysmal atrial fibrillation status post ablation, Crohn's disease, and bronchiolitis obliterans with chronic steroid therapy. She presents with pneumonia and recurrent atrial fibrillation with rapid ventricular rate. IV antibiotics have been started. Anticoagulation with Eliquis has been restarted. She is on IV diltiazem, and the ventricular rate remains rapid. Recommendations: * IV antibiotic therapy as per the medical team * Continue Eliquis for stroke prevention given recurrent atrial fibrillation * Ventricular rate is currently uncontrolled on the maximal dose of IV diltiazem. Given her history of pulmonary disease with current wheezing, I recommend holding off for now on starting a beta-angélica, and starting digoxin with an initial loading dose of 5 mg IV 1 followed by 0.25 mg every 6 hours 2 doses. The digoxin level should be checked tomorrow, and oral digoxin 0.125 mg daily should be started tomorrow. * If the rate is not controlled on diltiazem plus digoxin, we may consider starting a low-dose of metoprolol, with close monitoring for exacerbation pulmonary status * Continue IV diltiazem today, and consider changing to oral diltiazem tomorrow if rate is under control. * Once pneumonia has been treated and the rate is brought under control, we will consider possible JAVIER cardioversion either prior to discharge or as an outpatient. She may also be a candidate for a repeat ablation of the A-fib Consult Acknowledgment - Thank you for your consult request.
--- NOTE | 2017-12-06 14:44 | RADIOLOGY REPORT ---
EXAMINATION: CR CHEST CLINICAL INFORMATION: Cough with sputum production. Presumptive diagnosis of pneumonia. COMPARISON: Several prior chest x-rays, most recent of which is dated 12/05/2017. TECHNIQUE: 2 views of the chest were obtained. FINDINGS: External EKG leads are in place. The cardiomediastinal silhouette is enlarged. Lungs bilaterally are hyperinflated. There is persistent linear opacity in the left midlung and in the right more than left lower lobe, unchanged, most consistent with chronic atelectasis. No dense evolving pneumonia is seen. No significant pleural effusion is seen. There may be slight pleural reaction in the posterior left CP angle. No evidence of pulmonary edema or pneumothorax. Osteopenia and mild dorsal kyphosis and multilevel mild vertebral spondylosis seen in the mid and lower thoracic spine. IMPRESSION: 1. Linear reticular opacities in the left mid lung and in the lung bases bilaterally, right greater than left, most likely due to persistent atelectasis. 2. No evolving pneumonia. 3. Enlarged cardiomediastinal silhouette.
--- NOTE | 2017-12-06 14:47 | Patient Discharge Instructions ---
Discharge Instructions General Discharge Information You were seen/treated for: Atrial fibrillation Watch for these problems: Shortness of breath, palpitations, chest pain, sudden edema/swelling--please go to your local emergency room. Special Instructions: Please follow-up with your primary care doctor after discharge. Please follow-up with your Rehabilitation Team Lead after discharge. Please follow-up with your Branch Sales And Service Representative after discharge. Please follow-up with your Technician Support Association after discharge. Please folow-up with your Fabric Sourcer after discharge. Please follow-up with your orthopedic doctor within 1-2 weeks of discharge and let them know about your recent admission at [facility] Diet Continue normal diet: Yes Activity Full Activity/No Limits: No Activity Self Limited: Yes Acute Coronary Syndrome Inclusion Criteria At DC or during hospital stay patient has or had the following: ACS DIAGNOSIS No Discharge Core Measures Meds if any: Prescribed or Continued at Discharge Meds if any: NOT Prescribed or Continued at Discharge Congestive Heart Failure Inclusion Criteria At DC or during hospital stay patient has or had the following: CHF DIAGNOSIS No Discharge Core Measures Meds if any: Prescribed or Continued at Discharge Meds if any: NOT Prescribed or Continued at Discharge Cerebrovascular accident Inclusion Criteria At DC or during hospital stay patient has or had the following: CVA/TIA Diagnosis No Discharge Core Measures Meds if any: Prescribed or Continued at Discharge Meds if any: NOT Prescribed or Continued at Discharge Venous thromboembolism Inclusion Criteria VTE Diagnosis No VTE Type NONE VTE Confirmed by (Test) NONE Discharge Core Measures - Per Current guidelines, there needs to be overlap - treatment for the first 5 days of Warfarin therapy. - If discharged on Warfarin prior to 5 days of - overlap therapy, the patient will need to be - assessed for post discharge needs including - *Post discharge parental anticoagulation - *Warfarin and/or parental anticoagulation education - *Follow up date to check INR post discharge At least 5 days overlap therapy as Inpatient No Meds if any: Prescribed or Continued at Discharge Note: Overlap Therapy is Warfarin and Anticoagulant Meds if any: NOT Prescribed or Continued at Discharge
[2017-12-06 22:04] VITALS: BP 128/72
[2017-12-07 06:37] VITALS: BP 132/76
[2017-12-07 07:31] LABS: ABSOLUTE BASOPHIL COUNT 0 /CUMM (0.0-0.2); ABSOLUTE EOSINOPHIL COUNT 0 /CUMM (0.0-0.7); ABSOLUTE GRANULOCYTE CT 9.7 /CUMM (1.4-6.5); ABSOLUTE LYMPH COUNT 0.5 /CUMM (1.2-3.4); ABSOLUTE MONOCYTE COUNT 0.3 /CUMM (0.10-0.60); BASOPHIL % 0.1 % (0.0-2.0); EOSINOPHIL % 0.1 % (0-5); GRANULOCYTE % 92.3 % (42.2-75.2); HEMATOCRIT 35.4 % (37-47); MEAN CORPUSCULAR HGB 28.7 PG (27.0-31.0); MEAN CORPUSCULAR VOLUME 89.7 FL (81.0-99.0); MEAN PLATELET VOLUME 7.7 FL (7.4-10.4); PLATELET COUNT 340 /CUMM (130-400); RED BLOOD CELL CT 3.94 /CUMM (4.20-5.40)
--- NOTE | 2017-12-07 08:10 | PN- Housestaff ---
See Addendum Subjective Follow-up For: Atrial fibrilation/tachycardia and obliterating bronchiolitis, and back spasms secondary to vertebral compression fractures Complaints: pain scale (0-10) (8/10 pain back spasms) Tele-Events Since Last Visit: Overnight patient in atrial fibrilation rate 106-137 Once noted to be in atrial flutter, rate of 106 Subjective: Patient is a 59-year-old female with a past medical history of atrial fibrillation, hypertension, obliterating bronchiolitis, and Crohn's disease status post bowel resection in 2013. Patient was sent to the emergency department on 12/05 after a primary care provider noticed the patient was in rapid atrial fibrillation. Currently the patient denies chest pain but does endorse palpitations and a cough, as well as some swelling in her bilateral lower extremities. Denies fever but does endorse occasional night sweats. Patient also complaining of back pain secondary to back spasms associated with vertebral compression fractures, not currently well-controlled. Patient states that she did not sleep well overnight due to the back pain. Tolerated the Digoxin well overnight, without pronounced palpitations or other adverse effects. Patient was consulted about pain management for her back spasms and back pain. Again as with yesterday the unrealistic likelihood of reducing her pain to 0 was explained, and the patient was cautioned against the addictive potential of the high amount of opioids she is taking. The patient was encouraged to use the incentive spirometer frequently. Review of Systems Constitutional: Denies: chills, diaphoresis, fever. Cardiovascular: Reports: peripheral edema. Denies: chest pain, palpitations. Respiratory: Reports: cough. Denies: short of breath, wheezing. Gastrointestinal: Denies: abdominal pain, constipation, diarrhea, nausea, vomiting. Musculoskeletal: Reports: back pain. Objective Last 24 Hrs of Vital Signs/I&O Vital Signs Date Time Temp Pulse Resp B/P B/P Pulse O2 O2 Flow FiO2 Mean Ox Delivery Rate 12/07 1019 115 150/76 12/07 0637 98.6 98 20 132/76 95 Nasal 2.0L Cannula 12/07 0345 111 132/74 12/07 0000 Nasal 2.0L Cannula 12/06 2204 98.2 110 20 128/72 94 Nasal 2.0L Cannula 12/06 2138 128/72 12/06 2129 Nasal 2.0L Cannula 12/06 1600 Nasal 2.0L Cannula 12/06 1509 145 156/100 Intake & Output 12/07 1600 12/07 0800 12/07 0000 Intake Total 220 360 Output Total Balance 220 360 Intake, IV 220 260 Intake, Oral 100 Patient 93.213 kg Weight Weight Bed scale Measurement Method Physical Exam General Appearance: Alert, Oriented X3, Cooperative Cardiovascular: Normal S1, Normal S2 Lungs: Clear to Auscultation Abdomen: Soft, No Tenderness Extremities: No Cyanosis, No Edema Assessment/Plan Assessment: Patient is a 67-year-old female with a past medical history of atrial fibrillation, hypertension, obliterating bronchiolitis, vertebral compression fractures, and Crohn's disease status post bowel resection in 2013. Patient has been tachycardic in atrial fibrillation after being referred from her primary care physician's office. 59 year-old female with sustained tachycardia in atrial fibrillation, in the setting of severe pain from vertebral compression fractures as well as bronchiolitis obliterans. 1. Atrial fibrillation diltiazem complete 2. Bronchiolitis obliterans and now nonproductive, in the setting of chronic steroid use pneumonia atelectasis, likely chronic 3. Vertebral compression fractures severe back pain and back spasms cyclobenzaprine, 3 times daily with meals daily as needed patient counseled about the possibility of opiate dependence and realistic expectations for pain management outside of the hospital Problem List: 1. Compression fracture 2. Atrial fibrillation 3. Spasm of back muscles 4. Bronchiolitis obliterans 5. Crohns disease 6. Restless leg syndrome Pain Ratin Pain Location: back Pain Goal: Pain 4 or less Pain Plan: Dilaudid 2mg PO TID, with cyclobenzaprine 10mg PO TID. Dilaudid 0.2mg IV Q8H PRN for breakthrough pain, as well as lidocaine and tramadol on board. Tomorrow's Labs & Rationales: BEP, CBC and Digoxin level DVT/Prophylaxis: mechanical, pharmacological
[2017-12-07 09:32] LABS: WHITE BLOOD CELL COUNT 10.5 /CUMM (4.8-10.8)
--- NOTE | 2017-12-07 09:55 | PN- Cardiology ---
Subjective Subjective: No complaints this morning. HR 100-125 on average with frequent periods of accelerating to 145-150 bpm in a non sustained fashion (2-3 seconds). Objective Vital Signs and I&Os Vital Signs Date Time Temp Pulse Resp B/P B/P Pulse O2 O2 Flow FiO2 Mean Ox Delivery Rate 12/07 636 98.6 98 20 132/76 95 Nasal 2.0L Cannula 12/07 0345 111 132/74 12/07 0000 Nasal 2.0L Cannula 12/07 2203 98.2 110 20 128/72 94 Nasal 2.0L Cannula 12/06 2138 128/72 12/06 2129 Nasal 2.0L Cannula 12/06 1600 Nasal 2.0L Cannula 12/06 1509 145 156/100 Intake & Output 12/07 0812/07 0000 12/06 1600 12/06 0800 12/06 0000 Intake Total 220 360 600 310 500 Output Total Balance 220 360 600 310 500 Intake, IV 220 260 310 500 Intake, Oral 100 600 Patient 206 lb 207 lb Weight Weight Bed scale Bed scale Measurement Method Physical Exam: General Appearance: Alert, Oriented X3, appears uncomfortable Cardiovascular: irregular rate, no murmur audible Lungs: Clear to Auscultation Abdomen: Soft, No Tenderness Extremities: No Edema, good capillary refill bilaterally Current Medications: Current Medications Sig/Bassem Start time Last Medication Dose Route Stop Time Status Admin Albuterol Sulfate 2 PUF Q4 HRS NEEDED PRN 12/06 2145 AC INH Apixaban 5 MG BID 12/06 0030 AC 12/06 PO 2027 Azithromycin 500 MG Q24H 12/06 2200 CAN Sodium Chloride 250 ML IV Ceftriaxone Sodium 1,000 MG 12/06 2200 CAN IV Clonazepam 1 MG QPM 12/06 2100 AC 12/06 PO 12/12 2314 2030 Cyclobenzaprine HCl 10 MG 0700,1200,1700 12/07 0700 DC PO Cyclobenzaprine HCl 10 MG 0700,1200,1700 / 1200 AC 12/07 PO 0658 Cyclobenzaprine HCl 10 MG TID 12/06 0318 DC 12/06 PO 0631 Digoxin 0.125 MG 1700 12/07 1700 AC PO Digoxin 0.25 MG ONCE ONE 12/07 0330 DC 12/07 IV 12/07 0331 0345 Digoxin 0.25 MG ONCE ONE 12/07 0130 CAN IV 12/07 0131 Digoxin 0.25 MG ONCE ONE 12/06 1930 DC 12/06 IV 12/06 1931 2138 Digoxin 0.5 MG ONCE ONE 12/06 1330 DC 12/06 IV 12/06 1331 1509 Digoxin 0.25 MG ONCE ONE 12/06 0330 CAN IV 12/06 2230 Diltiazem HCl 125 MG Q8H 12/06 0745 AC 12/07 Sodium Chloride 100 ML IV 0005 Fluticasone 2 PUF BID 12/05 231 AC 12/06 Propionate INH 2037 Gabapentin 600 MG QPM 12/05 2315 AC 12/06 PO 2027 Hydromorphone HCl 0.2 MG Q8 12/06 1400 DC IV Hydromorphone HCl 2 MG 0700,1200,1700 12/06 1200 AC 12/07 PO 0702 Hydromorphone HCl 0.2 MG Q8 PRN 12/06 1145 AC 12/06 IV 2253 Hydromorphone HCl 0.2 MG Q6 PRN 12/06 0900 DC IV Hydromorphone HCl 2 MG Q8P PRN 12/05 2330 DC 12/06 PO 0111 Lidocaine 1 PAT DAILY 12/06 0900 AC 12/06 TOP 1230 Losartan Potassium 100 MG DAILY 12/06 0900 AC 12/06 PO 1043 Magnesium Oxide 400 MG BID 12/05 231 AC 12/06 PO 2027 Methylprednisolone 40 MG Q12 12/06 0115 AC 12/06 IV 2112 Omeprazole 40 MG DAILY AC 12/06 0730 AC 12/07 PO 0658 Polyethylene Glycol 17 GM DAILY 12/06 2100 AC PO Pramipexole 1 MG QPM 12/05 2330 AC 12/06 Dihydrochloride PO 2028 Tramadol HCl 50 MG Q8P PRN 12/05 2330 AC 12/06 PO 0634 Zolpidem Tartrate 5 MG QPM PRN 12/05 2330 AC PO Results Last 48 Hrs of Labs/Mics: Laboratory Tests 12/07/17 0618: Anion Gap 11, Estimated GFR > 60, BUN/Creatinine Ratio 28.8 H, CBC w Diff NO MAN DIFF REQ, RBC 3.94 L, MCV 89.7, MCH 28.7, MCHC 32.0 L, RDW 17.0 H, MPV 7.7, Gran % 92.3 H, Lymphocytes % 4.6 L, Monocytes % 2.9, Eosinophils % 0.1, Basophils % 0.1, Absolute Granulocytes 9.7 H, Absolute Lymphocytes 0.5 L, Absolute Monocytes 0.3, Absolute Eosinophils 0, Absolute Basophils 0, Digoxin 1.9 12/06/17 1035: Troponin I 0.02 12/06/17 0800: Anion Gap 14, Estimated GFR > 60, BUN/Creatinine Ratio 22.5, CBC w Diff NO MAN DIFF REQ, RBC 4.14 L, MCV 88.8, MCH 28.7, MCHC 32.4 L, RDW 17.4 H, MPV 7.7, Gran % 94.1 H, Lymphocytes % 5.1 L, Monocytes % 0.6 L, Eosinophils % 0.1, Basophils % 0.1, Absolute Granulocytes 11.3 H, Absolute Lymphocytes 0.6 L, Absolute Monocytes 0.1, Absolute Eosinophils 0, Absolute Basophils 0 12/06/17 0250: Troponin I 0.03 12/05/17 1913: Anion Gap 15, Estimated GFR > 60, BUN/Creatinine Ratio 15.6, Glucose 132 H, Lactic Acid 1.4, Calcium 9.9, Phosphorus 3.4, Magnesium 1.7, Troponin I 0.02, TSH &T3 &Free T4 Intrp 0.426, CBC w Diff NO MAN DIFF REQ, RBC 4.57, MCV 88.1, MCH 28.7, MCHC 32.5 L, RDW 17.0 H, MPV 7.2 L, Gran % 84.9 H, Lymphocytes % 11.2 L, Monocytes % 3.6, Eosinophils % 0, Basophils % 0.3, Absolute Granulocytes 11.3 H, Absolute Lymphocytes 1.5, Absolute Monocytes 0.5, Absolute Eosinophils 0, Absolute Basophils 0 Assessment/Plan Assessment/Plan Atrial fibrillation with rapid ventricular rate in patient with history of ablation. Patient's chief complaint is lumbar pain, which has increased lately. Better rate control at rest, however still elevated (140-150) with little effort I think optimizing her pain management will be extremely helpful for her heart rate control. Continue telemetry? Yes
[2017-12-07 14:33] VITALS: BP 130/82
[2017-12-07 21:45] VITALS: BP 134/84
[2017-12-08 07:00] VITALS: BP 142/90
--- NOTE | 2017-12-08 07:34 | PN- Housestaff ---
Jules Alanis 12/08/17 0734: Subjective Follow-up For: Atrial fibrilation/tachycardia and obliterating bronchiolitis, and back spasms secondary to vertebral compression fractures Subjective: Patient seen seated at bedside. Reports that pain has improved since yesterday, but requests further medication to help control pain. Upon further discussion about changing her current pain medication regimen, patient reports that her current regimen has the pain well-controlled. Referral to pain management was discussed, as well as further imaging of her spine to determine the etiology of the pain, as this would provide the greatest chance for treatment. Patient denies chest pain, shortness of breath, palpitations. Review of Systems Constitutional: Denies: chills, diaphoresis, fever, malaise, weakness. Cardiovascular: Denies: chest pain, edema, palpitations, peripheral edema. Respiratory: Denies: cough, hemoptysis, orthopnea, short of breath, sputum production, wheezing. Gastrointestinal: Denies: abdominal pain, constipation, diarrhea, nausea, vomiting. Musculoskeletal: Reports: back pain. Objective Last 24 Hrs of Vital Signs/I&O Vital Signs Date Time Temp Pulse Resp B/P B/P Pulse O2 O2 Flow FiO2 Mean Ox Delivery Rate 12/08 1440 98.3 101 20 140/82 96 Nasal Cannula 12/08 0834 128 140/82 07/ 0700 98.4 102 20 142/90 95 Nasal Cannula / 0000 94 Nasal 2.0L Cannula 12/07 2145 98.2 127 20 134/84 95 Nasal Cannula Intake & Output 12/08 1600 07/05 0800 07/05 0000 Intake Total 1050 240 450 Output Total Balance 1050 240 450 Intake, IV 100 100 Intake, Oral 950 240 350 Number 1 1 1 Bowel Movements Physical Exam General Appearance: Alert, Oriented X3, Cooperative, No Acute Distress Cardiovascular: Rapid rate with irregular rhythm noted Lungs: Clear to Auscultation Abdomen: Soft, No Tenderness Extremities: No Clubbing, No Cyanosis, No Edema Current Medications: Current Medications Sig/Bassem Start time Last Medication Dose Route Stop Time Status Admin Albuterol Sulfate 2 PUF Q4 HRS NEEDED PRN 12/06 2145 AC INH Apixaban 5 MG BID 12/06 0030 AC 12/08 PO 0834 Clonazepam 1 MG QPM 12/06 2100 AC 12/07 PO 12/12 2314 2127 Cyclobenzaprine HCl 10 MG 0700,1200,1700 / 1200 AC 12/08 PO 1245 Digoxin 0.125 MG 1700 /04 1700 AC 12/07 PO 1618 Diltiazem HCl 125 MG Q24H 12/08 1900 AC Sodium Chloride 100 ML IV Diltiazem HCl 125 MG Q24H / 0745 CAN Sodium Chloride 100 ML IV Diltiazem HCl 125 MG Q16H 12/07 2300 AC 12/07 Sodium Chloride 100 ML IV 12/08 1859 2156 Diltiazem HCl 125 MG Q10H 12/07 1415 DC 12/07 Sodium Chloride 100 ML IV 12/07 2259 1500 Diltiazem HCl 360 MG DAILY 12/07 1015 12/08 PO 0836 Fluticasone 2 PUF BID 12/05 231 AC 12/08 Propionate INH 0842 Gabapentin 600 MG QPM 12/05 2315 AC 12/07 PO 2120 Hydrocortisone 5 MG DAILY 12/08 09 CAN PO Hydrocortisone 7.5 MG Q8H 12/08 0730 AC 12/08 PO 1245 Hydromorphone HCl 0.4 MG Q8P PRN 12/07 1015 AC 12/08 IV 1553 Hydromorphone HCl 2 MG 0700,1200,1700 12/06 1200 AC 12/08 PO 1245 Lidocaine 1 PAT DAILY 12/06 0900 AC 12/06 TOP 1230 Losartan Potassium 100 MG DAILY 12/06 0900 AC 12/08 PO 0834 Magnesium Oxide 400 MG BID 12/05 2315 12/08 PO 1245 Methylprednisolone 40 MG Q12 12/06 0115 DC 12/07 IV 2119 Omeprazole 40 MG DAILY AC 12/06 0730 AC 12/08 PO 0600 Polyethylene Glycol 17 GM DAILY 12/06 2100 AC PO Pramipexole 1 MG QPM 12/05 2330 AC 12/07 Dihydrochloride PO 2120 Prednisone 40 MG DAILY 12/08 0900 CAN PO Tramadol HCl 50 MG Q8P PRN 12/05 2330 AC 12/08 PO 1435 Zolpidem Tartrate 5 MG QPM PRN 12/05 2330 AC PO Last 24 Hrs of Lab/Mitchel Results Last 24 Hrs of Labs/Mics: Laboratory Tests 12/08/17 0640: Anion Gap 12, Estimated GFR 55 L, BUN/Creatinine Ratio 27.0 H, Digoxin 1.4 Assessment/Plan Assessment: Patient is a 67-year-old female with a past medical history of atrial fibrillation, hypertension, obliterating bronchiolitis, vertebral compression fractures, and Crohn's disease status post bowel resection in 2013. Patient has been tachycardic in atrial fibrillation after being referred from her primary care physician's office. 59 year-old female with sustained tachycardia in atrial fibrillation, in the setting of severe pain from vertebral compression fractures as well as bronchiolitis obliterans. 1. Atrial fibrillation assist in controlling rate 2. Vertebral compression fractures clarify which physicians she would like to avoid. Will offer orthopedic referral for reevaluation pending results of MRI, and if it is to the patient's liking. daily as needed patient counseled about the possibility of opiate dependence and realistic expectations for pain management outside of the hospital 3. Bronchiolitis obliterans atelectasis, likely chronic Problem List: 1. Crohns disease 2. Compression fracture 3. Bronchiolitis obliterans 4. Atrial fibrillation with rapid ventricular response Pain Ratin Pain Location: back Pain Goal: Pain 4 or less Pain Plan: dilaudid 2mg pg TID, 0.4mg dilaudid injection q8h prn Tomorrow's Labs & Rationales: digoxin level, BEP Donavan PARSON,Rayna 12/08/17 1124: Attending MD Review Statement Attending Statement Attending MD Statement: examined this patient, discuss w/resident/PA/RAFTER CUTTING MACHINE OPERATOR, agreed w/resident/PA/RAFTER CUTTING MACHINE OPERATOR, discussed with family, reviewed EMR data (avail), discussed with nursing, discussed with case mgmt, reviewed images, amended to note Attending Assessment/Plan: Patient seen and examined. She was sitting up in bed and did not appear to be acute distress. She however reports ongoing low back pain. I did have a detailed discussion with the patient and that lasted about 25 minutes. According to the patient she has had low back pain for several years. She implied that she has had a lumbar fracture in the past that had healed on its own. She reports seeing the [facility] service in the past and states that she was not impressed with her care and no longer wants to follow with them. In July she was in the emergency room with complaints of urinary retention. CT abdomen and pelvis was done. Incidentally noted was lumbar compression fractures. MRI of the spine was done that showed acute compression fractures of the L2 and L3 vertebral bodies resulting in 30% and 20% vertebral body height loss at each of these 2 levels. No canal stenosis. There is a central to the left foraminal protrusion at L4-L5 that causes compression of the foraminal segment of left L4 nerve root. No canal stenosis. She is not very clear regarding one transpired after this. She reports she was prescribed tramadol for pain control by her PCP however she has been taking tramadol for several years. She had another MRI in September that revealed Existing subacute compression fractures of the L2 and L3 vertebral bodies are redemonstrated. There are new compression fractures of the L1 and L5 vertebral bodies as well as a worsening compression fracture of L3. There is subtle buckling of the the upper posterior corners of multiple vertebral bodies within the lumbar spine causing subtle indentation of the thecal sac but no evidence of overt canal compromise. An asymmetrically bulging disc at L4-L5 causes moderate compression of the left L4 foraminal nerve root and a bulging disc at L3-L4 causes no more than mild mass effect on the left L3 foraminal nerve root. She reports being referred to the [facility] spine clinic but states that she was never seen by a physician there. She states she no longer wants to go back to the clinic. She reports that at home the pain has been relatively well controlled with use of tramadol and warm compresses. She has been able to return back to her routine activities. Over the past few weeks her pain has worsened in intensity. Here in the hospital she is currently requiring the use of intravenous opioids to control her pain. She admits that her pain is currently worse than baseline stating that the pain used to be more tolerable in the past. Denies any urinary or bowel incontinence. Admits to spasms radiating down her legs. Denies any weakness of her extremities. She has been in rapid A. fib likely aggravated by her pain. She required Cardizem infusion but is currently being transitioned to oral Cardizem. Digoxin was added to her regimen. Cardiology service is recommending optimizing pain control to help optimize rate control. From a respiratory standpoint she reports that she is at baseline. Denies cough or shortness of breath currently. Saturation 94-95% on 2 L of oxygen. On examination she has adequate entry bilaterally with no added sounds. Problems: 1. Acute on chronic low back pain 2. Lumbar compression fractures and disc bulge. 3. Atrial fibrillation with rapid ventricular response. 4. History of bronchiolitis obliterans 5. No clinical evidence of pneumonia on repeat imaging. Plan: -Recommend consultation with pain management service for further optimization of pain control. -Due to worsening of her pain recommend repeat imaging of the spine to determine progression of her fractures. The last MRI she had done showed worsening of the previous fracture. -Consultation with the spine surgery service. -Continue rate control regimen as recommended by the cardiology service. -No radiologic evidence of pneumonia. No need for antibiotic therapy.
--- NOTE | 2017-12-08 12:21 | PN- Cardiology ---
Subjective Subjective: The patient is up and about. Remains in atrial fibrillation with episodes of elevated heart rate. Only current complaint is episodic back discomfort. The remains concerned about pain control Objective Vital Signs and I&Os Vital Signs Date Time Temp Pulse Resp B/P B/P Pulse O2 O2 Flow FiO2 Mean Ox Delivery Rate 12/08 0834 128 140/82 12/08 07 98.4 102 20 142/90 95 Nasal Cannula 12/08 0000 94 Nasal 2.0L Cannula 12/07 2145 98.2 127 20 134/84 95 Nasal Cannula 12/07 1618 99 122/80 12/07 1600 Nasal 2.0L Cannula 12/07 1433 97.5 95 20 130/82 94 Intake & Output 12/08 0812/08 0000 12/07 1600 12/07 0812/07 0000 Intake Total 240 450 677.5 220 360 Output Total Balance 240 450 677.5 220 360 Intake, IV 100 137.5 220 260 Intake, Oral 240 350 540 100 Number 1 1 1 Bowel Movements Patient 206 lb Weight Weight Bed scale Measurement Method Physical Exam: General Appearance: well developed/nourished, alert, awake, oriented Head: normal HEENT: Normal Neck: supple, JVP normal, carotid upstrokes normal bilaterally, no masses or thyromegaly Respiratory: chest non-tender, clear to auscultation and percussion bilaterally Cardiovascular: Irregular, tachycardic S1, S2, 1-2/6 systolic murmur Abdomen: normal bowel sounds, soft, non-tender Extremities: normal inspection, no edema Vascular: Pulses are 2+ and equal bilaterally Neurologic: Grossly normal/nonfocal Current Medications: Current Medications Sig/Bassem Start time Last Medication Dose Route Stop Time Status Admin Albuterol Sulfate 2 PUF Q4 HRS NEEDED PRN 12/06 2145 AC INH Apixaban 5 MG BID 12/06 0030 AC 12/08 PO 0834 Clonazepam 1 MG QPM 12/06 2100 AC 12/07 PO 12/12 2314 2127 Cyclobenzaprine HCl 10 MG 0700,1200,1700 / 1200 AC 12/08 PO 0600 Digoxin 0.125 MG 1700 12/07 1700 AC 12/07 PO 1618 Diltiazem HCl 125 MG Q24H 12/08 1900 AC Sodium Chloride 100 ML IV Diltiazem HCl 125 MG Q24H 12/08 0745 CAN Sodium Chloride 100 ML IV Diltiazem HCl 125 MG Q16H 12/07 2300 AC 12/07 Sodium Chloride 100 ML IV 12/08 1859 2156 Diltiazem HCl 125 MG Q10H 12/07 1415 DC 12/07 Sodium Chloride 100 ML IV 12/07 2259 1500 Diltiazem HCl 360 MG DAILY 12/07 1015 AC 12/08 PO 0836 Fluticasone 2 PUF BID 12/05 231 AC 12/08 Propionate INH 0842 Gabapentin 600 MG QPM 12/05 2315 AC 12/07 PO 2120 Hydrocortisone 5 MG DAILY 12/08 0900 CAN PO Hydrocortisone 7.5 MG Q8H 12/08 0730 AC PO Hydromorphone HCl 0.4 MG Q8P PRN 12/07 1015 AC 12/08 IV 0830 Hydromorphone HCl 2 MG 0700,1200,1700 12/06 1200 AC 12/08 PO 0600 Lidocaine 1 PAT DAILY 12/06 0900 AC 12/06 TOP 1230 Losartan Potassium 100 MG DAILY 12/06 0900 AC 12/08 PO 0834 Magnesium Oxide 400 MG BID 12/05 2315 AC 12/07 PO 2120 Methylprednisolone 40 MG Q12 12/06 0115 DC 12/07 IV 2119 Omeprazole 40 MG DAILY AC 12/06 0730 AC 12/08 PO 0600 Polyethylene Glycol 17 GM DAILY 12/06 2100 AC PO Pramipexole 1 MG QPM 12/05 2330 AC 12/07 Dihydrochloride PO 2120 Prednisone 40 MG DAILY 12/08 0900 CAN PO Tramadol HCl 50 MG Q8P PRN 12/05 2330 AC 12/07 PO 2133 Zolpidem Tartrate 5 MG QPM PRN 12/05 2330 AC PO Results Last 48 Hrs of Labs/Mics: Laboratory Tests 12/08/17 0640: Anion Gap 12, Estimated GFR 55 L, BUN/Creatinine Ratio 27.0 H, Digoxin 1.4 12/07/17 0618: Anion Gap 11, Estimated GFR > 60, BUN/Creatinine Ratio 28.8 H, CBC w Diff NO MAN DIFF REQ, RBC 3.94 L, MCV 89.7, MCH 28.7, MCHC 32.0 L, RDW 17.0 H, MPV 7.7, Gran % 92.3 H, Lymphocytes % 4.6 L, Monocytes % 2.9, Eosinophils % 0.1, Basophils % 0.1, Absolute Granulocytes 9.7 H, Absolute Lymphocytes 0.5 L, Absolute Monocytes 0.3, Absolute Eosinophils 0, Absolute Basophils 0, Digoxin 1.9 Assessment/Plan Assessment/Plan Assessment: 1. Atrial fibrillation with rapid ventricular rate; status post atrial fibrillation ablation 2. Back pain with evidence of compression fractures on MRI and difficulty with pain control 3. History of Crohn's disease 4. History of pulmonary disease with bronchiolitis, on chronic steroids 5. Mild anemia 6. Vitamin D deficiency Recommendations: -Keep the patient on telemetry monitoring -Pain control issues discussed -Cardizem CD 360 mg daily started today. Taper IV Cardizem as tolerated by heart rate -Continue oral anticoagulation -Further decisions about patient management after we observe her heart rate over the next 24 hours. -If necessary, an extra 0.125 mg of digoxin can be given for rate control -For now, in the absence of any overt issues such as heart failure, I would prefer to hold off on JAVIER/cardioversion and perform it as an outpatient when the patient's status is better optimized. -I will discuss the case further with Dr. DIANA as well Continue telemetry? Yes
[2017-12-08 14:40] VITALS: BP 140/82
--- NOTE | 2017-12-08 18:01 | MRI REPORT ---
EXAMINATION: MR LUMBAR SPINE WITHOUT CONTRAST CLINICAL INFORMATION: Lumbar compression fractures. Back pain. COMPARISON: MRI dated 09/29/2017. TECHNIQUE: MRI of the lumbar spine without contrast was obtained using routine sequences. FINDINGS: VERTEBRAL BODIES AND PARASPINAL STRUCTURES: There is fluid signal across the superior endplate of T12 with a very mild loss of vertebral body height, new compared to prior imaging. There are multiple chronic endplate compression fractures throughout the lumbar spine and imaged thoracic spine which were visible on previous imaging as well. No acute compression deformities are seen. Degree of bony retropulsion is unchanged at various levels. There are no new subluxations. Lumbar epidural lipomatosis contributes to multilevel thecal sac deformity, also evident on the prior study. The paraspinal soft tissues are unremarkable. The imaged bony pelvis appears normal. There is a small cyst at the lower pole of the right kidney. CONUS MEDULLARIS AND CAUDA EQUINA: Normal, terminating at the level of L1. No lower cord signal abnormality is seen. The cauda equina nerve roots appear normal. SPINAL LEVELS: L1-L2: No disc pathology. Mild retropulsion of the endplate of L2 with mild ventral thecal sac deformity. No central canal stenosis or foraminal narrowing. L2-L3: Mild disc bulge and epidural lipomatosis present. Findings result in moderate thecal sac deformity without central canal stenosis. Mild facet arthropathy. Bulging disc slightly encroaches upon the neural foramina. L3-L4: Broad-based left foraminal disc protrusion again seen with mild mass effect upon the left L3 nerve root. Mild epidural lipomatosis without central canal stenosis. L4-L5: Broad-based left paracentral to foraminal disc protrusion continues to compress the exiting left L4 nerve root in the neural foramen. Mild ventral thecal sac deformity and facet arthropathy without central canal stenosis. L5-S1: Minimal annular bulge. No central canal stenosis. Stable mild left foraminal narrowing with facet arthropathy. IMPRESSION: Well demarcated fluid signal across the superior endplate of T12 with a very mild loss of vertebral body height suggesting a subacute infarct. No bony retropulsion. Additional multiple chronic endplate compression deformities in the lower thoracic and lumbar spine. Stable lumbar spondylosis with a left foraminal disc protrusion at L3-L4 resulting in mild mass effect upon the left L3 nerve root. Broad-based left paracentral to left foraminal disc protrusion at L4-L5 compressing the left L4 nerve root without change. Epidural lipomatosis.
[2017-12-08 18:33] VITALS: BP 138/80
[2017-12-08 22:23] VITALS: BP 128/90
[2017-12-09 07:10] VITALS: BP 130/84
--- NOTE | 2017-12-09 08:30 | PN- Housestaff ---
Jules Alanis 12/09/17 0830: Subjective Follow-up For: Atrial fibrilation/tachycardia and obliterating bronchiolitis, and back spasms secondary to vertebral compression fractures Subjective: Patient seen sitting comfortably at the bedside. Denies palpitations, denies cough, denies dyspnea. Patient states that the current regimen is controlling her pain/back spasms well. Patient reports that starting yesterday afternoon she began having loose bowel movements, which contained blood, about 50/50 blood to stool. She reports having these more than 10 times in the last 24 hours, and attributes this to a flare-up in her Crohn's disease. Review of Systems Constitutional: Denies: chills, diaphoresis, fever, malaise. Cardiovascular: Denies: chest pain, edema, orthopena, palpitations. Respiratory: Denies: cough, hemoptysis, short of breath, sputum production. Gastrointestinal: Reports: diarrhea, bloody stool. Denies: abdominal pain, constipation, nausea, vomiting. Objective Last 24 Hrs of Vital Signs/I&O Vital Signs Date Time Temp Pulse Resp B/P B/P Pulse O2 O2 Flow FiO2 Mean Ox Delivery Rate 12/09 1700 128 142/88 07/ 1502 97.4 130 18 132/94 96 Room Air / 1250 113 142/76 / 0848 124 132/84 /06 0800 Room Air / 0710 97.6 120 18 130/84 94 Room Air 07/06 0000 Room Air 07/05 2223 97.8 127 18 128/90 96 Nasal Cannula Intake & Output / 1600 07/06 0800 07/06 0000 Intake Total 360 120 120 Output Total Balance 360 120 120 Intake, Oral 360 120 120 Number 1 Bowel Movements Patient 94.12 kg 93.894 kg Weight Weight Bed scale Measurement Method Physical Exam General Appearance: Alert, Oriented X3, Cooperative, No Acute Distress Neck: Supple, No JVD, No thryomegaly, +2 Carotid Pulse wo Bruit Cardiovascular: Normal S1, Normal S2, No Murmurs, Patient's rate improving, still irregular Lungs: Clear to Auscultation Abdomen: Soft, No Tenderness, No Masses Neurological: Normal Gait, Normal Speech Extremities: Bilateral lower extremity edema Assessment/Plan Assessment: Patient is a 67-year-old female with a past medical history of atrial fibrillation, hypertension, obliterating bronchiolitis, vertebral compression fractures, and Crohn's disease status post bowel resection in 2014. Patient has been tachycardic in atrial fibrillation after being referred from her primary care physician's office. 59 year-old female with sustained tachycardia in atrial fibrillation, in the setting of severe pain from vertebral compression fractures as well as bronchiolitis obliterans. 1. Atrial fibrillation assist in controlling rate 2. Vertebral compression fractures daily as needed patient counseled about the possibility of opiate dependence and realistic expectations for pain management outside of the hospital 3. Bronchiolitis obliterans atelectasis, likely chronic 4. Crohn's disease Problem List: 1. History of compression fracture of vertebral column 2. Disc displacement, lumbar 3. Crohns disease 4. Bronchiolitis obliterans 5. Atrial fibrillation Pain Ratin Pain Location: back Pain Goal: Pain 4 or less Pain Plan: dilaudid 2mg po tid Tomorrow's Labs & Rationales: roberto Go MD,Rayna 12/09/17 1156: Attending MD Review Statement Attending Statement Attending MD Statement: examined this patient, discuss w/resident/PA/STUDENT UNION CONSULTANT, agreed w/resident/PA/STUDENT UNION CONSULTANT, discussed with family, reviewed EMR data (avail), discussed with nursing, discussed with case mgmt, amended to note Attending Assessment/Plan: Patient seen and examined. The pain management service was contacted and is unable to see her in the hospital. She reports that her pain is generally controlled with oral Dilaudid however she was aggravated when being moved for an MRI and then when returning back. She would like to go home on the current dose of oral Dilaudid. MRI of lumbar spine report as noted. Spine surgery service has been consulted and she will be seen later on today. I did suggest physical therapy evaluation to help with mobilization however patient declined sitting that she believes it was a waste of her time. She states that her is able to help her mobilize as needed. She does not appear to be in acute distress at present. She however remains in atrial fibrillation with rapid ventricular response. This was discussed with her waste machine offbearer. We will continue patient on Cardizem and digoxin. She will receive an extra dose of digoxin today. She is scheduled to follow up with her puff iron operator as an outpatient for cardioversion. We will anticipate discharge tomorrow if her heart rate regular rate controlled and she has no further exacerbation of her pain.
--- NOTE | 2017-12-09 13:16 | PN- Cardiology ---
Subjective Subjective: No significant change in cardiac status. Continues to remain in atrial fibrillation with intermittently elevated rate. Objective Vital Signs and I&Os Vital Signs Date Time Temp Pulse Resp B/P B/P Pulse O2 O2 Flow FiO2 Mean Ox Delivery Rate 12/09 1250 113 142/76 / 0848 124 132/84 / 0800 Room Air / 0710 97.6 120 18 130/84 94 Room Air 07/06 0000 Room Air / 2223 97.8 127 18 128/90 96 Nasal Cannula 12/08 1833 129 18 138/80 94 Room Air 07/ 1656 130 160/98 07/ 1440 98.3 101 20 140/82 96 Nasal Cannula Intake & Output 12/09 1600 12/09 0800 / 0000 12/08 1600 12/08 0800 12/08 0000 Intake Total 664 558 7435 240 450 Output Total Balance 415 522 9544 240 450 Intake, IV 100 100 Intake, Oral 120 120 950 240 350 Number 1 1 1 1 Bowel Movements Patient 207 lb Weight Weight Bed scale Measurement Method Current Medications: Current Medications Sig/Bassem Start time Last Medication Dose Route Stop Time Status Admin Albuterol Sulfate 2 PUF Q4 HRS NEEDED PRN 12/06 2145 AC INH Apixaban 5 MG BID 12/06 0030 AC 12/09 PO 0848 Clonazepam 1 MG QPM 12/06 2100 AC 12/08 PO 12/12 2314 2228 Cyclobenzaprine HCl 10 MG 0700,1200,1700 / 1200 AC 12/09 PO 1250 Digoxin 0.125 MG ONCE ONE 12/09 1145 DC 12/09 PO 12/09 1146 1250 Digoxin 0.125 MG 1700 / 1700 AC 12/08 PO 1656 Diltiazem HCl 125 MG Q24H 12/08 1900 CAN Sodium Chloride 100 ML IV Diltiazem HCl 125 MG Q16H 12/07 2300 DC 12/07 Sodium Chloride 100 ML IV 12/08 1859 2156 Diltiazem HCl 360 MG DAILY 12/07 1015 AC 12/09 PO 0848 Fluticasone 2 PUF BID 12/05 2312 AC 12/09 Propionate INH 0849 Gabapentin 600 MG QPM / 2315 AC 12/08 PO 2227 Hydrocortisone 7.5 MG Q8H 12/08 0730 AC 12/09 PO 0941 Hydromorphone HCl 0.4 MG Q8P PRN 12/07 1015 AC 12/09 IV 0856 Hydromorphone HCl 2 MG 0700,1200,1700 12/06 1200 AC 12/09 PO 1250 Lactobacillus 1 CAP ONCE ONE 12/08 2300 DC Acidophilus PO 12/08 2301 Lidocaine 1 PAT DAILY 12/06 0900 AC 12/06 TOP 1230 Losartan Potassium 100 MG DAILY 12/06 0900 AC 12/09 PO 0848 Magnesium Oxide 400 MG BID 12/05 2315 AC 12/09 PO 0848 Omeprazole 40 MG DAILY AC 12/06 0730 AC 12/09 PO 0547 Polyethylene Glycol 17 GM DAILY 12/06 2100 AC PO Pramipexole 1 MG QPM 12/05 2330 AC 12/08 Dihydrochloride PO 2229 Saccharomyces 250 MG BID 12/09 1145 AC 12/09 Boulardii PO 1249 Tramadol HCl 50 MG Q8P PRN 12/05 2330 AC 12/08 PO 2225 Zolpidem Tartrate 5 MG QPM PRN 12/05 2330 AC PO Results Last 48 Hrs of Labs/Mics: Laboratory Tests 12/09/17 0637: Anion Gap 10, Estimated GFR 55 L, BUN/Creatinine Ratio 32.0 H, Digoxin 1.2 12/08/17 0640: Anion Gap 12, Estimated GFR 55 L, BUN/Creatinine Ratio 27.0 H, Digoxin 1.4 Assessment/Plan Assessment/Plan Assessment: 1. Atrial fibrillation with rapid ventricular rate; status post atrial fibrillation ablation 2. Back pain with evidence of compression fractures on MRI and difficulty with pain control 3. History of Crohn's disease 4. History of pulmonary disease with bronchiolitis, on chronic steroids 5. Mild anemia 6. Vitamin D deficiency Recommendations: -Keep the patient on telemetry monitoring -Pain control issues discussed -Cardizem CD 360 mg daily started today. Taper IV Cardizem as tolerated by heart rate -Continue oral anticoagulation -Further decisions about patient management after we observe her heart rate over the next 24 hours. -If necessary, an extra 0.125 mg of digoxin can be given for rate control -For now, in the absence of any overt issues such as heart failure, I would prefer to hold off on JAVIER/cardioversion and perform it as an outpatient when the patient's Continue telemetry? Yes
[2017-12-09 15:02] VITALS: BP 132/94
[2017-12-09] MEDS ORDERED: DILTIAZEM 24HR180 M1 PO (16:09)
[2017-12-09] MEDS ORDERED: LANOXIN125 MCG PO (16:09)
[2017-12-09] MEDS ORDERED: CYCLOBENZAPRINE10 M1 PO (16:39)
[2017-12-10 06:59] VITALS: BP 152/90
--- NOTE | 2017-12-10 08:01 | PN- Housestaff ---
Jules Alanis 12/10/17 0801: Subjective Follow-up For: A-fib/tachycardia and obliterating bronchiolitis, and back spasms secondary to vertebral compression fractures Subjective: Patient seen seated in the bed. Overnight patient complains that she was in pain throughout the night, but was unable to get appropriate medication for relief of the pain. Currently patient states the pain is under control, rates it as a 4 out of 10. Patient denying any chest pain, shortness of breath, palpitations. Complaining of cough, with difficulty producing phlegm due to back pain. Patient reports that diarrhea is still occurring, but no longer any blood in the bowel movements. Review of Systems Constitutional: Denies: chills, diaphoresis, fever, malaise. Cardiovascular: Reports: peripheral edema. Denies: chest pain, orthopena, palpitations. Respiratory: Reports: cough. Denies: hemoptysis, short of breath, wheezing. Gastrointestinal: Reports: diarrhea. Denies: nausea, bloody stool, vomiting. Objective Last 24 Hrs of Vital Signs/I&O Vital Signs Date Time Temp Pulse Resp B/P B/P Pulse O2 O2 Flow FiO2 Mean Ox Delivery Rate 12/10 0659 97.9 123 18 152/90 98 12/09 1700 128 142/88 12/09 1502 97.4 130 18 132/94 96 Room Air 12/09 1250 113 142/76 12/09 0848 124 132/84 Intake & Output 12/10 1600 12/10 0800 12/10 0000 Intake Total 300 240 Output Total Balance 300 240 Intake, Oral 300 240 Physical Exam General Appearance: Alert, Oriented X3, Cooperative, No Acute Distress Cardiovascular: Normal S1, Normal S2, No Murmurs, Rhythm is irregular Lungs: Clear to Auscultation Abdomen: Soft, No Tenderness Current Medications: Current Medications Sig/Bassem Start time Last Medication Dose Route Stop Time Status Admin Albuterol Sulfate 2 PUF Q4 HRS NEEDED PRN 12/06 2145 AC INH Apixaban 5 MG BID 12/06 0030 AC 12/09 PO 2129 Clonazepam 1 MG QPM 12/06 2100 AC 12/09 PO 12/12 2314 2129 Cyclobenzaprine HCl 10 MG 0700,1200,1700 12/06 1200 AC 12/10 PO 0531 Digoxin 0.125 MG ONCE ONE 12/09 1145 DC 12/09 PO 12/09 1146 1250 Digoxin 0.125 MG 1700 12/07 1700 AC 12/09 PO 1700 Diltiazem HCl 360 MG DAILY 12/07 1015 AC 12/09 PO 0848 Fluticasone 2 PUF BID 12/05 2312 AC 12/09 Propionate INH 2139 Gabapentin 600 MG QPM 12/05 2315 AC 12/09 PO 2129 Hydrocortisone 7.5 MG Q8H 12/08 0730 AC 12/09 PO 1515 Hydromorphone HCl 0.4 MG Q8P PRN 12/07 1015 DC 12/09 IV 0856 Hydromorphone HCl 2 MG 0700,1200,1700 12/06 1200 AC 12/10 PO 0531 Lidocaine 1 PAT DAILY 12/06 0900 AC 12/06 TOP 1230 Losartan Potassium 100 MG DAILY 12/06 0900 AC 12/09 PO 0848 Magnesium Oxide 400 MG BID 12/05 2315 AC 12/09 PO 2129 Omeprazole 40 MG DAILY AC 12/06 0730 AC 12/10 PO 0531 Polyethylene Glycol 17 GM DAILY 12/06 2100 AC PO Pramipexole 1 MG QPM 12/05 2330 AC 12/09 Dihydrochloride PO 2129 Saccharomyces 250 MG BID 12/09 1145 AC 12/09 Boulardii PO 2129 Tramadol HCl 50 MG Q8P PRN 12/05 2330 AC 12/10 PO 0601 Zolpidem Tartrate 5 MG QPM PRN 12/05 2330 AC PO Last 24 Hrs of Lab/Mitchel Results Last 24 Hrs of Labs/Mics: Laboratory Tests 12/10/17 0625: CBC w Diff Pending, WBC Pending, RBC Pending, Hgb Pending, Hct Pending, MCV Pending, MCH Pending, MCHC Pending, RDW Pending, Plt Count Pending, MPV Pending, Digoxin Pending Microbiology 12/09 1144 STOOL: Clostridium difficile Toxin A & B - COLB Assessment/Plan Assessment: Patient is a 67-year-old female with a past medical history of atrial fibrillation, hypertension, obliterating bronchiolitis, vertebral compression fractures, and Crohn's disease status post bowel resection in 2013. Patient has been tachycardic in atrial fibrillation after being referred from her primary care physician's office. 59 year-old female with sustained tachycardia in atrial fibrillation, in the setting of severe pain from vertebral compression fractures as well as bronchiolitis obliterans. 1. Atrial fibrillation morning assist in controlling rate 2. Vertebral compression fractures cyclobenzaprine as needed patient counseled about the possibility of opiate dependence and realistic expectations for pain management outside of the hospital 3. Bronchiolitis obliterans atelectasis, likely chronic 4. Crohn's disease Problem List: 1. History of compression fracture of vertebral column 2. Disc displacement, lumbar 3. Bronchiolitis obliterans 4. Rapid atrial fibrillation 5. Crohns disease Pain Ratin Pain Location: BACK Pain Goal: Pain 4 or less Pain Plan: DILAUDID 2MG PO Q4PRN Tomorrow's Labs & Rationales: CBC Donvaan PARSON,Rayna 12/10/17 0921: Attending MD Review Statement Attending Statement Attending MD Statement: examined this patient, discuss w/resident/PA/RADIO TALK SHOW HOST, agreed w/resident/PA/RADIO TALK SHOW HOST, discussed with family, reviewed EMR data (avail), discussed with nursing, amended to note Attending Assessment/Plan: Patient seen and examined. She reports that she had a very horrible night. She states that she had back pain all through the night. Previously stated she was content with the Dilaudid ordered 3 times during the daytime. She remains in atrial fibrillation with occasional rapid ventricular response. She is on the rate control regimen as prescribed by her dry chain worker. Recommendations are for outpatient cardioversion. She was seen by Damian Rascon MD yesterday. She reports that his recommendations are to follow up in the outpatient setting. She stated that he approved to generic [id number] brace she uses at home. She will be following up with him in the outpatient. Recommendations: -Optimize pain control. Increase Dilaudid to 2 mg p.o. every 4 hours as needed pain. -Continue lidocaine patch daily. -Continue Flexeril 10 mg 3 times a day. -Continue tramadol 50 mg orally every 8 hours as needed pain. -Continue current regimen of Cardizem and digoxin for rate control. Case was discussed with cardiology service recommends a current heart rate is acceptable with plans for outpatient cardioversion. Continue anticoagulant therapy. -Physical therapy consultation. She did decline this during the week. -We are awaiting the formal recommendations from the spine surgery service she was seen by Damian Rascon MD yesterday. Recommendations pending.
[2017-12-10 08:27] LABS: ABSOLUTE BASOPHIL COUNT 0 /CUMM (0.0-0.2); ABSOLUTE EOSINOPHIL COUNT 0 /CUMM (0.0-0.7); ABSOLUTE GRANULOCYTE CT 8.4 /CUMM (1.4-6.5); ABSOLUTE LYMPH COUNT 1.7 /CUMM (1.2-3.4); BASOPHIL % 0.3 % (0.0-2.0); EOSINOPHIL % 0.4 % (0-5); GRANULOCYTE % 75.4 % (42.2-75.2); HEMATOCRIT 39.4 % (37-47); MEAN CORPUSCULAR HGB 28.5 PG (27.0-31.0); MEAN CORPUSCULAR HGB CONC 31.8 G/DL (33.0-37.0); MEAN CORPUSCULAR VOLUME 89.5 FL (81.0-99.0); MEAN PLATELET VOLUME 7.5 FL (7.4-10.4); PLATELET COUNT 460 /CUMM (130-400); RBC DISTRIBUTION WIDTH 16.5 % (11.5-14.5); RED BLOOD CELL CT 4.41 /CUMM (4.20-5.40); WHITE BLOOD CELL COUNT 11.2 /CUMM (4.8-10.8)
[2017-12-10 15:17] VITALS: BP 142/86
--- NOTE | 2017-12-10 16:34 | PN- Cardiology ---
Subjective Subjective: * No complaints of chest discomfort, shortness of breath, lightheadedness or palpitations. * atrial fibrillation with increased heart rate Objective Vital Signs and I&Os Vital Signs Date Time Temp Pulse Resp B/P B/P Pulse O2 O2 Flow FiO2 Mean Ox Delivery Rate 12/10 1517 97.6 130 18 142/86 95 12/10 0843 123 152/90 12/10 0659 97.9 123 18 152/90 98 12/09 1700 128 142/88 Intake & Output 12/10 1600 12/10 0800 12/10 0000 12/09 1600 12/09 0800 12/09 0000 Intake Total 460 300 240 360 120 120 Output Total Balance 460 300 240 360 120 120 Intake, IV 10 Intake, Oral 450 300 240 360 120 120 Number 1 Bowel Movements Patient 207 lb 207 lb Weight Weight Bed scale Measurement Method Physical Exam: General: WD/ overweight female in NAD; alert and oriented x 3 Neck: no JVD Heart: irregularly irregular and tachycardic Lungs: clear bilaterally Extremities: no edema Assessment/Plan Assessment/Plan * Atrial fibrillation with increased heart rate. Now on anticoagulation with Eliquis for stroke prophylaxis. A DC cardioversion is planned for the future after three weeks of adequate anticoagulation, or possibly sooner, if a JAIVER confirms absence of thrombus. * DC Pramipexole which is associated with tachycardia. * Begin Metoprolol 25mg BID to help control tachycardia. Continue digoxin and Cardizem. Continue telemetry? Yes
[2017-12-11 06:45] VITALS: BP 150/80
[2017-12-11 06:46] VITALS: BP 140/88
[2017-12-11 08:07] LABS: ABSOLUTE BASOPHIL COUNT 0 /CUMM (0.0-0.2); ABSOLUTE EOSINOPHIL COUNT 0.1 /CUMM (0.0-0.7); ABSOLUTE GRANULOCYTE CT 8.4 /CUMM (1.4-6.5); ABSOLUTE LYMPH COUNT 2.1 /CUMM (1.2-3.4); ABSOLUTE MONOCYTE COUNT 0.7 /CUMM (0.10-0.60); BASOPHIL % 0.3 % (0.0-2.0); EOSINOPHIL % 0.8 % (0-5); HEMATOCRIT 38.3 % (37-47); MEAN CORPUSCULAR HGB 28.5 PG (27.0-31.0); MEAN CORPUSCULAR VOLUME 89.1 FL (81.0-99.0); MEAN PLATELET VOLUME 7.3 FL (7.4-10.4); PLATELET COUNT 453 /CUMM (130-400); RBC DISTRIBUTION WIDTH 16.6 % (11.5-14.5); WHITE BLOOD CELL COUNT 11.3 /CUMM (4.8-10.8)
--- NOTE | 2017-12-11 08:29 | PN- Housestaff ---
Yuni Kaye 12/11/17 0829: Subjective Follow-up For: jasper dimas Complaints: no complaints Tele-Events Since Last Visit: A flutter. Heart rate 103-126, no events Subjective: Patient slept good last night. She complains of in episode of loose stool this morning. She requested for codeine. Review of Systems Constitutional: Reports: see HPI. Objective Last 24 Hrs of Vital Signs/I&O Vital Signs Date Time Temp Pulse Resp B/P B/P Pulse O2 O2 Flow FiO2 Mean Ox Delivery Rate 12/11 0758 123 140/88 12/11 0646 98.6 58 22 140/88 97 12/11 0645 97.6 110 18 150/80 95 12/10 1856 130 142/86 12/10 1855 130 142/86 12/10 1517 97.6 130 18 142/86 95 Intake & Output 12/11 1600 12/11 0800 12/11 0000 Intake Total 320 Output Total Balance 320 Intake, Oral 320 Physical Exam General Appearance: Alert, Oriented X3, Cooperative, No Acute Distress Skin: No Rashes, No Breakdown, No Significant Lesion Skin Temp/Moisture Exam: Cool/Dry HEENT: Atraumatic Cardiovascular: Regular Rate, Normal S1, Normal S2 Lungs: Clear to Auscultation, Normal Air Movement Abdomen: Normal Bowel Sounds, Soft, No Tenderness Neurological: Normal Speech, Strength at 5/5 X4 Ext Extremities: No Clubbing, No Cyanosis, No Edema Assessment/Plan Assessment: Patient is a 67-year-old female with a past medical history of atrial fibrillation, hypertension, obliterating bronchiolitis, vertebral compression fractures, and Crohn's disease status post bowel resection in 2013. Patient has been tachycardic in atrial fibrillation after being referred from her primary care physician's office. Also has severe pain from vertebral compression fractures as well as bronchiolitis obliterans. Vitals: 98.5 temp, Pulse 110, RR 20, BP 114/68, 91% on RA. Labs: WBC 11.3, Hg 12.3, HCT 38.3, Plt 453 Digoxin 1.1 Patient reports pain is v much btter today. She reported loose stool this morning. Reports no further episodes. I was told that her brought her codeine pills from home. Problems: 1. Atrial fibrillation with rapid ventricular response 2. Acute on chronic pain syndrome 3. Lumbar vertebral fractures 4. Crohn's disease. Plan: -f/u with Dr. Gomez -Continue Metoprolol 25mg BID, digoxin and Cardizem to help control tachycardia -Continue anticoagulation with Eliquis for stroke prophylaxis -A DC cardioversion is planned for the future after three weeks of adequate anticoagulation, or possibly sooner, if a JAVIER confirms absence of thrombus -Do not restart Pramipexole which is associated with tachycardia. -back pain: dilauded and tramadol. She will f/u with spine surgery as an outpt Problem List: 1. Rapid atrial fibrillation 2. Crohn's ileocolitis 3. Compression fracture Pain Ratin Pain Location: lbp Pain Goal: Remain pain free Pain Plan: pain free Tomorrow's Labs & Rationales: digoxin levels Donavan PARSON,Rayna 12/11/17 0953: Attending MD Review Statement Attending Statement Attending MD Statement: examined this patient, discuss w/resident/PA/OCCUPATIONAL THERAPY CO DIRECTOR, agreed w/resident/PA/OCCUPATIONAL THERAPY CO DIRECTOR, reviewed EMR data (avail), discussed with nursing, amended to note Attending Assessment/Plan: Patient seen and examined. Lying in bed. She is in better spirits today. She states that her pain is better controlled following the increase of her regimen yesterday. She is eager to be discharged home today. She reports having loose bowel movements overnight. She reports that his topical commonly at home. She reports taking codeine as prescribed by Dr. Danny Espinoza for similar episodes at home. Denies nausea vomiting. Denies abdominal pain. She is afebrile. She is hemodynamically stable. General appearance: Not in acute distress. HEENT: Anicteric, no pallor, pupils equal and reactive. Neck: Supple with no jugular venous distention. Heart: S1-S2 irregular. Lungs: Adequate and symmetric air entry bilaterally with no added sounds. Abdomen: Nondistended with normal bowel sounds. Soft, nontender with no palpable masses. Extremities: No pedal edema. No cyanosis. Skin: Intact Problems: 1. Atrial fibrillation with rapid ventricular response 2. Acute on chronic pain syndrome 3. Lumbar vertebral fractures 4. Crohn's disease. Plan: -Patient reports that her pain is better controlled today. She is much happy with his pain regimen. She wants to be discharged on this current regimen. Her CT WELLNESS MANAGER was reviewed. She has received Dilaudid in the past. In addition she has received Percocet. She gets tramadol more regularly from her primary care provider. -She was observed ambulating freely without the use of assistive device with a physical therapy service today. She was jovial and eager to go home. -She remains in atrial fibrillation with heart rate in the 110s-120s particularly with activity. Metoprolol was added yesterday to her regimen of Cardizem and diltiazem. Follow-up with the cardiology service regarding any need to further optimize her heart rate prior to discharge. She is scheduled to follow-up with Silverio Gomez MD as an outpatient for cardioversion. Continue anticoagulation therapy in the interim. -She is complaining of loose stools. She reported to the bathroom to 4 times a day with loose stools each time. Nursing staff documented only 1 bowel movement yesterday and 2 today prior. Patient reports taking codeine as prescribed by Dr. Danny Espinoza as an outpatient for similar episodes. She wants to take her codeine at home. -She will follow-up with the spine surgery service as an outpatient. She was seen during this hospitalization by Damian Rascon MD. Continue to await formal recommendations. However since patient reports improvement of her pain with medication therapy, she will follow-up in his office. -If cleared by the cardiology service she may be discharged home.
[2017-12-11] MEDS ORDERED: HYDROMORPHONE HC2 M1 PO (11:17)
[2017-12-11] MEDS ORDERED: DILTIAZEM 24HR360 M1 PO (11:25)
--- NOTE | 2017-12-11 13:11 | PN- Cardiology ---
Subjective Subjective: * No complaints. * patient continue to demonstrate atrial flutter with increased heart rate although it is slower then yesterday. Objective Vital Signs and I&Os Vital Signs Date Time Temp Pulse Resp B/P B/P Pulse O2 O2 Flow FiO2 Mean Ox Delivery Rate 12/11 1219 120 110/64 12/11 0758 123 140/88 12/11 0646 98.6 58 22 140/88 97 08 0645 97.6 110 18 150/80 95 12/10 1856 130 142/86 12/10 1855 130 142/86 12/10 1517 97.6 130 18 142/86 95 Intake & Output 12/11 1600 12/11 0800 12/11 0000 12/10 1600 12/10 0800 12/10 0000 Intake Total 320 460 300 240 Output Total Balance 320 460 300 240 Intake, IV 10 Intake, Oral 320 450 300 240 Physical Exam: General: WD/ overweight female in NAD; alert and oriented x 3 Neck: no JVD Heart: irregularly irregular Lungs: clear bilaterally Extremities: no edema Assessment/Plan Assessment/Plan * Atrial fibrillation with intermittent tachycardia. Patient is likely still building a blood level of her Metoprolol which was started yesterday. In consideration of her normal BP today I will not increase the dose of Metoprolol at this time. Continue to monitor on telemetry. Continue anticoagulation with Eliquis for stroke prophylaxis. A DC cardioversion is planned for the future after three weeks of adequate anticoagulation, or possibly sooner, if a JAVIER confirms absence of thrombus. Dr. Gomez will decide on the necessity of this procedure and its timing upon his return tomorrow. * Do not restart Pramipexole which is associated with tachycardia. * Continue Metoprolol 25mg BID to help control tachycardia. Continue digoxin and Cardizem. Continue telemetry? Yes
[2017-12-11 15:17] VITALS: BP 114/68
[2017-12-11 22:59] VITALS: BP 126/62
[2017-12-12 06:47] VITALS: BP 136/82
--- NOTE | 2017-12-12 07:05 | PN- Housestaff ---
Jules Alanis 12/12/17 0705: Subjective Follow-up For: Atrial fibrillation/tachycardia and obliterating bronchiolitis, and back spasms secondary to vertebral compression fractures Tele-Events Since Last Visit: Atrial fibrillation overnight, rate from 86-102 Subjective: Patient seen asleep on the bed with her right arm dangling over the bedside. Overnight no acute events, patient reports that her pain is well controlled with 2 mg Dilaudid every 4 hours. Patient is requesting more codeine because her diarrhea is continuing. Patient reports 3 loose bowel movements overnight, along with blood in the toilet bowl that she says is perianal irritation. Denies palpitations, denies chest pain, denies shortness of breath, denies dizziness. Review of Systems Constitutional: Denies: chills, fever. Cardiovascular: Denies: chest pain, orthopena, palpitations, peripheral edema. Respiratory: Denies: cough, short of breath, wheezing. Gastrointestinal: Reports: diarrhea, bloody stool. Denies: abdominal pain, constipation, nausea, vomiting. Objective Last 24 Hrs of Vital Signs/I&O Vital Signs Date Time Temp Pulse Resp B/P B/P Pulse O2 O2 Flow FiO2 Mean Ox Delivery Rate 12/12 0647 98.3 124 20 136/82 93 Room Air 12/11 2259 97.5 125 20 126/62 93 Room Air 12/11 2126 112 114/68 08 1709 112 114/68 /08 1517 97.5 110 20 114/68 91 Room Air 12/11 1219 120 110/64 /08 0758 123 140/88 Intake & Output 12/12 0800 12/12 0000 12/11 1600 Intake Total 200 470 Output Total Balance 200 470 Intake, IV 20 Intake, Oral 200 450 Number 1 Bowel Movements Patient 90.718 kg Weight Physical Exam General Appearance: Alert, Oriented X3, Cooperative, No Acute Distress Neck: Supple, No JVD Cardiovascular: Normal S1, Normal S2, No Murmurs, TACHYCARDIC Lungs: Clear to Auscultation Abdomen: Soft, No Tenderness Neurological: Normal Gait, Normal Speech Extremities: No Clubbing, No Cyanosis, No Edema Current Medications: Current Medications Sig/Bassem Start time Last Medication Dose Route Stop Time Status Admin Albuterol Sulfate 2 PUF Q4 HRS NEEDED PRN 12/06 2145 AC INH Apixaban 5 MG BID 12/06 0030 AC 12/11 PO 2126 Clonazepam 1 MG QPM 12/06 2100 AC 12/11 PO 12/12 2314 2126 Codeine 15 MG Q8 PRN 12/11 1615 AC 12/12 PO 0220 Cyclobenzaprine HCl 10 MG 0700,1200,1700 12/06 1200 AC 12/12 PO 0610 Digoxin 0.125 MG 1700 04 1700 AC 12/11 PO 1709 Diltiazem HCl 360 MG DAILY 12/07 1015 AC 12/11 PO 0758 Fluticasone 2 PUF BID 12/05 2312 AC 12/11 Propionate INH 2131 Gabapentin 600 MG QPM 12/05 2315 AC 12/11 PO 2126 Hydrocortisone 7.5 MG Q8H 12/08 0730 DC 12/11 PO 0000 Hydromorphone HCl 2 MG Q4P PRN 12/10 1045 AC 12/12 PO 0520 Lactobacillus 1 CAP ONCE ONE 12/12 0245 DC 12/12 Acidophilus PO 12/12 0246 0404 Lidocaine 1 PAT DAILY 12/06 09 AC 12/10 TOP 0843 Losartan Potassium 100 MG DAILY 12/06 0900 AC 12/11 PO 0758 Magnesium Oxide 400 MG BID 12/05 2315 AC 12/11 PO 2126 Metoprolol Tartrate 25 MG BID 12/11 1045 AC 12/11 PO 2126 Omeprazole 40 MG DAILY AC 12/06 0730 AC 12/12 PO 0610 Polyethylene Glycol 17 GM DAILY 12/06 2100 AC 12/10 PO 0842 Saccharomyces 250 MG BID 12/09 1145 AC 12/11 Boulardii PO 2127 Tramadol HCl 50 MG Q8P PRN 12/05 2330 AC 12/11 PO 1128 Zolpidem Tartrate 5 MG QPM PRN 12/05 2330 AC PO Last 24 Hrs of Lab/Mitchel Results Last 24 Hrs of Labs/Mics: Laboratory Tests 12/11/17 0715: CBC w Diff NO MAN DIFF REQ, RBC 4.30, MCV 89.1, MCH 28.5, MCHC 32.0 L, RDW 16.6 H, MPV 7.3 L, Gran % 74.0, Lymphocytes % 18.8 L, Monocytes % 6.1, Eosinophils % 0.8, Basophils % 0.3, Absolute Granulocytes 8.4 H, Absolute Lymphocytes 2.1, Absolute Monocytes 0.7 H, Absolute Eosinophils 0.1, Absolute Basophils 0, Digoxin 1.1 Assessment/Plan Assessment: Patient is a 67-year-old female with a past medical history of atrial fibrillation, hypertension, obliterating bronchiolitis, vertebral compression fractures, and Crohn's disease status post bowel resection in 2013. Patient has been tachycardic in atrial fibrillation after being referred from her primary care physician's office. 59 year-old female with sustained tachycardia in atrial fibrillation, in the setting of severe pain from vertebral compression fractures as well as bronchiolitis obliterans. 1. Atrial fibrillation assist in controlling rate 2. Vertebral compression fractures cyclobenzaprine patient counseled about the possibility of opiate dependence and realistic expectations for pain management outside of the hospital 3. Bronchiolitis obliterans atelectasis, likely chronic 4. Crohn's disease bowel movements increase to 30 mg p.o. Problem List: 1. History of compression fracture of vertebral column 2. Crohns disease 3. Bronchiolitis obliterans 4. Atrial fibrillation with rapid ventricular response Pain Ratin Pain Location: back Pain Goal: Pain 4 or less Pain Plan: dilaudid 2mg po q4h Tomorrow's Labs & Rationales: None patient for discharge Rayna Go MD 12/12/17 1354: Attending MD Review Statement Attending Statement Attending MD Statement: examined this patient, discuss w/resident/PA/MOTORCYCLE ASSEMBLER, agreed w/resident/PA/M[employer]ORCYCLE ASSEMBLER, reviewed EMR data (avail), discussed with nursing, discussed with case mgmt, amended to note Attending Assessment/Plan: Patient seen and examined. Resting comfortably not in any acute distress. No issues overnight. This morning on telemetry monitoring she had a short run of wide-complex tachycardia. She was asymptomatic. She reports that her pain has improved on the current regimen. She is going to go home on this regimen. She will follow-up with a pain management service as an outpatient. She remains in atrial flutter/fibrillation heart rate is better controlled in the 110s. She was evaluated by the cardiology service today. Recommendations are for patient to continue on the current rate control regimen and follow-up in the outpatient setting for cardioversion. Recommendations from the orthopedic service appreciated. Recommendations are for the patient to continue using her brace at home. Patient has been evaluated by the endocrinology service for management of osteoporosis. She will follow-up in the outpatient setting.
[2017-12-12 08:45] VITALS: BP 136/82
--- NOTE | 2017-12-12 10:34 | PN- Cardiology ---
Subjective Subjective: Feeling well. No chest pain. No palpitations. No diaphoresis. Noted to have a brief run of wide-complex tachycardia on telemetry. Objective Vital Signs and I&Os Vital Signs Date Time Temp Pulse Resp B/P B/P Pulse O2 O2 Flow FiO2 Mean Ox Delivery Rate 12/12 0845 118 136/82 / 0845 118 136/82 / 0800 93 Room Air 12/12 0647 98.3 124 20 136/82 93 Room Air 12/11 2259 97.5 125 20 126/62 93 Room Air 12/11 2126 112 114/68 12/11 1709 112 114/68 12/11 1517 97.5 110 20 114/68 91 Room Air 12/11 1219 120 110/64 Intake & Output 12/12 1600 12/12 0812/12 0000 12/11 1600 12/11 08/ 0000 Intake Total 200 470 320 Output Total Balance 200 470 320 Intake, IV 20 Intake, Oral 200 450 320 Number 1 Bowel Movements Patient 200 lb Weight Physical Exam: Gen: The patient is in no acute distress HEENT: Normal nose, ears, and oropharynx. Pupils equal bilaterally. Conjunctiva normal. Neck: Supple with no JVD, no masses, and no thyromegaly Lungs: Scattered wheezes with normal respiratory effort Heart: Irregularly irregular, S1, S2, 1 out of 6 systolic murmur. No peripheral edema, 2+ pulses in the lower extremities bilaterally Abdomen: Soft, nontender, no masses. No hepatomegaly. No splenomegaly Extremities: No clubbing or cyanosis. Normal muscle strength in the upper and lower extremities Skin: Normal skin turgor with no skin ulcers or lesions noted. Neuro: Cranial nerves intact. Sensation intact Current Medications: Current Medications Sig/Bassem Start time Last Medication Dose Route Stop Time Status Admin Albuterol Sulfate 2 PUF Q4 HRS NEEDED PRN 12/06 2145 AC INH Apixaban 5 MG BID 12/06 0030 AC 12/12 PO 0845 Clonazepam 1 MG QPM 12/06 2100 AC 12/11 PO 12/12 2314 2126 Codeine 30 MG Q8P PRN 12/12 0829 AC 12/12 PO 0852 Codeine 15 MG Q8 PRN 12/11 1615 DC 12/12 PO 0220 Cyclobenzaprine HCl 10 MG 0700,1200,1700 12/06 1200 AC 12/12 PO 0610 Digoxin 0.125 MG 1700 12/07 1700 AC 12/11 PO 1709 Diltiazem HCl 360 MG DAILY 12/07 1015 AC 12/11 PO 0758 Fluticasone 2 PUF BID 12/05 2312 AC 12/12 Propionate INH 0935 Gabapentin 600 MG QPM 12/05 2315 AC 12/11 PO 2126 Hydromorphone HCl 2 MG Q4P PRN 12/10 1045 AC 12/12 PO 0934 Lactobacillus 1 CAP ONCE ONE 12/12 0245 DC 12/12 Acidophilus PO 12/12 0246 0404 Lidocaine 1 PAT DAILY 12/06 0900 AC 12/10 TOP 0843 Losartan Potassium 100 MG DAILY 12/06 0900 AC 12/12 PO 0845 Magnesium Oxide 400 MG BID 12/05 2315 AC 12/12 PO 0845 Metoprolol Tartrate 25 MG BID 12/11 1045 AC 12/12 PO 0845 Omeprazole 40 MG DAILY AC 12/06 0730 AC 12/12 PO 0610 Polyethylene Glycol 17 GM DAILY 12/06 2100 AC 12/10 PO 0842 Saccharomyces 250 MG BID 12/09 1145 AC 12/12 Boulardii PO 0845 Tramadol HCl 50 MG Q8P PRN 12/05 2330 AC 12/11 PO 1128 Zolpidem Tartrate 5 MG QPM PRN 12/05 2330 AC PO Results Last 48 Hrs of Labs/Mics: Laboratory Tests 12/12/17914: Sodium Pending, Potassium Pending, Chloride Pending, Carbon Dioxide Pending, Anion Gap Pending, BUN Pending, Creatinine Pending, BUN/Creatinine Ratio Pending , Magnesium Pending 12/12/17 0700: Digoxin 1.2 12/11/17714: CBC w Diff NO MAN DIFF REQ, RBC 4.30, MCV 89.1, MCH 28.5, MCHC 32.0 L, RDW 16.6 H, MPV 7.3 L, Gran % 74.0, Lymphocytes % 18.8 L, Monocytes % 6.1, Eosinophils % 0.8, Basophils % 0.3, Absolute Granulocytes 8.4 H, Absolute Lymphocytes 2.1, Absolute Monocytes 0.7 H, Absolute Eosinophils 0.1, Absolute Basophils 0, Digoxin 1.1 Assessment/Plan Assessment/Plan Assessment: 1. Atrial flutter and atrial fibrillation, rate mostly controlled 2. Back pain with evidence of compression fractures on MRI and difficulty with pain control 3. History of Crohn's disease 4. History of pulmonary disease with bronchiolitis, on chronic steroids 5. Mild anemia 6. Vitamin D deficiency Plan: * Continue diltiazem, digoxin, and metoprolol for rate control * Continue Eliquis * Cleared for discharge from cardiac standpoint * Follow up with you Dr. Gomez in 1 week * Cardioversion to be arranged as an outpatient Continue telemetry? No
[2017-12-12] MEDS ORDERED: METOPROLOL TART25 M1 PO ×2 (12:12→13:54)
--- NOTE | 2017-12-12 13:35 | PN- Orthopedic ---
Surgical Brief Attending Note Brief Attending Note: Damian Rascon MD completed this consultation on 12/09/2017 at approximately 2 PM. A consultation note was completely dictated in tremendous detail and upon attempting to finalize was lost because of an as yet undefined but persistent and very recurrent technical issues involving this computer and EMR system without any rooming house operator error that I am aware of. In an attempt to facilitate the patient's care I will redictate the basics of this consultation but will not redo the full and more detailed consultation note unless and until the system is completely and definitively fixed or improved as time will not appropriately allow this kind of doubled work without sacrificing other patient care. A comprehensive evaluation was performed and this repeat dictation represents all critical aspects of that comprehensive consultation necessary to provide care. History: Several days of back pain possibly related to coughing due to baseline chronic pulmonary condition. Patient also has atrial fibrillation for which she was actually admitted. She has a history of multiple previous compression fractures. Most of this history was obtained from the patient. Some is available in the hospital records. She states that outside records have been prepared by her primary care physician as well as by the [facility] during a single consultation visit but are not available for my review today. Refer to these records for additional details Workup reveals T12 upper endplate fracture. Radiology read the MRI as indicating infarct. I would need to review this with them to determine a potential underlying vascular etiology however the appearance to my reading is consistent with upper endplate fracture collapse and high intensity acute/ subacute hematoma. There is no gross deformity. There is no retropulsion. Exam: Normal. Patient is neurovascular intact. She is kyphotic in the thoracic region there is no gross deformity in the thoracolumbar region. There is no pain to palpation. She is able to ambulate without discomfort. She has some difficulty getting out of bed but can do so without significant pain as well as her helps her. Radiology: The images and report were reviewed from the MRI and compared to previous studies. There has been acute change and new findings as noted above. Recommendations: Patient has a brace at home. This sounds to be an [id number] LSO with TLSO extensions but I'm not certain of this. It is recommended that she uses during the acute phase but is not a requirement. No further radiologic evaluation is necessary at this time. Upright x-rays and CT scan with reconstructions and bone density readings would be a consideration if she does not improve. Would recommend early evaluation and consideration for possible treatment of osteoporosis which is diagnosed on the basis of multiple compression fractures out of proportion to any underlying injury by World Health Organization criteria. Despite this definitive diagnosis, her need for treatment should be based on multifactorial evaluation and analysis and this would best be deferred to her primary care physician or other specialist consulted to evaluate and treat osteoporosis. Will sign off. We'll be available for reconsultation or to discuss the case during continued inpatient and/or outpatient care if necessary or otherwise beneficial.
[2017-12-12] MEDS ORDERED: DILTIAZEM 24HR360 M1 PO (13:54)
[2017-12-12] MEDS ORDERED: ELIQUIS5 M1 PO (13:54)
[2017-12-12] MEDS ORDERED: LANOXIN125 MCG PO (13:54)
[2017-12-12] MEDS ORDERED: CYCLOBENZAPRINE10 M1 PO (13:54)
[2017-12-12] MEDS ORDERED: HYDROMORPHONE HC2 M1 PO ×2 (13:54→14:00)
--- NOTE | 2017-12-12 14:36 | Cons- Endocrinology ---
General Information and HPI Consulting Request Date of Consult: 12/12/17 Requested By: medical team Reason for Consult: vetebral fractures Source of Information: patient, family, old records Exam Limitations: no limitations History of Present Illness: This 67-year-old woman entered the hospital because of a rapid pulse. She has a history of paroxysmal atrial fibrillation in the past and underwent an ablation. She apparently went to see Dr. gould in the office and her heart rate was very fast. The patient however has had several episodes over the past few months of severe low back pain. She has been found to have vertebral fractures. The patient relates that she has been on prednisone 7.5 mg daily for several years. In addition she uses a steroid inhaler which is Flovent twice a day. In the past she also underwent a hysterectomy and bilateral oophorectomy at age 39. She was however treated with estrogen for perhaps 10 years after that. She also has a history of Crohn's disease. Interestingly she has a sister who has been treated for parathyroid disease and recently underwent a parathyroidectomy. Family history reveals that her mother never had a hip fracture. However she had dowagers hump with severe kyphosis. The patient's bone mineral density study done on August 29, 2017. The spine could not be evaluated because of compression fractures at L1-L2 and L3. The T score of the radius was +0.4, the femoral neck was T score of -0.9, and the total hip T score was -0.8. Even though the patient does not have osteoporosis by T score criteria in areas other than her spine, she does have by definition osteoporosis because of multiple spontaneous compression fractures of the spine. These would be considered fragility fractures and her condition would be rated as severe osteoporosis. The patient had an MRI of the spine in July 2017 which showed acute compression fractures of L2 and L3 vertebral bodies. There are also noted chronic compression deformities of T11 and T12 vertebral bodies partially included in the [id number] on this examination. A repeat MRI done in September 2017 showed the existing subacute compression fractures of L2 and L3 vertebral bodies. New compression fractures of L1 and L5 were found as well as worsening compression fracture of L3. There is subtle buckling of the upper posterior coners of multiple vertebral bodies with the lumbar spine causing subtle indentation of the thecal sac but no evidence of overt canal compromise. The patient has not yet been treated for osteoporosis. Allergies/Medications Allergies: Coded Allergies: NSAIDS (Non-Steroidal Anti-Inflamma (PER PT HAS A SMALL AMOUNT OF INTESTINES FROM [facility] 08/25/15) morphine (N/V, CAN'T URINATE 08/25/15) tetracycline (UNKNOWN PER PT, HAS SHORTENED INTESTINES FROM [facility] 08/25/15) Uncoded Allergies: HORSE SERUM (Severe, ANAPHYLAXIS 01/27/16) ORAL ANTIBIOTIC (PT HAS SHORTENED INTESTINES FROM [facility] HARD TIME TOLERATING ) IS ONLY OKAY WITH BACTRIM PER PT Home Med List: Apixaban (Eliquis) 5 MG TABLET 1 TAB PO BID A FIB . Bumetanide 2 MG TABLET 1 TAB PO DAILY PRN CHF (Reported) Cholecalciferol (Vitamin D3) 1,000 UNIT TABLET 1 TAB PO DAILY VITAMIN SUPPORT (Reported) Clonazepam 0.5 MG TABLET 2 TAB PO QHS RLS (Reported) Codeine Sulfate 15 MG TABLET 1 TAB PO Q6P PRN pain .. Cyanocobalamin (Vitamin B-12) 1,000 MCG TABLET 1 TAB PO DAILY SUPPLEMENT ( Reported) Cyclobenzaprine HCl 10 MG TABLET 1 TAB PO Q8P pain (Reported) . Cyclobenzaprine HCl 10 MG TABLET 1 TAB PO 0700,1200,1700 BACK SPASM/PAIN .. Digoxin (Lanoxin) 125 MCG TABLET 1 TAB PO 1700 A FIB . diltiaZEM HCl (Diltiazem 24HR Cd) 360 MG CAP.ER.24H 1 TAB PO DAILY HEART . Fluticasone Propionate (Flovent Hfa) 110 MCG/ACTUATION AER.W.ADAP 2 PUF INH BID BRONCHIOLITIS OBLITERANS (Reported) Gabapentin 600 MG TABLET 1 TAB PO AT BEDTIME RLS Hydrocortisone 5 MG TABLET 1.5 TAB PO DAILY STEROID (Reported) Hydromorphone HCl 2 MG TABLET 1 TAB PO Q4 PAIN .. Levalbuterol Tartrate (Xopenex Hfa) 45 MCG/ACTUATION HFA.AER.AD 2 PUF INH Q6H PRN SHORTNESS OF BREATH (Reported) Loperamide HCl (Loperamide) 2 MG CAPSULE 2 CAP PO Q4H PRN DIARRHEA (Reported) Losartan Potassium 100 MG TABLET 1 TAB PO DAILY HEART (Reported) Magnesium Oxide (Magnesium) 500 MG CAPSULE 1 CAP PO BID SUPPLEMENT (Reported) Metoprolol Tartrate 25 MG TABLET 25 MG PO BID heart . Montelukast Sodium (Singulair) 10 MG TABLET 1 TAB PO DAILY RESP. (Reported) Oxycodone HCl/Acetaminophen (Percocet 5-325 MG Tablet) 5 MG-325 MG TABLET 1 TAB PO Q6P PRN pain Potassium Chloride 20 MEQ TAB.ER.PRT 1 TAB PO DAILY SUPPLEMENT (Reported) Tramadol HCl 50 MG TABLET 1 TAB PO BIDP PRN pain (Reported) Vitamin E 400 UNIT CAPSULE 1 CAP PO DAILY SUPPLEMENT (Reported) Zolpidem Tartrate 10 MG TABLET 0.5 TAB PO QPM PRN SLEEPLESSNESS (Reported) Past History Travel History Traveled to [place] past 21 day No Medical History Blood Transfusion Hx: No Neurological: RESTLESS LEGS EENT: NONE Cardiovascular: aflutter, hypertension, recent embolus to her hand Respiratory: asthma, BRONCHIOLITIS Gastrointestinal: Crohn's disease, COLON RESECTION Colonoscopy 09/17 with balloon dilation of an anastomotic stricture and 'digital' dilation of an anal stricture , but no acitve crohns disease was appreciated Hepatic: NONE Renal: NONE Musculoskeletal: NONE Psychiatric: NONE Endocrine: NONE Blood Disorders: NONE Cancer(s): NONE DERRICK FOLLOWER/Reproductive: NONE Surgical History Surgical History: colon resection (for Crohn's disease) Family History Relations & Conditions If Any: BROTHER FATHER (cardiomyopathy). Relation not specified for: FH: HTN (hypertension) Psychosocial History Where Do You Live? Home Who Do You Live With? spouse Services at Home: None Primary Language: Luxembourgish Smoking Status: Never Smoked ETOH Use: occasional use Illicit Drug Use: denies illicit drug use Functional Ability ADLs Independent: dressing, eating, toileting, bathing. Ambulation: independent IADLs Independent: shopping, housework, finances, food prep, telephone, transportation , medication admin. Exam & Diagnostic Data Last 24 Hrs of Vital Signs/I&O Vital Signs Date Time Temp Pulse Resp B/P B/P Pulse O2 O2 Flow FiO2 Mean Ox Delivery Rate 12/12 0845 118 136/82 12/12 0845 118 136/82 12/12 0800 93 Room Air 12/12 0647 98.3 124 20 136/82 93 Room Air 12/11 2259 97.5 125 20 126/62 93 Room Air 12/11 2126 112 114/68 12/11 1709 112 114/68 12/11 1517 97.5 110 20 114/68 91 Room Air Intake & Output 12/12 1600 12/12 0809 0000 Intake Total 200 Output Total Balance 200 Intake, Oral 200 Number 1 Bowel Movements Patient 200 lb Weight Physical Exam General Appearance: alert, awake, comfortable Head: normal appearance Eyes: Bilateral: normal appearance. Neck: normal inspection Respiratory: decreased breath sounds Cardiovascular: regular rate/rhythm, tachycardia, irregularly irregular Gastrointestinal: normal bowel sounds, soft Extremities: normal inspection Skin: normal color Labs/Mitchel Results: Laboratory Tests 12/12 12/12 12/11 0915 0700 0715 Chemistry Sodium (137 - 145 mmol/L) 138 Potassium (3.5 - 5.1 mmol/L) 4.3 Chloride (98 - 107 mmol/L) 99 Carbon Dioxide (22 - 30 mmol/L) 29 Anion Gap (5 - 16) 10 BUN (7 - 17 mg/dL) 18 H Creatinine (0.5 - 1.0 mg/dL) 1.0 Estimated GFR (>60 ml/min) 55 L BUN/Creatinine Ratio (7 - 25 %) 18.0 Magnesium (1.6 - 2.3 mg/dL) 1.9 Hematology CBC w Diff NO MAN DIFF REQ WBC (4.8 - 10.8 /CUMM) 11.3 H RBC (4.20 - 5.40 /CUMM) 4.30 Hgb (12.0 - 16.0 G/DL) 12.3 Hct (37 - 47 %) 38.3 MCV (81.0 - 99.0 FL) 89.1 MCH (27.0 - 31.0 PG) 28.5 MCHC (33.0 - 37.0 G/DL) 32.0 L RDW (11.5 - 14.5 %) 16.6 H Plt Count (130 - 400 /CUMM) 453 H MPV (7.4 - 10.4 FL) 7.3 L Gran % (42.2 - 75.2 %) 74.0 Lymphocytes % (20.5 - 51.1 %) 18.8 L Monocytes % (1.7 - 9.3 %) 6.1 Eosinophils % (0 - 5 %) 0.8 Basophils % (0.0 - 2.0 %) 0.3 Absolute Granulocytes (1.4 - 6.5 /CUMM) 8.4 H Absolute Lymphocytes (1.2 - 3.4 /CUMM) 2.1 Absolute Monocytes (0.10 - 0.60 /CUMM) 0.7 H Absolute Eosinophils (0.0 - 0.7 /CUMM) 0.1 Absolute Basophils (0.0 - 0.2 /CUMM) 0 Toxicology Digoxin (0.8 - 2.0 ng/mL) 1.2 1.1 Assessment/Plan Assessment/Plan This 67-year-old woman has had multiple compression fractures of her thoracolumbar spine. 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 Other risk factors include bilateral oophorectomy at age 39 although the patient did take estrogen after that she states for many years. In addition the patient has Crohn's disease has a history of low vitamin D although she is on vitamin D supplements at present. Although the bone density T score is in the normal range for both her total hip and femoral neck as well as her wrist, she would be classified as having severe osteoporosis because of multiple fragility fractures of her thoracic or lumbar spine. These fractures occurred spontaneously and without trauma and and thus are true fragility fractures. The patient needs to be evaluated further with labs including SPEP, IPEP, PTH, CBC, CMP, and 25 hydroxy vitamin D. Assuming that she is not found to have myeloma and that she does not already have an elevated parathyroid hormone, she will be a candidate to consider treatment with Forteo for a period 2 years. Consult Acknowledgment - Thank you for your consult request.
--- NOTE | 2017-12-13 16:29 | Discharge Summary ---
Visit Information Visit Dates Admission Date: 12/05/17 Discharge Date: 12/12/17 Hospital Course Course Attending Physician: Rayna Go MD Primary Care Physician: Ari Ramsey MD Hospital Course: Olivia Conrad is a 67 YO female with a PMH of Atrial Fibrillation and Crohn's disease. Patient presented to the ED with complaints of "cough" that began last week after a trip to [place]. Patient stated initially the cough was non- productive but became productive after using Mucinex. Patient related the sputum was yellowish but became dark. Patient denied fever, chest pain, shortness of breath, lightheadedness, dizziness, and vision changes. Patient stated her baseline heart rhythm has not changed much and that usually she experiences palpitations. Patient also stated due to her Crohn's disease she had an ileal resection several years ago and had some anal strictures develop. Patient admitted to swelling in the legs and peripheral neuropathy. Patient also stated she has chronic low back pain with associated spasms, one which she experiences during examination. Patient stated the pain radiates to her b/l flanks and is worst when sitting and standing up. Patient stated that while ambulating the pain is constant though at a lower pain scale. Patient stated otherwise she is relatively independent. Hospital course: The patient was found to be in atrial fibrillation, and was started on diltiazem drip, although several days of titrating up to the the maximum dose was not able to control the patient's heart rate. Cardiology recommended starting the patient on digoxin, which was done. The patient was transitioned to p.o. diltiazem, and will remain on this until discharge. Metoprolol was also added prior to discharge in an effort to provide the patient with rate control. Anticoagulation was achieved with Eliquis, and continued for the duration of the patient's hospital stay. Initially, pneumonia was suspected as an inciting event for the patient's atrial fibrillation. However, after the patient's pain was less acute after receiving IV Dilaudid every 8 hours as needed, and the patient had an upright chest x-ray, that did not demonstrate any consolidation or pneumonia. This along with the clinical picture was taken to rule out pneumonia. It was suspected that the patient's back pain was contributing to the patient's tachycardia. The patient's pain regimen was adjusted, eventually settling on 2 mg p.o. Dilaudid every 4 hours. This in addition to the digoxin, Cardizem and metoprolol sufficiently brought the patient's heart rate down reliably under 120 bpm. Cardiology recommended cardioversion as an outpatient. Regarding the patient's back pain and vertebral compression fractures, orthopedic surgery was consulted and recommended follow-up with physical therapy and aquatic therapy. A referral to pain management was also given to the patient, to follow-up as an outpatient. And an endocrinology consultation was also obtained, which agreed that the patient's vertebral fractures were evidence of osteoporosis. Patient was instructed to follow-up as an outpatient with endocrinology as well for this matter. Near the end of the hospital stay, the patient began experiencing diarrhea with blood in the stool. She was experiencing multiple bowel movements throughout the day and night. This was not abnormal in the setting of her Crohn's disease, and the patient was given codeine to help diminish her diarrhea. The patient was instructed to follow-up with her linux system admin as an outpatient. Allergies: Coded Allergies: NSAIDS (Non-Steroidal Anti-Inflamma (PER PT HAS A SMALL AMOUNT OF INTESTINES FROM [facility] 08/25/15) morphine (N/V, CAN'T URINATE 08/25/15) tetracycline (UNKNOWN PER PT, HAS SHORTENED INTESTINES FROM [facility] 08/25/15) Uncoded Allergies: HORSE SERUM (Severe, ANAPHYLAXIS 01/27/16) ORAL ANTIBIOTIC (PT HAS SHORTENED INTESTINES FROM [facility] HARD TIME TOLERATING ) IS ONLY OKAY WITH BACTRIM PER PT Pertinent Lab Results: Chest x-ray Patient is slightly rotated to the right with accentuated right heart border. There is underlying cardiomegaly with mild pulmonary vascular congestion suspected. Haziness in the left lung base could be secondary to congestion, atelectasis or underlying infiltrate. MRI spine VERTEBRAL BODIES AND PARASPINAL STRUCTURES: There is fluid signal across the superior endplate of T12 with a very mild loss of vertebral body height, new compared to prior imaging. There are multiple chronic endplate compression fractures throughout the lumbar spine and imaged thoracic spine which were visible on previous imaging as well. No acute compression deformities are seen. Degree of bony retropulsion is unchanged at various levels. There are no new subluxations. Lumbar epidural lipomatosis contributes to multilevel thecal sac deformity, also evident on the prior study. The paraspinal soft tissues are unremarkable. The imaged bony pelvis appears normal. There is a small cyst at the lower pole of the right kidney. CONUS MEDULLARIS AND CAUDA EQUINA: Normal, terminating at the level of L1. No lower cord signal abnormality is seen. The cauda equina nerve roots appear normal. SPINAL LEVELS: L1-L2: No disc pathology. Mild retropulsion of the endplate of L2 with mild ventral thecal sac deformity. No central canal stenosis or foraminal narrowing. L2-L3: Mild disc bulge and epidural lipomatosis present. Findings result in moderate thecal sac deformity without central canal stenosis. Mild facet arthropathy. Bulging disc slightly encroaches upon the neural foramina. L3-L4: Broad-based left foraminal disc protrusion again seen with mild mass effect upon the left L3 nerve root. Mild epidural lipomatosis without central canal stenosis. L4-L5: Broad-based left paracentral to foraminal disc protrusion continues to compress the exiting left L4 nerve root in the neural foramen. Mild ventral thecal sac deformity and facet arthropathy without central canal stenosis. L5-S1: Minimal annular bulge. No central canal stenosis. Stable mild left foraminal narrowing with facet arthropathy. IMPRESSION: Well demarcated fluid signal across the superior endplate of T12 with a very mild loss of vertebral body height suggesting a subacute infarct. No bony retropulsion. Additional multiple chronic endplate compression deformities in the lower thoracic and lumbar spine. Stable lumbar spondylosis with a left foraminal disc protrusion at L3-L4 resulting in mild mass effect upon the left L3 nerve root. Broad-based left paracentral to left foraminal disc protrusion at L4-L5 compressing the left L4 nerve root without change. Epidural lipomatosis. 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 Medications at Discharge Discharge Medications: Stop taking the following medications: Pramipexole Di-HCl (Mirapex) 0.5 MG TABLET ORAL TAKE AT BEDTIME Diltiazem HCl (Diltiazem HCl) 120 MG TABLET ORAL TWICE DAILY Qty = 120 Diltiazem HCl (Cardizem) 60 MG TABLET ORAL TWICE DAILY Continue taking these medications: Montelukast Sodium (Singulair) 10 MG TABLET 1 Tablet ORAL DAILY Comments: Last Taken: NOT GIVEN IN HOSPITAL Time: Loperamide HCl (Loperamide) 2 MG CAPSULE 2 Capsule ORAL Q4H as needed for DIARRHEA Comments: Last Taken: NOT GIVEN IN HOSPITAL Time: Gabapentin (Gabapentin) 600 MG TABLET 1 Tablet ORAL AT BEDTIME Qty = 30 Comments: Last Taken: 12/11/17 Time: 9:30 PM Levalbuterol Tartrate (Xopenex Hfa) 45 MCG/ACTUATION HFA.AER.AD 2 Puff Inhale through mouth Q6H as needed for SHORTNESS OF BREATH Qty = 15 Comments: Last Taken: NOT GIVEN IN HOSPITAL Time: Zolpidem Tartrate (Zolpidem Tartrate) 10 MG TABLET 0.5 Tablet ORAL Every night as needed for SLEEPLESSNESS Qty = 90 Comments: Last Taken: NOT GIVEN IN HOSPITAL Time: Clonazepam (Clonazepam) 0.5 MG TABLET 2 Tablet ORAL TAKE AT BEDTIME Qty = 270 Comments: Last Taken: 12/11/17 Time: 9:30 PM Tramadol HCl (Tramadol HCl) 50 MG TABLET 1 Tablet ORAL 2 x Daily as needed as needed for pain Qty = 30 Comments: Last Taken: 12/11/17 Time: 11:30 AM Fluticasone Propionate (Flovent Hfa) 110 MCG/ACTUATION AER.W.ADAP 2 Puff Inhale through mouth TWICE DAILY Qty = 12 Comments: Last Taken: 12/12/17 Time: 9:00 AM Magnesium Oxide (Magnesium) 500 MG CAPSULE 1 Capsule ORAL TWICE DAILY Comments: Last Taken: 12/12/17 Time: 8:45 AM Vitamin E (Vitamin E) 400 UNIT CAPSULE 1 Capsule ORAL DAILY Comments: Last Taken: NOT GIVEN IN HOSPITAL Time: Cyanocobalamin (Vitamin B-12) 1,000 MCG TABLET 1 Tablet ORAL DAILY Comments: Last Taken: NOT GIVEN IN HOSPITAL Time: Cholecalciferol (Vitamin D3) 1,000 UNIT TABLET 1 Tablet ORAL DAILY Comments: Last Taken: NOT GIVEN IN HOSPITAL Time: Potassium Chloride (Potassium Chloride) 20 MEQ TAB.ER.PRT 1 Tablet ORAL DAILY Qty = 90 Comments: Last Taken: NOT GIVEN IN HOSPITAL Time: Codeine Sulfate (Codeine Sulfate) 15 MG TABLET 1 Tablet ORAL EVERY SIX HOURS NEEDED as needed for pain Qty = 60 Instructions: .. Comments: Last Taken: 12/12/17 Time: 8:50 AM Hydrocortisone (Hydrocortisone) 5 MG TABLET 1.5 Tablet ORAL DAILY Comments: Last Taken: NOT GIVEN IN HOSPITAL Time: Losartan Potassium (Losartan Potassium) 100 MG TABLET 1 Tablet ORAL DAILY Qty = 90 Comments: Last Taken: 12/12/17 Time: 8:45 AM Oxycodone HCl/Acetaminophen (Percocet 5-325 MG Tablet) 5 MG-325 MG TABLET 1 Tablet ORAL EVERY SIX HOURS NEEDED as needed for pain Qty = 10 Comments: Last Taken: NOT GIVEN IN HOSPITAL Time: Cyclobenzaprine HCl (Cyclobenzaprine HCl) 10 MG TABLET 1 Tablet ORAL EVERY 8 HOURS NEEDED Qty = 30 Instructions: . Comments: Last Taken: 12/12/17 Time: 1:00 PM Bumetanide (Bumetanide) 2 MG TABLET 1 Tablet ORAL DAILY as needed for CHF Qty = 30 Comments: Last Taken: NOT GIVEN IN HOSPITAL Time: Start taking the following new medications: Cyclobenzaprine HCl (Cyclobenzaprine HCl) 10 MG TABLET 1 Tablet ORAL 0700,1200,1700 Qty = 21 No Refills Instructions: .. Comments: Last Taken: 12/12/17 Time: 1:30 PM Apixaban (Eliquis) 5 MG TABLET 1 Tablet ORAL TWICE DAILY Qty = 30 No Refills Instructions: . Comments: Last Taken: 12/12/17 Time: 8:45 AM Digoxin (Lanoxin) 125 MCG TABLET 1 Tablet ORAL 5 PM Qty = 30 No Refills Instructions: . Comments: Last Taken: 12/11/17 Time: 5:10 PM Metoprolol Tartrate (Metoprolol Tartrate) 25 MG TABLET 25 Milligram ORAL TWICE DAILY Qty = 60 No Refills Instructions: . diltiaZEM HCl (Diltiazem 24HR Cd) 360 MG CAP.ER.24H 1 Tablet ORAL DAILY Qty = 30 No Refills Instructions: . Comments: Last Taken: 12/12/17 Time: 10:45 AM Hydromorphone HCl (Hydromorphone HCl) 2 MG TABLET 1 Tablet ORAL Every 4 hours Qty = 30 No Refills Instructions: .. Comments: Last Taken: 12/12/17 Time: 1:25 PM Copies To: Abiodun PARSON,Damian Graves; Roxy PARSON,Ari Lopez; Alda PARSON,Portillo Braun; Patricia PARSON,Trav Singh; Alexis PARSON,Danny Hendrickson; Inocente PARSON,Damian Lopez
== END 2017-12-12 14:49 | DRG 197 ==
LOC: ERH 17:45 → ERHI 22:21 → 1NO 22:21 → ENRESERV 22:54 → 1NO 23:58 → ENPENDDIS 12-12 13:30 → ENTRNSPT 12-12 14:34 → EDTRNSPTSTS 12-12 14:47 → CMPTRNSPT 12-12 14:48 → 1NO 12-12 14:49
PROVIDERS: Internal Medicine Endocrinology, Diabetes & Metabolism; Physician Assistant; Student in an Organized Health Care Education/Training Program
DX: J84.89 Other specified interstitial pulmonary diseases (principal); M48.50XA Collapsed vertebra, not elsewhere classified, site unspecified, initial encounter for fracture; K50.90 Crohn's disease, unspecified, without complications; I48.92 Unspecified atrial flutter; J98.11 Atelectasis; Z79.52 Long term (current) use of systemic steroids; M62.830 Muscle spasm of back; E55.9 Vitamin D deficiency, unspecified; R00.0 Tachycardia, unspecified; T38.0X5A Adverse effect of glucocorticoids and synthetic analogues, initial encounter; Z88.6 Allergy status to analgesic agent; Z88.1 Allergy status to other antibiotic agents; Z88.5 Allergy status to narcotic agent; Z90.49 Acquired absence of other specified parts of digestive tract; G25.81 Restless legs syndrome; I48.0 Paroxysmal atrial fibrillation; Z79.01 Long term (current) use of anticoagulants
CPT/HCPCS: 1NSP; 72148; ERO; 36415; 36592; 71045; 71046; 82436; 87040; 87070; 87449; 87450; 93005; 93010; 96374; 96375; 96376; 97116-GO; 97161-GP; 99291; J0456; J0696; J1160; J2920; J3490; J7040